=== PATIENT | female | born 1945 | race Caucasian/White ===

== ENCOUNTER 2017-08-28 18:43 | Inpatient (IN) | payer OTHER ==
[~2017-08-28] VITALS: Ht 167.6 cm; Wt 94.5 kg
[~2017-08-28 18:43] MED LIST: AMIT25TA9 PO; ASPEC81 PO; CARV12.52 PO; CRS20 PO; CYM60 PO; DIPH25CA5 PO; DULO60CA44 PO; FERR325T5 PO; FLUT0.0529 NAE; FLV1 PO; FRS/80 PO; HYDR-4715 PO; ISOS-11 PO; LEVO175T23 PO; LOPE1TAB25 PO; NRN/300 PO; NTRGSL/4 UT; OXYM0.056 NAE; RANI150T85 PO; TRAM-10 PO; TRAZ50TA35 PO; VTMD PO; b12 injection
[2017-08-28 19:35] LABS: BASO % 0.1 %; BASO ABS # 0.01 K/uL (0-0.2); EOS % 0.6 %; EOS ABS # 0.08 K/uL (0-0.5); HEMATOCRIT 31.9 % (37-47); HEMOGLOBIN 10.4 g/dL (12.0-16.0); IG# 0.04 K/uL (0.00-0.02); LYMPH % 15.4 %; MEAN CELL VOLUME 88.9 fL (80-100); MEAN CORPUSCULAR HGB CONC 32.6 g/dl (32-36); MEAN PLATELET VOLUME 10.2 fL (7.4-10.4); MONO % 11.2 %; MONO ABS # 1.53 K/uL (0.11-0.59); NEUT % 72.4 %; NEUT ABS # 9.91 K/uL (1.4-6.5); PLATELET COUNT 181 K/uL (130-400); RED CELL DISTRIBUTION WIDTH CV 12.9 % (11.5-14.5); RED CELL DISTRIBUTION WIDTH SD 41.9 fL (36.4-46.3); WHITE BLOOD COUNT 13.67 K/uL (4.8-10.8)
[2017-08-28 19:43] LABS: INR 1.1 (0.9-1.1); PTT PATIENT 30.6 SECONDS (21.0-31.0)
[2017-08-28 19:49] LABS: ALBUMIN 2.5 gm/dl (3.4-5.0); ALT/SGPT 14 U/L (12-78); AST/SGOT 26 U/L (15-37); BLOOD UREA NITROGEN 30 mg/dl (7-18); CALCIUM 9.4 mg/dl (8.5-10.1); CARBON DIOXIDE 25 mmol/L (21-32); GLUCOSE 87 mg/dl (70-99); POTASSIUM 3.5 mmol/L (3.5-5.1); SODIUM 134 mmol/L (136-145)
[2017-08-28 20:00] LABS: ALKALINE PHOSPHATASE 110 U/L (45-117)
--- NOTE | 2017-08-28 20:00 | DIAGNOSTIC IMAGING REPORT ---
CHEST ONE VIEW PORTABLE CLINICAL HISTORY: EVALUATE WEAKNESS dyspnea COMPARISON STUDY: 12/13/2014 FINDINGS: Mild stable cardiomegaly. Permanent bipolar cardiac pacemaker. Lungs are clear. Diaphragms smooth. IMPRESSION: No acute process. The above report was generated using voice recognition software. It may contain grammatical, syntax or spelling errors. Electronically signed by: Erick Orr M.D. 08/28/2017 7:59 PM Dictated Date/Time: 08/28/2017 7:58 PM
--- NOTE | 2017-08-28 20:01 | DIAGNOSTIC IMAGING REPORT ---
L KNEE 3 VIEWS CLINICAL HISTORY: l knee pain fall trauma. Pain. COMPARISON: None. DISCUSSION: The bones and joint spaces appear intact. There is no evidence of fracture, dislocation or bony disease. Mild prepatellar soft tissue edema IMPRESSION: Mild prepatellar soft tissue edema. No acute bony abnormality. The above report was generated using voice recognition software. It may contain grammatical, syntax or spelling errors. Electronically signed by: Erick Orr M.D. 08/28/2017 7:59 PM Dictated Date/Time: 08/28/2017 7:59 PM
[2017-08-28] MEDS ORDERED: VITAMIN B-12 INJ INJ (20:09)
[2017-08-28] MEDS ORDERED: ERGO500011 PO (20:09)
[2017-08-28] MEDS ORDERED: LEVO175T3 PO ×2 (20:09→21:20)
[2017-08-28] MEDS ORDERED: FLUT50SP NAE (20:09)
[2017-08-28] MEDS ORDERED: [UNRECOGNIZED DRUG - CODE] NAE (20:09)
[2017-08-28] MEDS ORDERED: CALC0.5C PO (20:09)
[2017-08-28] MEDS ORDERED: LOPE2TAB84 PO (20:09)
[2017-08-28] MEDS ORDERED: ASPI-435 PO (20:09)
--- NOTE | 2017-08-28 20:21 | DIAGNOSTIC IMAGING REPORT ---
HEAD WITHOUT CONTRAST (CT) CT DOSE: 614.27 mGy.cm HISTORY: Trauma. Mental status change. r knee pain fall TECHNIQUE: Multiaxial CT images of the head were performed without the use of intravenous contrast. A dose lowering technique was utilized adhering to the principles of ALARA. Comparison: 10/04/2013 Findings: Sclerosis of the mastoid air cells bilaterally. This is a chronic finding in this patient and is unchanged. Sinuses are otherwise grossly clear. The calvarium and skull base are intact. The ventricles and sulci are within normal limits. There is no mass, hematoma, midline shift, or acute infarct. Impression: No acute intracranial abnormality. 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 It may contain grammatical, syntax or spelling errors. Electronically signed by: Erick Orr M.D. 08/28/2017 8:20 PM Dictated Date/Time: 08/28/2017 8:18 PM
[2017-08-28] MEDS ORDERED: SODIUM CHLORIDE 0.9% 1000ML 1,000 ML IV STA (20:26)
[2017-08-28] MEDS ORDERED: TRAMADOL HCL 50 MG TAB PO PRN (21:15)
[2017-08-28] MEDS ORDERED: ALUMINUM/MAGNESIUM/SIMETH (MAALOX MAX) 30 ML UDC PO PRN (21:15)
[2017-08-28] MEDS ORDERED: FLUTICASONE PROPIONATE NA SPR 16 GM BTL NAE PRN (21:15)
[2017-08-28] MEDS ORDERED: POLYETHYLENE (MIRALAX) 17 GM PACK PO PRN (21:15)
[2017-08-28] MEDS ORDERED: ONDANSETRON INJ 2 MG/ML 2 ML VIAL IV PRN (21:15)
--- NOTE | 2017-08-28 21:18 | DIAGNOSTIC IMAGING REPORT ---
R KNEE 3 VIEWS CLINICAL HISTORY: r knee pain pain COMPARISON: None. DISCUSSION: The bones and joint spaces appear intact. There is no evidence of fracture, dislocation or bony disease. There is no evidence for soft tissue swelling. IMPRESSION: Negative study. The above report was generated using voice recognition software. It may contain grammatical, syntax or spelling errors. Electronically signed by: Erick Orr M.D. 08/28/2017 9:16 PM Dictated Date/Time: 08/28/2017 9:16 PM
[2017-08-28] MEDS ORDERED: OXYB10TA13 PO (21:20)
[2017-08-28] MEDS ORDERED: NRN/300 PO (21:20)
[2017-08-28] MEDS ORDERED: FRS/80 PO (21:20)
[2017-08-28 22:00] VITALS: O2SAT 94; Ht 167.6 cm; Wt 94.5 kg
[2017-08-28 22:02] VITALS: BP 137/79; PULSE 79; TEMP 36.4; O2SAT 90
[2017-08-28] MEDS: SODIUM CHLORIDE 0.9% 1000ML 1,000 ML IV SCH (23:01)
[2017-08-28] MEDS: HEPARIN SOD 5000 UNIT/0.5 ML CARP SQ SCH (23:07)
--- NOTE | 2017-08-29 00:03 | EMERGENCY ROOM VISIT NOTE ---
History Report prepared by [place]: Moira Mancilla Under the Supervision of: Dr. Levar Seymour D.O. First contact with patient: 18:56 Chief Complaint: FALL Stated Complaint: FALLING, UTI SYMPTOMS, TROUBLE TALKIN AT TIMES History of Present Illness The patient is a 72 year old female who presents to the Emergency Room with complaints of a fall today. The patient states she "just went down" and fell backwards. She is accompanied by her daughter and granddaughter who report she has fallen 3 times in the past 2 weeks. They also state she typically falls on her knees and normally wears 3L of oxygen for her COPD. Her daughter notes she has also been complaining about moderate knee pain and her speech has been slurred which is new. She is also supposed to be walking with a cane but she does not. Pt denies headache, change in vision, fevers, chest pain, shortness of breath, nausea, vomiting, diarrhea, pain with urination, back pain, hip pain , shoulder pain, or hitting her head or the back of her neck. Source of History: patient Onset: today Position: other (upper and lower extremities) Symptom Intensity: moderate Quality: other (fall) Note: Pt denies headache, change in vision, fevers, chest pain, shortness of breath, nausea, vomiting, diarrhea, pain with urination, back pain, hip pain, shoulder pain, or hitting her head or the back of her neck. Review of Systems See HPI for pertinent positives & negatives. A total of 10 systems reviewed and were otherwise negative. 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 (2) Neuropathy (3) Sleep apnea Family History FH: cancer FH: heart disease FH: lung disease Social History Smoking Status: Former Smoker Alcohol Use: none Drug Use: none Marital Status: Housing Status: lives alone Occupation Status: unemployed Current/Historical Medications Scheduled Amitriptyline Hcl (Elavil), 25 MG PO HS Aspirin (Aspirin 81), 81 MG PO DAILY Calcitriol (Calcitriol), 0.5 MCG PO DAILY Carvedilol (Coreg), 12.5 MG PO BID Duloxetine HCl (Duloxetine HCl), 60 MG PO DAILY Ferrous Sulfate (Ferrous Sulfate), 325 MG PO DAILY Folic Acid (Folic Acid), 1 MG PO DAILY Gabapentin (Neurontin), 300 MG PO BID Hydralazine Hcl (Apresoline), 10 MG PO BID Isosorbide Mononitrate (Isosorbide Mononitrate ER), 30 MG PO QAM Levothyroxine Sodium (Levothyroxine Sodium), 150 MCG PO DAILY Nitroglycerin (Nitrostat), 0.4 MG UT DIRECTED Oxybutynin Chloride Er (Ditropan Xl), 1 TAB PO DAILY Ranitidine (Zantac), 150 MG PO BID Rosuvastatin Calcium (Crestor), 20 MG PO DAILY [Vitamin B-12 Inj], 1 DOSE INJ MONTHLY Scheduled PRN Fluticasone Propionate (Nasal) (Eql Fluticasone Propionat), 2 SPRAYS JUAN FRANCISCO UD PRN for NEEDED Furosemide (Lasix), 40 MG PO DAILY PRN for edema Tramadol (Ultram), 50 MG PO Q6H PRN for Pain Allergies Coded Allergies: Daptomycin (Verified Allergy, Intermediate, RASH, 08/28/17) daptomycin induced rhabdomyliosis with renal failure Physical Exam Vital Signs Date Time Temp Pulse Resp B/P (MAP) Pulse Ox O2 Delivery O2 Flow Rate FiO2 08/28/17 20:40 90 22 134/66 97 Nasal Cannula 3.0 08/28/17 19:43 98 Nasal Cannula 3.0 08/28/17 19:32 91 20 129/53 95 Nasal Cannula 3.0 76 118/64 79 116/63 08/28/17 19:25 76 08/28/17 19:22 94 Nasal Cannula 3.0 08/28/17 18:51 36.7 73 18 120/80 97 Room Air Physical Exam GENERAL: alert, well appearing, well nourished, no distress, non-toxic. Disheveled and talking in full sentences. On nasal canula HEAD: normal cephalic, atraumatic EYE EXAM: normal conjunctiva, PERRL and EOM's grossly intact OROPHARYNX: no exudate, no erythema, lips, buccal mucosa, and tongue normal and mucous membranes are moist EARS: TMs clear b/l NECK: supple, no nuchal rigidity, no adenopathy, non-tender CHEST: stable to compression anteriorly and posteriorly LUNGS: clear to auscultation. Normal chest wall mechanics HEART: no murmurs, S1 normal and S2 normal ABDOMEN: abdomen soft, non-tender, normo-active bowel sounds, no masses, no rebound or guarding. PELVIS: stable to compression anteriorly and posteriorly BACK: Back is symmetrical on inspection and there is no deformity, no midline tenderness, no CVA tenderness. SKIN: abrasion over the left elbow UPPER EXTREMITIES: full active and passive range of motion of all joints without tenderness to palpation LOWER EXTREMITIES: minimal tenderness with ROM of bilateral knees NEURO EXAM: Normal sensorium, cranial nerves II-XII grossly intact, normal speech, no gross weakness of arms, no gross weakness of legs. GCS: 15. Medical Decision & Procedures ER Provider Diagnostic Interpretation: Radiology results as stated below per my review and the radiologist's interpretation: CHEST ONE VIEW PORTABLE CLINICAL HISTORY: EVALUATE WEAKNESS dyspnea COMPARISON STUDY: 12/13/2014 FINDINGS: Mild stable cardiomegaly. Permanent bipolar cardiac pacemaker. Lungs are clear. Diaphragms smooth. IMPRESSION: No acute process. The above report was generated using voice recognition software. It may contain grammatical, syntax or spelling errors. Electronically signed by: Erick Orr M.D. 08/28/2017 7:59 PM L KNEE 3 VIEWS CLINICAL HISTORY: l knee pain fall trauma. Pain. COMPARISON: None. DISCUSSION: The bones and joint spaces appear intact. There is no evidence of fracture, dislocation or bony disease. Mild prepatellar soft tissue edema IMPRESSION: Mild prepatellar soft tissue edema. No acute bony abnormality. The above report was generated using voice recognition software. It may contain grammatical, syntax or spelling errors. Electronically signed by: Erick Orr M.D. 08/28/2017 7:59 PM HEAD WITHOUT CONTRAST (CT) CT DOSE: 614.27 mGy.cm HISTORY: Trauma. Mental status change. r knee pain fall TECHNIQUE: Multiaxial CT images of the head were performed without the use of intravenous contrast. A dose lowering technique was utilized adhering to the principles of ALARA. Comparison: 10/04/2013 Findings: Sclerosis of the mastoid air cells bilaterally. This is a chronic finding in this patient and is unchanged. Sinuses are otherwise grossly clear. The calvarium and skull base are intact. The ventricles and sulci are within normal limits. There is no mass, hematoma, midline shift, or acute infarct. Impression: No acute intracranial abnormality. 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 It may contain grammatical, syntax or spelling errors. Electronically signed by: Erick Orr M.D. 08/28/2017 8:20 PM R KNEE 3 VIEWS CLINICAL HISTORY: r knee pain pain COMPARISON: None. DISCUSSION: The bones and joint spaces appear intact. There is no evidence of fracture, dislocation or bony disease. There is no evidence for soft tissue swelling. IMPRESSION: Negative study. The above report was generated using voice recognition software. It may contain grammatical, syntax or spelling errors. Electronically signed by: Erick Orr M.D. 08/28/2017 9:16 PM Laboratory Results 08/28/17 19:14 Red Blood Count 3.59, Mean Corpuscular Volume 88.9, Mean Corpuscular Hemoglobin 29.0, Mean Corpuscular Hemoglobin Concent 32.6, Mean Platelet Volume 10.2, Neutrophils (%) (Auto) 72.4, Lymphocytes (%) (Auto) 15.4, Monocytes (%) (Auto) 11.2, Eosinophils (%) (Auto) 0.6, Basophils (%) (Auto) 0.1, Neutrophils # (Auto ) 9.91, Lymphocytes # (Auto) 2.10, Monocytes # (Auto) 1.53, Eosinophils # (Auto ) 0.08, Basophils # (Auto) 0.01 08/28/17 19:14 Test 08/28/17 19:14 08/28/17 20:35 White Blood Count 13.67 K/uL (4.8-10.8) Red Blood Count 3.59 M/uL (4.2-5.4) Hemoglobin 10.4 g/dL (12.0-16.0) Hematocrit 31.9 % (37-47) Mean Corpuscular Volume 88.9 fL (80-100) Mean Corpuscular Hemoglobin 29.0 pg (25-34) Mean Corpuscular Hemoglobin Concent 32.6 g/dl (32-36) Platelet Count 181 K/uL (130-400) Mean Platelet Volume 10.2 fL (7.4-10.4) Neutrophils (%) (Auto) 72.4 % Lymphocytes (%) (Auto) 15.4 % Monocytes (%) (Auto) 11.2 % Eosinophils (%) (Auto) 0.6 % Basophils (%) (Auto) 0.1 % Neutrophils # (Auto) 9.91 K/uL (1.4-6.5) Lymphocytes # (Auto) 2.10 K/uL (1.2-3.4) Monocytes # (Auto) 1.53 K/uL (0.11-0.59) Eosinophils # (Auto) 0.08 K/uL (0-0.5) Basophils # (Auto) 0.01 K/uL (0-0.2) RDW Standard Deviation 41.9 fL (36.4-46.3) RDW Coefficient of Variation 12.9 % (11.5-14.5) Immature Granulocyte % (Auto) 0.3 % Immature Granulocyte # (Auto) 0.04 K/uL (0.00-0.02) Prothrombin Time 11.8 SECONDS (9.0-12.0) Prothromb Time International Ratio 1.1 (0.9-1.1) Activated Partial Thromboplast Time 30.6 SECONDS (21.0-31.0) Partial Thromboplastin Ratio 1.2 Venous Blood pH 7.32 (7.36-7.41) Venous Blood Partial Pressure CO2 52 mmHg (38.0-50.0) Venous Blood Partial Pressure O2 47 mmHg Venous Blood HCO3 26 mmol/L Venous Blood Oxygen Saturation 78.4 % Venous Blood Base Excess -0.5 mEq/L Anion Gap 6.0 mmol/L (3-11) Est Creatinine Clear Calc Drug Dose 23.4 ml/min Estimated GFR () 21.5 Estimated GFR (Non- 18.6 BUN/Creatinine Ratio 11.8 (10-20) Calcium Level 9.4 mg/dl (8.5-10.1) Total Bilirubin 0.6 mg/dl (0.2-1) Direct Bilirubin 0.2 mg/dl (0-0.2) Aspartate Amino Transf (AST/SGOT) 26 U/L (15-37) Alanine Aminotransferase (ALT/SGPT) 14 U/L (12-78) Alkaline Phosphatase 110 U/L (45-117) Troponin I < 0.015 ng/ml (0-0.045) Total Protein 7.0 gm/dl (6.4-8.2) Albumin 2.5 gm/dl (3.4-5.0) Thyroid Stimulating Hormone (TSH) 0.214 uIu/ml (0.300-4.500) Urine Color YELLOW Urine Appearance TURBID (CLEAR) Urine pH 7.0 (4.5-7.5) Urine Specific [place] 1.007 (1.000-1.030) Urine Protein TRACE (NEG) Urine Glucose (UA) NEG (NEG) Urine Ketones NEG (NEG) Urine Occult Blood 1+ (NEG) Urine Nitrite POS (NEG) Urine Bilirubin NEG (NEG) Urine Urobilinogen NEG (NEG) Urine Leukocyte Esterase LARGE (NEG) Urine WBC (Auto) >30 /hpf (0-5) Urine RBC (Auto) 0-4 /hpf (0-4) Urine Hyaline Casts (Auto) 5-10 /lpf (0-5) Urine Epithelial Cells (Auto) >30 /lpf (0-5) Urine Bacteria (Auto) 4+ (NEG) Urine Pathogenic Casts /lpf (0) Laboratory results per my review. Medications Administered Medications (Trade) Dose Ordered Sig/Yesenia Route Start Time Stop Time Status Last Admin Dose Admin Sodium Chloride 1,000 ml @ 999 mls/hr Q1H1M STAT IV 08/28/17 20:26 08/28/17 21:26 DC 08/28/17 20:43 999 MLS/HR ECG Per My Interpretation Indication: other (fall) Rate (beats per minute): 76 Rhythm: other (Ventricularly paced) Findings: RBBB, other (atrius sense, right axis ) ED Course ED COURSE: Vital signs were reviewed and showed normal The patients medical record was reviewed The above diagnostic studies were performed and reviewed. ED treatments and interventions as stated above. 1857: The patient was evaluated in room C2. A complete history and physical examination was performed. 2025: Sodium Chloride 1000 ml @ 999 mls/hr IV 2031: I reviewed the patient's case with Dr. Carnes, [facility] [address] Hospitalist. He will evaluate the patient for further management. 2031: Upon reevaluation, the patient is agreeable.I discussed my findings with the patient and her family and they understand and agree with the treatment plan. Based on the patients age, coexisting illnesses, exam and lab findings the decision to treat as an inpatient was made. The patient remained stable while under my care. The patient will be evaluated for further management. Medical Decision Differential diagnoses include major intracranial, cervical, spinal, thoracic, abdominal, pelvic and neurologic injury. Fracture, contusion, sprain, strain, laceration, abrasions included as well. Patient is a 72-year-old female who presents the ER for weakness and recurrent falls. Vitals are stable. Labs show a leukocytosis of 13.6. BMP along with a creatinine 2.5 off of the baseline of 1.6. BUN is elevated suggesting dehydration. Bilirubin LFTs and troponin were negative. TSH was low. UA was obtained after admission but was contaminated. Blood gas with a pH of 7.32. CO2 of 52. CT head was negative. X-rays of the knee and chest were unremarkable. Discussed with internal medicine patient was admitted for dehydration, weakness and recurrent falls. Medication Reconcilliation Current Medication List: was personally reviewed by me Blood Pressure Screening Patient's blood pressure: Normal blood pressure Blood pressure disposition: Did not require urgent referral Consults Time Called: 2025 Consulting Physician: Jenna Blancas [place] Hospitalist Returned Call: 2031 I reviewed the patient's case with [facility] He will evaluate the patient for further management. Impression Primary Impression: HERMILO (acute kidney injury) Additional Impressions: Recurrent falls Abrasion Scribe Attestation The scribe's documentation has been prepared under my direction and personally reviewed by me in its entirety. I confirm that the note above accurately reflects all work, treatment, procedures, and medical decision making performed by me. Departure Information Dispostion Being Evaluated By Hospitalist (Jenna Blancas Hospitalist) Prescriptions Oxybutynin Chloride Er (DITROPAN XL) 10 Mg Tab 1 TAB PO DAILY for 30 Days, #30 TAB 1 Refill Prov: Valeriano Carnes MD 08/28/17 Levothyroxine Sodium (LEVOTHYROXINE SODIUM) 175 Mcg Tab 150 MCG PO DAILY for 90 Days, TAB 3 Refills Prov: Valeriano Carnes MD 08/28/17 Furosemide (LASIX) 80 Mg Tab 40 MG PO DAILY Y for edema, #10 TAB Prov: Valeriano Carnes MD 08/28/17 Gabapentin (NEURONTIN) 300 Mg Cap 300 MG PO BID, #14 CAP PRESCRIPTION IS FOR 3 TIMES A DAY MED LIST STATES THAT SHE ONLY TAKES IT 2 TIMES A DAY Prov: Valeriano Carnes MD 08/28/17 Referrals Lee Desai M.D. (PCP) Patient Instructions My [facility] Problem Qualifiers
--- NOTE | 2017-08-29 00:50 | HISTORY & PHYSICAL EXAMINATION ---
DATE OF ADMISSION: 08/28/2017 CHIEF COMPLAINT: Frequent falls. HISTORY OF PRESENT ILLNESS: This is a 72-year-old female with past medical history significant for nonischemic cardiomyopathy, EF of 20%-25%, status post biventricular ICD placement, but recent echo showed normal EF and grade 1 diastolic dysfunction, history of sleep apnea, noncompliant with CPAP but uses oxygen about 2-3 L continuously, history of hyperparathyroidism, general osteoarthrosis, allergic rhinitis, chronic kidney disease stage III, GERD, hypertension, hypothyroidism, hyperlipidemia, history of pernicious anemia, peripheral neuropathy, who presents with the frequent falls and ambulatory dysfunction and family also says she is somewhat confused, she is making things up, but the patient seems to be alert and oriented, currently hemodynamically stable, resting comfortably. She denies any headaches, no blurred vision, no earaches. She has some runny nose. No sore throat, no difficulty swallowing. No chest pain, no shortness of breath, no cough, no fever, no chills. Appetite is not that great. No nausea, no abdominal pain. Normal bowel and bladder movements. No blood in the stools, no blood in the urine, no burning micturition. She has chronic lower extremity edema. The patient says she is prescribed Lasix as needed but lately not taking Lasix for some time, and she is also supposed to use CPAP, but she is not using CPAP for several months now, and as per family, patient few years back found unresponsive at home, and at that time, she was hypoxic, and since then, she is on oxygen. ALLERGIES: DAPTOMYCIN AND ENALAPRIL. PAST MEDICAL HISTORY: As mentioned above, and also, she has had already angioplasty for 90% stenosis due to fibromuscular dysplasia, peripheral neuropathy, obesity, history of gastrointestinal hemorrhage in 1992 for GI bleeding secondary to multiple gastric ulcers, lumbar disk with radiculopathy, gout. PAST SURGICAL HISTORY: Sinus surgery, cholecystectomy, removal of a brain cyst in 1962, and . SOCIAL HISTORY: Smoked one-half pack a day for 32 years. No alcohol, no drug use. Lives alone. Daughter lives close by. FAMILY HISTORY: Father of [place] in his 50s. Mother of cancer in 50s. REVIEW OF SYSTEMS: As per HPI. Rest of review of systems negative. MEDICATIONS: Patient is on albuterol nebulization every 4 hours as needed, currently not using it, aspirin 81 mg p.o. daily, calcitriol 0.5 mcg p.o. daily, ferrous sulfate 325 mg p.o. daily, Flonase 2 sprays into each nostril daily, Ditropan XL 10 mg p.o. daily, oxygen 2 L, Zantac 150 mg p.o. b.i.d., Elavil 25 mg p.o. at bedtime, Coreg 12.5 mg p.o. b.i.d., Cymbalta 60 mg p.o. daily, folic acid 1 mg p.o. daily, Lasix 40 mg daily p.r.n., gabapentin 300 mg p.o. b.i.d., hydralazine 10 mg p.o. b.i.d., Imdur 30 mg p.o. daily, levothyroxine 150 mcg p.o. daily, nitroglycerin 0.4 mg sublingual p.r.n., Crestor 20 mg p.o. daily, tramadol 50 mg p.o. at bedtime p.r.n., vitamin B12 of 1000 mcg injections. PHYSICAL EXAMINATION: GENERAL: The patient is obese, not in distress. VITAL SIGNS: Temperature 36.7, pulse is 90, respiratory rate 22, blood pressure 134/66, oxygen saturation 97% on 2 L. HEENT: No pallor, no icterus. Pupils equal, round, and reactive to light. NECK: No JVD, no neck masses, no carotid bruits. CARDIOVASCULAR SYSTEM: S1 and S2 heard, regular rate and rhythm, no murmur, no gallop. RESPIRATORY SYSTEM: Normal AP diameter. No accessory muscle use. No wheezing, no crackles. GASTROINTESTINAL: Abdomen is soft, bowel sounds present, nontender, no distention. EXTREMITIES: Bilateral lower extremity +2 edema present, no erythema seen. CENTRAL NERVOUS SYSTEM: Cranial nerves II through XII grossly intact. Nonfocal. Power 5/5 in all extremities. LABORATORY DATA: Sodium 134, potassium 3.5, chloride 103, bicarbonate 25, BUN 30, creatinine 2.5, serum glucose 87. Calcium 9.4, total bilirubin 0.6, direct bilirubin 0.2, AST 26, ALT 14, alkaline phosphatase 110. Troponin I less than 0.015. TSH 0.214. WBC 13.6, hemoglobin 10.4, hematocrit 31.9, platelets 181, PT 11.8, INR 1.1, APTT 30.6. Urinalysis pending. IMAGING: Chest x-ray: No acute findings seen. Left knee x-ray: Mild prepatellar soft tissue edema. No acute bony abnormality seen. CT of the head: No acute intracranial abnormality. Chronic occlusion of mastoid air cells. EKG shows atrial sensed ventricular paced rhythm with rate of 76. ASSESSMENT AND PLAN: This is a 70-year-old female who presents with frequent falls and ambulatory dysfunction, questionable confusion. 1. Frequent falls, ambulatory dysfunction. The patient says since last couple of years, not able to ambulate much because of the heaviness of the legs from the edema, but lately she is not even able to get up from the bed and fell 3 times in last 2 weeks. We will also check vitamin B12 level as the patient has history of pernicious anemia. Check for urinalysis. PT/OT when more stable. May need placement. 2. Acute renal failure on chronic kidney disease stage III. Baseline creatinine of 1.6-1.7, presented with creatinine of 2.5. Patient uses Lasix as needed. We will hold the Lasix and place on gentle fluids, normal saline at 50 mL/h. Follow the labs. Consult nephrology in the a.m. 3. History of chronic systolic congestive heart failure and diastolic congestive heart failure, ejection fraction was 20% to 25% in the past, but last echo in August 2017 showed normal ejection fraction and grade 1 diastolic dysfunction. The patient is on Lasix as needed which we will hold for now. On gentle fluids, monitor for volume overload. Continue Coreg with holding parameters and hydralazine and Imdur. 5. History of hypothyroidism, on Synthroid 150 mcg. TSH is low. We will repeat labs and adjust Synthroid accordingly. 6. History of hyperlipidemia. Continue statin. 7. History of pernicious anemia, on vitamin B12 injections. Will follow the vitamin B12 level. 8. Gastroesophageal reflux disease. Continue Zantac. 9. Obstructive sleep apnea, noncompliant with CPAP. We will place CPAP in the hospital. On chronic oxygen,two 2 step prior to discharge. 10. Hypertension. Continue home medications of Coreg, Imdur, and hydralazine and monitor the blood pressure. 11. Deep venous thrombosis prophylaxis. Heparin subcu. 12. Disposition: Admit to medical floor. PT/OT prior to discharge. Social service will help with discharge planning. Level 1 full code. Addendum: UA positive. started on Rocephin. f/u cultures MTDD
[2017-08-29 04:00] VITALS: BP 131/71; PULSE 74; TEMP 36.7; O2SAT 95
[2017-08-29 06:05] LABS: BASO % 0.2 %; BASO ABS # 0.02 K/uL (0-0.2); EOS % 0.9 %; EOS ABS # 0.09 K/uL (0-0.5); HEMATOCRIT 30.3 % (37-47); HEMOGLOBIN 9.9 g/dL (12.0-16.0); IG# 0.03 K/uL (0.00-0.02); LYMPH ABS # 1.18 K/uL (1.2-3.4); MEAN CELL VOLUME 89.1 fL (80-100); MEAN CORPUSCULAR HEMOGLOBIN 29.1 pg (25-34); MEAN CORPUSCULAR HGB CONC 32.7 g/dl (32-36); MONO ABS # 1.08 K/uL (0.11-0.59); NEUT % 75.6 %; NEUT ABS # 7.46 K/uL (1.4-6.5); PLATELET COUNT 157 K/uL (130-400); RED CELL DISTRIBUTION WIDTH CV 12.9 % (11.5-14.5); RED CELL DISTRIBUTION WIDTH SD 41.9 fL (36.4-46.3); WHITE BLOOD COUNT 9.86 K/uL (4.8-10.8)
[2017-08-29] MEDS: LEVOTHYROXINE 150 MCG TAB PO SCH (06:19)
[2017-08-29] MEDS: HEPARIN SOD 5000 UNIT/0.5 ML CARP SQ SCH ×3 (06:21→21:06)
[2017-08-29 06:34] LABS: CALCIUM 8.8 mg/dl (8.5-10.1); CREATININE 2.25 mg/dl (0.60-1.20); POTASSIUM 3.3 mmol/L (3.5-5.1)
[2017-08-29] MEDS ORDERED: LEVOTHYROXINE 175 MCG TAB PO SCH ×2 (07:00→09:00)
[2017-08-29] MEDS: CEFTRIAXONE SOD INJ 1 GM in DEXTROSE 5% ADD-VANTAGE 50ML 50 ML IV SCH (07:10)
[2017-08-29 07:38] VITALS: BP 145/79; PULSE 74; TEMP 36.7; O2SAT 99
[2017-08-29] MEDS ORDERED: DULOXETINE HCL 60 MG CAP PO SCH (08:00)
[2017-08-29] MEDS ORDERED: ROSUVASTATIN CALCIUM 20 MG TAB PO SCH (08:00)
[2017-08-29] MEDS: GABAPENTIN 300 MG CAP PO SCH ×2 (08:16→21:00)
[2017-08-29] MEDS: ASPIRIN 81 MG ECTAB PO SCH (08:16)
[2017-08-29] MEDS: RANITIDINE HCL 150 MG TAB PO SCH ×2 (08:17→20:56)
[2017-08-29] MEDS: CALCITRIOL 0.5 MCG CAP PO SCH (08:17)
[2017-08-29] MEDS: FERROUS SULFATE 325 MG TAB PO SCH (08:18)
[2017-08-29] MEDS: HydrALAZINE 10 MG TAB PO SCH ×2 (08:19→21:01)
[2017-08-29] MEDS: ISOSORBIDE MONONITRATE 30 MG TABCR PO SCH (08:19)
[2017-08-29] MEDS: OXYBUTYNIN CHLORIDE 5 MG TABCR PO SCH (08:20)
[2017-08-29] MEDS: CARVEDILOL 12.5 MG TAB PO SCH ×2 (08:20→20:56)
[2017-08-29] MEDS ORDERED: GABAPENTIN 300 MG CAP PO SCH (09:00)
[2017-08-29] MEDS ORDERED: OXYMETAZOLINE HCL 0.05% NA SPR 15 ML BTL NAE SCH (09:00)
[2017-08-29] MEDS ORDERED: NURSING DECISION MEDICATION ORDER SCH (10:15)
[2017-08-29] MEDS: ROSUVASTATIN CALCIUM 20 MG TAB PO SCH (11:52)
[2017-08-29] MEDS: DULOXETINE HCL 60 MG CAP PO SCH (11:52)
[2017-08-29] MEDS ORDERED: POTASSIUM CHLORIDE 10 MEQ TABCR PO STA (12:08)
--- NOTE | 2017-08-29 13:14 | Nephrology Consultation ---
Nephrology Consultation Date & Providers Date of Consultation: Aug 29, 2017. Primary Care Provider: Lee Desai M.D. Referring Provider: Reason for Consultation HERMILO / CKD History of Present Illness Ms. Iglesias is a 72 year old white female who is seen at the request of Dr. Carnes for evaluation of HERMILO / CKD. Medical records in the EMR have been reviewed today and are summarized as follows: Ms. Iglesias has stage III CKD w / baseline creatinine 2.1 dating back to at least 04/10. Her renal evaluation had revealed a benign urine sediment. Urinary protein excretion has been low grade. Renal US revealed 9.5 cm kidneys w/ cortical thinning. Patient's renal impairment has been on the basis of microvascular disease and hypertensive nephrosclerosis. In 10/09 Ms. Iglesias underwent evaluation for HTN. 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 Her medical history is also significant for HTN, anemia, hypercholesterolemia, peripheral neuropathy, MONIQUE, ASCVD, CMP s/p AICD. Ms. Iglesias reports that she has fallen three times over the last 2 weeks. She attributes this to her peripheral neuropathy. At the time of admission she was found to have a UTI and creatinine has risen to 2.5. Ms. Iglesias is now receiving IV hydration and empiric Ceftriaxone therapy. Nephrology consultation has been requested to evaluate her HERMILO / CKD Past Medical/Surgical History Medical: # Stage III CKD (moderate impairment). Baseline creatinine 2.1. Renal impairment is on the basis of HTN and microvascular disease # Cortical thinning w/ 9.5 cm kidneys on US 06/12 # FMD s/p [facility] renal arteries at [facility] 10/09 # HTN # Anemia # Hypercholesterolemia # sHPT # ASCVD, CMP s/p AICD # Peripheral neuropathy managed w/ Gabapentin therapy # MONIQUE Surgical: # AICD # [facility] renal arteries due to FMC at [facility] 10/09 Allergies Coded Allergies: Daptomycin (Verified Allergy, Intermediate, RASH, 08/28/17) daptomycin induced rhabdomyliosis with renal failure Inpatient Medications Current Inpatient Medications Medications (Trade) Dose Ordered Sig/Yesenia Route Start Time Stop Time Status Last Admin Dose Admin Heparin Sodium (Porcine) (Heparin Sq 5000 Unit/0.5ml) 5,000 unit Q8H SQ 08/28/17 22:00 09/27/17 21:59 08/29/17 06:21 5,000 UNIT Acetaminophen (Tylenol Tab) 650 mg Q4H PRN PO 08/28/17 21:15 09/27/17 21:14 Al Hydrox/Mg Hydrox/Simethicone (Maalox Max Susp) 15 ml Q4H PRN PO 08/28/17 21:15 09/27/17 21:14 Polyethylene (Miralax Powder Packet) 17 gm DAILY PRN PO 08/28/17 21:15 09/27/17 21:14 Ondansetron HCl (Zofran Inj) 4 mg Q6H PRN IV 08/28/17 21:15 09/27/17 21:14 Amitriptyline HCl (Elavil Tab) 25 mg HS PO 08/29/17 21:00 09/28/17 20:59 Aspirin (Ecotrin Tab) 81 mg DAILY PO 08/29/17 08:00 09/28/17 08:59 08/29/17 08:16 81 MG Calcitriol (Rocaltrol Cap) 0.5 mcg DAILY PO 08/29/17 08:00 09/28/17 08:59 08/29/17 08:17 0.5 MCG Carvedilol (Coreg Tab) 12.5 mg BID PO 08/29/17 08:00 09/28/17 08:59 08/29/17 08:20 12.5 MG Ferrous Sulfate (Feosol Tab) 325 mg DAILY PO 08/29/17 08:00 09/28/17 08:59 08/29/17 08:18 325 MG Fluticasone Propionate (Flonase Nasal [place]) 2 sprays UD PRN JUAN FRANCISCO 08/28/17 21:15 09/27/17 21:14 Folic Acid (Folvite Tab) 1 mg DAILY PO 08/29/17 08:00 09/28/17 08:59 08/29/17 08:19 1 MG Hydralazine HCl (Apresoline Tab) 10 mg BID PO 08/29/17 08:00 09/28/17 08:59 08/29/17 08:19 10 MG Isosorbide Mononitrate (Imdur Ext Rel Tab) 30 mg QAM PO 08/29/17 08:00 09/28/17 08:59 08/29/17 08:19 30 MG Ranitidine HCl (zANTac TAB) 150 mg BID PO 08/29/17 08:00 09/28/17 08:59 08/29/17 08:17 150 MG Tramadol HCl (Ultram Tab) 50 mg Q6H PRN PO 08/28/17 21:15 09/27/17 21:14 Sodium Chloride 1,000 ml @ 50 mls/hr Q20H IV 08/28/17 22:00 09/27/17 21:59 08/28/17 23:01 50 MLS/HR Gabapentin (Neurontin Cap) 300 mg BID PO 08/29/17 08:00 09/28/17 08:59 08/29/17 08:16 300 MG Oxybutynin Chloride (Ditropan-Xl Tab) 10 mg DAILY PO 08/29/17 08:00 09/28/17 08:59 08/29/17 08:20 10 MG Levothyroxine Sodium (Synthroid Tab) 150 mcg DAILYBB PO 08/29/17 06:30 09/28/17 06:59 08/29/17 06:19 150 MCG Ceftriaxone Sodium 1 gm/ Dextrose 50 ml @ 100 mls/hr Q24H IV 08/29/17 07:00 09/08/17 06:59 08/29/17 07:10 100 MLS/HR Duloxetine HCl (Cymbalta Cap) 60 mg DAILY@1200 PO 08/29/17 12:00 09/28/17 11:59 08/29/17 11:52 60 MG Rosuvastatin Calcium (Crestor Tab) 20 mg DAILY@1200 PO 08/29/17 12:00 09/28/17 11:59 08/29/17 11:52 20 MG Family History FH: cancer FH: heart disease FH: lung disease Negative for CKD/ESRD Social History Smoking Status: Former Smoker Drug Use: none Marital Status: Housing Status: lives with family Occupation: unemployed . Former smoker Review of Systems Constitutional: No fever Respiratory: No cough Cardiovascular: No chest pain Abdomen: No pain, No nausea, No vomiting Integumentary: No rash A complete review of systems was performed. Pertinent positives are noted above. All other systems are negative. Physical Exam Date Time Temp Pulse Resp B/P (MAP) Pulse Ox O2 Delivery O2 Flow Rate FiO2 08/29/17 08:20 Nasal Cannula 3.0 08/29/17 07:38 36.7 74 16 145/79 (101) 99 Nasal Cannula 3.0 08/29/17 04:00 36.7 74 20 131/71 (91) 95 3.0 08/29/17 00:00 Room Air 08/28/17 22:02 36.4 79 20 137/79 (98) 90 Room Air 08/28/17 22:00 94 Nasal Cannula 3.0 08/28/17 21:33 86 18 125/79 97 Nasal Cannula 3.0 08/28/17 20:40 90 22 134/66 97 Nasal Cannula 3.0 08/28/17 19:43 98 Nasal Cannula 3.0 08/28/17 19:32 91 20 129/53 95 Nasal Cannula 3.0 76 118/64 79 116/63 08/28/17 19:25 76 08/28/17 19:22 94 Nasal Cannula 3.0 08/28/17 18:51 36.7 73 18 120/80 97 Room Air General Appearance: no apparent distress Head: normocephalic, atraumatic Eyes: PERRL, EOMI Neck: no adenopathy Respiratory/Chest: lungs clear, no respiratory distress Cardiovascular: regular rate, rhythm Abdomen/GI: normal bowel sounds, non tender, soft Extremities/Musculoskelatal: no calf tenderness, no pedal edema Neurologic/Psych: alert, oriented x 3 Skin: warm/dry, + pertinent finding (no peripheal edema) Laboratory Results Last 24 Hours Test 08/28/17 19:14 08/28/17 20:35 08/29/17 05:39 08/29/17 06:26 White Blood Count 13.67 K/uL 9.86 K/uL Red Blood Count 3.59 M/uL 3.40 M/uL Hemoglobin 10.4 g/dL 9.9 g/dL Hematocrit 31.9 % 30.3 % Mean Corpuscular Volume 88.9 fL 89.1 fL Mean Corpuscular Hemoglobin 29.0 pg 29.1 pg Mean Corpuscular Hemoglobin Concent 32.6 g/dl 32.7 g/dl Platelet Count 181 K/uL 157 K/uL Mean Platelet Volume 10.2 fL 10.0 fL Neutrophils (%) (Auto) 72.4 % 75.6 % Lymphocytes (%) (Auto) 15.4 % 12.0 % Monocytes (%) (Auto) 11.2 % 11.0 % Eosinophils (%) (Auto) 0.6 % 0.9 % Basophils (%) (Auto) 0.1 % 0.2 % Neutrophils # (Auto) 9.91 K/uL 7.46 K/uL Lymphocytes # (Auto) 2.10 K/uL 1.18 K/uL Monocytes # (Auto) 1.53 K/uL 1.08 K/uL Eosinophils # (Auto) 0.08 K/uL 0.09 K/uL Basophils # (Auto) 0.01 K/uL 0.02 K/uL RDW Standard Deviation 41.9 fL 41.9 fL RDW Coefficient of Variation 12.9 % 12.9 % Immature Granulocyte % (Auto) 0.3 % 0.3 % Immature Granulocyte # (Auto) 0.04 K/uL 0.03 K/uL Prothrombin Time 11.8 SECONDS Prothromb Time International Ratio 1.1 Activated Partial Thromboplast Time 30.6 SECONDS Partial Thromboplastin Ratio 1.2 Venous Blood pH 7.32 Venous Blood Partial Pressure CO2 52 mmHg Venous Blood Partial Pressure O2 47 mmHg Venous Blood HCO3 26 mmol/L Venous Blood Oxygen Saturation 78.4 % Venous Blood Base Excess -0.5 mEq/L Sodium Level 134 mmol/L 141 mmol/L Potassium Level 3.5 mmol/L 3.3 mmol/L Chloride Level 103 mmol/L 109 mmol/L Carbon Dioxide Level 25 mmol/L 25 mmol/L Anion Gap 6.0 mmol/L 7.0 mmol/L Blood Urea Nitrogen 30 mg/dl 28 mg/dl Creatinine 2.50 mg/dl 2.25 mg/dl Est Creatinine Clear Calc Drug Dose 23.4 ml/min 26.2 ml/min Estimated GFR () 21.5 24.5 Estimated GFR (Non- 18.6 21.1 BUN/Creatinine Ratio 11.8 12.4 Random Glucose 87 mg/dl 87 mg/dl Calcium Level 9.4 mg/dl 8.8 mg/dl Total Bilirubin 0.6 mg/dl Direct Bilirubin 0.2 mg/dl Aspartate Amino Transf (AST/SGOT) 26 U/L Alanine Aminotransferase (ALT/SGPT) 14 U/L Alkaline Phosphatase 110 U/L Troponin I < 0.015 ng/ml Total Protein 7.0 gm/dl Albumin 2.5 gm/dl Thyroid Stimulating Hormone (TSH) 0.214 uIu/ml 0.168 uIu/ml Hepatitis C Antibody Screen NEG Urine Color YELLOW Urine Appearance TURBID Urine pH 7.0 Urine Specific [place] 1.007 Urine Protein TRACE Urine Glucose (UA) NEG Urine Ketones NEG Urine Occult Blood 1+ Urine Nitrite POS Urine Bilirubin NEG Urine Urobilinogen NEG Urine Leukocyte Esterase LARGE Urine WBC (Auto) >30 /hpf Urine RBC (Auto) 0-4 /hpf Urine Hyaline Casts (Auto) 5-10 /lpf Urine Epithelial Cells (Auto) >30 /lpf Urine Bacteria (Auto) 4+ Urine Pathogenic Casts /lpf Magnesium Level 1.8 mg/dl Free Thyroxine 1.40 ng/dl Free Triiodothyronine 1.78 pg/ml Vitamin B12 Level 312 pg/mL Impression (1) HERMILO (acute kidney injury) (2) Chronic kidney disease, stage 3 (moderate) (3) Cystitis (4) Dehydration (5) Cardiomyopathy (6) Falls Recommendations ACUTE KIDNEY INJURY: -- Resolved -- Patient remains clinically volume contracted. Continue to hold diuretics and provide gentle hydration -- Monitor serial PRP CHRONIC KIDNEY DISEASE: -- Baseline creatinine has been 2.1 ID: -- UA is c/w acute cystitis. Agree w/ empiric Ceftriaxone therapy. Await culture results ANEMIA: -- Low grade, stable. Continue oral iron supplementation. No acute indication for KARTHIKEYAN at this time CKD-BMD: -- Continue Calcitriol therapy
[2017-08-29 14:56] VITALS: BP 118/69; PULSE 67; TEMP 36.7; O2SAT 94
[2017-08-29] MEDS: SODIUM CHLORIDE 0.9% 1000ML 1,000 ML IV SCH (18:16)
--- NOTE | 2017-08-29 18:17 | Progress Note ---
Medicine Progress Note Date & Time of Visit: Aug 29, 2017 at 18:03. Subjective Patient seen with family at the bedside. Denies any complaints other than bilateral knee pain. She states she feels her knee pain and knees giving out on her have been a big problem recently. Her family is very concerned about all of the falls that the patient Objective Last 8 Hrs Date Time Temp Pulse Resp B/P (MAP) Pulse Ox O2 Delivery O2 Flow Rate FiO2 08/29/17 16:09 Nasal Cannula 3.0 08/29/17 14:56 36.7 67 20 118/69 (85) 94 Room Air Physical Exam: GENERAL: Patient is in no acute distress. HEENT: No acute trauma, normocephalic, mucous membranes moist, no nasal congestion, no scleral icterus. NECK: No stridor, trachea is midline. LUNGS: Clear to auscultation bilaterally, no wheeze, no rhonchi, breath sounds equal. HEART: Without murmurs gallops or rubs, regular rate and rhythm. ABDOMEN: Soft, nontender, bowel sounds positive EXTREMITIES: No cyanosis; trace LE edema, reports pain in B/L knees with movement and palpation; moving all 4 extremities, no signs for acute trauma. NEUROLOGIC: Oriented x 3, no acute motor or sensory deficits, no focal weakness. SKIN: No rash, no jaundice, no diaphoresis. Laboratory Results: Last 24 Hours Test 08/28/17 19:14 08/28/17 20:35 08/29/17 05:39 08/29/17 06:26 White Blood Count 13.67 K/uL 9.86 K/uL Red Blood Count 3.59 M/uL 3.40 M/uL Hemoglobin 10.4 g/dL 9.9 g/dL Hematocrit 31.9 % 30.3 % Mean Corpuscular Volume 88.9 fL 89.1 fL Mean Corpuscular Hemoglobin 29.0 pg 29.1 pg Mean Corpuscular Hemoglobin Concent 32.6 g/dl 32.7 g/dl Platelet Count 181 K/uL 157 K/uL Mean Platelet Volume 10.2 fL 10.0 fL Neutrophils (%) (Auto) 72.4 % 75.6 % Lymphocytes (%) (Auto) 15.4 % 12.0 % Monocytes (%) (Auto) 11.2 % 11.0 % Eosinophils (%) (Auto) 0.6 % 0.9 % Basophils (%) (Auto) 0.1 % 0.2 % Neutrophils # (Auto) 9.91 K/uL 7.46 K/uL Lymphocytes # (Auto) 2.10 K/uL 1.18 K/uL Monocytes # (Auto) 1.53 K/uL 1.08 K/uL Eosinophils # (Auto) 0.08 K/uL 0.09 K/uL Basophils # (Auto) 0.01 K/uL 0.02 K/uL RDW Standard Deviation 41.9 fL 41.9 fL RDW Coefficient of Variation 12.9 % 12.9 % Immature Granulocyte % (Auto) 0.3 % 0.3 % Immature Granulocyte # (Auto) 0.04 K/uL 0.03 K/uL Prothrombin Time 11.8 SECONDS Prothromb Time International Ratio 1.1 Activated Partial Thromboplast Time 30.6 SECONDS Partial Thromboplastin Ratio 1.2 Venous Blood pH 7.32 Venous Blood Partial Pressure CO2 52 mmHg Venous Blood Partial Pressure O2 47 mmHg Venous Blood HCO3 26 mmol/L Venous Blood Oxygen Saturation 78.4 % Venous Blood Base Excess -0.5 mEq/L Sodium Level 134 mmol/L 141 mmol/L Potassium Level 3.5 mmol/L 3.3 mmol/L Chloride Level 103 mmol/L 109 mmol/L Carbon Dioxide Level 25 mmol/L 25 mmol/L Anion Gap 6.0 mmol/L 7.0 mmol/L Blood Urea Nitrogen 30 mg/dl 28 mg/dl Creatinine 2.50 mg/dl 2.25 mg/dl Est Creatinine Clear Calc Drug Dose 23.4 ml/min 26.2 ml/min Estimated GFR () 21.5 24.5 Estimated GFR (Non- 18.6 21.1 BUN/Creatinine Ratio 11.8 12.4 Random Glucose 87 mg/dl 87 mg/dl Calcium Level 9.4 mg/dl 8.8 mg/dl Total Bilirubin 0.6 mg/dl Direct Bilirubin 0.2 mg/dl Aspartate Amino Transf (AST/SGOT) 26 U/L Alanine Aminotransferase (ALT/SGPT) 14 U/L Alkaline Phosphatase 110 U/L Troponin I < 0.015 ng/ml Total Protein 7.0 gm/dl Albumin 2.5 gm/dl Thyroid Stimulating Hormone (TSH) 0.214 uIu/ml 0.168 uIu/ml Hepatitis C Antibody Screen NEG Urine Color YELLOW Urine Appearance TURBID Urine pH 7.0 Urine Specific [place] 1.007 Urine Protein TRACE Urine Glucose (UA) NEG Urine Ketones NEG Urine Occult Blood 1+ Urine Nitrite POS Urine Bilirubin NEG Urine Urobilinogen NEG Urine Leukocyte Esterase LARGE Urine WBC (Auto) >30 /hpf Urine RBC (Auto) 0-4 /hpf Urine Hyaline Casts (Auto) 5-10 /lpf Urine Epithelial Cells (Auto) >30 /lpf Urine Bacteria (Auto) 4+ Urine Pathogenic Casts /lpf Magnesium Level 1.8 mg/dl Free Thyroxine 1.40 ng/dl Free Triiodothyronine 1.78 pg/ml Vitamin B12 Level 312 pg/mL Date/Time Source Procedure Growth Status 08/28/17 20:35 Urine,Catheterized Urine Culture - Preliminary Escherichia Coli Resulted Assessment & Plan AMBULATORY DYSFUNCTION/FREQUENT FALLS: -reports difficulty ambulating the last couple of years because of the heaviness of her legs from the edema, but lately she is not even able to get up from the bed and fell 3 times in last 2 weeks. -vitamin B12 level 312 -Urine culture growing E.coli -PT/OT consult -will likely need placement/rehab -X rays of B/L knees normal HERMILO on CKD STAGE III: -Nephrology consulted, appreciate recs, report the recent baseline creatinine has been around 2.0 -presented with creatinine of 2.5-->2.25 -uses Lasix as needed at home but has been held since admission -continue on gentle fluids, normal saline at 50 mL/h. -avoid nephrotoxins HISTORY OF CHRONIC SYSTOLIC AND DIASTOLIC CHF: -s/p AICD -ejection fraction was 20% to 25% in the past, but TTE in August 2017 showed normal ejection fraction and grade 1 diastolic dysfunction -on Lasix as needed which we held for now -on gentle fluids, monitor for volume overload; check daily weights and I's and O's -continue Coreg, hydralazine, and Imdur. HYPOTHYROIDISM: -on Synthroid 150 mcg HYPERLIPIDEMIA: -continue statin. Hx of PERNICIOUS ANEMIA: -on vitamin B12 injections GERD: -continue Zantac. MONIQUE: -noncompliant with CPAP. -ordered CPAP in the hospital. -On chronic oxygen, 2 step prior to discharge. HTN: -controlled -continue home medications of Coreg, Imdur, and hydralazine and monitor the blood pressure. Current Inpatient Medications: Current Inpatient Medications Medications (Trade) Dose Ordered Sig/Yesenia Route Start Time Stop Time Status Last Admin Dose Admin Heparin Sodium (Porcine) (Heparin Sq 5000 Unit/0.5ml) 5,000 unit Q8H SQ 08/28/17 22:00 09/27/17 21:59 08/29/17 15:59 5,000 UNIT Acetaminophen (Tylenol Tab) 650 mg Q4H PRN PO 08/28/17 21:15 09/27/17 21:14 Al Hydrox/Mg Hydrox/Simethicone (Maalox Max Susp) 15 ml Q4H PRN PO 08/28/17 21:15 09/27/17 21:14 Polyethylene (Miralax Powder Packet) 17 gm DAILY PRN PO 08/28/17 21:15 09/27/17 21:14 Ondansetron HCl (Zofran Inj) 4 mg Q6H PRN IV 08/28/17 21:15 09/27/17 21:14 Amitriptyline HCl (Elavil Tab) 25 mg HS PO 08/29/17 21:00 09/28/17 20:59 Aspirin (Ecotrin Tab) 81 mg DAILY PO 08/29/17 08:00 09/28/17 08:59 08/29/17 08:16 81 MG Calcitriol (Rocaltrol Cap) 0.5 mcg DAILY PO 08/29/17 08:00 09/28/17 08:59 08/29/17 08:17 0.5 MCG Carvedilol (Coreg Tab) 12.5 mg BID PO 08/29/17 08:00 09/28/17 08:59 08/29/17 08:20 12.5 MG Ferrous Sulfate (Feosol Tab) 325 mg DAILY PO 08/29/17 08:00 09/28/17 08:59 08/29/17 08:18 325 MG Fluticasone Propionate (Flonase Nasal [place]) 2 sprays UD PRN JUAN FRANCISCO 08/28/17 21:15 09/27/17 21:14 Folic Acid (Folvite Tab) 1 mg DAILY PO 08/29/17 08:00 09/28/17 08:59 08/29/17 08:19 1 MG Hydralazine HCl (Apresoline Tab) 10 mg BID PO 08/29/17 08:00 5/29/18 08:59 08/29/17 08:19 10 MG Isosorbide Mononitrate (Imdur Ext Rel Tab) 30 mg QAM PO 08/29/17 08:00 09/28/17 08:59 08/29/17 08:19 30 MG Ranitidine HCl (zANTac TAB) 150 mg BID PO 08/29/17 08:00 09/28/17 08:59 08/29/17 08:17 150 MG Tramadol HCl (Ultram Tab) 50 mg Q6H PRN PO 08/28/17 21:15 09/27/17 21:14 Sodium Chloride 1,000 ml @ 50 mls/hr Q20H IV 08/28/17 22:00 09/27/17 21:59 08/28/17 23:01 50 MLS/HR Gabapentin (Neurontin Cap) 300 mg BID PO 08/29/17 08:00 09/28/17 08:59 08/29/17 08:16 300 MG Oxybutynin Chloride (Ditropan-Xl Tab) 10 mg DAILY PO 08/29/17 08:00 09/28/17 08:59 08/29/17 08:20 10 MG Levothyroxine Sodium (Synthroid Tab) 150 mcg DAILYBB PO 08/29/17 06:30 09/28/17 06:59 08/29/17 06:19 150 MCG Ceftriaxone Sodium 1 gm/ Dextrose 50 ml @ 100 mls/hr Q24H IV 08/29/17 07:00 09/08/17 06:59 08/29/17 07:10 100 MLS/HR Duloxetine HCl (Cymbalta Cap) 60 mg DAILY@1200 PO 08/29/17 12:00 09/28/17 11:59 08/29/17 11:52 60 MG Rosuvastatin Calcium (Crestor Tab) 20 mg DAILY@1200 PO 08/29/17 12:00 09/28/17 11:59 08/29/17 11:52 20 MG
[2017-08-29] MEDS: AMITRIPTYLINE HCL 25 MG TAB PO SCH (21:00)
[2017-08-29 21:08] VITALS: BP 149/81; PULSE 90
[2017-08-30] VITALS: O2SAT 94
[2017-08-30 00:09] VITALS: BP 150/81; PULSE 68; TEMP 36.2; O2SAT 99
[2017-08-30 06:46] LABS: BASO % 0.1 %; BASO ABS # 0.01 K/uL (0-0.2); EOS % 1.5 %; EOS ABS # 0.14 K/uL (0-0.5); HEMATOCRIT 30.9 % (37-47); IG# 0.04 K/uL (0.00-0.02); LYMPH % 14.9 %; LYMPH ABS # 1.38 K/uL (1.2-3.4); MEAN CELL VOLUME 89.6 fL (80-100); MEAN CORPUSCULAR HGB CONC 32.4 g/dl (32-36); MEAN PLATELET VOLUME 9.7 fL (7.4-10.4); MONO % 9.3 %; MONO ABS # 0.86 K/uL (0.11-0.59); NEUT % 73.8 %; NEUT ABS # 6.83 K/uL (1.4-6.5); PLATELET COUNT 176 K/uL (130-400); RED CELL DISTRIBUTION WIDTH CV 13.1 % (11.5-14.5); WHITE BLOOD COUNT 9.26 K/uL (4.8-10.8)
[2017-08-30 07:19] LABS: CALCIUM 9.1 mg/dl (8.5-10.1); CREATININE 2.27 mg/dl (0.60-1.20); POTASSIUM 3.5 mmol/L (3.5-5.1)
[2017-08-30 07:42] VITALS: BP 151/77; PULSE 73; TEMP 36.6; O2SAT 98
[2017-08-30] MEDS: ASPIRIN 81 MG ECTAB PO SCH (07:49)
[2017-08-30] MEDS: GABAPENTIN 300 MG CAP PO SCH ×2 (07:49→20:37)
[2017-08-30] MEDS: CEFTRIAXONE SOD INJ 1 GM in DEXTROSE 5% ADD-VANTAGE 50ML 50 ML IV SCH (07:49)
[2017-08-30] MEDS: ISOSORBIDE MONONITRATE 30 MG TABCR PO SCH (07:49)
[2017-08-30] MEDS: CALCITRIOL 0.5 MCG CAP PO SCH (07:49)
[2017-08-30] MEDS: FERROUS SULFATE 325 MG TAB PO SCH (07:49)
[2017-08-30] MEDS: CARVEDILOL 12.5 MG TAB PO SCH ×2 (07:50→20:37)
[2017-08-30] MEDS: OXYBUTYNIN CHLORIDE 5 MG TABCR PO SCH (07:50)
[2017-08-30] MEDS: RANITIDINE HCL 150 MG TAB PO SCH ×2 (07:50→20:37)
[2017-08-30] MEDS: HEPARIN SOD 5000 UNIT/0.5 ML CARP SQ SCH ×3 (07:51→20:40)
[2017-08-30] MEDS: LEVOTHYROXINE 150 MCG TAB PO SCH (07:51)
[2017-08-30] MEDS: HydrALAZINE 10 MG TAB PO SCH ×2 (07:51→20:38)
[2017-08-30] MEDS ORDERED: CYANOCOBALAMIN 1000 MCG/ML VIAL IM ONE (08:30)
--- NOTE | 2017-08-30 10:06 | Nephrology Progress Note ---
Nephrology Progress Note Date of Service Aug 30, 2017. Chief Complaint HERMILO / CKD Subjective Ms. Iglesias was seen & examined in her hospital room this morning. She reports that she has tolerated IV hydration without dyspnea or progressive LE swelling. Ms. Iglesias reports that she remains weak and hopes to be discharged to a senior living w/ physical therapy. Review of Systems Constitutional: No fever Cardiovascular: No chest pain Respiratory: No dyspnea at rest Abdomen: No pain, No nausea, No vomiting Extremities: No leg edema A complete review of systems was performed. Pertinent positives are noted above. All other systems are negative. Vital Signs Last 8 Hrs Date Time Temp Pulse Resp B/P (MAP) Pulse Ox O2 Delivery O2 Flow Rate FiO2 08/30/17 07:42 36.6 73 20 151/77 (101) 98 Nasal Cannula 2.0 Last Recorded Weight Weight (Kilograms): 94.500 Physical Exam General Appearance: no apparent distress Head: normocephalic, atraumatic Eyes: PERRL, EOMI Neck: no adenopathy Respiratory/Chest: lungs clear, no respiratory distress Cardiovascular: regular rate, rhythm Abdomen/GI: normal bowel sounds, non tender, soft Extremities/Musculoskelatal: no calf tenderness, no pedal edema Neurologic/Psych: alert, oriented x 3 Family History FH: cancer FH: heart disease FH: lung disease Negative for CKD/ESRD Social History Drug Use: none Marital Status: Housing Status: lives with family Occupation: unemployed . Former smoker Laboratory Results Past 24 Hours 08/30/17 06:31 Red Blood Count 3.45, Mean Corpuscular Volume 89.6, Mean Corpuscular Hemoglobin 29.0, Mean Corpuscular Hemoglobin Concent 32.4, Mean Platelet Volume 9.7, Neutrophils (%) (Auto) 73.8, Lymphocytes (%) (Auto) 14.9, Monocytes (%) (Auto) 9.3, Eosinophils (%) (Auto) 1.5, Basophils (%) (Auto) 0.1, Neutrophils # (Auto) 6.83, Lymphocytes # (Auto) 1.38, Monocytes # (Auto) 0.86, Eosinophils # (Auto) 0.14, Basophils # (Auto) 0.01 08/30/17 06:31 Test 08/30/17 06:31 White Blood Count 9.26 K/uL (4.8-10.8) Red Blood Count 3.45 M/uL (4.2-5.4) Hemoglobin 10.0 g/dL (12.0-16.0) Hematocrit 30.9 % (37-47) Mean Corpuscular Volume 89.6 fL (80-100) Mean Corpuscular Hemoglobin 29.0 pg (25-34) Mean Corpuscular Hemoglobin Concent 32.4 g/dl (32-36) Platelet Count 176 K/uL (130-400) Mean Platelet Volume 9.7 fL (7.4-10.4) Neutrophils (%) (Auto) 73.8 % Lymphocytes (%) (Auto) 14.9 % Monocytes (%) (Auto) 9.3 % Eosinophils (%) (Auto) 1.5 % Basophils (%) (Auto) 0.1 % Neutrophils # (Auto) 6.83 K/uL (1.4-6.5) Lymphocytes # (Auto) 1.38 K/uL (1.2-3.4) Monocytes # (Auto) 0.86 K/uL (0.11-0.59) Eosinophils # (Auto) 0.14 K/uL (0-0.5) Basophils # (Auto) 0.01 K/uL (0-0.2) RDW Standard Deviation 43.0 fL (36.4-46.3) RDW Coefficient of Variation 13.1 % (11.5-14.5) Immature Granulocyte % (Auto) 0.4 % Immature Granulocyte # (Auto) 0.04 K/uL (0.00-0.02) Anion Gap 7.0 mmol/L (3-11) Est Creatinine Clear Calc Drug Dose 25.9 ml/min Estimated GFR () 24.2 Estimated GFR (Non- 20.9 BUN/Creatinine Ratio 10.0 (10-20) Calcium Level 9.1 mg/dl (8.5-10.1) Magnesium Level 1.9 mg/dl (1.8-2.4) Allergies Coded Allergies: Daptomycin (Verified Allergy, Intermediate, RASH, 08/28/17) daptomycin induced rhabdomyliosis with renal failure Medications Current Inpatient Medications Medications (Trade) Dose Ordered Sig/Yesenia Route Start Time Stop Time Status Last Admin Dose Admin Heparin Sodium (Porcine) (Heparin Sq 5000 Unit/0.5ml) 5,000 unit Q8H SQ 08/28/17 22:00 09/27/17 21:59 08/29/17 21:06 5,000 UNIT Acetaminophen (Tylenol Tab) 650 mg Q4H PRN PO 08/28/17 21:15 09/27/17 21:14 Al Hydrox/Mg Hydrox/Simethicone (Maalox Max Susp) 15 ml Q4H PRN PO 08/28/17 21:15 09/27/17 21:14 Polyethylene (Miralax Powder Packet) 17 gm DAILY PRN PO 08/28/17 21:15 09/27/17 21:14 Ondansetron HCl (Zofran Inj) 4 mg Q6H PRN IV 08/28/17 21:15 09/27/17 21:14 Amitriptyline HCl (Elavil Tab) 25 mg HS PO 08/29/17 21:00 09/28/17 20:59 08/29/17 21:00 25 MG Aspirin (Ecotrin Tab) 81 mg DAILY PO 08/29/17 08:00 09/28/17 08:59 08/30/17 07:49 81 MG Calcitriol (Rocaltrol Cap) 0.5 mcg DAILY PO 08/29/17 08:00 09/28/17 08:59 08/30/17 07:49 0.5 MCG Carvedilol (Coreg Tab) 12.5 mg BID PO 08/29/17 08:00 09/28/17 08:59 08/30/17 07:50 12.5 MG Ferrous Sulfate (Feosol Tab) 325 mg DAILY PO 08/29/17 08:00 09/28/17 08:59 08/30/17 07:49 325 MG Fluticasone Propionate (Flonase Nasal [place]) 2 sprays UD PRN JUAN FRANCISCO 08/28/17 21:15 09/27/17 21:14 Folic Acid (Folvite Tab) 1 mg DAILY PO 08/29/17 08:00 09/28/17 08:59 08/30/17 07:50 1 MG Hydralazine HCl (Apresoline Tab) 10 mg BID PO 08/29/17 08:00 09/28/17 08:59 08/30/17 07:51 10 MG Isosorbide Mononitrate (Imdur Ext Rel Tab) 30 mg QAM PO 08/29/17 08:00 09/28/17 08:59 08/30/17 07:49 30 MG Ranitidine HCl (zANTac TAB) 150 mg BID PO 08/29/17 08:00 09/28/17 08:59 08/30/17 07:50 150 MG Tramadol HCl (Ultram Tab) 50 mg Q6H PRN PO 08/28/17 21:15 09/27/17 21:14 08/30/17 00:23 50 MG Sodium Chloride 1,000 ml @ 50 mls/hr Q20H IV 08/28/17 22:00 09/27/17 21:59 08/29/17 18:16 50 MLS/HR Gabapentin (Neurontin Cap) 300 mg BID PO 08/29/17 08:00 09/28/17 08:59 08/30/17 07:49 300 MG Oxybutynin Chloride (Ditropan-Xl Tab) 10 mg DAILY PO 08/29/17 08:00 09/28/17 08:59 08/30/17 07:50 10 MG Levothyroxine Sodium (Synthroid Tab) 150 mcg DAILYBB PO 08/29/17 06:30 09/28/17 06:59 08/29/17 06:19 150 MCG Ceftriaxone Sodium 1 gm/ Dextrose 50 ml @ 100 mls/hr Q24H IV 08/29/17 07:00 09/08/17 06:59 08/30/17 07:49 100 MLS/HR Duloxetine HCl (Cymbalta Cap) 60 mg DAILY@1200 PO 08/29/17 12:00 09/28/17 11:59 08/29/17 11:52 60 MG Rosuvastatin Calcium (Crestor Tab) 20 mg DAILY@1200 PO 08/29/17 12:00 09/28/17 11:59 08/29/17 11:52 20 MG Impression (1) HERMILO (acute kidney injury) (2) Chronic kidney disease, stage 3 (moderate) (3) Cystitis (4) Dehydration (5) Cardiomyopathy (6) Falls Recommendations ACUTE KIDNEY INJURY: -- Resolved -- Hold IVF and encourage oral hydration -- Monitor serial PRP CHRONIC KIDNEY DISEASE: -- Baseline creatinine has been 2.1 ID: -- E. Coli UTI currently on Ceftriaxone therapy ANEMIA: -- Low grade, stable. Continue oral iron supplementation. No acute indication for KARTHIKEYAN at this time CKD-BMD: -- Continue Calcitriol therapy OTHER: -- No further Nephrology evaluation indicated at this time. Kidney function has returned to baseline. Recommend heplock IV, encourage oral hydration, resume Furosemide on PRN basis. Consider transition to oral antibiotic and transfer for physical therapy. I have contacted my office and asked my community health nurse staff to call patient and schedule a Nephrology follow up office visit within the next 3 weeks. She will need to have blood & urine studies completed 2 days prior to her OV. Orders have been entered into the [facility] EMR. Patient can have the labs completed at the [facility] office. She is aware. Will sign off. Please call if further Nephrology assistance is needed.
[2017-08-30] MEDS: DULOXETINE HCL 60 MG CAP PO SCH (12:02)
[2017-08-30] MEDS: ROSUVASTATIN CALCIUM 20 MG TAB PO SCH (12:02)
[2017-08-30] MEDS: SODIUM CHLORIDE 0.9% 1000ML 1,000 ML IV SCH (14:34)
[2017-08-30 15:15] VITALS: BP 135/76; PULSE 67; TEMP 36.4; O2SAT 100
--- NOTE | 2017-08-30 18:47 | Progress Note ---
Medicine Progress Note Date & Time of Visit: Aug 30, 2017 at 18:46. Subjective Patient reports feeling ok today, seems a bit more somnolent but denies any complaints other than pain in her legs. No overnight events noted. Tolerating PO. Denies any increased edema. No other complaints at the time of evaluation. Objective Last 8 Hrs Date Time Temp Pulse Resp B/P (MAP) Pulse Ox O2 Delivery O2 Flow Rate FiO2 08/30/17 15:50 Nasal Cannula 3.0 08/30/17 15:15 36.4 67 20 135/76 (95) 100 Nasal Cannula 2.0 Physical Exam: GENERAL: Patient is in no acute distress. HEENT: No acute trauma, normocephalic, mucous membranes moist, no nasal congestion, no scleral icterus. NECK: No stridor, trachea is midline. LUNGS: Clear to auscultation bilaterally, no wheeze, no rhonchi, breath sounds equal. HEART: Without murmurs gallops or rubs, regular rate and rhythm. ABDOMEN: Soft, nontender, bowel sounds positive EXTREMITIES: No cyanosis; trace LE edema, reports pain in B/L knees with movement and palpation; moving all 4 extremities, no signs for acute trauma. NEUROLOGIC: Oriented x 3, no acute motor or sensory deficits, no focal weakness. SKIN: No rash, no jaundice, no diaphoresis. Laboratory Results: Last 24 Hours Test 08/30/17 06:31 White Blood Count 9.26 K/uL Red Blood Count 3.45 M/uL Hemoglobin 10.0 g/dL Hematocrit 30.9 % Mean Corpuscular Volume 89.6 fL Mean Corpuscular Hemoglobin 29.0 pg Mean Corpuscular Hemoglobin Concent 32.4 g/dl Platelet Count 176 K/uL Mean Platelet Volume 9.7 fL Neutrophils (%) (Auto) 73.8 % Lymphocytes (%) (Auto) 14.9 % Monocytes (%) (Auto) 9.3 % Eosinophils (%) (Auto) 1.5 % Basophils (%) (Auto) 0.1 % Neutrophils # (Auto) 6.83 K/uL Lymphocytes # (Auto) 1.38 K/uL Monocytes # (Auto) 0.86 K/uL Eosinophils # (Auto) 0.14 K/uL Basophils # (Auto) 0.01 K/uL RDW Standard Deviation 43.0 fL RDW Coefficient of Variation 13.1 % Immature Granulocyte % (Auto) 0.4 % Immature Granulocyte # (Auto) 0.04 K/uL Sodium Level 141 mmol/L Potassium Level 3.5 mmol/L Chloride Level 110 mmol/L Carbon Dioxide Level 24 mmol/L Anion Gap 7.0 mmol/L Blood Urea Nitrogen 23 mg/dl Creatinine 2.27 mg/dl Est Creatinine Clear Calc Drug Dose 25.9 ml/min Estimated GFR () 24.2 Estimated GFR (Non- 20.9 BUN/Creatinine Ratio 10.0 Random Glucose 88 mg/dl Calcium Level 9.1 mg/dl Magnesium Level 1.9 mg/dl Assessment & Plan AMBULATORY DYSFUNCTION/FREQUENT FALLS: -reports difficulty ambulating the last couple of years because of the heaviness of her legs from the edema, but lately she is not even able to get up from the bed and fell 3 times in last 2 weeks. -vitamin B12 level 312 -Urine culture growing E.coli -PT/OT consulted, recommend dispo to home with PT/OT -family would like placement/rehab -X rays of B/L knees normal -patient complains of knees "giving out on her" during the falls, Orthopedics consulted and recommend outpatient follow up and continue ongoing therapy HERMILO on CKD STAGE III: -Nephrology consulted, appreciate recs, report the recent baseline creatinine has been around 2.0 -presented with creatinine of 2.5-->2.25-->2.27 -uses Lasix as needed at home but has been held since admission -continue on gentle fluids, normal saline at 50 mL/h. 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 HYPOTHYROIDISM: -on Synthroid 150 mcg HYPERLIPIDEMIA: -continue statin. Hx of PERNICIOUS ANEMIA: -on vitamin B12 injections, injection given today as patient states she missed this months dose GERD: -continue Zantac. MONIQUE: -noncompliant with CPAP. -ordered CPAP in the hospital. -On chronic oxygen, 2 step prior to discharge if no home O2 HTN: -controlled -continue home medications of Coreg, Imdur, and hydralazine and monitor the blood pressure. Current Inpatient Medications: Current Inpatient Medications Medications (Trade) Dose Ordered Sig/Yesenia Route Start Time Stop Time Status Last Admin Dose Admin Heparin Sodium (Porcine) (Heparin Sq 5000 Unit/0.5ml) 5,000 unit Q8H SQ 08/28/17 22:00 09/27/17 21:59 08/30/17 14:36 5,000 UNIT Acetaminophen (Tylenol Tab) 650 mg Q4H PRN PO 08/28/17 21:15 09/27/17 21:14 Al Hydrox/Mg Hydrox/Simethicone (Maalox Max Susp) 15 ml Q4H PRN PO 08/28/17 21:15 09/27/17 21:14 Polyethylene (Miralax Powder Packet) 17 gm DAILY PRN PO 08/28/17 21:15 09/27/17 21:14 Ondansetron HCl (Zofran Inj) 4 mg Q6H PRN IV 08/28/17 21:15 09/27/17 21:14 Amitriptyline HCl (Elavil Tab) 25 mg HS PO 08/29/17 21:00 09/28/17 20:59 08/29/17 21:00 25 MG Aspirin (Ecotrin Tab) 81 mg DAILY PO 08/29/17 08:00 09/28/17 08:59 08/30/17 07:49 81 MG Calcitriol (Rocaltrol Cap) 0.5 mcg DAILY PO 08/29/17 08:00 09/28/17 08:59 08/30/17 07:49 0.5 MCG Carvedilol (Coreg Tab) 12.5 mg BID PO 08/29/17 08:00 09/28/17 08:59 08/30/17 07:50 12.5 MG Ferrous Sulfate (Feosol Tab) 325 mg DAILY PO 08/29/17 08:00 09/28/17 08:59 08/30/17 07:49 325 MG Fluticasone Propionate (Flonase Nasal [place]) 2 sprays UD PRN JUAN FRANCISCO 08/28/17 21:15 09/27/17 21:14 Folic Acid (Folvite Tab) 1 mg DAILY PO 4/29/18 08:00 09/28/17 08:59 08/30/17 07:50 1 MG Hydralazine HCl (Apresoline Tab) 10 mg BID PO 08/29/17 08:00 09/28/17 08:59 08/30/17 07:51 10 MG Isosorbide Mononitrate (Imdur Ext Rel Tab) 30 mg QAM PO 08/29/17 08:00 09/28/17 08:59 08/30/17 07:49 30 MG Ranitidine HCl (zANTac TAB) 150 mg BID PO 08/29/17 08:00 09/28/17 08:59 08/30/17 07:50 150 MG Tramadol HCl (Ultram Tab) 50 mg Q6H PRN PO 08/28/17 21:15 09/27/17 21:14 08/30/17 00:23 50 MG Sodium Chloride 1,000 ml @ 50 mls/hr Q20H IV 08/28/17 22:00 09/27/17 21:59 08/30/17 14:34 50 MLS/HR Gabapentin (Neurontin Cap) 300 mg BID PO 08/29/17 08:00 09/28/17 08:59 08/30/17 07:49 300 MG Oxybutynin Chloride (Ditropan-Xl Tab) 10 mg DAILY PO 08/29/17 08:00 09/28/17 08:59 08/30/17 07:50 10 MG Levothyroxine Sodium (Synthroid Tab) 150 mcg DAILYBB PO 08/29/17 06:30 09/28/17 06:59 08/29/17 06:19 150 MCG Ceftriaxone Sodium 1 gm/ Dextrose 50 ml @ 100 mls/hr Q24H IV 08/29/17 07:00 09/08/17 06:59 08/30/17 07:49 100 MLS/HR Duloxetine HCl (Cymbalta Cap) 60 mg DAILY@1200 PO 08/29/17 12:00 09/28/17 11:59 08/30/17 12:02 60 MG Rosuvastatin Calcium (Crestor Tab) 20 mg DAILY@1200 PO 08/29/17 12:00 09/28/17 11:59 08/30/17 12:02 20 MG
--- NOTE | 2017-08-30 19:18 | ORTHOPEDIC CONSULTATION ---
DATE OF CONSULTATION: 08/30/2017 DATE OF CONSULTATION: 08/30/2017. HISTORY OF PRESENT ILLNESS: This is a 72-year-old female seen at the request of Dr. Sherwood, Dr. Carnes, and Dr. Desai regarding bilateral knee pain and frequent falls. This is a 72-year-old woman who has significant complicated past medical history with multiple falls recently. She had difficulty with compliance particular with use of her CPAP and some of her medications. She has had difficulty with weightbearing and feeling increasing weakness over the last several days prior to admission. Per the medical record, the patient's family also stated that she was having some bouts of confusion and making things up. PAST MEDICAL HISTORY: Nonischemic cardiomyopathy with reduced ejection fraction, sleep apnea, hyperparathyroidism, osteoarthritis, allergic rhinitis, chronic kidney disease stage III, gastroesophageal reflux disease, hypertension, hypothyroidism, hyperlipidemia, history of pernicious anemia, peripheral neuropathy, frequent falls, ambulatory dysfunction, obesity, history of GI bleed, radiculopathy, gout. PAST SURGICAL HISTORY: Sinus surgery, cholecystectomy, removal of brain tumor in 1961, . ALLERGIES: DAPTOMYCIN AND ENALAPRIL. MEDICATIONS: Albuterol nebulizer q. 4 hours., aspirin 81 mg daily, calcitriol 0.5 mcg p.o. daily, ferrous sulfate to joint 325 mg p.o. daily, Flonase two sprays each nostril daily, Ditropan XL 10 mg p.o. daily, oxygen two liters daily, Zantac 150 mg p.o. b.i.d., Elavil 25 mg p.o. q.h.s., Coreg 12.5 mg p.o. b.i.d., Cymbalta 60 mg p.o. daily, folate 1 mg p.o. daily, Lasix 40 mg daily p.r.n., gabapentin 300 mg p.o. b.i.d., hydralazine 10 mg p.o. b.i.d., Imdur 30 mg p.o. daily, levothyroxine 150 mcg p.o. daily, nitroglycerin 0.4 mg sublingual p.r.n., Crestor 20 mg p.o. daily, tramadol 50 mg p.o. q.h.s. p.r.n., vitamin B12 1000 mg injections as needed. SOCIAL HISTORY: She smoked one-half pack a day for 32 years. Denies alcohol or drug use. She lives alone. She is for five years, retired, her daughter lives nearby. PHYSICAL EXAMINATION: GENERAL: This is a 72-year-old woman lying supine in hospital room bed. She is alert and oriented x3. She is wearing glasses. Affect is appropriate. Cranial nerves II-XII are grossly intact. EXTREMITIES: Examination of bilateral lower extremities demonstrates 2/4 edema bilateral lower extremities, it is nonpitting. She has some minor venous stasis changes bilaterally. Dorsalis pedis and posterior tibial pulses are palpable bilaterally. Feet are warm. There is minor effusion of bilateral knees. She has crepitation with active and passive range of motion bilateral knees related to the patellofemoral joint. She has tenderness to palpation of the medial joint line. Negative varus and valgus stress testing. Range of motion passively is 0-125 degrees of flexion. Equivocal Devendra's testing bilaterally localized to the medial meniscus. RADIOGRAPHS: Reviewed demonstrating flattening of the medial femoral condyle with slight lateral tilt of the patella. Mild effusion. No fractures. Minor sclerosis of the medial joint with no evidence of significant osteophytes or subchondral cysts. IMPRESSION: 1. Bilateral knee mild osteoarthritis. 2. Bilateral knee chondromalacia patella. 3. Bilateral knee pain. 4. Bilateral knee mild effusion. RECOMMENDATIONS: Continue with supportive medical care. Ambulate as tolerated. Nonoperative management. At this time, recommend outpatient therapy for possible hyaluronic acid injections to relieve her minor arthritic complaints of her knees. Thank for the opportunity to consult in care of this patient.
[2017-08-30] MEDS: AMITRIPTYLINE HCL 25 MG TAB PO SCH (20:38)
[2017-08-31] VITALS: BP 142/62; PULSE 60; TEMP 36.4; O2SAT 100
[2017-08-31 05:51] LABS: BASO % 0.2 %; BASO ABS # 0.01 K/uL (0-0.2); EOS % 2.7 %; EOS ABS # 0.18 K/uL (0-0.5); HEMOGLOBIN 8.9 g/dL (12.0-16.0); IG# 0.03 K/uL (0.00-0.02); LYMPH % 18.8 %; LYMPH ABS # 1.24 K/uL (1.2-3.4); MEAN CELL VOLUME 89.7 fL (80-100); MEAN CORPUSCULAR HEMOGLOBIN 28.5 pg (25-34); MEAN CORPUSCULAR HGB CONC 31.8 g/dl (32-36); MEAN PLATELET VOLUME 9.9 fL (7.4-10.4); MONO % 11.2 %; MONO ABS # 0.74 K/uL (0.11-0.59); NEUT % 66.6 %; NEUT ABS # 4.41 K/uL (1.4-6.5); PLATELET COUNT 176 K/uL (130-400); RED CELL DISTRIBUTION WIDTH CV 13.1 % (11.5-14.5); WHITE BLOOD COUNT 6.61 K/uL (4.8-10.8)
[2017-08-31] MEDS: LEVOTHYROXINE 150 MCG TAB PO SCH (05:58)
[2017-08-31] MEDS: HEPARIN SOD 5000 UNIT/0.5 ML CARP SQ SCH ×3 (05:59→22:00)
[2017-08-31] MEDS: CEFTRIAXONE SOD INJ 1 GM in DEXTROSE 5% ADD-VANTAGE 50ML 50 ML IV SCH (05:59)
[2017-08-31 06:22] LABS: CALCIUM 9.1 mg/dl (8.5-10.1); CREATININE 2.21 mg/dl (0.60-1.20); POTASSIUM 3.6 mmol/L (3.5-5.1)
[2017-08-31 07:45] VITALS: BP 159/83; PULSE 69; TEMP 36.5; O2SAT 100
[2017-08-31] MEDS: RANITIDINE HCL 150 MG TAB PO SCH ×2 (07:56→21:17)
[2017-08-31] MEDS: FERROUS SULFATE 325 MG TAB PO SCH (07:56)
[2017-08-31] MEDS: OXYBUTYNIN CHLORIDE 5 MG TABCR PO SCH (07:56)
[2017-08-31] MEDS: ASPIRIN 81 MG ECTAB PO SCH (07:57)
[2017-08-31] MEDS: HydrALAZINE 10 MG TAB PO SCH ×2 (07:57→21:17)
[2017-08-31] MEDS: CARVEDILOL 12.5 MG TAB PO SCH ×2 (07:57→21:17)
[2017-08-31] MEDS: CALCITRIOL 0.5 MCG CAP PO SCH (07:57)
[2017-08-31] MEDS: GABAPENTIN 300 MG CAP PO SCH ×2 (07:57→21:17)
[2017-08-31] MEDS: ISOSORBIDE MONONITRATE 30 MG TABCR PO SCH (07:57)
--- NOTE | 2017-08-31 10:24 | Clinical Documentation Query ---
MARLINE Naylor : CLINICAL DOCUMENTATION QUERY Patient is a 72 year old female admitted for evaluation of frequent falls. Documentation includes "uses oxygen about 2-3L continuously". As appropriate, consider documentation as suggested below in order to capture the severity of illness and risk of mortality associated with this diagnosis. Thank you. In your clinical opinion is this patient being managed for: X ) Chronic respiratory failure with hypoxia ( ) Not Agree ( ) Other explanation of clinical findings (Please Explain. If no explanation given, this would be considered a no response.) ( ) Unable to determine ( ) Need to Discuss (Please call CDS via extension or qliq. If no interaction occurs this is considered a no response.) The medical record reflects the following clinical findings, treatment, and risk factors. Clinical Indicators: As above Treatment: Ongoing provision of supplemental oxygen, CPAP Risk Factors: Smoking history, sleep apnea Please clarify and document your clinical opinion in the progress notes and discharge summary. Terms such as "probable", "suspected", "likely", "questionable", "possible", or "still to be ruled out" are acceptable. IF IN AGREEMENT, YOU MUST DOCUMENT ABOVE DIAGNOSTIC STATEMENT IN DAILY PROGRESS NOTES AND DISCHARGE SUMMARY. This document is not part of the patient's record. Thank You, Alexi Lazar, RN [phone]
--- NOTE | 2017-08-31 10:57 | Progress Note ---
Medicine Progress Note Date & Time of Visit: August 31, 2017 at 10:57. Subjective seen resting in bed, comfortable daughter at bedside states she feels fine overall denies chest pain, dyspnea, dizziness, palpitations ambulating with walker, with no problems so far denies other symptoms daughter requesting possible transition to SNF for at least short term stay due to concerns of frequent falls at home Objective Last 8 Hrs Date Time Temp Pulse Resp B/P (MAP) Pulse Ox O2 Delivery O2 Flow Rate FiO2 08/31/17 09:00 Nasal Cannula 3.0 08/31/17 07:45 36.5 69 18 159/83 (108) 100 3.0 Physical Exam: General- oriented x 3, not in distress, speaks in sentences with no effort Head- atraumatic Eyes- PERRL, EOMI, anicteric ENT- oropharynx clear Neck- supple, no JVD, no adenopathy, no thyromegaly Lungs- clear to auscultation bilaterally Heart- regular rhythm; no murmur, normal rate Abdomen- normal bowel sounds, soft, nontender Extremities- no pretibial edema, no calf tenderness; peripheral pulses intact Neuro- alert, oriented x 3; no gross focal deficits Skin- warm & dry Laboratory Results: Last 24 Hours Test 08/31/17 05:18 White Blood Count 6.61 K/uL Red Blood Count 3.12 M/uL Hemoglobin 8.9 g/dL Hematocrit 28.0 % Mean Corpuscular Volume 89.7 fL Mean Corpuscular Hemoglobin 28.5 pg Mean Corpuscular Hemoglobin Concent 31.8 g/dl Platelet Count 176 K/uL Mean Platelet Volume 9.9 fL Neutrophils (%) (Auto) 66.6 % Lymphocytes (%) (Auto) 18.8 % Monocytes (%) (Auto) 11.2 % Eosinophils (%) (Auto) 2.7 % Basophils (%) (Auto) 0.2 % Neutrophils # (Auto) 4.41 K/uL Lymphocytes # (Auto) 1.24 K/uL Monocytes # (Auto) 0.74 K/uL Eosinophils # (Auto) 0.18 K/uL Basophils # (Auto) 0.01 K/uL RDW Standard Deviation 43.0 fL RDW Coefficient of Variation 13.1 % Immature Granulocyte % (Auto) 0.5 % Immature Granulocyte # (Auto) 0.03 K/uL Red Blood Cell Morphology Unremarkable Sodium Level 141 mmol/L Potassium Level 3.6 mmol/L Chloride Level 111 mmol/L Carbon Dioxide Level 25 mmol/L Anion Gap 5.0 mmol/L Blood Urea Nitrogen 19 mg/dl Creatinine 2.21 mg/dl Est Creatinine Clear Calc Drug Dose 26.6 ml/min Estimated GFR () 25.0 Estimated GFR (Non- 21.6 BUN/Creatinine Ratio 8.6 Random Glucose 91 mg/dl Calcium Level 9.1 mg/dl Magnesium Level 1.9 mg/dl Assessment & Plan AMBULATORY DYSFUNCTION/FREQUENT FALLS: -reports difficulty ambulating the last couple of years because of the heaviness of her legs from the edema, but lately she is not even able to get up from the bed and fell 3 times in last 2 weeks. -vitamin B12 level 312 Urine culture growing E.coli -X rays of B/L knees normal patient complains of knees "giving out on her" during the falls, Orthopedics consulted and recommend outpatient follow up and continue ongoing therapy -PT/OT consulted, recommend dispo to home with PT/OT requested case management to look into possible transitioning to SNF ACUTE RENAL FAILURE on CKD STAGE III: -Nephrology consulted, appreciate recs, report the recent baseline creatinine has been around 2.0 -presented with creatinine of 2.5-->2.25-->2.27 -- given gentle IV fluids crea now at 2.2 E COLI UTI -- on Ceftriaxone day 3 transition to PO Cefuroxime on discharge 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 HYPOTHYROIDISM: -on Synthroid 150 mcg HYPERLIPIDEMIA: -continue statin. Hx of PERNICIOUS ANEMIA: -on vitamin B12 injections, injection given today as patient states she missed this months dose GERD: -continue Zantac. MONIQUE: -noncompliant with CPAP. -ordered CPAP in the hospital. -On chronic oxygen, 2 step prior to discharge if no home O2 HTN: -controlled -continue home medications of Coreg, Imdur, and hydralazine Disposition -PT/OT consulted, recommend dispo to home with PT/OT requested case management to look into possible transitioning to SNF - otherwise, home with home health services, PT/OT Current Inpatient Medications: Current Inpatient Medications Medications (Trade) Dose Ordered Sig/Yesenia Route Start Time Stop Time Status Last Admin Dose Admin Heparin Sodium (Porcine) (Heparin Sq 5000 Unit/0.5ml) 5,000 unit Q8H SQ 08/28/17 22:00 09/27/17 21:59 08/30/17 20:40 5,000 UNIT Acetaminophen (Tylenol Tab) 650 mg Q4H PRN PO 08/28/17 21:15 09/27/17 21:14 Al Hydrox/Mg Hydrox/Simethicone (Maalox Max Susp) 15 ml Q4H PRN PO 08/28/17 21:15 09/27/17 21:14 Polyethylene (Miralax Powder Packet) 17 gm DAILY PRN PO 08/28/17 21:15 09/27/17 21:14 Ondansetron HCl (Zofran Inj) 4 mg Q6H PRN IV 08/28/17 21:15 09/27/17 21:14 Amitriptyline HCl (Elavil Tab) 25 mg HS PO 08/29/17 21:00 09/28/17 20:59 08/30/17 20:38 25 MG Aspirin (Ecotrin Tab) 81 mg DAILY PO 08/29/17 08:00 09/28/17 08:59 08/31/17 07:57 81 MG Calcitriol (Rocaltrol Cap) 0.5 mcg DAILY PO 08/29/17 08:00 09/28/17 08:59 08/31/17 07:57 0.5 MCG Carvedilol (Coreg Tab) 12.5 mg BID PO 08/29/17 08:00 09/28/17 08:59 08/31/17 07:57 12.5 MG Ferrous Sulfate (Feosol Tab) 325 mg DAILY PO 08/29/17 08:00 09/28/17 08:59 08/31/17 07:56 325 MG Fluticasone Propionate (Flonase Nasal [place]) 2 sprays UD PRN JUAN FRANCISCO 08/28/17 21:15 09/27/17 21:14 Folic Acid (Folvite Tab) 1 mg DAILY PO 08/29/17 08:00 09/28/17 08:59 08/31/17 07:57 1 MG Hydralazine HCl (Apresoline Tab) 10 mg BID PO 08/29/17 08:00 09/28/17 08:59 08/31/17 07:57 10 MG Isosorbide Mononitrate (Imdur Ext Rel Tab) 30 mg QAM PO 08/29/17 08:00 09/28/17 08:59 08/31/17 07:57 30 MG Ranitidine HCl (zANTac TAB) 150 mg BID PO 08/29/17 08:00 09/28/17 08:59 08/31/17 07:56 150 MG Tramadol HCl (Ultram Tab) 50 mg Q6H PRN PO 08/28/17 21:15 09/27/17 21:14 08/30/17 00:23 50 MG Sodium Chloride 1,000 ml @ 50 mls/hr Q20H IV 08/28/17 22:00 09/27/17 21:59 08/30/17 14:34 50 MLS/HR Gabapentin (Neurontin Cap) 300 mg BID PO 08/29/17 08:00 09/28/17 08:59 08/31/17 07:57 300 MG Oxybutynin Chloride (Ditropan-Xl Tab) 10 mg DAILY PO 08/29/17 08:00 09/28/17 08:59 08/31/17 07:56 10 MG Levothyroxine Sodium (Synthroid Tab) 150 mcg DAILYBB PO 08/29/17 06:30 09/28/17 06:59 08/31/17 05:58 150 MCG Ceftriaxone Sodium 1 gm/ Dextrose 50 ml @ 100 mls/hr Q24H IV 08/29/17 07:00 09/08/17 06:59 08/31/17 05:59 100 MLS/HR Duloxetine HCl (Cymbalta Cap) 60 mg DAILY@1200 PO 08/29/17 12:00 09/28/17 11:59 08/30/17 12:02 60 MG Rosuvastatin Calcium (Crestor Tab) 20 mg DAILY@1200 PO 08/29/17 12:00 09/28/17 11:59 08/30/17 12:02 20 MG
[2017-08-31] MEDS: DULOXETINE HCL 60 MG CAP PO SCH (12:23)
[2017-08-31] MEDS: ROSUVASTATIN CALCIUM 20 MG TAB PO SCH (12:23)
[2017-08-31 15:39] VITALS: BP 159/83; PULSE 60; TEMP 36.4
[2017-08-31 16:00] VITALS: O2SAT 100
[2017-08-31] MEDS: ACETAMINOPHEN 325 MG TAB PO PRN (20:39)
[2017-08-31] MEDS: AMITRIPTYLINE HCL 25 MG TAB PO SCH (21:18)
[2017-08-31 23:47] VITALS: BP 147/81; PULSE 63; TEMP 36.4; O2SAT 100
[2017-09-01] MEDS: HEPARIN SOD 5000 UNIT/0.5 ML CARP SQ SCH ×2 (05:41→14:19)
[2017-09-01] MEDS: LEVOTHYROXINE 150 MCG TAB PO SCH (05:42)
[2017-09-01] MEDS: CEFTRIAXONE SOD INJ 1 GM in DEXTROSE 5% ADD-VANTAGE 50ML 50 ML IV SCH (05:42)
[2017-09-01] MEDS: GABAPENTIN 300 MG CAP PO SCH (07:42)
[2017-09-01] MEDS: FERROUS SULFATE 325 MG TAB PO SCH (07:43)
[2017-09-01] MEDS: CARVEDILOL 12.5 MG TAB PO SCH (07:43)
[2017-09-01] MEDS: ASPIRIN 81 MG ECTAB PO SCH (07:43)
[2017-09-01] MEDS: RANITIDINE HCL 150 MG TAB PO SCH (07:43)
[2017-09-01] MEDS: CALCITRIOL 0.5 MCG CAP PO SCH (07:43)
[2017-09-01] MEDS: HydrALAZINE 10 MG TAB PO SCH (07:43)
[2017-09-01] MEDS: OXYBUTYNIN CHLORIDE 5 MG TABCR PO SCH (07:43)
[2017-09-01] MEDS: ISOSORBIDE MONONITRATE 30 MG TABCR PO SCH (07:43)
[2017-09-01 07:51] VITALS: BP 159/64; PULSE 68; TEMP 36.7; O2SAT 100
[2017-09-01] MEDS: ROSUVASTATIN CALCIUM 20 MG TAB PO SCH (11:52)
[2017-09-01] MEDS: DULOXETINE HCL 60 MG CAP PO SCH (11:52)
[2017-09-01] MEDS: ACETAMINOPHEN 325 MG TAB PO PRN (11:54)
--- NOTE | 2017-09-01 15:03 | Progress Note ---
Medicine Progress Note Date & Time of Visit: September 01, 2017 at 14:58. Subjective seen resting in bed, comfortable states she feels fine overall denies any symptoms ambulating fine today, no loss of balance/dizziness states she is ready and would like to be discharged today Objective Last 8 Hrs Date Time Temp Pulse Resp B/P (MAP) Pulse Ox O2 Delivery O2 Flow Rate FiO2 09/01/17 08:20 Nasal Cannula 3.0 09/01/17 07:51 36.7 68 18 159/64 (95) 100 3.0 Physical Exam: General- oriented x 3, not in distress, speaks in sentences with no effort Eyes- anicteric Neck- supple, no JVD Lungs- clear breath sounds bilaterally Heart- regular rhythm; no murmur, normal rate Abdomen- normal bowel sounds, soft, nontender Extremities- no pretibial edema, no calf tenderness Neuro- alert, oriented x 3; no gross focal deficits Skin- warm & dry Assessment & Plan AMBULATORY DYSFUNCTION/FREQUENT FALLS: -reports difficulty ambulating the last couple of y ears because of the heaviness of her legs from the edema, but lately she is not even able to get up from the bed and fell 3 times in last 2 weeks. -vitamin B12 level 312 X rays of B/L knees normal patient complains of knees "giving out on her" during the falls, Orthopedics consulted and recommend outpatient follow up and continue ongoing therapy - patient gradually improved stable when walking again PT/OT consulted, recommend dispo to home with PT/OT ACUTE RENAL FAILURE on CKD STAGE III: -Nephrology consulted, recent baseline creatinine has been around 2.0 -presented with creatinine of 2.5-->2.25-->2.27 -- given gentle IV fluids crea improved, now at 2.2 cleared for discharge as per Dr. Malik ff up with Nephro in 3 weeks (labs 2 days prior to visit) E COLI UTI -- given Ceftriaxone IV x 4 days discharge on 1 more day of Cefuroxime monitor as outpatient 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 HYPOTHYROIDISM: -on Synthroid 150 mcg HYPERLIPIDEMIA: -continue statin. Hx of PERNICIOUS ANEMIA: -on vitamin B12 injections, injection given while admitted as patient states she missed this months dose GERD: -continue Zantac. MONIQUE: -noncompliant with CPAP. -On chronic oxygen HTN: -controlled -continue home medications of Coreg, Imdur, and hydralazine Disposition -PT/OT consulted, recommend dispo to home with PT/OT d/c to to home with PT/OT ff up with PCP in 3-5 days Current Inpatient Medications: Current Inpatient Medications Medications (Trade) Dose Ordered Sig/Yesenia Route Start Time Stop Time Status Last Admin Dose Admin Heparin Sodium (Porcine) (Heparin Sq 5000 Unit/0.5ml) 5,000 unit Q8H SQ 08/28/17 22:00 09/27/17 21:59 09/01/17 14:19 5,000 UNIT Acetaminophen (Tylenol Tab) 650 mg Q4H PRN PO 08/28/17 21:15 09/27/17 21:14 09/01/17 11:54 650 MG Al Hydrox/Mg Hydrox/Simethicone (Maalox Max Susp) 15 ml Q4H PRN PO 08/28/17 21:15 09/27/17 21:14 Polyethylene (Miralax Powder Packet) 17 gm DAILY PRN PO 08/28/17 21:15 09/27/17 21:14 Ondansetron HCl (Zofran Inj) 4 mg Q6H PRN IV 08/28/17 21:15 09/27/17 21:14 Amitriptyline HCl (Elavil Tab) 25 mg HS PO 08/29/17 21:00 09/28/17 20:59 08/31/17 21:18 25 MG Aspirin (Ecotrin Tab) 81 mg DAILY PO 08/29/17 08:00 09/28/17 08:59 09/01/17 07:43 81 MG Calcitriol (Rocaltrol Cap) 0.5 mcg DAILY PO 08/29/17 08:00 09/28/17 08:59 09/01/17 07:43 0.5 MCG Carvedilol (Coreg Tab) 12.5 mg BID PO 08/29/17 08:00 09/28/17 08:59 09/01/17 07:43 12.5 MG Ferrous Sulfate (Feosol Tab) 325 mg DAILY PO 08/29/17 08:00 09/28/17 08:59 09/01/17 07:43 325 MG Fluticasone Propionate (Flonase Nasal [place]) 2 sprays UD PRN JUAN FRANCISCO 08/28/17 21:15 09/27/17 21:14 Folic Acid (Folvite Tab) 1 mg DAILY PO 08/29/17 08:00 09/28/17 08:59 09/01/17 07:43 1 MG Hydralazine HCl (Apresoline Tab) 10 mg BID PO 08/29/17 08:00 09/28/17 08:59 09/01/17 07:43 10 MG Isosorbide Mononitrate (Imdur Ext Rel Tab) 30 mg QAM PO 08/29/17 08:00 09/28/17 08:59 09/01/17 07:43 30 MG Ranitidine HCl (zANTac TAB) 150 mg BID PO 08/29/17 08:00 09/28/17 08:59 09/01/17 07:43 150 MG Tramadol HCl (Ultram Tab) 50 mg Q6H PRN PO 08/28/17 21:15 09/27/17 21:14 08/30/17 00:23 50 MG Gabapentin (Neurontin Cap) 300 mg BID PO 08/29/17 08:00 09/28/17 08:59 09/01/17 07:42 300 MG Oxybutynin Chloride (Ditropan-Xl Tab) 10 mg DAILY PO 08/29/17 08:00 09/28/17 08:59 09/01/17 07:43 10 MG Levothyroxine Sodium (Synthroid Tab) 150 mcg DAILYBB PO 08/29/17 06:30 09/28/17 06:59 09/01/17 05:42 150 MCG Ceftriaxone Sodium 1 gm/ Dextrose 50 ml @ 100 mls/hr Q24H IV 08/29/17 07:00 09/08/17 06:59 09/01/17 05:42 100 MLS/HR Duloxetine HCl (Cymbalta Cap) 60 mg DAILY@1200 PO 08/29/17 12:00 09/28/17 11:59 09/01/17 11:52 60 MG Rosuvastatin Calcium (Crestor Tab) 20 mg DAILY@1200 PO 08/29/17 12:00 09/28/17 11:59 09/01/17 11:52 20 MG
[2017-09-01] MEDS ORDERED: CEFU1TAB33 PO (15:08)
[2017-09-01 15:11] VITALS: BP 126/76; PULSE 60; TEMP 36.3; O2SAT 100
[2017-09-01 15:17] VITALS: BP 126/76; PULSE 60; TEMP 36.3; O2SAT 100
--- NOTE | 2017-09-01 15:17 | Discharge Instructions ---
Discharge Instructions Date of Service September 01, 2017. Admission Reason for Admission: Arf,Falls Discharge Discharge Diagnosis / Problem: ACUTE RENAL FAILURE, RESOLVED Discharge Goals Goal(s): Diagnostic testing, Therapeutic intervention Activity Recommendations Activity Limitations: as noted below (NO HEAVY EXERTION UNTIL RE-EVALUATED BY PRIMARY CARE PHYSICIAN) Lifting Limitations: until after follow-up appointment Exercise/Sports Limitations: until after follow-up appointment . Instructions / Follow-Up Instructions / Follow-Up PLEASE REVIEW YOUR NEW MEDICATION LIST AND FOLLOW INSTRUCTIONS CAREFULLY. CALL YOUR PRIMARY CARE PHYSICIAN OR RETURN TO ER IMMEDIATELY IF WITH RECURRENCE OF SYMPTOMS, ABDOMINAL PAIN, PROBLEMS WITH URINATION, FEVER/CHILLS, NAUSEA. ALWAYS BE CAREFUL AND USE THE WALKER WHEN AMBULATING. FOLLOW UP WITH DR. BARLOW (ASSOCIATE OF DR. WOODARD) ON WEDNESDAY SEPTEMBER 06, 2017 AT 12:25PM. FOLLOW UP WITH ORTHOPEDIC SURGEON DR. CHARLIE BELCHER IN 1-2 [address]EEKS. FOLLOW UP WITH DR. FISCHER IN 3 WEEKS. YOU WILL NEED BLOODWORK IN HIS OFFICE 2 DAYS PRIOR TO APPOINTMENT DATE. Current Hospital Diet Patient's current hospital diet: AHA Diet (Heart Healthy) Discharge Diet Recommended Diet: AHA Diet (Heart Healthy) Procedures Procedures Performed: CHEST AND KNEE XRAY, CT SCAN OF THE HEAD Pending Studies Studies pending at discharge: no Medical Emergencies . Who to Call and When: Medical Emergencies: If at any time you feel your situation is an emergency, please call 911 immediately. . Non-Emergent Contact Non-Emergency issues call your: Primary Care Provider, Individual Small Group Instructor Call Non-Emergent contact if: you have a fever, your pain is not controlled, your pain is worsening, you have any medication questions . . "Provider Documentation" section prepared by Marshall Daniel. .
--- NOTE | 2017-09-01 15:23 | Discharge Summary ---
Discharge Summary Date of Service September 01, 2017. Discharge Summary Admission Date: Aug 28, 2017 at 21:17 Discharge Date: September 01, 2017 Discharge Disposition: senior living facility Principal Diagnosis: AMBULATORY DYSFUNCTION/FREQUENT FALLS Secondary Diagnoses/Problems: Please refer to hospital course below. Procedures: CHEST ONE VIEW PORTABLE CLINICAL HISTORY: EVALUATE WEAKNESS dyspnea COMPARISON STUDY: 12/13/2014 FINDINGS: Mild stable cardiomegaly. Permanent bipolar cardiac pacemaker. Lungs are clear. Diaphragms smooth. IMPRESSION: No acute process. Electronically signed by: Erick Orr M.D. 08/28/2017 7:59 PM L KNEE 3 VIEWS CLINICAL HISTORY: l knee pain fall trauma. Pain. COMPARISON: None. DISCUSSION: The bones and joint spaces appear intact. There is no evidence of fracture, dislocation or bony disease. Mild prepatellar soft tissue edema IMPRESSION: Mild prepatellar soft tissue edema. No acute bony abnormality. Electronically signed by: Erick Orr M.D. 08/28/2017 7:59 PM HEAD WITHOUT CONTRAST (CT) CT DOSE: 614.27 mGy.cm HISTORY: Trauma. Mental status change. r knee pain fall TECHNIQUE: Multiaxial CT images of the head were performed without the use of intravenous contrast. A dose lowering technique was utilized adhering to the principles of ALARA. Comparison: 10/04/2013 Findings: Sclerosis of the mastoid air cells bilaterally. This is a chronic finding in this patient and is unchanged. Sinuses are otherwise grossly clear. The calvarium and skull base are intact. The ventricles and sulci are within normal limits. There is no mass, hematoma, midline shift, or acute infarct. Impression: No acute intracranial abnormality. 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 08/28/2017 8:20 PM R KNEE 3 VIEWS CLINICAL HISTORY: r knee pain pain COMPARISON: None. DISCUSSION: The bones and joint spaces appear intact. There is no evidence of fracture, dislocation or bony disease. There is no evidence for soft tissue swelling. IMPRESSION: Negative study. Consultations: NEPHROLOGY DR. FISCHER, ORTHOPEDIC DR. BELCHER Pending Studies/Follow-Up: Please refer to hospital course below. Medication Reconciliation New Medications: Cefuroxime Axetil (Cefuroxime Axetil) 250 Mg Tab 1 TAB PO DAILY for 1 Day, #1 TAB 0 Refills Continued Medications: Amitriptyline Hcl (Elavil) 25 Mg Tab 25 MG PO HS, TAB Aspirin (Aspirin 81) 81 Mg Tab 81 MG PO DAILY Calcitriol (Calcitriol) 0.5 Mcg Cap 0.5 MCG PO DAILY for 90 Days, #90 CAP 3 Refills Carvedilol (Coreg) 12.5 Mg Tab 12.5 MG PO BID, TAB Duloxetine HCl (Duloxetine HCl) 60 Mg Cap 60 MG PO DAILY, #90 Ferrous Sulfate (Ferrous Sulfate) 325 Mg Tab 325 MG PO DAILY Fluticasone Propionate (Nasal) (Eql Fluticasone Propionat) 50 Mcg/Act Spr 2 SPRAYS JUAN FRANCISCO UD PRN for NEEDED Folic Acid (Folic Acid) 1 Mg Tab 1 MG PO DAILY Furosemide (Lasix) 80 Mg Tab 40 MG PO DAILY PRN for edema, #10 TAB Gabapentin (Neurontin) 300 Mg Cap 300 MG PO BID, #14 CAP PRESCRIPTION IS FOR 3 TIMES A DAY MED LIST STATES THAT SHE ONLY TAKES IT 2 TIMES A DAY Hydralazine Hcl (Apresoline) 10 Mg Tab 10 MG PO BID, TAB Isosorbide Mononitrate (Isosorbide Mononitrate ER) 30 Mg Tabcr 30 MG PO QAM Levothyroxine Sodium (Levothyroxine Sodium) 175 Mcg Tab 150 MCG PO DAILY for 90 Days, TAB 3 Refills Nitroglycerin (Nitrostat) 0.4 Mg Tab 0.4 MG UT DIRECTED, 0 Refills PRN CHEST PAIN Oxybutynin Chloride Er (Ditropan Xl) 10 Mg Tab 1 TAB PO DAILY for 30 Days, #30 TAB 1 Refill Ranitidine (Zantac) 150 Mg Tab 150 MG PO BID, 0 Refills Rosuvastatin Calcium (Crestor) 20 Mg Tab 20 MG PO DAILY Tramadol (Ultram) 50 Mg Tab 50 MG PO Q6H PRN for Pain, TAB [Vitamin B-12 Inj] () 1 DOSE INJ MONTHLY Admission Information HPI (per Admitting provider): CHIEF COMPLAINT: Frequent falls. HISTORY OF PRESENT ILLNESS: This is a 72-year-old female with past medical history significant for nonischemic cardiomyopathy, EF of 20%-25%, status post biventricular ICD placement, but recent echo showed normal EF and grade 1 diastolic dysfunction, history of sleep apnea, noncompliant with CPAP but uses oxygen about 2-3 L continuously, history of hyperparathyroidism, general osteoarthrosis, allergic rhinitis, chronic kidney disease stage III, GERD, hypertension, hypothyroidism, hyperlipidemia, history of pernicious anemia, peripheral neuropathy, who presents with the frequent falls and ambulatory dysfunction and family also says she is somewhat confused, she is making things up, but the patient seems to be alert and oriented, currently hemodynamically stable, resting comfortably. She denies any headaches, no blurred vision, no earaches. She has some runny nose. No sore throat, no difficulty swallowing. No chest pain, no shortness of breath, no cough, no fever, no chills. Appetite is not that great. No nausea, no abdominal pain. Normal bowel and bladder movements. No blood in the stools, no blood in the urine, no burning micturition. She has chronic lower extremity edema. The patient says she is prescribed Lasix as needed but lately not taking Lasix for some time, and she is also supposed to use CPAP, but she is not using CPAP for several months now, and as per family, patient few years back found unresponsive at home, and at that time, she was hypoxic, and since then, she is on oxygen. Physical Exam (per Admitting): GENERAL: The patient is obese, not in distress. VITAL SIGNS: Temperature 36.7, pulse is 90, respiratory rate 22, blood pressure 134/66, oxygen saturation 97% on 2 L. HEENT: No pallor, no icterus. Pupils equal, round, and reactive to light. NECK: No JVD, no neck masses, no carotid bruits. CARDIOVASCULAR SYSTEM: S1 and S2 heard, regular rate and rhythm, no murmur, no gallop. RESPIRATORY SYSTEM: Normal AP diameter. No accessory muscle use. No wheezing, no crackles. GASTROINTESTINAL: Abdomen is soft, bowel sounds present, nontender, no distention. EXTREMITIES: Bilateral lower extremity +2 edema present, no erythema seen. CENTRAL NERVOUS SYSTEM: Cranial nerves II through XII grossly intact. Nonfocal. Power 5/5 in all extremities. Hospital Course AMBULATORY DYSFUNCTION/FREQUENT FALLS: -reports difficulty ambulating the last couple of y ears because of the heaviness of her legs from the edema, but lately she is not even able to get up from the bed and fell 3 times in last 2 weeks. -vitamin B12 level 312 X rays of B/L knees normal patient complains of knees "giving out on her" during the falls, Orthopedics consulted and recommend outpatient follow up and continue ongoing therapy - patient gradually improved stable when walking again PT/OT consulted, recommend dispo to home with PT/OT ACUTE RENAL FAILURE on CKD STAGE III: -Nephrology consulted, recent baseline creatinine has been around 2.0 -presented with creatinine of 2.5-->2.25-->2.27 -- given gentle IV fluids crea improved, now at 2.2 cleared for discharge as per Dr. Fischer ff up with Nephro in 3 weeks (labs 2 days prior to visit) E COLI UTI -- given Ceftriaxone IV x 4 days discharge on 1 more day of Cefuroxime monitor as outpatient 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 HYPOTHYROIDISM: -on Synthroid 150 mcg HYPERLIPIDEMIA: -continue statin. Hx of PERNICIOUS ANEMIA: -on vitamin B12 injections, injection given while admitted as patient states she missed this months dose GERD: -continue Zantac. MONIQUE: -noncompliant with CPAP. -On chronic oxygen HTN: -controlled -continue home medications of Coreg, Imdur, and hydralazine Disposition -PT/OT consulted, recommend dispo to home with PT/OT d/c to to home with PT/OT ff up with PCP in 3-5 days Total time spent on discharge = 35 minutes This includes examination of the patient, discharge planning, medication reconciliation, and communication with other providers. Discharge Instructions Discharge Instructions Date of Service September 01, 2017. Admission Reason for Admission: Arf,Falls Discharge Discharge Diagnosis / Problem: ACUTE RENAL FAILURE, RESOLVED Discharge Goals Goal(s): Diagnostic testing, Therapeutic intervention Activity Recommendations Activity Limitations: as noted below (NO HEAVY EXERTION UNTIL RE-EVALUATED BY PRIMARY CARE PHYSICIAN) Lifting Limitations: until after follow-up appointment Exercise/Sports Limitations: until after follow-up appointment . Instructions / Follow-Up Instructions / Follow-Up PLEASE REVIEW YOUR NEW MEDICATION LIST AND FOLLOW INSTRUCTIONS CAREFULLY. CALL YOUR PRIMARY CARE PHYSICIAN OR RETURN TO ER IMMEDIATELY IF WITH RECURRENCE OF SYMPTOMS, ABDOMINAL PAIN, PROBLEMS WITH URINATION, FEVER/CHILLS, NAUSEA. ALWAYS BE CAREFUL AND USE THE WALKER WHEN AMBULATING. FOLLOW UP WITH DR. BARLOW (ASSOCIATE OF DR. WOODARD) ON WEDNESDAY SEPTEMBER 06, 2017 AT 12:25PM. FOLLOW UP WITH ORTHOPEDIC SURGEON DR. CHARLIE BELCHER IN 1-2 WEEKS. FOLLOW UP WITH DR. FISCHER IN 3 WEEKS. YOU WILL NEED BLOODWORK IN HIS OFFICE 2 DAYS PRIOR TO APPOINTMENT DATE. Current Hospital Diet Patient's current hospital diet: AHA Diet (Heart Healthy) Discharge Diet Recommended Diet: AHA Diet (Heart Healthy) Procedures Procedures Performed: CHEST AND KNEE XRAY, CT SCAN OF THE HEAD Pending Studies Studies pending at discharge: no Medical Emergencies . Who to Call and When: Medical Emergencies: If at any time you feel your situation is an emergency, please call 911 immediately. . Non-Emergent Contact Non-Emergency issues call your: Primary Care Provider, Criminal Legal Assistant Call Non-Emergent contact if: you have a fever, your pain is not controlled, your pain is worsening, you have any medication questions . . "Provider Documentation" section prepared by Marshall Daniel. .
== END 2017-09-01 17:00 | disposition home health service (06) | DRG 92 ==
LOC: C.EDB 18:44 → C.4E 21:17 → ENRESERV 21:22
PROVIDERS: ADMIT Internal Medicine; ATTEND Internal Medicine
DX: R29.6 Repeated falls (principal); N17.9 Acute kidney failure, unspecified; N39.0 Urinary tract infection, site not specified; I13.0 Hypertensive heart and chronic kidney disease with heart failure and stage 1 through stage 4 chronic kidney disease, or unspecified chronic kidney disease; I50.42 Chronic combined systolic (congestive) and diastolic (congestive) heart failure; I42.9 Cardiomyopathy, unspecified; R26.89 Other abnormalities of gait and mobility; B96.20 Unspecified Escherichia coli [E. coli] as the cause of diseases classified elsewhere; M17.0 Bilateral primary osteoarthritis of knee; M22.41 Chondromalacia patellae, right knee; M22.42 Chondromalacia patellae, left knee; E86.0 Dehydration; S50.312A Abrasion of left elbow, initial encounter; N18.3 Chronic kidney disease, stage 3 (moderate); D75.89 Other specified diseases of blood and blood-forming organs; D51.0 Vitamin B12 deficiency anemia due to intrinsic factor deficiency; E03.9 Hypothyroidism, unspecified; E78.5 Hyperlipidemia, unspecified; K21.9 Gastro-esophageal reflux disease without esophagitis; G47.33 Obstructive sleep apnea (adult) (pediatric); G62.9 Polyneuropathy, unspecified; M19.90 Unspecified osteoarthritis, unspecified site; J30.9 Allergic rhinitis, unspecified; E66.9 Obesity, unspecified; Z51.81 Encounter for therapeutic drug level monitoring; Z79.899 Other long term (current) drug therapy; Z79.82 Long term (current) use of aspirin; Z99.81 Dependence on supplemental oxygen; Z91.19 Patient's noncompliance with other medical treatment and regimen; Z95.810 Presence of automatic (implantable) cardiac defibrillator; Z68.33 Body mass index [BMI] 33.0-33.9, adult; Z87.891 Personal history of nicotine dependence; Z88.1 Allergy status to other antibiotic agents; Z88.8 Allergy status to other drugs, medicaments and biological substances; Z82.49 Family history of ischemic heart disease and other diseases of the circulatory system; W19.XXXA Unspecified fall, initial encounter; Y99.8 Other external cause status

== ENCOUNTER → 2017-11-19 | Outpatient (CLI) | payer OTHER ==
[~2017-11-19] MED LIST changes: -ASPEC81 PO; +ASPI-435 PO; +CALC0.5C PO; +CEFU1TAB33 PO; -DIPH25CA5 PO; -DULO60CA44 PO; -FLUT0.0529 NAE; +FLUT50SP NAE; -LEVO175T23 PO; +LEVO175T3 PO; -LOPE1TAB25 PO; +OXYB10TA13 PO; -OXYM0.056 NAE; -TRAZ50TA35 PO; +VITAMIN B-12 INJ INJ; -VTMD PO; -b12 injection
[2017-11-19 17:04] LABS: ALBUMIN 2.9 gm/dl (3.4-5.0); BLOOD UREA NITROGEN 25 mg/dl (7-18); CALCIUM 9.6 mg/dl (8.5-10.1); CARBON DIOXIDE 29 mmol/L (21-32); CREATININE 1.64 mg/dl (0.60-1.20); GLUCOSE 85 mg/dl (70-99); PHOSPHORUS 4.2 mg/dl (2.5-4.9); POTASSIUM 4.5 mmol/L (3.5-5.1); SODIUM 138 mmol/L (136-145)
== END | disposition home or self-care (01) ==
LOC: C.LAB1850 15:13
PROVIDERS: ATTEND Internal Medicine Nephrology
DX: D64.9 Anemia, unspecified (principal); N25.81 Secondary hyperparathyroidism of renal origin; I10 Essential (primary) hypertension; E55.9 Vitamin D deficiency, unspecified

== ENCOUNTER → 2017-12-14 | Outpatient (CLI) | payer OTHER ==
[~2017-12-14] MED LIST changes: +AFRINWC; +AMT/25 PO; +ASPI81TA28 PO; +CARV12.5 PO; +CEPH500C PO; +CYNI1000 INJ; +DIPH1TAB87 PO; +DULO60CA44 PO; +ERGO500037 PO; +FERR1TAB13 PO; +FLUT0.15 NAE; +FOLI1TAB8 PO; +FURO80TA63 PO; +GABA-113 PO; +IMD/2 PO; +ISOS30TA3 PO; +RCL/25 PO; +ROSU20TA PO; +TRAZ50TA35 PO
--- NOTE | 2017-12-14 14:16 | DIAGNOSTIC IMAGING REPORT ---
(GAY/BLAD)RETROPERITON COMP CLINICAL HISTORY: 72 years-old Female presenting with CHRONIC KIDNEY DISEASE STATE III, HTN, ANEMIA. TECHNIQUE: Real-time grayscale and limited color Doppler ultrasound imaging of the kidneys and bladder was performed. COMPARISON: 06/11/2009. FINDINGS: Right kidney: Cortical thinning as on prior exam with expansion of renal sinus fat compatible with chronic atrophy. Right kidney measures 9.3 cm. Moderate pelvocaliectasis. No convincing evidence of calculus or mass. Left kidney: Cortical thinning as on prior exam with expansion of renal sinus fat compatible with chronic atrophy. Left kidney measures 9.6 cm. Moderate pelvocaliectasis. No convincing evidence of calculus or mass. Bladder: Under distended and incompletely evaluated. Bilateral ureteral jets not visualized. Other: None. IMPRESSION: 1. Moderate bilateral pelvocaliectasis raises concern for bilateral hydronephrosis. Consider further evaluation with CT of abdomen and pelvis as clinically appropriate. The report will be called/faxed according to standard departmental protocol. Electronically signed by: Joel Blum M.D. 12/14/2017 2:15 PM Dictated Date/Time: 12/14/2017 2:12 PM
== END | disposition home or self-care (01) ==
LOC: C.ULTR 13:35
PROVIDERS: ATTEND Internal Medicine Nephrology
DX: D64.9 Anemia, unspecified (principal); I10 Essential (primary) hypertension; N18.3 Chronic kidney disease, stage 3 (moderate); N25.81 Secondary hyperparathyroidism of renal origin

== ENCOUNTER 2017-12-16 14:14 | Emergency (ER) | payer OTHER ==
[~2017-12-16] VITALS: Ht 170.2 cm; Wt 91.2 kg
[~2017-12-16 14:14] MED LIST changes: -AFRINWC; -AMT/25 PO; -ASPI81TA28 PO; -CARV12.5 PO; -CEPH500C PO; -CYNI1000 INJ; -DIPH1TAB87 PO; -DULO60CA44 PO; -ERGO500037 PO; -FERR1TAB13 PO; -FLUT0.15 NAE; -FOLI1TAB8 PO; -FURO80TA63 PO; -GABA-113 PO; -IMD/2 PO; -ISOS30TA3 PO; -RCL/25 PO; -ROSU20TA PO; -TRAZ50TA35 PO
--- NOTE | 2017-12-16 14:56 | EMERGENCY ROOM VISIT NOTE ---
History Report prepared by Laila: Pooja Lawson Under the Supervision of: Dr. Ramesh Morales M.D. First contact with patient: 14:38 Chief Complaint: FALL Stated Complaint: LEG PAIN History of Present Illness The patient is a 72 year old female who presents to the Emergency Room after a fall that occurred around 0930 morning. The patient states that she usually uses a cane or walker, but was not using either this morning when she walked from her bedroom to her bathroom where she then fell onto her knees. She states that she was then able to pull herself back to her bedroom where she was until 1230 when she was finally able to get to her phone and call her daughter. The patient denies any pain at her ankles and pain in her right leg, but she states that she has some pain in her left hip. The patient also denies any fever or shortness of breath. She does report that she is on 3L of oxygen everyday. She states that she did not eat breakfast this morning, but has been eating and drinking normally, and denies any problems with her bowels. Per the patient's daughter, the patient has problems urinating a lot and just got an ultrasound for this. Her daughter also states that the patient has a shake at baseline. Per the daughter, the patient was unable to walk after the daughter found her. The patient also states that she takes aspirin everyday. Source of History: patient, family (daughter) Onset: 929 this morning Position: other (generalized ) Quality: other (fall) Timing: other (resolved ) Associated Symptoms: No fevers, No SOB Note: additional symptoms: pain in her left hip Review of Systems See HPI for pertinent positives and negatives. A total of ten systems were reviewed and were otherwise negative. 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 (3) Chronic kidney disease, stage 3 (moderate) (4) Cystitis (5) Neuropathy (6) Sleep apnea Family History FH: cancer FH: heart disease FH: lung disease Social History Smoking Status: Never Smoker Alcohol Use: none Drug Use: none Marital Status: Housing Status: lives alone Occupation Status: unemployed Current/Historical Medications Scheduled Amitriptyline HCl (Amitriptyline HCl), 25 MG PO HS Aspirin (Aspirin Ec), 81 MG PO DAILY Calcitriol (Calcitriol), 0.5 MCG PO DAILY Carvedilol (Coreg), 12.5 MG PO BID Cephalexin Monohydrate (Keflex), 500 MG PO QID Cyanocobalamin (Cyanocobalamin), 1 DOSE INJ MONTHLY Duloxetine Hcl (Cymbalta), 60 MG PO DAILY Ergocalciferol (Vitamin D 75081 Unit), 50,000 UNIT PO WK Ferrous Sulfate (Kp Ferrous Sulfate), 325 MG PO DAILY Folic Acid (Folvite), 1 MG PO DAILY Furosemide (Lasix), 80 MG PO BID Gabapentin (Neurontin), 300 MG PO BID Hydralazine Hcl (Apresoline), 10 MG PO BID Isosorbide Mononitrate Ext Rel (Imdur Ext Rel), 30 MG PO QAM Levothyroxine Sodium (Levothyroxine Sodium), 175 MCG PO DAILY Ranitidine (Zantac), 150 MG PO BID Rosuvastatin Calcium (Crestor), 20 MG PO DAILY Trazodone Hcl (Trazodone), 50 MG PO HS Scheduled PRN Diphenhydramine Hcl (Benadryl Allergy), 25 MG PO UD PRN for ALLERGIES Fluticasone Propionate (Nasal) (Flonase Allergy Relief), 1 [place] DAILY PRN for ALLERGIES Loperamide Hcl (Imodium), 2 MG PO UD PRN for Diarrhea Nitroglycerin (Nitrostat), 0.4 MG UT PRN PRN for Chest Pain Oxymetazoline Hcl (Afrin 0.05% Nasal [place]), 1 BTL NA UD PRN for ALLERGIES Tramadol (Ultram), 50 MG PO Q6 PRN for Pain Allergies Coded Allergies: Daptomycin (Verified Allergy, Intermediate, RASH, 12/16/17) daptomycin induced rhabdomyliosis with renal failure Physical Exam Vital Signs Date Time Temp Pulse Resp B/P (MAP) Pulse Ox O2 Delivery O2 Flow Rate FiO2 12/16/17 18:37 37.0 80 15 150/100 100 12/16/17 17:39 80 12/16/17 16:44 83 15 100 12/16/17 16:31 150/100 12/16/17 16:29 82 21 100 12/16/17 16:14 82 21 100 12/16/17 16:02 131/75 12/16/17 15:59 82 25 99 12/16/17 15:44 82 22 100 12/16/17 15:29 85 21 98 12/16/17 15:25 84 12/16/17 15:10 80 18 136/61 12/16/17 15:09 136/61 12/16/17 15:09 98 Nasal Cannula 3.0 12/16/17 14:29 98 Room Air 3.0 12/16/17 14:22 37.0 88 16 125/40 98 Room Air Physical Exam GENERAL: Awake, alert, well-appearing, in no distress. Obese abdomen. HENT: Normocephalic, atraumatic. Oropharynx unremarkable. EYES: Normal conjunctiva. Sclera non-icteric. NECK: Supple. No nuchal rigidity. RESPIRATORY: Clear to auscultation. No wheezes. Normal respiratory effort. CARDIAC: Normal rate. Normal rhythm. Extremities warm and well perfused. GI: Soft, non-distended. No tenderness to palpation. No rebound or guarding. No masses. RECTAL: Deferred. MUSCULOSKELETAL: Atraumatic. Chest examination reveals no tenderness. There is no CVA tenderness to palpation. LOWER EXTREMITIES: Calves are equal size bilaterally and non-tender. No edema. Mild tenderness and pretibial bruising on both knees. Mild left hip pain. Minimal pain with ROM of legs. NEURO: Normal sensorium. No sensory or motor deficits noted. No facial droop. SKIN: Warm and dry. No rash or jaundice noted. Medical Decision & Procedures ER Provider Diagnostic Interpretation: Radiology results as stated below per my review and radiologist interpretation: R KNEE 1 OR 2 VIEWS ROUTINE CLINICAL HISTORY: Right knee pain following fall. COMPARISON: None FINDINGS: Alignment of the right knee is anatomic. No fracture or joint effusion. There is mild to moderate medial compartment joint space narrowing of the right knee. IMPRESSION: 1. No acute fracture or joint effusion of the right knee. 2. Mild to moderate medial compartment joint space narrowing. 3. Suspected soft tissue swelling/subcutaneous edema of the right knee. Electronically signed by: Heriberto Carrizales M.D. 12/16/2017 3:37 PM Dictated Date/Time: 12/16/2017 3:36 PM L KNEE 1 OR 2 VIEWS ROUTINE CLINICAL HISTORY: Left knee pain following fall. COMPARISON: None FINDINGS: Alignment of the left knee is anatomic. No fracture or joint effusion. There is mild medial compartment joint space narrowing of the left knee. IMPRESSION: 1. No acute fracture or joint effusion of the left knee. 2. Mild medial compartment joint space narrowing. Electronically signed by: Heriberto Carrizales M.D. 12/16/2017 3:38 PM Dictated Date/Time: 12/16/2017 3:37 PM L HIP UNILATERAL 2 VIEWS CLINICAL HISTORY: Left hip pain following fall. COMPARISON: None FINDINGS: Evaluation is mildly compromised by suboptimal penetration. Alignment of the left hip is anatomic. There is no acute fracture. There is mild joint space narrowing and osteophytosis of the left hip. No fracture is identified within visualized portions of the left hemipelvis. IMPRESSION: No acute fracture or dislocation of the left hip. Electronically signed by: Heriberto Carrizales M.D. 12/16/2017 3:39 PM Dictated Date/Time: 12/16/2017 3:38 PM CHEST ONE VIEW PORTABLE CLINICAL HISTORY: Weakness. COMPARISON STUDY: Chest radiograph August 28, 2017. FINDINGS: A left subclavian biventricular pacer/AICD is in place. There are cholecystectomy clips. Moderate cardiomegaly is noted. There is no pneumothorax or definite pleural effusion. There is pulmonary vascular congestion without evidence for pulmonary edema. IMPRESSION: 1. No pneumothorax. 2. Stable cardiomegaly. 3. Pulmonary vascular congestion without evidence for pulmonary edema. Electronically signed by: Heriberto Carrizales M.D. 12/16/2017 3:42 PM Dictated Date/Time: 12/16/2017 3:40 PM Laboratory Results 12/16/17 15:30 Red Blood Count 3.51, Mean Corpuscular Volume 91.2, Mean Corpuscular Hemoglobin 29.6, Mean Corpuscular Hemoglobin Concent 32.5, Mean Platelet Volume 10.5, Neutrophils (%) (Auto) 80.0, Lymphocytes (%) (Auto) 8.4, Monocytes (%) (Auto) 11.0, Eosinophils (%) (Auto) 0.2, Basophils (%) (Auto) 0.1, Neutrophils # (Auto ) 13.76, Lymphocytes # (Auto) 1.45, Monocytes # (Auto) 1.89, Eosinophils # (Auto ) 0.03, Basophils # (Auto) 0.01 12/16/17 15:30 Test 12/16/17 15:29 12/16/17 15:30 Urine Color YELLOW Urine Appearance TURBID (CLEAR) Urine pH 7.5 (4.5-7.5) Urine Specific [place] 1.010 (1.000-1.030) Urine Protein 2+ (NEG) Urine Glucose (UA) NEG (NEG) Urine Ketones NEG (NEG) Urine Occult Blood 2+ (NEG) Urine Nitrite NEG (NEG) Urine Bilirubin NEG (NEG) Urine Urobilinogen NEG (NEG) Urine Leukocyte Esterase LARGE (NEG) Urine WBC (Auto) >30 /hpf (0-5) Urine RBC (Auto) 5-10 /hpf (0-4) Urine Hyaline Casts (Auto) /lpf (0-5) Urine Epithelial Cells (Auto) >30 /lpf (0-5) Urine Bacteria (Auto) 4+ (NEG) Urine Pathogenic Casts /lpf (0) White Blood Count 17.19 K/uL (4.8-10.8) Red Blood Count 3.51 M/uL (4.2-5.4) Hemoglobin 10.4 g/dL (12.0-16.0) Hematocrit 32.0 % (37-47) Mean Corpuscular Volume 91.2 fL (80-100) Mean Corpuscular Hemoglobin 29.6 pg (25-34) Mean Corpuscular Hemoglobin Concent 32.5 g/dl (32-36) Platelet Count 160 K/uL (130-400) Mean Platelet Volume 10.5 fL (7.4-10.4) Neutrophils (%) (Auto) 80.0 % Lymphocytes (%) (Auto) 8.4 % Monocytes (%) (Auto) 11.0 % Eosinophils (%) (Auto) 0.2 % Basophils (%) (Auto) 0.1 % Neutrophils # (Auto) 13.76 K/uL (1.4-6.5) Lymphocytes # (Auto) 1.45 K/uL (1.2-3.4) Monocytes # (Auto) 1.89 K/uL (0.11-0.59) Eosinophils # (Auto) 0.03 K/uL (0-0.5) Basophils # (Auto) 0.01 K/uL (0-0.2) RDW Standard Deviation 43.0 fL (36.4-46.3) RDW Coefficient of Variation 12.9 % (11.5-14.5) Immature Granulocyte % (Auto) 0.3 % Immature Granulocyte # (Auto) 0.05 K/uL (0.00-0.02) Anion Gap 6.0 mmol/L (3-11) Est Creatinine Clear Calc Drug Dose 28.8 ml/min Estimated GFR () 27.4 Estimated GFR (Non- 23.6 BUN/Creatinine Ratio 13.0 (10-20) Calcium Level 9.5 mg/dl (8.5-10.1) Total Bilirubin 0.6 mg/dl (0.2-1) Direct Bilirubin 0.3 mg/dl (0-0.2) Aspartate Amino Transf (AST/SGOT) 18 U/L (15-37) Alanine Aminotransferase (ALT/SGPT) 12 U/L (12-78) Alkaline Phosphatase 95 U/L (45-117) Total Protein 6.7 gm/dl (6.4-8.2) Albumin 2.8 gm/dl (3.4-5.0) Thyroid Stimulating Hormone (TSH) 0.070 uIu/ml (0.300-4.500) Laboratory results reviewed by me Medications Administered Medications (Trade) Dose Ordered Sig/Yesenia Route Start Time Stop Time Status Last Admin Dose Admin Ceftriaxone Sodium (Rocephin Inj) 1 gm NOW STAT IV 12/16/17 16:27 12/16/17 16:28 DC 12/16/17 16:44 1 GM Cephalexin Monohydrate (Keflex 500MG Home Pack) 1 homepack NOW ONCE PO 12/16/17 18:45 12/16/17 18:46 DC 12/16/17 18:47 1 HOMEPACK ECG Per My Interpretation Indication: other (fall) Rate (beats per minute): 88 Rhythm: other (atrial sensed ventricularly paced rhythm) Findings: other (no acute ST elevation, limited interpretation due to baseline artifact ) Comparison ECG Date: 08/28/2017 Change: no significant change ED Course 1447: The patient was evaluated in room C1B. A complete history and physical exam was performed. 1627: Ordered Rocephin Inj 1 gm IV. 1844: Ordered Cephalexin Monohydrate 1 homepack PO. 5: I reevaluated the patient. Discussed results and discharge instructions: She verbalized understanding and agreement. The patient is ready for discharge. Medical Decision Differential diagnosis: Etiologies such as fracture, dislocation, intra-abdominal, pneumothorax, intrathoracic , intracranial, neurologic, metabolic, infection, hypo/ hyperglycemia, electrolyte abnormalities, cardiac sources, intracerebral event, toxicologic, neurologic, as well as others were entertained. Patient presents after mechanical fall today. Made her way to the bathroom and fell to her knees. Was unable to get up. Called her bedroom and later found several hours later by family members after reaching the phone. Complaint of some knee pain left hip pain. Recurrent urinary issues and urinary frequency. History of UTI. X-rays are negative for injury to the knees or left hip. Minimal pain here some slight bruising of the knees. Leukocytosis is notable. Benign abdomen. Doubt nephrolithiasis or significant pyelonephritis. Recurrent UTI. Evidence of low TSH recently checked several months ago with a normal T4 and recommend follow-up for this. Not sure this is contributing to her symptomatologies. Does not appear hyperthyroid. Creatinine near baseline. We will give a dose of antibiotics. Able to ambulate here fairly well. Discussed with family and they feel comfortable going home with home health; referral process started. Case management assisted. Will do a course of Keflex ; first dose of ceftriaxone today. Follow-up with her primary care physician in the next 3-5 days. Discussed return criteria. Home health to be established. Medication Reconcilliation Current Medication List: was personally reviewed by me Blood Pressure Screening Patient's blood pressure: Elevated blood pressure Blood pressure disposition: Referred to PCP Impression Primary Impression: Fall Additional Impression: UTI (urinary tract infection) Scribe Attestation The scribe's documentation has been prepared under my direction and personally reviewed by me in its entirety. I confirm that the note above accurately reflects all work, treatment, procedures, and medical decision making performed by me. Departure Information Dispostion Home / Self-Care Prescriptions Cephalexin Monohydrate (Keflex) 500 Mg Cap 500 MG PO QID, #28 CAP Prov: Ramesh Moralse M.D. 12/16/17 Referrals Lee Desai M.D. (PCP) Forms HOME CARE DOCUMENTATION FORM, IMPORTANT VISIT INFORMATION Patient Instructions My [facility] Additional Instructions Please follow-up with your regular doctor within the next 3-5 days. Utilized the antibiotic to help treat urinary tract infection. Please exercise caution to avoid falls in the future. If at any time if new concerns or symptoms please return here for reevaluation. Please follow up with our doctor your thyroid function and medicine dosing. Problem Qualifiers Primary Impression: Fall Encounter type: initial encounter Qualified Codes: W19.XXXA - Unspecified fall, initial encounter Additional Impression: UTI (urinary tract infection) Urinary tract infection type: acute cystitis Hematuria presence: with hematuria Qualified Codes: N30.01 - Acute cystitis with hematuria
[2017-12-16 15:09] VITALS: O2SAT 98; Ht 170.2 cm; Wt 91.2 kg
[2017-12-16 15:33] LABS: BASO % 0.1 %; BASO ABS # 0.01 K/uL (0-0.2); EOS % 0.2 %; EOS ABS # 0.03 K/uL (0-0.5); HEMOGLOBIN 10.4 g/dL (12.0-16.0); IG# 0.05 K/uL (0.00-0.02); LYMPH % 8.4 %; LYMPH ABS # 1.45 K/uL (1.2-3.4); MEAN CELL VOLUME 91.2 fL (80-100); MEAN CORPUSCULAR HEMOGLOBIN 29.6 pg (25-34); MEAN CORPUSCULAR HGB CONC 32.5 g/dl (32-36); MEAN PLATELET VOLUME 10.5 fL (7.4-10.4); MONO ABS # 1.89 K/uL (0.11-0.59); NEUT ABS # 13.76 K/uL (1.4-6.5); PLATELET COUNT 160 K/uL (130-400); RED CELL DISTRIBUTION WIDTH CV 12.9 % (11.5-14.5); WHITE BLOOD COUNT 17.19 K/uL (4.8-10.8)
--- NOTE | 2017-12-16 15:38 | DIAGNOSTIC IMAGING REPORT ---
R KNEE 1 OR 2 VIEWS ROUTINE CLINICAL HISTORY: Right knee pain following fall. COMPARISON: None FINDINGS: Alignment of the right knee is anatomic. No fracture or joint effusion. There is mild to moderate medial compartment joint space narrowing of the right knee. IMPRESSION: 1. No acute fracture or joint effusion of the right knee. 2. Mild to moderate medial compartment joint space narrowing. 3. Suspected soft tissue swelling/subcutaneous edema of the right knee. Electronically signed by: Heriberto Carrizales M.D. 12/16/2017 3:37 PM Dictated Date/Time: 12/16/2017 3:36 PM
--- NOTE | 2017-12-16 15:39 | DIAGNOSTIC IMAGING REPORT ---
L KNEE 1 OR 2 VIEWS ROUTINE CLINICAL HISTORY: Left knee pain following fall. COMPARISON: None FINDINGS: Alignment of the left knee is anatomic. No fracture or joint effusion. There is mild medial compartment joint space narrowing of the left knee. IMPRESSION: 1. No acute fracture or joint effusion of the left knee. 2. Mild medial compartment joint space narrowing. Electronically signed by: Heriberto Carrizales M.D. 12/16/2017 3:38 PM Dictated Date/Time: 12/16/2017 3:37 PM
--- NOTE | 2017-12-16 15:40 | DIAGNOSTIC IMAGING REPORT ---
L HIP UNILATERAL 2 VIEWS CLINICAL HISTORY: Left hip pain following fall. COMPARISON: None FINDINGS: Evaluation is mildly compromised by suboptimal penetration. Alignment of the left hip is anatomic. There is no acute fracture. There is mild joint space narrowing and osteophytosis of the left hip. No fracture is identified within visualized portions of the left hemipelvis. IMPRESSION: No acute fracture or dislocation of the left hip. Electronically signed by: Heriberto Carrizales M.D. 12/16/2017 3:39 PM Dictated Date/Time: 12/16/2017 3:38 PM
--- NOTE | 2017-12-16 15:43 | DIAGNOSTIC IMAGING REPORT ---
CHEST ONE VIEW PORTABLE CLINICAL HISTORY: Weakness. COMPARISON STUDY: Chest radiograph August 28, 2017. FINDINGS: A left subclavian biventricular pacer/AICD is in place. There are cholecystectomy clips. Moderate cardiomegaly is noted. There is no pneumothorax or definite pleural effusion. There is pulmonary vascular congestion without evidence for pulmonary edema. IMPRESSION: 1. No pneumothorax. 2. Stable cardiomegaly. 3. Pulmonary vascular congestion without evidence for pulmonary edema. Electronically signed by: Heriberto Carrizales M.D. 12/16/2017 3:42 PM Dictated Date/Time: 12/16/2017 3:40 PM
[2017-12-16 16:01] LABS: ALBUMIN 2.8 gm/dl (3.4-5.0); CALCIUM 9.5 mg/dl (8.5-10.1); CREATININE 2.05 mg/dl (0.60-1.20); POTASSIUM 3.7 mmol/L (3.5-5.1); TOTAL PROTEIN 6.7 gm/dl (6.4-8.2)
[2017-12-16] MEDS ORDERED: CEFTRIAXONE SOD INJ 1 GM ADDVIAL IV STA (16:27)
[2017-12-16] MEDS ORDERED: AMT/25 PO (16:46)
[2017-12-16] MEDS ORDERED: TRAZ50TA35 PO (16:46)
[2017-12-16] MEDS ORDERED: ROSU20TA PO (16:46)
[2017-12-16] MEDS ORDERED: GABA-113 PO (16:46)
[2017-12-16] MEDS ORDERED: FLUT0.15 NAE (16:46)
[2017-12-16] MEDS ORDERED: IMD/2 PO (16:46)
[2017-12-16] MEDS ORDERED: CYNI1000 INJ (16:46)
[2017-12-16] MEDS ORDERED: ASPI81TA28 PO (16:46)
[2017-12-16] MEDS ORDERED: ERGO500037 PO (16:46)
[2017-12-16] MEDS ORDERED: FERR1TAB13 PO (16:46)
[2017-12-16] MEDS ORDERED: TRAM-10 PO (16:46)
[2017-12-16] MEDS ORDERED: AFRINWC (16:46)
[2017-12-16] MEDS ORDERED: LEVO175T3 PO (16:46)
[2017-12-16] MEDS ORDERED: RCL/25 PO (16:46)
[2017-12-16] MEDS ORDERED: RANI150T85 PO (16:46)
[2017-12-16] MEDS ORDERED: ISOS30TA3 PO (16:46)
[2017-12-16] MEDS ORDERED: DULO60CA44 PO (16:46)
[2017-12-16] MEDS ORDERED: NTRGSL/4 UT (16:46)
[2017-12-16] MEDS ORDERED: DIPH1TAB87 PO (16:46)
[2017-12-16] MEDS ORDERED: FURO80TA63 PO (16:46)
[2017-12-16] MEDS ORDERED: FOLI1TAB8 PO (16:46)
[2017-12-16] MEDS ORDERED: HYDR-4715 PO (16:46)
[2017-12-16] MEDS ORDERED: CARV12.5 PO (16:46)
[2017-12-16] MEDS ORDERED: CEPH500C PO (18:12)
[2017-12-16 18:37] VITALS: BP 150/100; PULSE 80; TEMP 37; O2SAT 100
[2017-12-16] MEDS ORDERED: CEPHALEXIN 500MG HOME PACK 1 EA BTL PO ONE (18:45)
== END 2017-12-16 18:37 | disposition home or self-care (01) ==
LOC: EDBD 14:14 → C.EDC 14:15
DX: M25.552 Pain in left hip (principal); W19.XXXA Unspecified fall, initial encounter; N30.01 Acute cystitis with hematuria; I42.9 Cardiomyopathy, unspecified; I50.9 Heart failure, unspecified; N18.3 Chronic kidney disease, stage 3 (moderate); Z79.899 Other long term (current) drug therapy; Z79.82 Long term (current) use of aspirin; Z88.8 Allergy status to other drugs, medicaments and biological substances

== ENCOUNTER 2019-06-13 21:08 | Inpatient (IN) ==
[2019-06-13] MEDS ORDERED: XYLOCAINE 1%/SOD BICARB 20 ML VIAL INFIL ONE (21:55)
[2019-06-13 22:17] LABS: Appearance Urine Turbid (Clear); Bacteria Urine Automated Negative (Negative); Bilirubin Urine Negative (Negative); Blood Urine 2+ (Negative); Color Urine Yellow; Epithelial Cell Urine Auto 0-5 /lpf (0-5); Glucose Urine UA Negative (Negative); Ketones Urine Negative (Negative); Leukocyte Esterase Urine 3+ (Negative); Nitrite Urine Negative (Negative); Protein Urine 1+ (Negative); RBC Urine Automated 0-4 /hpf (0-4); Urobilinogen Urine Negative (Negative); WBC Urine Automated >30 /hpf (0-5)
[2019-06-13 22:34] LABS: Cast Urine Automated 0 /lpf (0-5)
--- NOTE | 2019-06-13 23:01 | XRay Report ---
XR elbow LT min 3V routine CLINICAL HISTORY: 74 years-old Female presenting with fall, left elbow injury. TECHNIQUE: Frontal, oblique, and lateral views of the left elbow were obtained. COMPARISON: None. FINDINGS: Elbow joint congruent. No elbow joint effusion. Mild osteopenia may be present. No acute fracture or malalignment. No advanced degenerative change. No radiographic soft tissue abnormality. IMPRESSION: No acute osseous injury. ACT 112: Negative or not required by law. Electronically signed by: Joel Blum M.D. 06/13/2019 10:59 PM
--- NOTE | 2019-06-13 23:02 | XRay Report ---
XR knee RT 3V CLINICAL HISTORY: 74 years-old Female presenting with fall, b/l knee pain. TECHNIQUE: Frontal, sunrise, and lateral views of the right knee were obtained. COMPARISON: 12/16/2017. FINDINGS: Mild osteopenia suspected. Knee joint congruent. Mild joint space loss may be present in the medial a nd patellofemoral compartments. No acute fracture or malalignment. No gross evidence of a knee joint effusion. No radiographic soft tissue abnormality. IMPRESSION: No acute osseous injury. ACT 112: Negative or not required by law. Electronically signed by: Joel Blum M.D. 06/13/2019 11:01 PM
--- NOTE | 2019-06-13 23:04 | CT Scan Report ---
CT head/brain wo con CLINICAL HISTORY: 74 years-old Female presenting with fall, head injury. TECHNIQUE: Multidetector CT imaging of the head was performed without the use of intravenous contrast . IV contrast: None. One or more dose lowering techniques were used consistent with the principles of ALARA (as low as reasonably achievable), including automatic exposure control, mA or kV adjustment t o individual patient size, and/or use of iterative reconstruction. COMPARISON: 04/22/2018. CT DOSE (mGy.cm): The estimated cumulative dose is 614.27 mGy.cm. FINDINGS: [employer] topogram: Unremarkable. Proportional ventricular and sulcal prominence, likely age-related parenchymal volume loss. No hemorr joelle. Mild periventricular and subcortical white matter hypoattenuation, nonspecific but likely indic ative of chronic small vessel ischemic change. No acute territorial infarct. No mass effect or midlin e shift. No extra-axial fluid collection. Paranasal sinuses and mastoid air cells clear. Calvarium in tact. IMPRESSION: 1. Mild chronic small vessel ischemic change. No acute intracranial abnormality. ACT 112: Negative or not required by law. Electronically signed by: Joel Blum M.D. 06/13/2019 11:03 PM
--- NOTE | 2019-06-13 23:05 | XRay Report ---
XR knee LT 3V CLINICAL HISTORY: 74 years-old Female presenting with fall, b/l knee pain. TECHNIQUE: Frontal, lateral, and sunrise views of the left knee were obtained. COMPARISON: 12/16/2017. FINDINGS: Knee joint congruent. Mild medial compartment and patellofemoral compartment joint space loss may be present. Osteopenia suspected.. No acute fracture or malalignment. Knee joint effusion may be present . No radiographic soft tissue abnormality. IMPRESSION: 1. No acute osseous injury. 2. Possible knee joint effusion. ACT 112: Negative or not required by law. Electronically signed by: Joel Blum M.D. 06/13/2019 11:04 PM
--- NOTE | 2019-06-13 23:06 | XRay Report ---
XR foot LT min 3V routine CLINICAL HISTORY: 74 years-old Female presenting with fall, left foot pain. TECHNIQUE: Frontal, oblique, and lateral views of the left foot were obtained. COMPARISON: None. FINDINGS: Osteopenia noted. No acute fracture or malalignment. No advanced degenerative change. No radiographic soft tissue abnormality. IMPRESSION: No acute osseous injury. ACT 112: Negative or not required by law. Electronically signed by: Jeol Blum M.D. 06/13/2019 11:05 PM
--- NOTE | 2019-06-13 23:08 | XRay Report ---
XR wrist RT w scaphoid CLINICAL HISTORY: 74 years-old Female presenting with fall, right wrist pain. TECHNIQUE: Frontal, bilateral oblique, lateral, and scaphoid views of the right wrist were obtained. COMPARISON: None. FINDINGS: The scaphoid is radiographically normal. Osteopenia suspected. No acute fracture or malalignment. No advanced degenerative change. No radiographic soft tissue abnormality. IMPRESSION: No acute osseous injury. ACT 112: Negative or not required by law. Electronically signed by: Joel Blum M.D. 06/13/2019 11:06 PM
--- NOTE | 2019-06-13 23:16 | Emergency Department Note ---
History of Present Illness General Chief complaint: Fall Stated complaint: FALL, L ELBOW, R WRIST & KNEES PAIN Time Seen by Provider: 06/13/19 21:32 Source: patient Mode of arrival: ambulatory Limitations: no limitations History of Present Illness Maximum Pain Intensity: 7 This patient is a 74-year-old female who presents to the emergency department for evaluation of a fall. Patient states that she was using her walker to walk from her living room into her bedroom when she tripped and fell. She injured her left upper arm, her right wrist and both of her knees. The injury occurred 6 hours prior to arrival. Patient was able to crawl into her living room to call her daughter. She states that while she was crawling, she did bump her head off of her bed. Patient is having increasing pain tonight, prompting her to come here. Patient's daughter states that she believes she may have a urinary tract infection, because she has a history of these and she noticed an odor to her urine. The patient denies any urinary symptoms. Patient's daughter was also concerned because she states that she felt a lump on the patient's rectum when she was wiping her. Patient denies any headache. She denies any lightheadedness or dizziness associated with the falls. Home Medications Home Medications Medication Instructions Recorded Confirmed Type amitriptyline 25 mg PO HS 03/03/18 06/13/19 History aspirin 81 mg PO QAM 03/03/18 06/13/19 History calcitriol 0.5 mcg PO QAM 03/03/18 06/13/19 History carvedilol 12.5 mg PO BID 03/03/18 06/13/19 History fluticasone propionate 2 spray INTRANASAL DAILY PRN 03/03/18 06/13/19 History folic acid 1 mg PO QAM 03/03/18 06/13/19 History gabapentin 300 mg PO TID 03/03/18 06/13/19 History isosorbide mononitrate 30 mg PO QAM 03/03/18 06/13/19 History nitroglycerin [Nitrostat] 0.4 mg SUBLINGUAL DIRECTED PRN 03/03/18 06/13/19 History rosuvastatin [Crestor] 20 mg PO HS 03/03/18 06/13/19 History duloxetine 60 mg capsule,delayed 60 mg PO DAILY cap 01/31/19 06/13/19 History release solifenacin 10 mg tablet 10 mg PO DAILY #30 tab 03/08/19 06/13/19 Rx ferrous sulfate 325 mg (65 mg 325 mg PO TID tab 06/02/19 06/13/19 History iron) tablet hydrocodone-acetaminophen 1 tab PO Q6H PRN 06/13/19 06/13/19 History levothyroxine 125 mcg PO QAM 06/13/19 06/13/19 History prochlorperazine maleate 5 mg PO BID PRN 06/13/19 06/13/19 History [Compazine] cephalexin [Keflex] 250 mg PO BID 7 Days #14 cap 06/14/19 Rx Allergies Allergy/AdvReac Type Severity Reaction Status Date / Time daptomycin Allergy Intermediate RASH Verified 06/13/19 22:27 mold Allergy Mild NASAL Verified 06/13/19 22:27 CONGESTION Past Med/Surg History Medical History Biventricular ICD (implantable cardioverter-defibrillator) in place (Chronic) CKD (chronic kidney disease), stage IV (Chronic) Cystitis (Chronic) CHRONIC AND TAKES OXYBUTININ Depression (Resolved) Dyslipidemia (Chronic) GERD (gastroesophageal reflux disease) (Inactive) GERD (gastroesophageal reflux disease) (Chronic) Gout (Chronic) Hyperlipidemia (Inactive) Hypertension (Inactive) Hypertension (Chronic) Hypothyroidism (Inactive) Hypothyroidism (Chronic) Left bundle branch block (Chronic) Migraine (Inactive) Neuropathy (Chronic) Bilat Feet NICM (nonischemic cardiomyopathy) (Chronic) 2004 Osteoarthritis (Chronic) 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 Peptic ulcer disease (Inactive) HX OF BLEEDING ABOUT 2002 Respiratory failure with hypoxia (Chronic 10/05/13) Sleep apnea (Chronic) CPAP AND USES OXYGEN 3L ALL THE TIME Squamous cell carcinoma of vulva (Chronic) Vitamin D deficiency Surgical History H/O cardiac catheterization (Inactive) No stents placed (~10 years ago) H/O sinus surgery (Chronic) History of bilateral tubal ligation (Inactive) 1975 History of brain tumor (Inactive) 1961 - TEENAGER AND WAS REMOVED History of section (Inactive) X 2, 1970 & 1975 History of cholecystectomy (Inactive) 1996 - LAP History of cholecystectomy (Chronic) Hx of endoscopic sinus surgery (Inactive) 2007 ICD (implantable cardioverter-defibrillator) in place (Inactive) ICD/PACER [employer] 08/[address] RUIZ ([facility]) Social History Preferred Language: Macedonian Communication Ability: Effective Visual Impairment: Limited Hearing Ability: Normal 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 5pack/day ; Second Hand Exposure: No ; Hx Alcohol Use: No Hx Substance Use: No caffeine: Yes (2 cups of tea/day, 3 sodas per day ) during the past year weight has: decreased > 10 lbs Review of Systems A total of 10 systems reviewed and were otherwise negative Physical Exam Vital Signs Vital Signs - 24 hr 06/13/19 21:18 06/13/19 23:06 06/14/19 00:36 Temperature 37.1 C Temperature Source Oral Pulse Rate 88 Pulse Rate [Left Finger] 84 90 Pulse Rhythm [Left Finger] Regular Pulse Strength [Left Finger] Normal Respiratory Rate 20 18 16 Respiratory Effort / Characteristics Non-Labored Spontaneous Respiratory Depth Normal Normal Blood Pressure 125/65 Blood Pressure [Right Arm] 132/68 111/60 Blood Pressure Mean 85 Blood Pressure Mean [Right Arm] 89 77 Blood Pressure Position Lying Blood Pressure Position [Right Arm] Sitting Lying Pulse Oximetry 99 100 100 Oxygen Delivery Method Nasal Cannula Nasal Cannula Nasal Cannula Oxygen Flow Rate 3 3 4 Sepsis Recent Fever Within 48 Hours No Sepsis Action Taken by Nursing No Action Required 06/14/19 02:00 Temperature Temperature Source Pulse Rate Pulse Rate [Left Finger] 72 Pulse Rhythm [Left Finger] Pulse Strength [Left Finger] Respiratory Rate 16 Respiratory Effort / Characteristics Respiratory Depth Normal Blood Pressure Blood Pressure [Right Arm] 122/69 Blood Pressure Mean Blood Pressure Mean [Right Arm] 86 Blood Pressure Position Blood Pressure Position [Right Arm] Lying Pulse Oximetry 100 Oxygen Delivery Method Nasal Cannula Oxygen Flow Rate 3 Sepsis Recent Fever Within 48 Hours Sepsis Action Taken by Nursing VITALS: Vitals are noted on the nurse's note and reviewed by myself. Vital signs stable. GENERAL: This is a 74-year-old female, in no acute distress, nondiaphoretic, well-developed well-nourished. SKIN: There is a superficial abrasion to the left elbow. Small area of ecchymosis and swelling to the right volar wrist. There is a 1 cm laceration to the plantar aspect of the left fifth toe with no active bleeding. HEAD: Normocephalic atraumatic. EARS: External auditory canals clear, tympanic membranes pearly marte without erythema or effusion bilaterally. No hemotympanum. EYES: Pupils equal round and reactive to light and accommodation. Extraocular movements intact. MOUTH: Mucous membranes slightly dry. NECK: Supple without nuchal rigidity. Cervical spine is nontender. No JVD. HEART: Regular rate and rhythm without murmurs gallops or rubs. LUNGS: Clear to auscultation bilaterally without wheezes, rales or rhonchi. ABDOMEN: Positive bowel sounds x 4. Soft, nontender to palpation. RECTAL: Multiple nonthrombosed external hemorrhoids noted. MUSCULOSKELETAL: There are no obvious deformities. Patient has tenderness to pa lpation of the left elbow and distal humerus. Full range of motion of the elbow. There is no tenderness to the right wrist, although there is an area of edema and ecchymosis. Patient has tenderness to bilateral anterior knees, left greater than right. NEURO: Patient was alert and oriented to person place and time. Procedures Laceration Left fifth toe: Site: lower extremity Side (If applicable): left Size (cm): 1 Description: linear Depth: simple, single layer Local Anesthetic: lidocaine 1% and with bicarb Amount of anesthesia used (mL): 2 Pre-repair: wound explored Skin layer closed with: nylon Size (cm): 4-0 Number of sutures: 3 Technique: simple, interrupted Course Consultations Consultation #1: Dr. Carnes [facility] Administered Medications Heparin Sodium (Porcine) (Heparin Sodium (Porcine)) 5,000 units SQ Q8 ADINA Stop: 07/14/19 05:59 Last Admin: 06/14/19 05:51 Dose: 5,000 units Documented by: [id number] Cosigned by: [id number] Sodium Chloride (Nss 1000ml) 1,000 mls @ 50 mls/hr IV .Q20H ADINA Stop: 07/14/19 16:00 Last Infusion: 06/14/19 05:50 Dose: 50 mls/hr Documented by: [id number] Infusion: 06/14/19 04:33 Dose: 0 mls/hr Documented by: [id number] Admin: 06/14/19 04:32 Dose: 50 mls/hr Documented by: [id number] Levothyroxine Sodium (Synthroid) 125 mcg PO DAILYBB ADINA Stop: 07/14/19 06:29 Last Admin: 06/14/19 05:51 Dose: 125 mcg Documented by: [id number] Discontinued Medications Hydrocodone Bitart/Acetaminophen ([place] 5/325) 1 tab PO NOW STA Stop: 06/13/19 23:18 Last Admin: 06/13/19 23:27 Dose: 1 tab Documented by: [id number] Cephalexin HCl (Keflex) 500 mg PO NOW ONE Stop: 06/14/19 00:39 Last Admin: 06/14/19 01:56 Dose: 250 mg Documented by: [id number] Lidocaine HCl (Buffered Lidocaine 1%) 20 ml INFIL NOW ONE Stop: 06/13/19 21:56 Last Admin: 06/13/19 23:29 Dose: 20 ml Documented by: [id number] Medical Decision Making Differential Diagnosis Differential diagnosis includes fracture, contusion, sprain, UTI, dehydration, among others. Home Medications Current Medication List: was personally reviewed by me Laboratory Data Attestation: I reviewed the patient's lab results. Result diagrams: 06/14/19 05:51 06/14/19 05:51 Lab Results 06/13/19 06/14/19 06/14/19 Range/Units 21:19 02:24 02:24 WBC 9.02 (4.8-10.8) K/uL RBC 2.57 L (4.2-5.4) M/uL Hgb 7.9 L (12.0-16.0) g/dL Hct 23.4 L (37-47) % MCV 91.1 (80-100) fL MCH 30.7 (25-34) pg MCHC 33.8 (32-36) g/dL RDW Std Deviation 42.7 (36.4-46.3) fL RDW Coeff of Isael 12.8 (11.5-14.5) % Plt Count 137 (130-400) K/uL MPV 9.1 (7.4-10.4) fL Immature Gran % (Auto) 0.4 % Neut % (Auto) 80.6 % Lymph % (Auto) 8.3 % Coal % (Auto) 9.2 % Eos % (Auto) 1.4 % Baso % (Auto) 0.1 % Immature Gran # (Auto) 0.04 H (0.00-0.02) K/uL Neut # (Auto) 7.26 H (1.4-6.5) K/uL Lymph # (Auto) 0.75 L (1.2-3.4) K/uL Coal # (Auto) 0.83 H (0.11-0.59) K/uL Eos # (Auto) 0.13 (0-0.5) K/uL Baso # (Auto) 0.01 (0-0.2) K/uL RBC Morphology Unremarkable Sodium 136 (136-145) mmol/L Potassium 4.0 (3.5-5.1) mmol/L Chloride 103 (98-107) mmol/L Carbon Dioxide 30 (21-32) mmol/L Anion Gap 3.0 (3-11) BUN 32 H (7-18) mg/dl Creatinine 2.65 H (0.6-1.2) mg/dl Est Cr Clr Drug Dosing Not Reportable Est GFR ( Amer) 19.8 Est GFR (Non-Af Amer) 17.1 BUN/Creatinine Ratio 12.1 (10-20) Glucose 110 H (70-99) mg/dl Calcium 9.6 (8.5-10.1) mg/dl Total Bilirubin 0.4 (0.2-1) mg/dl AST 15 (15-37) U/L ALT 13 (12-78) U/L Alkaline Phosphatase 110 (45-117) U/L Total Protein 6.3 L (6.4-8.2) gm/dl Albumin 2.5 L (3.4-5.0) gm/dl Globulin 3.8 (2.5-4.0) gm/dl Albumin/Globulin Ratio 0.7 L (0.9-2) Urine Color Yellow Urine Appearance Turbid A (Clear) Urine pH 7.0 (4.5-7.5) Ur Specific [place] 1.010 (1.000-1.030) Urine Protein 1+ H (Negative) Urine Glucose (UA) Negative (Negative) Urine Ketones Negative (Negative) Urine Blood 2+ H (Negative) Urine Nitrite Negative (Negative) Urine Bilirubin Negative (Negative) Urine Urobilinogen Negative (Negative) Ur Leukocyte Esterase 3+ H (Negative) Urine WBC (Auto) >30 H (0-5) /hpf Urine RBC (Auto) 0-4 (0-4) /hpf U Hyaline Cast (Auto) 0 (0-5) /lpf U Epithel Cells (Auto) 0-5 (0-5) /lpf Urine Bacteria (Auto) Negative (Negative) Urine Yeast Not Reportable Imaging Data Attestation: I personally reviewed and interpreted this imaging study as follows: Radiologist's Impression: XR wrist RT w scaphoid IMPRESSION: No acute osseous injury. XR knee RT 3V IMPRESSION: No acute osseous injury. XR knee LT 3V 1. No acute osseous injury. 2. Possible knee joint effusion. XR foot LT min 3V routine IMPRESSION: No acute osseous injury. XR elbow LT min 3V routine IMPRESSION: No acute osseous injury. CT head/brain wo con FINDINGS: Orthopedics Pediatric Physician topogram: Unremarkable. Proportional ventricular and sulcal prominence, likely age-related parenchymal volume loss. No hemorrhage. Mild periventricular and subcortical white matter hypoattenuation, nonspecific but likely indicative of chronic small vessel ischemic change. No acute territorial infarct. No mass effect or midline shift. No extra-axial fluid collection. Paranasal sinuses and mastoid air cells clear. Calvarium intact. IMPRESSION: 1. Mild chronic small vessel ischemic change. No acute intracranial abnormality. Blood Pressure Blood Pressure Findings: Normal blood pressure MDM Narrative The patient is a 74-year-old female who presents today complaining of a fall. Multiple x-rays obtained and reviewed by radiology with no acute findings. CT of the head performed and shows no acute findings. Patient sustained a laceration to the toe which was repaired by myself. Patient sustained a me chanical fall and denies any dizziness or lightheadedness. Her daughter did want her checked for a urinary tract infection while she was here, as she noticed a foul odor to the patient's urine. Urinalysis was suggestive of UTI and patient was given initial dose of Keflex. Unfortunately, patient was unable to ambulate on her own and I do not feel that she can safely be discharged home. She may be a good candidate for an acute rehab facility, however given the time this will not likely happen tonight. Basic labs were drawn at this time. The case was discussed with the [facility] hospitalist, who will evaluate the patient for further care. Impression & Plan Urinary tract infection, Fall, Laceration of toe Discharge Plan Visit Data *Final* Discharge Date/Time: 06/14/19 03:18 Chief Complaint: Fall Stated Complaint: FALL, L ELBOW, R WRIST & KNEES PAIN ED Provider: Calderon Marquez ED Midlevel Provider: Chelsy Mayen Discharge Problem: Urinary tract infection, Fall, Laceration of toe Patient Disposition: Home - Self-Care Condition: Good Discharge Instructions Interventions: ED Discharge Assessment Last Done: 06/14/19 03:18
[2019-06-13] MEDS ORDERED: HYDROCODONE/ACETAMOPHEN 5/325MG TAB PO STA (23:17)
--- NOTE | 2019-06-14 00:12 | Emergency Department Note ---
ED Visit Note I have seen and examined this patient with Chelsy Mayen and generally agree with the treatment plan as discussed. .
[2019-06-14] MEDS ORDERED: cephALEXin 250 MG CAP PO ONE (00:38)
[2019-06-14 02:38] LABS: Basophils # (auto) 0.01 K/uL (0-0.2); Basophils % (auto) 0.1 %; Eosinophils # (auto) 0.13 K/uL (0-0.5); Eosinophils % (auto) 1.4 %; Hematocrit (blood only) 23.4 % (37-47); Hemoglobin 7.9 g/dL (12.0-16.0); Immature Granulocytes # (auto) 0.04 K/uL (0.00-0.02); Immature Granulocytes % (auto) 0.4 %; Lymphocytes # (auto) 0.75 K/uL (1.2-3.4); Lymphocytes % (auto) 8.3 %; Mean Corpuscular Hemoglobin 30.7 pg (25-34); Mean Corpuscular Hgb Conc 33.8 g/dL (32-36); Mean Corpuscular Volume 91.1 fL (80-100); Mean Platelet Volume 9.1 fL (7.4-10.4); Monocytes # (auto) 0.83 K/uL (0.11-0.59); Monocytes % (auto) 9.2 %; Neutrophils # (auto) 7.26 K/uL (1.4-6.5); Neutrophils % (auto) 80.6 %; Platelet Count 137 K/uL (130-400); RDW Coefficient of Variation 12.8 % (11.5-14.5); RDW Standard Deviation 42.7 fL (36.4-46.3); Red Blood Count 2.57 M/uL (4.2-5.4); White Blood Count 9.02 K/uL (4.8-10.8)
[2019-06-14 02:53] LABS: Alanine Aminotransferase 13 U/L (12-78); Albumin Level 2.5 gm/dl (3.4-5.0); Aspartate Aminotransferase 15 U/L (15-37); BUN Creatinine Ratio 12.1 (10-20); Blood Urea Nitrogen 32 mg/dl (7-18); Calcium 9.6 mg/dl (8.5-10.1); Carbon Dioxide 30 mmol/L (21-32); Chloride 103 mmol/L (98-107); Est GFR (African American) 19.8; Est GFR (Non-African American) 17.1; Glucose 110 mg/dl (70-99); Sodium 136 mmol/L (136-145)
[2019-06-14 02:56] LABS: Albumin Globulin Ratio 0.7 (0.9-2); Alkaline Phosphatase 110 U/L (45-117); Bilirubin,Total 0.4 mg/dl (0.2-1); Globulin 3.8 gm/dl (2.5-4.0); Total Protein 6.3 gm/dl (6.4-8.2)
[2019-06-14 02:59] LABS: RBC Morphology Unremarkable
[2019-06-14] MEDS ORDERED: SODIUM CHLORIDE 0.9% 1000ML 1,000 ML IV SCH (03:40)
[2019-06-14] MEDS ORDERED: POLYETHYLENE (MIRALAX) 17 GM PACK PO PRN (03:40)
[2019-06-14] MEDS ORDERED: FLUTICASONE PROPIONATE NA SPR 16 GM BTL PRN (03:40)
[2019-06-14] MEDS ORDERED: MoRPHine SULFATE 2 MG/ML CARP IV PRN (03:40)
[2019-06-14] MEDS ORDERED: ONDANSETRON INJ 2 MG/ML 2 ML VIAL IV PRN (03:40)
[2019-06-14] MEDS ORDERED: NITROGLYCERIN SL 0.4 MG/TAB TAB SL PRN (03:40)
[2019-06-14] MEDS ORDERED: PROCHLORPERAZINE MALEATE 5 MG TAB PO PRN (03:40)
--- NOTE | 2019-06-14 05:49 | History and Physical Report ---
DATE OF ADMISSION: 06/14/2019 CHIEF COMPLAINT: Fall, ambulatory dysfunction. HISTORY OF PRESENT ILLNESS: A 74-year-old female with past medical history significant for hyperlipidemia, hypothyroidism, chronic kidney disease stage IV secondary hyperparathyroidism, allergies, sleep apnea, nonischemic cardiomyopathy, diastolic CHF, hypertension, history of left bundle branch block, GERD, history of rectocele, history of squamous cell carcinoma of vulva, stress incontinence, urge incontinence, degenerative disk disease, hereditary and idiopathic peripheral neuropathy, history of pernicious anemia, history of herpes simplex type 1 infection, history of ICD, who lives alone, walks with a walker, was brought in because of fall. The patient has history of falls in the past. The patient was in the living room when she got up and turned around when she fell down and she could not get up. She crawled slowly to her bedroom. On the way she hit her desk on the head 3 times, but no loss of consciousness. She was able to call her girlfriend and she called her daughter. She fell at 3:00pm and daughter came at 5:00 with her , able to pick her up and brought in here. She is having lot of pain in her knees. She says she fell on the knees. She has bruises on her elbows and erythematic changes in the knees and the [id number] toe. She uses CPAP and use oxygen 3 liters all the time. In the ER, she got pain medications and imaging studies which were unremarkable, but the patient had lot of pain in the knees and she is not able to ambulate, so we were called for admission for possible Rehab placement. The patient currently denies any headache. No blurred vision, no earache, no runny nose, no sore throat, no difficulty swallowing. Has some dry cough. No fever, no chills. No chest pain, no shortness of breath. Appetite is okay. No nausea, no vomiting, no abdominal pain. No diarrhea or constipation. No blood in stools or black stools. No hematuria or burning micturition. Has some painful movements of the lower extremities with some mild bruises in the ankle and the knees and in the feet. PAST MEDICAL HISTORY: As mentioned. PAST SURGICAL HISTORY: Bilateral renal angiogram, , EGDs, biventricular pacemaker and ICD, laparoscopic cholecystectomy, right renal artery angioplasty with 90% stenosis due to fibromuscular dysplasia, sinus surgery. MEDICATIONS: The patient is on amitriptyline 25 mg at bedtime, aspirin 81 mg p.o. daily, calcitriol 0.5 mcg p.o. a.m., Coreg 12.5 mg p.o. b.i.d., duloxetine 60 mg p.o. daily, ferrous sulfate 325 mg p.o. t.i.d., Flonase 2 sprays intranasal daily p.r.n., folic acid 1 mg p.o. a.m., gabapentin 300 mg p.o. t.i.d., hydrocodone/acetaminophen 1 tablet q6h p.r.n., isosorbide mononitrate 30 mg p.o. a.m., levothyroxine 125 mcg p.o. daily, nitroglycerin 0.4 mg sublingual p.r.n., Compazine 5 mg p.o. b.i.d. p.r.n., Crestor 20 mg p.o. at bedtime, solifenacin 10 mg p.o. daily. FAMILY HISTORY: Significant for mother had from gallbladder. Father of heart disorder. SOCIAL HISTORY: , lives alone. Former smoker, quit in 1983, smoked average half a pack a day for 32 years. No alcohol, no drug use. REVIEW OF SYMPTOMS: As per HPI. Rest of review of symptoms negative. PHYSICAL EXAMINATION: GENERAL: The patient is of moderate build, not in acute distress. VITAL SIGNS: Temperature 37.1, pulse 72, respiratory rate 16, blood pressure 122/69, oxygen 100% on 3 liters. HEENT: No pallor, no icterus. Pupils equal, round, and reactive to light. NECK: No JVD, no neck masses, no carotid bruit. CARDIOVASCULAR: S1, S2 heard. Regular rate and rhythm. No murmur, no gallop. RESPIRATORY SYSTEM: Normal AP diameter. No accessory muscle use. No wheezing, no crackles. ABDOMEN: Soft, bowel sounds present, nontender. No distention. CENTRAL NERVOUS SYSTEM: Cranial nerves II-XII grossly intact. Alert and oriented. Obeys commands. Speech clear. Moves extremities. EXTREMITIES: Bilateral lower extremities trace edema present. Ecchymosis in the knees and elbows. LABORATORY DATA: WBC 9, hemoglobin 7.9, hematocrit 23.4, platelets 137. Sodium 136, potassium 4, chloride 103, bicarb 30, BUN 32, creatinine 2.65, serum glucose 110, calcium 9.6. Total bilirubin 0.4, AST 15, ALT 13, alkaline phosphatase 110. Urinalysis positive for leukocyte esterase. Elbow x-ray, no acute osseous injury seen. X-ray of left foot, no acute osseous injury seen. CT of the head; no acute findings, mild chronic small vessel ischemic changes. Left knee x-ray; no acute osseous injury, possible knee joint effusion. Right knee x-ray, no acute osseous injury. Right wrist, no acute osseous injury. ASSESSMENT AND PLAN: This is a 74-year-old female who lives alone, walks with a walker, history of frequent falls in the past, comes with a fall at home, mechanical fall, no loss of consciousness, stayed in floor couple of hours, crawled on the floor. Currently imaging studies are unremarkable. She has some ecchymosis and bruises on the knees and elbows and significant knee pain and not able to ambulate in the ER. Also has UTI. Hx of peripheral neuropathy. Plan to observe in medical floor, PT and OT and Social Service to help with discharge planning. 2. UTI, on Rocephin. Follow the cultures. 3. Anemia of chronic kidney disease. Iron deficiency anemia, on iron supplements 3 times a day, which we will continue for now.Follows with Nephrology. Hemoglobin 7.9, baseline is around 9. Got Blood consent. No obvious signs of bleeding.Will get stool Hemoccult. If further drops will transfuse prbc. 3. Acute renal failure and chronic kidney disease stage IV. Baseline creatinine around 2.2, current creatinine 2.6. Placed on gentle fluids. Follow the labs in a.m. 4. History of HTN isosorbide dinitrate, Coreg. We will monitor her blood pressure. 5. History of depression. Continue duloxetine. 6. Hypothyroidism. Continue Synthroid. 7. Hyperlipidemia. Continue statin. 8. Urinary incontinence. Continue VESIcare. 9. Obstructive sleep apnea and chronic respiratory failure On oxygen and CPAP at bedtime. 10. History of pernicious anemia, on vitamin B12 shots q. 4 weeks. 11. Nonischemic cardiomyopathy, on biventricular ICD. Echo in 06/2014 shows EF< 20% , Recent echo on 12/2018 EF 55%, no longer on Lasix, currently on Coreg. 12. Hx of vulvar carcinoma . S/p radiation tx and cisplatin therapy with good response. . Follows with Aviation Support Equipment Repairer/oncology 13. DVT prophylaxis, heparin subQ. DISPOSITION: Admit and observe in medical floor, PT and OT and Social Service to help with discharge planning. MTDD
[2019-06-14] MEDS: HEPARIN SOD 5,000 UNIT/0.5 ML VIAL SQ SCH ×3 (05:51→21:25)
[2019-06-14] MEDS: LEVOTHYROXINE SODIUM 125 MCG TABLET PO SCH (05:51)
[2019-06-14 05:59] LABS: Basophils # (auto) 0.01 K/uL (0-0.2); Basophils % (auto) 0.1 %; Eosinophils # (auto) 0.16 K/uL (0-0.5); Eosinophils % (auto) 1.9 %; Hematocrit (blood only) 24.6 % (37-47); Hemoglobin 8.4 g/dL (12.0-16.0); Immature Granulocytes # (auto) 0.02 K/uL (0.00-0.02); Immature Granulocytes % (auto) 0.2 %; Lymphocytes # (auto) 0.42 K/uL (1.2-3.4); Lymphocytes % (auto) 4.9 %; Mean Corpuscular Hemoglobin 31.3 pg (25-34); Mean Corpuscular Hgb Conc 34.1 g/dL (32-36); Mean Corpuscular Volume 91.8 fL (80-100); Mean Platelet Volume 8.9 fL (7.4-10.4); Monocytes # (auto) 0.73 K/uL (0.11-0.59); Monocytes % (auto) 8.5 %; Neutrophils # (auto) 7.28 K/uL (1.4-6.5); Neutrophils % (auto) 84.4 %; Platelet Count 137 K/uL (130-400); RDW Coefficient of Variation 12.9 % (11.5-14.5); RDW Standard Deviation 43.6 fL (36.4-46.3); Red Blood Count 2.68 M/uL (4.2-5.4); White Blood Count 8.62 K/uL (4.8-10.8)
[2019-06-14 06:31] LABS: BUN Creatinine Ratio 11.6 (10-20); Calcium 9.8 mg/dl (8.5-10.1); Est GFR (African American) 20.2; Est GFR (Non-African American) 17.4; Potassium 3.8 mmol/L (3.5-5.1)
[2019-06-14] MEDS ORDERED: MICONAZOLE NITRATE POWDER 43 GM EXT PRN (06:42)
--- NOTE | 2019-06-14 06:42 | CT Scan Report ---
CT SCAN OF THE ABDOMEN AND PELVIS WITHOUT CONTRAST CLINICAL HISTORY: Abdominal pain status post trauma. Anemia. COMPARISON STUDY: PET/CT scan dated 04/18/2018 TECHNIQUE: CT scan of the abdomen and pelvis was performed from the lung bases to the proximal femurs . Images are reviewed in the axial, sagittal, and coronal planes. IV contrast was not administered fo r this examination. A dose lowering technique was utilized adhering to the principles of ALARA. CT DOSE: 744.46 mGy.cm FINDINGS: Lower chest: There are basilar atelectatic changes. Liver: There is intra and extrahepatic biliary ductal dilatation. The common bile duct measures 12 mm . Gallbladder: Surgically absent Spleen: Normal in size and attenuation. Pancreas: Unremarkable. Adrenal glands: Unremarkable. Kidneys: There is bilateral hydronephrosis and bilateral hydroureter. No urinary tract calculi are vi sualized. Bowel: There are no transition zones to indicate bowel obstruction. There is no evidence of acute div erticulitis. There are no findings to indicate acute appendicitis. There is borderline rectal wall th ickening. Peritoneum: There is no intraperitoneal free air or abdominal ascites. Vasculature: The abdominal aorta is normal in course and caliber. Adenopathy: None. Pelvic viscera: There is bladder wall thickening and infiltration of the perivesical fat. Correlation with urinalysis is recommended to assess for urinary tract infection. In addition as was previously stated, cystoscopy should be considered if not previously performed due to the eccentric bladder wall thickening. Skeletal structures: No acute fractures are visualized. There are multilevel degenerative changes pre sent within the spine. There is multilevel spinal stenosis. There is a prominent T12-L1 disc osteophy te complex. IMPRESSION: 1. No evidence of acute intra-abdominal injury given the limitations of a noncontrast study 2. Persistent intra and extrahepatic biliary ductal dilatation in this patient status post cholecyste ctomy 3. Increasing bilateral hydronephrosis and hydroureter. Thick-walled bladder with perivesical strandi ng. 4. Borderline rectal wall thickening ACT 112: Negative or not required by law. Electronically signed by: Christofer Fry M.D. 06/14/2019 6:40 AM
[2019-06-14] MEDS: HYDROCODONE/ACETAMOPHEN 5/325MG TAB PO PRN ×2 (08:17→16:51)
[2019-06-14] MEDS: GABAPENTIN 300 MG CAP PO SCH ×2 (08:18→14:02)
[2019-06-14] MEDS: ISOSORBIDE MONO EXTENDED REL 30 MG TABCR PO SCH (08:18)
[2019-06-14] MEDS: ASPIRIN 81 MG ECTAB PO SCH (08:18)
[2019-06-14] MEDS: carvediloL 12.5 MG TAB PO SCH ×2 (08:18→21:23)
[2019-06-14] MEDS: FOLIC ACID 1 MG TAB PO SCH (08:18)
[2019-06-14] MEDS: DULOXETINE HCL 60 MG CAP PO SCH (08:18)
[2019-06-14] MEDS: FERROUS SULFATE 325 MG TAB PO SCH ×3 (08:18→16:53)
[2019-06-14] MEDS: CALCITRIOL 0.25 MCG CAPSULE PO SCH (08:18)
[2019-06-14] MEDS: VESICARE~ORDER AWAITING ACTION SCH ×3 (08:19→23:35)
[2019-06-14] MEDS: cefTRIAXone SODIUM 2,000 MG in DEXTROSE 5% 50 ML IV SCH (08:22)
--- NOTE | 2019-06-14 12:06 | Electrocardiogram Report ---
Test Reason : Blood Pressure : / mmHG Vent. Rate : 089 BPM Atrial Rate : 089 BPM P-R Int : 200 ms QRS Dur : 162 ms QT Int : 444 ms P-R-T Axes : 051 149 027 degrees QTc Int : 540 ms Atrial-sensed ventricular-paced rhythm with occasional Premature ventricular complexes Abnormal ECG When compared with ECG of 25-APR-2018 06:45, Vent. rate has increased BY 11 BPM Confirmed by Marco Webster ([id number]) on 06/14/2019 12:05:30 PM Referred By: REFERRED SELF Confirmed By:Marco Webster
--- NOTE | 2019-06-14 17:57 | Nephrology Consultation ---
Date of Consultation June 14, 2019 Assessment & Plan (1) HERMILO (acute kidney injury): UA +WBC's, no RBC's. CT demonstrated increasing BL hydronephrosis and hydroureter. Non-oliguric by report buy I/O's inaccurate due to incontinence. Barbosa catheter placement has been requested. Urology consultation pending. Volume status also slightly depleted. Will continue IVF with Normosol overnight at 125 ml/hr. CK to be checked with next blood work. Repeat metabolic profile ordered in the AM. I/O's will be documented. Gabapentin dose reduced to 300 mg daily. Rosuvastatin reduced to 10 mg daily. (2) CKD (chronic kidney disease), stage IV: Baseline creatinine 2.2 mg/dL. Follows with Dr. Malik. Notable FMD as well as microvascular disease. (3) Urinary tract infection: Culture pending. Remains on empiric Rocephin. (4) Hypertension: BP low. IVF being provided. Remains on carvedilol and Imdur. (5) Cystitis: (6) Anemia: -- No signs of acute blood loss -- Acute on chronic -- Iron profile with AM labs -- EPO held pending review of iron studies History of Present Illness Reason for Consultation: Acute kidney injury Requesting Physician: James Acuña MD Attending Physician: James Acuña MD History of Present Illness Karon Iglesias is a 74-year-old female with CKD IV attributed to microvascular disease. She follows in the outpatient nephrology clinic with Dr. Malik. Baseline creatinine has been approximately 2.2 mg/dL. Karon was recently seen in the clinic in May with stable kidney function at that time. Complications of CKD include secondary hyperparathyroidism and anemia. Karon has a history of pernicious anemia and iron deficiency. She has not required KARTHIKEYAN therapy for management of her anemia. 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 Karon presented to the ER at [facility] yesterday after sustaining a fall at home. She describes a mechanical fall from standing without syncope or LOC. She suffered injury to her arms and legs. While she was crawling to the phone, she also injured her head. Laceration to the toe was repaired in the ED. Upon evaluation, the patient was found too weak and deconditioned to return home. Serum creatinine was elevated at 2.6 mg/dL. She was admitted for IVF and additional m onitoring. NS provided. Additional evaluation notable for pyuria. UA +LE, - nitrite, -bacteria. Dipstick + blood but no RBC's on microscopy. Culture pending. Empiric Rocephin has been provided. CT scan of the abdomen and pelvis demonstrated worsening BL hydronephrosis and hydroureter. Karon reports generalized pain in her arms and legs. She denies back, abdominal, or flank pain. She denies fevers or chills. Appetite has been reduced. She is somnolent after taking a pain pill. The patient was seen and evaluated with her daughter at the bedside. Allergies Allergy/AdvReac Type Severity Reaction Status Date / Time daptomycin Allergy Intermediate RASH Verified 06/13/19 22:27 mold Allergy Mild NASAL Verified 06/13/19 22:27 CONGESTION Home Medications Home Medications Medication Instructions Recorded Confirmed Type amitriptyline 25 mg PO HS 03/03/18 06/13/19 History aspirin 81 mg PO QAM 03/03/18 06/13/19 History calcitriol 0.5 mcg PO QAM 03/03/18 06/13/19 History carvedilol 12.5 mg PO BID 03/03/18 06/13/19 History fluticasone propionate 2 spray INTRANASAL DAILY PRN 03/03/18 06/13/19 History folic acid 1 mg PO QAM 03/03/18 06/13/19 History gabapentin 300 mg PO TID 03/03/18 06/13/19 History isosorbide mononitrate 30 mg PO QAM 03/03/18 06/13/19 History nitroglycerin [Nitrostat] 0.4 mg SUBLINGUAL DIRECTED PRN 03/03/18 06/13/19 History rosuvastatin [Crestor] 20 mg PO HS 03/03/18 06/13/19 History duloxetine 60 mg capsule,delayed 60 mg PO DAILY cap 01/31/19 06/13/19 History release solifenacin 10 mg tablet 10 mg PO DAILY #30 tab 03/08/19 06/13/19 Rx ferrous sulfate 325 mg (65 mg 325 mg PO TID tab 06/02/19 06/13/19 History iron) tablet hydrocodone-acetaminophen 1 tab PO Q6H PRN 06/13/19 06/13/19 History levothyroxine 125 mcg PO QAM 06/13/19 06/13/19 History prochlorperazine maleate 5 mg PO BID PRN 06/13/19 06/13/19 History [Compazine] cephalexin [Keflex] 250 mg PO BID 7 Days #14 cap 06/14/19 Rx Patient History Medical History Biventricular ICD (implantable cardioverter-defibrillator) in place (Chronic) CKD (chronic kidney disease), stage IV (Chronic) Cystitis (Chronic) CHRONIC AND TAKES OXYBUTININ Depression (Resolved) Dyslipidemia (Chronic) GERD (gastroesophageal reflux disease) (Inactive) GERD (gastroesophageal reflux disease) (Chronic) Gout (Chronic) Hyperlipidemia (Inactive) Hypertension (Inactive) Hypertension (Chronic) Hypothyroidism (Inactive) Hypothyroidism (Chronic) Left bundle branch block (Chronic) Migraine (Inactive) Neuropathy (Chronic) Bilat Feet NICM (nonischemic cardiomyopathy) (Chronic) 2004 Osteoarthritis (Chronic) 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 Peptic ulcer disease (Inactive) HX OF BLEEDING ABOUT 2002 Respiratory failure with hypoxia (Chronic 10/05/13) Sleep apnea (Chronic) CPAP AND USES OXYGEN 3L ALL THE TIME Squamous cell carcinoma of vulva (Chronic) Vitamin D deficiency Surgical History H/O cardiac catheterization (Inactive) No stents placed (~10 years ago) H/O sinus surgery (Chronic) History of bilateral tubal ligation (Inactive) 1975 History of brain tumor (Inactive) 1961 - TEENAGER AND WAS REMOVED History of section (Inactive) X 2, 1971 & 1976 History of cholecystectomy (Inactive) 1995 - LAP History of cholecystectomy (Chronic) Hx of endoscopic sinus surgery (Inactive) 2007 ICD (implantable cardioverter-defibrillator) in place (Inactive) ICD/PACER [employer] 08/[address] RUIZ ([facility]) Family History Mother , Passed in 40-50's of metastatic gallbladder CA No problems noted. Father , Passed in 60's of "hardening of arteries" No problems noted. Sister Bladder cancer Brother Bladder cancer Sister Colon cancer Daughter No problems noted. Daughter No problems noted. Son No problems noted. 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5pack/day ; Second Hand Exposure: No ; Hx Alcohol Use: No Hx Substance Use: No caffeine: Yes (2 cups of tea/day, 3 sodas per day ) during the past year weight has: decreased > 10 lbs Review of Systems Constitutional: + body aches, + fatigue, + weakness and + daytime sleepiness; no fever and no chills Eyes: no problem reported Ear, Nose, Mouth, Throat: no problem reported Respiratory: no problem reported Cardiovascular: no problem reported Gastrointestinal: no problem reported Genitourinary: + urinary incontinence and + decreased urination Musculoskeletal: no problem reported Integumentary: no problem reported Neurologic: + falls, + generalized weakness and + lack of coordination Psychiatric: no problem reported Physical Exam Constitutional: well developed and + frail appearing; no acute distress Eyes: + anicteric sclerae; no conjunctival abnormality ENMT: Mouth: + dry oral mucous membranes; no oral mucosal abnormality Neck: normal visual inspection and trachea midline Respiratory: normal respiratory effort Auscultation: lungs clear to auscultation bilaterally Cardiovascular: Rate/Rhythm: regular rate Heart Sounds: normal S1 and normal S2 Extremities: no edema Gastrointestinal (Abdomen): Percussion/Palpation: abdomen soft; abdomen nontender Musculoskeletal: Extremities: no cyanosis and no clubbing Skin: normal turgor; no lesions Neurologic: Motor/Sensory: + asterixis; no tremor Psychiatric: Orientation: alert and oriented x 3 tired and slow to respond Results & Data Vital Signs (Past 12 Hours) Vital Signs Temp Pulse Resp BP BP Pulse Ox 02/12/20 14:26 36.7 C 73 18 93/58 L 98 06/14/19 12:11 37.4 C 66 20 132/65 98 06/14/19 07:00 36.7 C 88 18 111/67 96 Laboratory Results Laboratory Results - last 24 hr 06/13/19 06/14/19 06/14/19 21:19 02:24 02:24 WBC 9.02 RBC 2.57 L Hgb 7.9 L Hct 23.4 L MCV 91.1 MCH 30.7 MCHC 33.8 RDW Std Deviation 42.7 RDW Coeff of Isael 12.8 Plt Count 137 MPV 9.1 Immature Gran % (Auto) 0.4 Neut % (Auto) 80.6 Lymph % (Auto) 8.3 Mitchell % (Auto) 9.2 Eos % (Auto) 1.4 Baso % (Auto) 0.1 Immature Gran # (Auto) 0.04 H Neut # (Auto) 7.26 H Lymph # (Auto) 0.75 L Mitchell # (Auto) 0.83 H Eos # (Auto) 0.13 Baso # (Auto) 0.01 RBC Morphology Unremarkable Sodium 136 Potassium 4.0 Chloride 103 Carbon Dioxide 30 Anion Gap 3.0 BUN 32 H Creatinine 2.65 H Est Cr Clr Drug Dosing Not Reportable Est GFR ( Amer) 19.8 Est GFR (Non-Af Amer) 17.1 BUN/Creatinine Ratio 12.1 Glucose 110 H Calcium 9.6 Total Bilirubin 0.4 AST 15 ALT 13 Alkaline Phosphatase 110 Total Protein 6.3 L Albumin 2.5 L Globulin 3.8 Albumin/Globulin Ratio 0.7 L Urine Color Yellow Urine Appearance Turbid A Urine pH 7.0 Ur Specific Walsh 1.010 Urine Protein 1+ H Urine Glucose (UA) Negative Urine Ketones Negative Urine Blood 2+ H Urine Nitrite Negative Urine Bilirubin Negative Urine Urobilinogen Negative Ur Leukocyte Esterase 3+ H Urine WBC (Auto) >30 H Urine RBC (Auto) 0-4 U Hyaline Cast (Auto) 0 U Epithel Cells (Auto) 0-5 Urine Bacteria (Auto) Negative Urine Yeast Not Reportable 06/14/19 06/14/19 05:51 05:51 WBC 8.62 RBC 2.68 L Hgb 8.4 L Hct 24.6 L MCV 91.8 MCH 31.3 MCHC 34.1 RDW Std Deviation 43.6 RDW Coeff of Isael 12.9 Plt Count 137 MPV 8.9 Immature Gran % (Auto) 0.2 Neut % (Auto) 84.4 Lymph % (Auto) 4.9 Mitchell % (Auto) 8.5 Eos % (Auto) 1.9 Baso % (Auto) 0.1 Immature Gran # (Auto) 0.02 Neut # (Auto) 7.28 H Lymph # (Auto) 0.42 L Mitchell # (Auto) 0.73 H Eos # (Auto) 0.16 Baso # (Auto) 0.01 RBC Morphology Sodium 137 Potassium 3.8 Chloride 102 Carbon Dioxide 28 Anion Gap 7.0 BUN 30 H Creatinine 2.61 H Est Cr Clr Drug Dosing 21.0 Est GFR ( Amer) 20.2 Est GFR (Non-Af Amer) 17.4 BUN/Creatinine Ratio 11.6 Glucose 88 Calcium 9.8 Total Bilirubin AST ALT Alkaline Phosphatase Total Protein Albumin Globulin Albumin/Globulin Ratio Urine Color Urine Appearance Urine pH Ur Specific Walsh Urine Protein Urine Glucose (UA) Urine Ketones Urine Blood Urine Nitrite Urine Bilirubin Urine Urobilinogen Ur Leukocyte Esterase Urine WBC (Auto) Urine RBC (Auto) U Hyaline Cast (Auto) U Epithel Cells (Auto) Urine Bacteria (Auto) Urine Yeast PG Care Time/CCT Total # of Minutes Spent Total Time Spent with Patient: Total time spent is greater than 50% in coordination of care (as documented) at patient's floor/unit and/or counseling patient: Coding Level of Care Code 52375 Inpt Consult Level 4 Diagnoses HERMILO (acute kidney injury) N17.9 CKD (chronic kidney disease), stage IV N18.4 Urinary tract infection N39.0 Hypertension I10 Cystitis N30.90 Anemia D64.9
[2019-06-14] MEDS: NORMOSOL-R 1,000 ML IV SCH (18:44)
--- NOTE | 2019-06-14 20:03 | Hospitalist Progress Note ---
Date of Service June 14, 2019 Assessment & Plan (1) Urinary tract infection: UA shows + leukocyte esterase, many WBC's. Probable UTI (present on admission). Urine culture pending. Receiving IV ceftriaxone. (2) HERMILO (acute kidney injury): CKD IV followed by Dr. Malik. Baseline creatinine ~ 2. Creatinine at time of admission 2.65. Creatinine today = 2.61. CT abdomen shows bilateral hydronephrosis. Consult Nephrology and Urology. (3) Metabolic encephalopathy: CT head showed small vessel ischemic disease, no acute findings. Probable delirium / encephalopathy secondary to UTI. (4) Fall: Probably multifactorial- generalized weakness, neuropathy, orthopedic issues, possible orthostatic hypotension. PT / OT evals. Fall precautions. (5) Laceration of toe: Repaired in ED with 3 sutures. Remove sutures in ~ 7 days. (6) CHF (congestive heart failure): History of left ventricular systolic heart failure with LVEF as low as 20-25%. Echo 2018 showed LVEF 55%, grade I diastolic dysfunction. 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 Continue carvedilol. (7) Prolonged QT interval: Avoid QT-prolonging meds when able. (8) Hypertension: Continue carvedilol. (9) Chronic respiratory failure with hypoxia, on home O2 therapy: Continue supplemental O2. (10) Sleep apnea: Continue CPAP. (11) CKD (chronic kidney disease), stage IV: As discussed above. (12) Hypothyroidism: Check TSH. Continue levothyroxine. (13) Anemia: Baseline Hgb ~ 9. Probable anemia of chronic kidney disease. Also has history of pernicious anemia, receives monthly B12 injections. Hgb 7.9 at time of admission. No overt GI bleeding. Hgb today = 8.4. Check Fe studies, fecal occult blood. Follow H/H. (14) Depression: Continue duloxetine for depression and chronic pain. (15) Chronic pain: Analgesics may be contributing to confusion. Titrate meds. (16) Hydronephrosis: Noted on CT. Consult Urology. (17) Abnormal CT scan, bladder: Noted on CT. Consult Urology. (18) DVT prophylaxis: SQ heparin. Ambulate as able. (19) Discharge planning issues: Anticipated need for skilled care or inpt rehab. PT / OT evals. Consult Case Management. Admission and Anticipated Discharge Date Admission Date: June 14, 2019 Subjective Recheck for multiple problems. Patient seen in their room around 1230. Daughter visiting. Admitted yesterday after fall. Generalized weakness. Review of Systems: Constitutional- no fever. Cardiac- no chest pain. Pulmonary- no cough or SOB. GI- no nausea, vomiting, diarrhea, melena, hematochezia. - no urinary symptoms. Otherwise, as noted above. Physical Exam Constitutional: no acute distress Respiratory: no respiratory distress Auscultation: lungs clear to auscultation bilaterally Cardiovascular: Rate/Rhythm: regular rate and regular rhythm Vessels: no JVD Extremities: no calf tenderness and no edema Gastrointestinal (Abdomen): normal bowel sounds, soft, nontender, no hepatosplenomegaly Musculoskeletal: left 5th toe bandaged Skin: no rashes, warm and dry Neurologic: slow mentation essentially oriented x 3- oriented to person, hospital, day of week, year, president mild dysarthria motor strength upper and lower extremities 4.5/5 plantar reflexes downgoing no cogwheel rigidity upper extremities ? asterixis Results & Data ([facility]) Vital Signs (Past 12 Hours) Vital Signs Temp Pulse Resp BP BP Pulse Ox 06/14/19 19:15 37.0 C 74 20 81/46 L 99 06/14/19 14:26 36.7 C 73 18 93/58 L 98 06/14/19 12:11 37.4 C 66 20 132/65 98 Laboratory Results 06/14/19 05:51 06/14/19 05:51
[2019-06-14] MEDS ORDERED: NORMOSOL-R 500 ML IV ONE (20:05)
[2019-06-14] MEDS ORDERED: AMITRIPTYLINE HCL 25 MG TAB PO SCH (21:00)
[2019-06-14] MEDS ORDERED: ROSUVASTATIN CALCIUM 20 MG TAB PO SCH (21:00)
[2019-06-14] MEDS: ROSUVASTATIN CALCIUM 10 MG TAB PO SCH (21:25)
[2019-06-15] MEDS: NORMOSOL-R 1,000 ML IV SCH ×3 (01:51→23:36)
[2019-06-15] MEDS: ACETAMINOPHEN 325 MG TAB PO PRN (04:47)
[2019-06-15] MEDS: LEVOTHYROXINE SODIUM 125 MCG TABLET PO SCH (05:52)
[2019-06-15 05:55] LABS: Hematocrit (blood only) 21.5 % (37-47); Mean Corpuscular Hemoglobin 30.3 pg (25-34); Mean Corpuscular Hgb Conc 32.6 g/dL (32-36); Mean Corpuscular Volume 93.1 fL (80-100); Mean Platelet Volume 9.4 fL (7.4-10.4); Platelet Count 109 K/uL (130-400); RDW Coefficient of Variation 13.1 % (11.5-14.5); RDW Standard Deviation 44.2 fL (36.4-46.3); Red Blood Count 2.31 M/uL (4.2-5.4); White Blood Count 6.85 K/uL (4.8-10.8)
--- NOTE | 2019-06-15 06:13 | Communication Note ---
Date of Service: June 15, 2019 Made aware by RN of abnormal a.m. blood work. Hemoglobin 7 from 8.4 (2/) Platelets 109 No overt bleeding as per RN AP Acute on chronic anemia, hemoglobin drop from baseline Thrombocytopenia Hold aspirin, heparin subcu for now. Will relay to AM provider.
[2019-06-15 06:24] LABS: BUN Creatinine Ratio 12.2 (10-20); Calcium 9.3 mg/dl (8.5-10.1); Est GFR (African American) 21.3; Est GFR (Non-African American) 18.4; Potassium 3.8 mmol/L (3.5-5.1)
[2019-06-15 06:35] LABS: Ferritin 457.7 ng/ml (8-388); Thyroid Stimulating Hormone 0.009 uIu/ml (0.300-4.500)
--- NOTE | 2019-06-15 07:41 | XRay Report ---
XR chest 1V portable CLINICAL HISTORY: 74 years-old Female presenting with CHF. TECHNIQUE: Portable upright AP view of the chest was obtained. COMPARISON: 04/22/2018. FINDINGS: Left subclavian implanted cardiac defibrillator with leads to the right atrium, right ventricular ape x, and coronary sinus. Cardiac silhouette moderately enlarged. Mild pulmonary vascular prominence sim ilar to prior. Elevation of the right hemidiaphragm as on prior. No focal opacity. No large effusion or pneumothorax. Limited evaluation of the left lung base due to the overlapping implanted defibrilla tor. Degenerative changes of the thoracic spine. Cholecystectomy clips noted. IMPRESSION: 1. Cardiomegaly with volume overload. No advanced congestive change or pulmonary edema. ACT 112: Negative or not required by law. Electronically signed by: Joel Blum M.D. 06/15/2019 7:40 AM
[2019-06-15] MEDS: HYDROCODONE/ACETAMOPHEN 5/325MG TAB PO PRN ×2 (08:14→21:59)
[2019-06-15] MEDS: FOLIC ACID 1 MG TAB PO SCH (08:15)
[2019-06-15] MEDS: FERROUS SULFATE 325 MG TAB PO SCH ×3 (08:15→16:16)
[2019-06-15] MEDS: DULOXETINE HCL 60 MG CAP PO SCH (08:15)
[2019-06-15] MEDS: CALCITRIOL 0.25 MCG CAPSULE PO SCH (08:16)
[2019-06-15] MEDS: GABAPENTIN 300 MG CAP PO SCH (08:16)
[2019-06-15] MEDS: cefTRIAXone SODIUM 2,000 MG in DEXTROSE 5% 50 ML IV SCH (08:53)
[2019-06-15] MEDS: VESICARE~ORDER AWAITING ACTION SCH ×2 (09:09→16:14)
[2019-06-15] MEDS: carvediloL 6.25 MG TAB PO SCH ×2 (09:11→20:44)
--- NOTE | 2019-06-15 09:31 | Urology Consultation ---
Date of Consultation June 15, 2019 Assessment & Plan (1) Urinary tract infection: (2) Hydronephrosis: 74 yo F with multiple comorbidities admitted after mechanical fall at home, generalized weakness, and suspected UTI. Reviewed case with Dr. 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 Cr improving, non-oliguric, jolley in place. Changes in CT from baseline in 2018 noted - c/w history and irritative voiding symptoms. Jolley until renal function returns to baseline, will arrange for TOV as needed. Thank you for allowing us to participate in this patient's acute care. Please contact our service with any questions or concerns. History of Present Illness Reason for Consultation: Bilateral hydronephrosis Attending Physician: James Acuña MD History of Present Illness 74 yo F with multiple comorbidities including CKD, CHF, chronic respiratory failure, hypertension, dyslipidemia, and vulvar carcinoma s/p radiation and cisplatin admitted after mechanical fall at home, generalized weakness, and suspected UTI. New consult for bilateral hydronephrosis and bladder wall thickening. Patient is known to our service, follows with Dr. Anand for incontinence. Admitted through [facility] ED on 06/13/19 after mechanical fall at home and suspected UTI. Lab work on admission showed Cr 2.65, Hgb 7.9. UA with > 30 WBCs, 3+ Leuks, and 2+ blood, was treated with Keflex in ED for suspected UTI. Pt was unable to ambulate in ED, so was admitted for further observation. Chart review: Afebrile Cr - 2.49 WBC - 6.85 UC&S - prelim gram negative bacilli On IV ceftriaxone CT abd/pelvis completed during workup after fall demonstrated increasing bilateral hydronephrosis and hydroureter, no urinary tract calculi visualized. Thick-walled bladder with perivesical stranding. Low BPs yesterday afternoon, improved after IV fluid bolus Follows with nephrology, baseline creatinine ~2.2. Nephrology consult reviewed. Nonoliguric per note. Pt incontinent at baseline. Jolley catheter placed yesterday for accurate I/O's. Patient awake and sitting up in bed. Appears comfortable. Pt states she is feeling better today. No complaints at this time. Jolley catheter intact draining clear yellow urine. Tolerating catheter without bother. Reports incontinence at baseline. Denies abdominal, suprapubic, or flank pain. No f/c/n/v. Allergies Allergy/AdvReac Type Severity Reaction Status Date / Time daptomycin Allergy Intermediate RASH Verified 06/13/19 22:27 mold Allergy Mild NASAL Verified 06/13/19 22:27 CONGESTION Home Medications Home Medications Medication Instructions Recorded Confirmed Type amitriptyline 25 mg PO HS 03/03/18 06/13/19 History aspirin 81 mg PO QAM 03/03/18 06/13/19 History calcitriol 0.5 mcg PO QAM 03/03/18 06/13/19 History carvedilol 12.5 mg PO BID 03/03/18 06/13/19 History fluticasone propionate 2 spray INTRANASAL DAILY PRN 03/03/18 06/13/19 History folic acid 1 mg PO QAM 03/03/18 06/13/19 History gabapentin 300 mg PO TID 03/03/18 06/13/19 History isosorbide mononitrate 30 mg PO QAM 03/03/18 06/13/19 History nitroglycerin [Nitrostat] 0.4 mg SUBLINGUAL DIRECTED PRN 03/03/18 06/13/19 History rosuvastatin [Crestor] 20 mg PO HS 03/03/18 06/13/19 History duloxetine 60 mg capsule,delayed 60 mg PO DAILY cap 01/31/19 06/13/19 History release solifenacin 10 mg tablet 10 mg PO DAILY #30 tab 03/08/19 06/13/19 Rx ferrous sulfate 325 mg (65 mg 325 mg PO TID tab 06/02/19 06/13/19 History iron) tablet hydrocodone-acetaminophen 1 tab PO Q6H PRN 06/13/19 06/13/19 History levothyroxine 125 mcg PO QAM 06/13/19 06/13/19 History prochlorperazine maleate 5 mg PO BID PRN 06/13/19 06/13/19 History [Compazine] cephalexin [Keflex] 250 mg PO BID 7 Days #14 cap 06/14/19 Rx Patient History Medical History Biventricular ICD (implantable cardioverter-defibrillator) in place (Chronic) CHF (congestive heart failure) Echo in past with LVEF as low as 20-25% Echo 12/27/18 LVEF 55-59%, grade I diastolic dysfunction Chronic pain Chronic respiratory failure with hypoxia, on home O2 therapy CKD (chronic kidney disease), stage IV (Chronic) Cystitis (Chronic) CHRONIC AND TAKES OXYBUTININ Depression (Resolved) Dyslipidemia (Chronic) GERD (gastroesophageal reflux disease) (Inactive) GERD (gastroesophageal reflux disease) (Chronic) Gout (Chronic) Hyperlipidemia (Inactive) Hypertension (Inactive) Hypertension (Chronic) Hypothyroidism (Inactive) Hypothyroidism (Chronic) Left bundle branch block (Chronic) Migraine (Inactive) Neuropathy (Chronic) Bilat Feet NICM (nonischemic cardiomyopathy) (Chronic) 2004 Osteoarthritis (Chronic) 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 Peptic ulcer disease (Inactive) HX OF BLEEDING ABOUT 2002 Respiratory failure with hypoxia (Chronic 10/05/13) Sleep apnea (Chronic) CPAP AND USES OXYGEN 3L ALL THE TIME Squamous cell carcinoma of vulva (Chronic) Vitamin D deficiency Surgical History H/O cardiac catheterization (Inactive) No stents placed (~10 years ago) H/O sinus surgery (Chronic) History of bilateral tubal ligation (Inactive) 1975 History of brain tumor (Inactive) 1961 - TEENAGER AND WAS REMOVED History of section (Inactive) X 2, 1970 & 1975 History of cholecystectomy (Inactive) 1995 - LAP History of cholecystectomy (Chronic) Hx of endoscopic sinus surgery (Inactive) 2007 ICD (implantable cardioverter-defibrillator) in place (Inactive) ICD/PACER [employer] 08/[address] RUIZ ([facility]) Family History Mother , Passed in 40-50's of metastatic gallbladder CA No problems noted. Father , Passed in 60's of "hardening of arteries" No problems noted. Sister Bladder cancer Brother Bladder cancer Sister Colon cancer Daughter No problems noted. Daughter No problems noted. Son No problems noted. 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5pack/day ; Second Hand Exposure: No ; Hx Alcohol Use: No Hx Substance Use: No caffeine: Yes (2 cups of tea/day, 3 sodas per day ) during the past year weight has: decreased > 10 lbs Review of Systems Constitutional: as per Subjective / HPI Gastrointestinal: as per Subjective / HPI Genitourinary: as per Subjective / HPI Physical Exam Constitutional: well developed, well nourished and + obese; no acute distress and not ill appearing Respiratory: able to speak in complete sentences; no respiratory distress and no labored breathing on 3L O2 via nasal cannula Cardiovascular: Extremities: no pedal edema Gastrointestinal (Abdomen): Inspection/Auscultation: abdomen normal to inspection; abdomen not distended Percussion/Palpation: abdomen soft; abdomen nontender and no guarding Neurologic: moves all extremities and awake Psychiatric: Orientation: alert, oriented x 3 and cooperative Genitourinary: no CVA tenderness Jolley catheter intact draining clear yellow urine, some sediment noted Results & Data Vital Signs (Past 12 Hours) Vital Signs Temp Pulse Pulse Resp BP BP Pulse Ox 06/15/19 07:25 37.2 C 78 20 97/58 L 97 06/15/19 03:00 37.2 C 86 20 115/69 94 06/15/19 02:25 81 18 91 06/14/19 23:02 36.8 C 84 18 104/65 90 06/14/19 21:32 36.4 C L 83 20 141/72 H 96 PG Care Time/CCT Total # of Minutes Spent Total Time Spent with Patient: Total time spent is greater than 50% in coordination of care (as documented) at patient's floor/unit and/or counseling patient: Coding Level of Care Code 50585 Initial Inpt Care Lvl 2 Diagnoses Urinary tract infection N39.0 Hydronephrosis N13.30
--- NOTE | 2019-06-15 15:16 | Nephrology Progress Note ---
Date of Service June 15, 2019 Assessment & Plan (1) HERMILO (acute kidney injury): -- BL hydronephrosis on CT -- Remains hypovolemic and hypotensive -- Non-oliguric -- Barbosa to gravity -- Creatinine stable to slightly improved -- Dose reduced gabapentin and statin -- Medications are otherwise appropriate for kidney function -- Continue to document strict I/O -- Repeat metabolic profile tomorrow AM -- Continue IV Normosol to encourage a positive fluid balance (2) CKD (chronic kidney disease), stage IV: -- Baseline creatinine ~2.2 mg/dL -- Follows with Dr. 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 IVF provided. Karon was seen and evaluated this morning. She remained notably fatigued. Appetite fair. Barbosa draining clear yellow urine. No fevers or chills. Denied pain. Review of Systems Review of Systems: All systems reviewed & are unremarkable except as noted in HPI & below Physical Exam Constitutional: well developed and + frail appearing; no acute distress Eyes: no scleral abnormality and no corneal abnormality ENMT: Mouth: no oral mucosal abnormality and oral mucous membranes not dry Neck: normal visual inspection and trachea midline Respiratory: normal respiratory effort Auscultation: lungs clear to auscultation bilaterally Cardiovascular: Rate/Rhythm: regular rate Heart Sounds: normal S1 and normal S2 Extremities: no edema Musculoskeletal: Extremities: no cyanosis and no clubbing Skin: normal turgor; no lesions Neurologic: Motor/Sensory: no tremor and no asterixis Psychiatric: Orientation: alert and oriented x 3 Genitourinary: Barbosa draining clear yellow urine Results & Data Vital Signs (Past 12 Hours) Vital Signs Temp Pulse Resp BP BP Pulse Ox 06/15/19 11:07 37.0 C 74 20 103/55 L 97 06/15/19 08:15 108/62 06/15/19 07:25 37.2 C 78 20 97/58 L 97 Laboratory Results Laboratory Results - last 24 hr 06/15/19 06/15/19 06/15/19 05:36 05:36 05:42 WBC 6.85 RBC 2.31 L Hgb 7.0 L Hct 21.5 L MCV 93.1 MCH 30.3 MCHC 32.6 RDW Std Deviation 44.2 RDW Coeff of Isael 13.1 Plt Count 109 L MPV 9.4 Sodium 137 Potassium 3.8 Chloride 103 Carbon Dioxide 27 Anion Gap 7.0 BUN 30 H Creatinine 2.49 H Est Cr Clr Drug Dosing 22.0 Est GFR ( Amer) 21.3 Est GFR (Non-Af Amer) 18.4 BUN/Creatinine Ratio 12.2 Glucose 110 H Calcium 9.3 Iron 23 L Transferrin 112 L Transferrin % Sat 15 Ferritin 457.7 H Ammonia 38.0 H Total Creatine Kinase 128 TSH 0.009 L PG Care Time/CCT Total # of Minutes Spent Total Time Spent with Patient: Total time spent is greater than 50% in coordination of care (as documented) at patient's floor/unit and/or counseling patient: Coding Level of Care Code 38626 Subseq Hosp Care Lvl 3 Diagnoses HERMILO (acute kidney injury) N17.9 CKD (chronic kidney disease), stage IV N18.4 Hydronephrosis N13.30 Anemia D64.9
[2019-06-15] MEDS ORDERED: EPOETIN ALFA 10,000 UNITS/ML VIAL SQ ONE (15:19)
[2019-06-15] MEDS: IRON SUCROSE 200 MG in 0.9 % SODIUM CHLORIDE 100 ML IV SCH (16:15)
[2019-06-15] MEDS: ROSUVASTATIN CALCIUM 10 MG TAB PO SCH (20:44)
--- NOTE | 2019-06-15 22:03 | Hospitalist Progress Note ---
Date of Service June 15, 2019 Assessment & Plan (1) Urinary tract infection: UA shows + leukocyte esterase, many WBC's. Probable UTI (present on admission). Urine culture pending. Receiving IV ceftriaxone. (2) HERMILO (acute kidney injury): CKD IV followed by Dr. Malik. Baseline creatinine ~ 2. Creatinine at time of admission 2.65. CT abdomen shows bilateral hydronephrosis. Consulted Nephrology and Urology. Received IV fluids. Creatinine today = 2.49. (3) Metabolic encephalopathy: CT head showed small vessel ischemic disease, no acute findings. Probable delirium / encephalopathy secondary to UTI. Medications possible contributing factor. Improved. (4) Fall: Probably multifactorial- generalized weakness, neuropathy, orthopedic issues, possible orthostatic hypotension. PT / OT evals. Fall precautions. (5) Laceration of toe: Repaired in ED with 3 sutures. Remove sutures in ~ 7 days. (6) CHF (congestive heart failure): History of left ventricular systolic heart failure with LVEF as low as 20-25%. Echo 2018 showed LVEF 55%, grade I diastolic dysfunction. 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 Continue carvedilol. (7) Prolonged QT interval: Avoid QT-prolonging meds when able. (8) Hypertension: Continue carvedilol. (9) Chronic respiratory failure with hypoxia, on home O2 therapy: Continue supplemental O2. (10) Sleep apnea: Continue CPAP. (11) CKD (chronic kidney disease), stage IV: As discussed above. (12) Hypothyroidism: TSH 0.009. Titrate levothyroxine. (13) Anemia: Baseline Hgb ~ 9. Probable anemia of chronic kidney disease. Also has history of pernicious anemia, receives monthly B12 injections. Hgb 7.9 at time of admission. No overt GI bleeding. Hgb today = 7.0. Check Fe studies, fecal occult blood. Follow H/H. (14) Depression: Continue duloxetine for depression and chronic pain. (15) Chronic pain: Analgesics may be contributing to confusion. Titrate meds. (16) Hydronephrosis: Noted on CT. Consult Urology. (17) Abnormal CT scan, bladder: Noted on CT. Consult Urology. (18) DVT prophylaxis: SQ heparin. Ambulate as able. (19) Discharge planning issues: Anticipated need for skilled care or inpt rehab. PT / OT evals. Consult Case Management. Admission and Anticipated Discharge Date Admission Date: June 14, 2019 Subjective Recheck for multiple problems. Patient seen in their room around 1920. BP's low last night, improved with IV fluids. Feels better. Review of Systems: Constitutional- no fever. Cardiac- no chest pain. Pulmonary- occasional mild cough, no SOB. GI- no nausea, vomiting, diarrhea, melena, hematochezia. - Barbosa cath Otherwise, as noted above. Physical Exam Constitutional: no acute distress Respiratory: no respiratory distress Auscultation: lungs clear to auscultation bilaterally Cardiovascular: Rate/Rhythm: regular rate and regular rhythm Vessels: no JVD Extremities: no calf tenderness and no edema Gastrointestinal (Abdomen): normal bowel sounds, soft, nontender, no hepatosplenomegaly Musculoskeletal: Extremities: no cyanosis left 5th toe bandaged Skin: no rashes, warm and dry Neurologic: mentation improved essentially oriented x 3 dysarthria improved Genitourinary: Barbosa cath Results & Data ([facility]) Vital Signs (Past 12 Hours) Vital Signs Temp Pulse Resp BP Pulse Ox 06/15/19 19:18 36.6 C 75 16 102/58 L 99 06/15/19 15:15 36.6 C 78 20 101/64 93 06/15/19 11:07 37.0 C 74 20 103/55 L 97 Laboratory Results 06/15/19 05:36 06/15/19 05:36
[2019-06-16 05:38] LABS: Hematocrit (blood only) 21.3 % (37-47); Hemoglobin 7.1 g/dL (12.0-16.0); Mean Corpuscular Hemoglobin 30.7 pg (25-34); Mean Corpuscular Hgb Conc 33.3 g/dL (32-36); Mean Corpuscular Volume 92.2 fL (80-100); Mean Platelet Volume 9.2 fL (7.4-10.4); Platelet Count 126 K/uL (130-400); RDW Coefficient of Variation 13.1 % (11.5-14.5); RDW Standard Deviation 44.1 fL (36.4-46.3); Red Blood Count 2.31 M/uL (4.2-5.4); White Blood Count 6.16 K/uL (4.8-10.8)
[2019-06-16 06:03] LABS: BUN Creatinine Ratio 10.8 (10-20); Calcium 9.2 mg/dl (8.5-10.1); Creatinine Clr Calc Pharmacy 23.3 ml/min; Est GFR (African American) 22.9; Est GFR (Non-African American) 19.7; Phosphorus 3.4 mg/dl (2.5-4.9); Potassium 3.7 mmol/L (3.5-5.1)
[2019-06-16] MEDS: LEVOTHYROXINE SODIUM 125 MCG TABLET PO SCH (06:17)
[2019-06-16] MEDS: VESICARE~ORDER AWAITING ACTION SCH ×3 (06:54→16:22)
[2019-06-16] MEDS: ACETAMINOPHEN 325 MG TAB PO PRN (08:16)
[2019-06-16] MEDS: ASPIRIN 81 MG ECTAB PO SCH (08:16)
[2019-06-16] MEDS: GABAPENTIN 300 MG CAP PO SCH ×2 (08:16→21:14)
[2019-06-16] MEDS: ISOSORBIDE MONO EXTENDED REL 30 MG TABCR PO SCH (08:17)
[2019-06-16] MEDS: CALCITRIOL 0.25 MCG CAPSULE PO SCH (08:18)
[2019-06-16] MEDS: FERROUS SULFATE 325 MG TAB PO SCH ×3 (08:18→17:55)
[2019-06-16] MEDS: FOLIC ACID 1 MG TAB PO SCH (08:19)
[2019-06-16] MEDS: DULOXETINE HCL 60 MG CAP PO SCH (08:19)
[2019-06-16] MEDS: carvediloL 6.25 MG TAB PO SCH ×2 (08:19→21:12)
[2019-06-16] MEDS: cefTRIAXone SODIUM 2,000 MG in DEXTROSE 5% 50 ML IV SCH (08:20)
[2019-06-16] MEDS: HEPARIN SOD 5,000 UNIT/0.5 ML VIAL SQ SCH ×2 (08:20→21:14)
[2019-06-16] MEDS: NORMOSOL-R 1,000 ML IV SCH (09:36)
--- NOTE | 2019-06-16 10:18 | Nephrology Progress Note ---
Date of Service June 16, 2019 Assessment & Plan (1) HERMILO (acute kidney injury): -- BL hydronephrosis on CT -- Barbosa to gravity per urology recs (7-10 days with outpatient follow up for voiding trial) -- BP and volume status improved -- Non-oliguric -- Creatinine trending toward baseline -- Gabapentin and statin dose adjusted for kidney dysfunction -- Medications are otherwise appropriate -- Will hold IVF today -- Continue to document strict I/O -- Repeat metabolic profile tomorrow AM (2) CKD (chronic kidney disease), stage IV: -- Baseline creatinine ~2.2 mg/dL -- Maintained on calcitriol for secondary hyperparathyroidism, calcium level a ppropriate -- Follows with Dr. Malik (3) Hydronephrosis: -- Barbosa to gravity -- Urology consult appreciated -- Remains on treatment for UTI, Cx +E coli (4) Anemia: -- Tsat 15 -- Stool occult pending -- Oral iron held -- Venofer 200 mg daily x 5 days, day 2/5 -- Epogen 17736 units provided yesterday -- Hgb stable since admission Subjective No acute events overnight. Mental status continues to wax and wane. Overall improvement noted. BP improved. Oral intake appropriate. No fevers or chills. Review of Systems Review of Systems: All systems reviewed & are unremarkable except as noted in HPI & below Physical Exam Constitutional: well developed and + frail appearing; no acute distress Eyes: + anicteric sclerae; no conjunctival abnormality ENMT: Mouth: no oral mucosal abnormality and oral mucous membranes not dry Neck: normal visual inspection and trachea midline Respiratory: normal respiratory effort Auscultation: lungs clear to auscultation bilaterally Cardiovascular: Rate/Rhythm: regular rate Heart Sounds: normal S1 and normal S2 Extremities: no edema Gastrointestinal (Abdomen): Percussion/Palpation: abdomen soft; abdomen nontender Musculoskeletal: Extremities: no cyanosis and no clubbing Skin: normal turgor; no lesions Neurologic: Motor/Sensory: no tremor and no asterixis Psychiatric: Orientation: alert and oriented x 3 Genitourinary: Barbosa draining clear yellow urine Results & Data Vital Signs (Past 12 Hours) Vital Signs Temp Pulse Resp BP BP Pulse Ox 06/16/19 07:31 36.5 C 73 18 103/46 L 98 06/16/19 03:49 36.8 C 83 18 120/70 97 06/15/19 23:00 36.8 C 71 18 111/74 98 Laboratory Results Laboratory Results - last 24 hr 06/16/19 06/16/19 05:21 05:21 WBC 6.16 RBC 2.31 L Hgb 7.1 L Hct 21.3 L MCV 92.2 MCH 30.7 MCHC 33.3 RDW Std Deviation 44.1 RDW Coeff of Isael 13.1 Plt Count 126 L MPV 9.2 Sodium 139 Potassium 3.7 Chloride 105 Carbon Dioxide 29 Anion Gap 5.0 BUN 25 H Creatinine 2.35 H Est Cr Clr Drug Dosing 23.3 Est GFR ( Amer) 22.9 Est GFR (Non-Af Amer) 19.7 BUN/Creatinine Ratio 10.8 Glucose 88 Calcium 9.2 Phosphorus 3.4 Albumin 2.0 L PG Care Time/CCT Total # of Minutes Spent Total Time Spent with Patient: Total time spent is greater than 50% in coordination of care (as documented) at patient's floor/unit and/or counseling patient: Coding Level of Care Code 10172 Subseq Hosp Care Lvl 3 Diagnoses HERMILO (acute kidney injury) N17.9 CKD (chronic kidney disease), stage IV N18.4 Hydronephrosis N13.30 Anemia D64.9
[2019-06-16] MEDS: IRON SUCROSE 200 MG in 0.9 % SODIUM CHLORIDE 100 ML IV SCH (16:20)
[2019-06-16] MEDS: HYDROCODONE/ACETAMOPHEN 5/325MG TAB PO PRN (19:27)
--- NOTE | 2019-06-16 20:05 | Hospitalist Progress Note ---
Date of Service June 16, 2019 Assessment & Plan (1) Urinary tract infection: UA shows + leukocyte esterase, many WBC's. Probable UTI (present on admission). Urine culture growing E coli. Continue IV ceftriaxone. (2) HERMILO (acute kidney injury): CKD IV followed by Dr. Malik. Baseline creatinine ~ 2. Creatinine at time of admission 2.65. CT abdomen shows bilateral hydronephrosis. Consulted Nephrology and Urology. Received IV fluids. Creatinine today = 2.35. (3) Metabolic encephalopathy: CT head showed small vessel ischemic disease, no acute findings. Probable delirium / encephalopathy secondary to UTI. Medications possible contributing factor. Improved. (4) Fall: Probably multifactorial- generalized weakness, neuropathy, orthopedic issues, p ossible orthostatic hypotension. PT / OT evals. Fall precautions. (5) Laceration of toe: Repaired in ED with 3 sutures. Remove sutures in ~ 7 days. (6) CHF (congestive heart failure): History of left ventricular systolic heart failure with LVEF as low as 20-25%. Echo 2018 showed LVEF 55%, grade I diastolic dysfunction. 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 Continue carvedilol. (7) Prolonged QT interval: Avoid QT-prolonging meds when able. (8) Hypertension: Continue carvedilol. (9) Chronic respiratory failure with hypoxia, on home O2 therapy: Continue supplemental O2. (10) Sleep apnea: Continue CPAP. (11) CKD (chronic kidney disease), stage IV: As discussed above. (12) Hypothyroidism: TSH 0.009. Titrate levothyroxine- decrease dose from 125 mcg to 100 mcg daily. Follow. (13) Anemia: Baseline Hgb ~ 9. Probable anemia of chronic kidney disease. Also has history of pernicious anemia, receives monthly B12 injections. Hgb 7.9 at time of admission. No overt GI bleeding. Hgb today = 7.1. IV iron sucrose ordered. Follow H/H. (14) Depression: Continue duloxetine for depression and chronic pain. (15) Chronic pain: Analgesics may be contributing to confusion. Titrate meds. (16) Hydronephrosis: Noted on CT. Urology. Barbosa catheter recommended. (17) Abnormal CT scan, bladder: Noted on CT. Urology. May need eventual cysto. (18) Neuropathy: Worsening neuropathic pain since gabapentin dose decreased. Change gabapentin to 300 mg BID. (19) DVT prophylaxis: SQ heparin. Ambulate as able. (20) Discharge planning issues: Anticipated need for skilled care or inpt rehab. PT / OT lewis. Consult Case Management. Admission and Anticipated Discharge Date Admission Date: June 14, 2019 Subjective Recheck for multiple problems. Patient seen in their room around 1650. Daughter visiting. Overall, feels better. No fever. Complains of worsening neuropathic pain in feet. Review of Systems: Constitutional- no fever. Cardiac- no chest pain. Pulmonary- no cough, no SOB. GI- no nausea, vomiting, diarrhea, melena, hematochezia. - Barbosa cath Otherwise, as noted above. Physical Exam Constitutional: no acute distress Respiratory: no respiratory distress Auscultation: lungs clear to auscultation bilaterally Cardiovascular: Rate/Rhythm: regular rate and regular rhythm Vessels: no JVD Extremities: no calf tenderness and no edema Gastrointestinal (Abdomen): normal bowel sounds, soft, nontender, no hepatosplenomegaly Musculoskeletal: Extremities: no cyanosis ecchymoses and swelling left ankle Skin: no rashes, warm and dry Psychiatric: Orientation: alert Results & Data ([facility]) Vital Signs (Past 12 Hours) Vital Signs Temp Pulse Resp BP BP Pulse Ox 06/16/19 19:30 36.6 C 68 20 118/70 100 06/16/19 14:44 36.6 C 57 L 18 104/65 98 Laboratory Results 06/16/19 05:21 06/16/19 05:21 Microbiology 06/13/19 21:19 Urine,Clean Catch Urine Culture - Final Escherichia coli#2 Escherichia coli
[2019-06-16] MEDS: ROSUVASTATIN CALCIUM 10 MG TAB PO SCH (21:13)
[2019-06-17] MEDS: HYDROCODONE/ACETAMOPHEN 5/325MG TAB PO PRN (01:51)
[2019-06-17] MEDS: LEVOTHYROXINE SODIUM 100 MCG TABLET PO SCH (06:03)
[2019-06-17 06:08] LABS: Hematocrit (blood only) 22.3 % (37-47); Hemoglobin 7.3 g/dL (12.0-16.0); Mean Corpuscular Hemoglobin 30.4 pg (25-34); Mean Corpuscular Hgb Conc 32.7 g/dL (32-36); Mean Corpuscular Volume 92.9 fL (80-100); Mean Platelet Volume 9.4 fL (7.4-10.4); Platelet Count 145 K/uL (130-400); RDW Coefficient of Variation 13.2 % (11.5-14.5); RDW Standard Deviation 45.2 fL (36.4-46.3); White Blood Count 8.73 K/uL (4.8-10.8)
[2019-06-17 06:38] LABS: BUN Creatinine Ratio 10.7 (10-20); Calcium 9.7 mg/dl (8.5-10.1); Creatinine Clr Calc Pharmacy 27.4 ml/min; Est GFR (Non-African American) 23.3; Potassium 3.8 mmol/L (3.5-5.1)
[2019-06-17] MEDS: FERROUS SULFATE 325 MG TAB PO SCH ×3 (07:42→16:18)
[2019-06-17] MEDS: carvediloL 6.25 MG TAB PO SCH ×2 (07:43→21:02)
[2019-06-17] MEDS: ASPIRIN 81 MG ECTAB PO SCH (07:43)
[2019-06-17] MEDS: DULOXETINE HCL 60 MG CAP PO SCH (07:43)
[2019-06-17] MEDS: ISOSORBIDE MONO EXTENDED REL 30 MG TABCR PO SCH (07:44)
[2019-06-17] MEDS: HEPARIN SOD 5,000 UNIT/0.5 ML VIAL SQ SCH ×2 (07:44→21:00)
[2019-06-17] MEDS: FOLIC ACID 1 MG TAB PO SCH (07:44)
[2019-06-17] MEDS: GABAPENTIN 300 MG CAP PO SCH ×2 (07:45→21:02)
[2019-06-17] MEDS: CALCITRIOL 0.25 MCG CAPSULE PO SCH (07:45)
[2019-06-17] MEDS: cefTRIAXone SODIUM 2,000 MG in DEXTROSE 5% 50 ML IV SCH (08:43)
[2019-06-17] MEDS: ACETAMINOPHEN 325 MG TAB PO PRN (10:21)
--- NOTE | 2019-06-17 12:27 | Nephrology Progress Note ---
Date of Service June 17, 2019 Assessment & Plan (1) HERMILO (acute kidney injury): 74 -year-old female with stage IV CKD baseline creatinine around 2.2-2.3, admitted to the change in mental status UTI anemia and bilateral hydronephrosis. Evaluated by Urology, has Barbosa catheter in place and plan to continue for at least a week and then outpatient voiding trial. HERMILO resolved and creatinine now at baseline, electrolyte acceptable. Blood pressure well controlled. --continue to monitor renal function while inpatient --complete Venofer as ordered, received 1 dose of Epogen, hemoglobin low but relatively stable, no indication for transfusion at this time. --Patient has outpatient follow-up with her primary ems educator Dr. Malik on 08/02/2019 at 1445, she should have labs done prior to the visit. will sign off, please contact if any further questions. (2) CKD (chronic kidney disease), stage IV: -- Baseline creatinine ~2.2 mg/dL -- Maintained on calcitriol for secondary hyperparathyroidism, calcium level appropriate -- Follows with Dr. Malik (3) Hydronephrosis: -- Barbosa to gravity -- Urology consult appreciated -- Remains on treatment for UTI, Cx +E coli (4) Anemia: -- Tsat 15 -- Stool occult pending -- Oral iron held -- Venofer 200 mg daily x 5 days, day 2/5 -- Epogen 89098 units provided yesterday -- Hgb stable since admission Subjective Karon was seen and examined in her room this morning. Denies any specific symptom but feels tired. Blood pressure has been stable. Voiding normally. Renal function improved further and staying at baseline, electrolyte acceptable. Review of Systems Review of Systems: All systems reviewed & are unremarkable except as noted in HPI & below Physical Exam Constitutional: well developed and well nourished; no acute distress Respiratory: normal respiratory effort, lungs clear to auscultation Cardiovascular: RRR, no murmur, no edema Neurologic: moves all extremities and awake; not confused Psychiatric: A+Ox3, euthymic affect Results & Data Vital Signs (Past 12 Hours) Vital Signs Temp Pulse Resp BP BP Pulse Ox 06/17/19 07:39 36.6 C 66 18 120/73 100 06/17/19 06:11 36.6 C 78 22 139/77 98 06/17/19 04:00 36.6 C 71 20 115/65 95 PG Care Time/CCT Total # of Minutes Spent Total Time Spent with Patient: Total time spent is greater than 50% in coordination of care (as documented) at patient's floor/unit and/or counseling patient: Coding Level of Care Code 52403 Subseq Hosp Care Lvl 3 Diagnoses HERMILO (acute kidney injury) N17.9 CKD (chronic kidney disease), stage IV N18.4 Hydronephrosis N13.30 Anemia D64.9
[2019-06-17] MEDS: IRON SUCROSE 200 MG in 0.9 % SODIUM CHLORIDE 100 ML IV SCH (15:33)
--- NOTE | 2019-06-17 20:16 | Hospitalist Progress Note ---
Date of Service June 17, 2019 Assessment & Plan (1) Urinary tract infection: UA shows + leukocyte esterase, many WBC's. Probable UTI (present on admission). Urine culture growing E coli. Continue IV ceftriaxone. (2) HERMILO (acute kidney injury): CKD IV followed by Dr. Malik. Baseline creatinine ~ 2. Creatinine at time of admission 2.65. CT abdomen shows bilateral hydronephrosis. Consulted Nephrology and Urology. Received IV fluids. Creatinine today = 2.05. (3) Metabolic encephalopathy: CT head showed small vessel ischemic disease, no acute findings. Probable delirium / encephalopathy secondary to UTI. Medications possible contributing factor. Improved. (4) Fall: Probably multifactorial- generalized weakness, neuropathy, orthopedic issues, p ossible orthostatic hypotension. PT / OT evals. Fall precautions. (5) Laceration of toe: Repaired in ED with 3 sutures. Remove sutures in ~ 7 days. (6) CHF (congestive heart failure): History of left ventricular systolic heart failure with LVEF as low as 20-25%. Echo 2018 showed LVEF 55%, grade I diastolic dysfunction. 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 Continue carvedilol. (7) Prolonged QT interval: Avoid QT-prolonging meds when able. (8) Hypertension: Continue carvedilol. (9) Chronic respiratory failure with hypoxia, on home O2 therapy: Continue supplemental O2. (10) Sleep apnea: Continue CPAP. (11) CKD (chronic kidney disease), stage IV: As discussed above. (12) Hypothyroidism: TSH 0.009. Titrate levothyroxine- decrease dose from 125 mcg to 100 mcg daily. Follow. (13) Anemia: Baseline Hgb ~ 9. Probable anemia of chronic kidney disease. Also has history of pernicious anemia, receives monthly B12 injections. Hgb 7.9 at time of admission. No overt GI bleeding. Hgb today = 7.3. IV iron sucrose ordered. Follow H/H. (14) Depression: Continue duloxetine for depression and chronic pain. (15) Chronic pain: Analgesics may be contributing to confusion. Titrate meds. (16) Hydronephrosis: Noted on CT. Urology. Barbosa catheter recommended. (17) Abnormal CT scan, bladder: Noted on CT. Urology. May need eventual cysto. (18) Neuropathy: Worsening neuropathic pain since gabapentin dose decreased. Change gabapentin to 300 mg BID. (19) Heme positive stool: Intermittent small amount of blood outside of formed brown stool. Patient states that she has hemorrhoids and is not interested in pursuing a colonoscopy. (20) DVT prophylaxis: SQ heparin. Ambulate as able. (21) Discharge planning issues: Anticipated need for skilled care or inpt rehab. PT / OT evals. Consult Case Management. Admission and Anticipated Discharge Date Admission Date: June 14, 2019 Subjective Recheck for multiple problems. Patient seen in their room around 193. Overall, feels better. No fever. Ongoing neuropathic pain in feet. Intermittent small amount of blood outside of formed brown stool. Patient states that she has hemorrhoids and is not interested in pursuing a colonoscopy. Review of Systems: Constitutional- no fever. Cardiac- no chest pain. Pulmonary- no cough, no SOB. GI- no nausea, vomiting, diarrhea. - Barbosa cath Otherwise, as noted above. Physical Exam Constitutional: no acute distress Respiratory: no respiratory distress Auscultation: lungs clear to auscultation bilaterally Cardiovascular: Rate/Rhythm: regular rate and regular rhythm Vessels: no JVD Extremities: no calf tenderness and no edema Gastrointestinal (Abdomen): normal bowel sounds, soft, nontender, no hepatosplenomegaly Musculoskeletal: Extremities: no cyanosis Skin: no rashes, warm and dry Psychiatric: Orientation: alert Genitourinary: Barbosa cath Results & Data ([facility]) Vital Signs (Past 12 Hours) Vital Signs Temp Pulse Resp BP Pulse Ox 06/17/19 19:00 36.5 C 64 19 136/74 98 06/17/19 14:54 36.4 C L 67 18 112/68 100 Laboratory Results 06/17/19 05:18 06/17/19 05:18
[2019-06-17] MEDS: ROSUVASTATIN CALCIUM 10 MG TAB PO SCH (21:02)
[2019-06-18] MEDS: ACETAMINOPHEN 325 MG TAB PO PRN (04:19)
[2019-06-18] MEDS: LEVOTHYROXINE SODIUM 100 MCG TABLET PO SCH (06:12)
[2019-06-18 06:24] LABS: Hematocrit (blood only) 23.3 % (37-47); Hemoglobin 7.6 g/dL (12.0-16.0); Mean Corpuscular Hemoglobin 30.8 pg (25-34); Mean Corpuscular Hgb Conc 32.6 g/dL (32-36); Mean Corpuscular Volume 94.3 fL (80-100); Mean Platelet Volume 9.4 fL (7.4-10.4); Platelet Count 145 K/uL (130-400); RDW Coefficient of Variation 13.2 % (11.5-14.5); RDW Standard Deviation 45.1 fL (36.4-46.3); Red Blood Count 2.47 M/uL (4.2-5.4); White Blood Count 8.01 K/uL (4.8-10.8)
[2019-06-18 06:50] LABS: BUN Creatinine Ratio 9.6 (10-20); Calcium 9.7 mg/dl (8.5-10.1); Creatinine Clr Calc Pharmacy 30.6 ml/min; Est GFR (Non-African American) 26.7; Potassium 3.6 mmol/L (3.5-5.1)
[2019-06-18] MEDS: HEPARIN SOD 5,000 UNIT/0.5 ML VIAL SQ SCH ×2 (08:27→21:13)
[2019-06-18] MEDS: FERROUS SULFATE 325 MG TAB PO SCH ×3 (08:30→17:53)
[2019-06-18] MEDS: carvediloL 6.25 MG TAB PO SCH ×2 (08:31→21:16)
[2019-06-18] MEDS: GABAPENTIN 300 MG CAP PO SCH ×2 (08:31→21:16)
[2019-06-18] MEDS: FOLIC ACID 1 MG TAB PO SCH (08:31)
[2019-06-18] MEDS: DULOXETINE HCL 60 MG CAP PO SCH (08:32)
[2019-06-18] MEDS: CALCITRIOL 0.25 MCG CAPSULE PO SCH (08:32)
[2019-06-18] MEDS: ASPIRIN 81 MG ECTAB PO SCH (08:33)
[2019-06-18] MEDS: cefTRIAXone SODIUM 2,000 MG in DEXTROSE 5% 50 ML IV SCH (09:00)
[2019-06-18] MEDS: ISOSORBIDE MONO EXTENDED REL 30 MG TABCR PO SCH (09:00)
[2019-06-18] MEDS: IRON SUCROSE 200 MG in 0.9 % SODIUM CHLORIDE 100 ML IV SCH (15:55)
--- NOTE | 2019-06-18 17:59 | XRay Report ---
SINGLE VIEW CHEST CLINICAL HISTORY: Cough. FINDINGS: An AP, portable, upright chest radiograph is compared to study dated 06/15/2019. The examina tion is degraded by portable technique and patient rotation. A 3-lead cardiac AICD is unchanged in po sition. The heart is enlarged. The pulmonary vasculature is noncongested. There are low lung volumes with bibasilar scarring/atelectasis. No airspace consolidation or large pleural effusion is identifie d. No pneumothorax is seen. The skeletal structures are osteopenic. The bony thorax is grossly intact . IMPRESSION: 1. Cardiomegaly and AICD. There is no radiographic evidence of congestive failure. 2. Low lung volumes. 3. No airspace consolidation or large pleural effusion is identified. ACT 112: Negative or not required by law. Electronically signed by: Riccardo Randle M.D. 06/18/2019 5:57 PM
[2019-06-18] MEDS: ROSUVASTATIN CALCIUM 10 MG TAB PO SCH (21:16)
[2019-06-18] MEDS: SODIUM CHLORIDE 0.65% NA SOLN 45 ML (OCEAN) SCH (21:46)
--- NOTE | 2019-06-18 21:49 | Hospitalist Progress Note ---
Date of Service June 18, 2019 Assessment & Plan (1) Urinary tract infection: UA shows + leukocyte esterase, many WBC's. Probable UTI (present on admission). Urine culture growing E coli. Continue IV ceftriaxone. (2) HERMILO (acute kidney injury): CKD IV followed by Dr. Malik. Baseline creatinine ~ 2. Creatinine at time of admission 2.65. CT abdomen shows bilateral hydronephrosis. Consulted Nephrology and Urology. Received IV fluids. Creatinine today = 1.83. (3) Metabolic encephalopathy: CT head showed small vessel ischemic disease, no acute findings. Probable delirium / encephalopathy secondary to UTI. Medications possible contributing factor. Improved. (4) Fall: Probably multifactorial- generalized weakness, neuropathy, orthopedic issues, p ossible orthostatic hypotension. PT / OT evals. Fall precautions. (5) Laceration of toe: Repaired in ED with 3 sutures. Remove sutures in ~ 7 days. (6) CHF (congestive heart failure): History of left ventricular systolic heart failure with LVEF as low as 20-25%. Echo 2018 showed LVEF 55%, grade I diastolic dysfunction. 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 Seems to be compensated. Check follow-up chest x-ray. Continue carvedilol. (7) Prolonged QT interval: Avoid QT-prolonging meds when able. (8) Hypertension: Continue carvedilol. (9) Chronic respiratory failure with hypoxia, on home O2 therapy: Continue supplemental O2. (10) Sleep apnea: Continue CPAP. (11) CKD (chronic kidney disease), stage IV: As discussed above. (12) Hypothyroidism: TSH 0.009. Titrated levothyroxine- decreased dose from 125 mcg to 100 mcg daily. Follow. (13) Anemia: Baseline Hgb ~ 9. Probable anemia of chronic kidney disease. Also has history of pernicious anemia, receives monthly B12 injections. Hgb 7.9 at time of admission. Heme positive stools as discussed below. IV iron sucrose ordered. Hgb today = 7.6. Follow H/H. (14) Depression: Continue duloxetine for depression and chronic pain. (15) Chronic pain: Analgesics may be contributing to confusion. Titrate meds. (16) Hydronephrosis: Noted on CT. Urology. Barbosa catheter recommended. (17) Abnormal CT scan, bladder: Noted on CT. Urology. May need eventual cysto. (18) Neuropathy: Worsening neuropathic pain since gabapentin dose decreased. Changed gabapentin to 300 mg BID. Improved. (19) Heme positive stool: Intermittent small amount of blood outside of formed brown stool. Patient states that she has hemorrhoids and is not interested in pursuing a colonoscopy. (20) Cough: Occasional cough, sometimes blood-tinged. Patient attributes cough to postnasal drainage. My have dry nasal mucosa from O2. Humidify O2 and start saline nasal spray. Check f/u chest x-ray. (21) DVT prophylaxis: SQ heparin. Ambulate as able. (22) Discharge planning issues: Anticipated need for skilled care or inpt rehab. PT / OT evals. Consult Case Management. Admission and Anticipated Discharge Date Admission Date: June 14, 2019 Anticipated date of discharge: 06/19/19 Subjective Recheck for multiple problems. Patient seen in their room around 1620. Cough productive of blood-tinged sputum. Patient feels that she may have some postnasal drainage. Receiving O2 without humidification. No fever. No unusual SOB. Otherwise, doing fairly well. Review of Systems: Constitutional- no fever. Cardiac- no chest pain. Pulmonary- as noted above. GI- no nausea, vomiting, diarrhea. - Barbosa cath Otherwise, as noted above. Physical Exam Constitutional: no acute distress Respiratory: no respiratory distress Auscultation: lungs clear to auscultation bilaterally Cardiovascular: Rate/Rhythm: regular rate and regular rhythm Vessels: no JVD Extremities: + edema (trace pretibial); no calf tenderness Gastrointestinal (Abdomen): normal bowel sounds, soft, nontender, no hepatosplenomegaly Musculoskeletal: Extremities: no cyanosis Skin: no rashes, warm and dry Psychiatric: Orientation: alert Results & Data ([facility]) Vital Signs (Past 12 Hours) Vital Signs Temp Pulse Pulse Resp BP BP Pulse Ox 06/18/19 19:00 36.8 C 67 19 128/72 98 06/18/19 14:54 36.8 C 64 18 115/67 100 Laboratory Results 06/18/19 06:13 06/18/19 06:13
[2019-06-18] MEDS: HYDROCODONE/ACETAMOPHEN 5/325MG TAB PO PRN (23:32)
[2019-06-19 05:45] LABS: Hematocrit (blood only) 23.1 % (37-47); Hemoglobin 7.7 g/dL (12.0-16.0); Mean Corpuscular Hemoglobin 31.2 pg (25-34); Mean Corpuscular Hgb Conc 33.3 g/dL (32-36); Mean Corpuscular Volume 93.5 fL (80-100); Mean Platelet Volume 9.3 fL (7.4-10.4); Nucleated RBC # (auto) 0.02 K/uL (0-0); Nucleated RBC % (auto) 0.3 %; Platelet Count 151 K/uL (130-400); RDW Coefficient of Variation 13.4 % (11.5-14.5); RDW Standard Deviation 45.3 fL (36.4-46.3); Red Blood Count 2.47 M/uL (4.2-5.4); White Blood Count 7.16 K/uL (4.8-10.8)
[2019-06-19 06:09] LABS: BUN Creatinine Ratio 8.8 (10-20); Calcium 9.7 mg/dl (8.5-10.1); Creatinine Clr Calc Pharmacy 32.7 ml/min; Est GFR (African American) 33.6; Potassium 3.3 mmol/L (3.5-5.1)
[2019-06-19] MEDS: LEVOTHYROXINE SODIUM 100 MCG TABLET PO SCH (06:11)
[2019-06-19] MEDS ORDERED: POTASSIUM CHLORIDE 20 MEQ TABCR PO ONE (07:08)
[2019-06-19] MEDS: carvediloL 6.25 MG TAB PO SCH ×2 (08:09→21:07)
[2019-06-19] MEDS: FOLIC ACID 1 MG TAB PO SCH (08:09)
[2019-06-19] MEDS: ISOSORBIDE MONO EXTENDED REL 30 MG TABCR PO SCH (08:10)
[2019-06-19] MEDS: CALCITRIOL 0.25 MCG CAPSULE PO SCH (08:10)
[2019-06-19] MEDS: DULOXETINE HCL 60 MG CAP PO SCH (08:10)
[2019-06-19] MEDS: GABAPENTIN 300 MG CAP PO SCH ×2 (08:10→21:06)
[2019-06-19] MEDS: ASPIRIN 81 MG ECTAB PO SCH (08:11)
[2019-06-19] MEDS: FERROUS SULFATE 325 MG TAB PO SCH ×3 (08:11→16:20)
[2019-06-19] MEDS: HEPARIN SOD 5,000 UNIT/0.5 ML VIAL SQ SCH ×2 (08:12→21:08)
[2019-06-19] MEDS: SODIUM CHLORIDE 0.65% NA SOLN 45 ML (OCEAN) SCH ×3 (08:14→21:07)
[2019-06-19] MEDS: cefTRIAXone SODIUM 2,000 MG in DEXTROSE 5% 50 ML IV SCH (08:16)
[2019-06-19] MEDS: IRON SUCROSE 200 MG in 0.9 % SODIUM CHLORIDE 100 ML IV SCH (16:15)
[2019-06-19] MEDS: ACETAMINOPHEN 325 MG TAB PO PRN (16:47)
[2019-06-19] MEDS: ROSUVASTATIN CALCIUM 10 MG TAB PO SCH (21:08)
--- NOTE | 2019-06-19 21:59 | Hospitalist Progress Note ---
Date of Service June 19, 2019 Assessment & Plan (1) Urinary tract infection: UA shows + leukocyte esterase, many WBC's. Probable UTI (present on admission). Urine culture growing E coli. Continue IV ceftriaxone. (2) HERMILO (acute kidney injury): CKD IV followed by Dr. Malik. Baseline creatinine ~ 2. Creatinine at time of admission 2.65. CT abdomen shows bilateral hydronephrosis. Consulted Nephrology and Urology. Received IV fluids. Creatinine today = 1.71. (3) Metabolic encephalopathy: CT head showed small vessel ischemic disease, no acute findings. Probable delirium / encephalopathy secondary to UTI. Medications possible contributing factor. Improved. (4) Fall: Probably multifactorial- generalized weakness, neuropathy, orthopedic issues, p ossible orthostatic hypotension. PT / OT evals. Fall precautions. (5) Laceration of toe: Repaired in ED with 3 sutures. Remove sutures in ~ 7 days. (6) CHF (congestive heart failure): History of left ventricular systolic heart failure with LVEF as low as 20-25%. Echo 2018 showed LVEF 55%, grade I diastolic dysfunction. 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 Seems to be compensated. Follow-up chest x-ray - cardiomegaly, no CHF. Continue carvedilol. (7) Prolonged QT interval: Avoid QT-prolonging meds when able. (8) Hypertension: Continue carvedilol. (9) Chronic respiratory failure with hypoxia, on home O2 therapy: Continue supplemental O2. (10) Sleep apnea: Continue CPAP. (11) CKD (chronic kidney disease), stage IV: As discussed above. (12) Hypothyroidism: TSH 0.009. Titrated levothyroxine- decreased dose from 125 mcg to 100 mcg daily. Follow. (13) Anemia: Baseline Hgb ~ 9. Probable anemia of chronic kidney disease. Also has history of pernicious anemia, receives monthly B12 injections. Hgb 7.9 at time of admission. Heme positive stools as discussed below. IV iron sucrose ordered. Hgb today = 7.7. Follow H/H. (14) Depression: Continue duloxetine for depression and chronic pain. (15) Chronic pain: Analgesics may be contributing to confusion. Titrate meds. (16) Hydronephrosis: Noted on CT. Urology. Barbosa catheter recommended. (17) Abnormal CT scan, bladder: Noted on CT. Urology. May need eventual cysto. (18) Neuropathy: Worsening neuropathic pain since gabapentin dose decreased. Changed gabapentin to 300 mg BID. Improved. (19) Heme positive stool: Intermittent small amount of blood outside of formed brown stool. Patient states that she has hemorrhoids and is not interested in pursuing a colonoscopy. (20) Cough: Occasional cough, sometimes blood-tinged. Patient attributes cough to postnasal drainage. My have dry nasal mucosa from O2. Humidify O2 and started saline nasal spray. No infiltrates on chest x-ray. (21) DVT prophylaxis: SQ heparin. Ambulate as able. (22) Discharge planning issues: Unable to return home where she lives independently due to impaired ADL's. Motivated and participating in PT and OT; making progress. PT / OT evals repeated today. PT: 6 clicks mobility score 17, mobility function loss 44%; skilled care recommended. OT: 6 clicks ADL score 20, ADL functional loss 38%; skilled care recommended. Peer-peer review obtained with [employer]. Anticipated transfer [facility] for skilled care, with eventual return to home if her functional status allows. Admission and Anticipated Discharge Date Admission Date: June 14, 2019 Anticipated date of discharge: 06/19/19 Subjective Recheck for multiple problems. Patient seen in their room around 1710. No significant coughing. No fever or SOB. No further hematochezia. Neuropathic pain improved. Making progress with therapies, but still unable to transfer or do other ADL's without assistance. Review of Systems: Constitutional- no fever. Cardiac- no chest pain. Pulmonary- as noted above. GI- no nausea, vomiting, diarrhea. - Barbosa cath Otherwise, as noted above. Physical Exam Constitutional: no acute distress Respiratory: no respiratory distress Auscultation: lungs clear to auscultation bilaterally Cardiovascular: Rate/Rhythm: regular rate and regular rhythm Vessels: no JVD Extremities: + edema (trace pretibial); no calf tenderness Gastrointestinal (Abdomen): normal bowel sounds, soft, nontender, no h epatosplenomegaly Musculoskeletal: Extremities: no cyanosis Skin: no rashes, warm and dry Psychiatric: Orientation: alert Genitourinary: Barbosa cath Results & Data ([facility]) Vital Signs (Past 12 Hours) Vital Signs Temp Pulse Resp BP BP Pulse Ox 06/19/19 19:31 36.8 C 72 20 153/63 H 98 06/19/19 15:05 36.7 C 63 20 127/64 99 06/19/19 11:21 36.8 C 64 16 131/72 97 Laboratory Results 06/19/19 05:21 06/19/19 05:21
[2019-06-19 23:38] VITALS: TEMP 98.1
[2019-06-20 05:45] LABS: Hematocrit (blood only) 26.2 % (37-47); Hemoglobin 8.3 g/dL (12.0-16.0); Mean Corpuscular Hemoglobin 30.1 pg (25-34); Mean Corpuscular Hgb Conc 31.7 g/dL (32-36); Mean Corpuscular Volume 94.9 fL (80-100); Mean Platelet Volume 9.1 fL (7.4-10.4); Platelet Count 158 K/uL (130-400); RDW Coefficient of Variation 13.4 % (11.5-14.5); RDW Standard Deviation 45.4 fL (36.4-46.3); Red Blood Count 2.76 M/uL (4.2-5.4); White Blood Count 8.31 K/uL (4.8-10.8)
[2019-06-20 06:13] LABS: BUN Creatinine Ratio 8.1 (10-20); Calcium 9.8 mg/dl (8.5-10.1); Creatinine Clr Calc Pharmacy 32.4 ml/min; Est GFR (African American) 33.6; Potassium 3.7 mmol/L (3.5-5.1)
[2019-06-20] MEDS: LEVOTHYROXINE SODIUM 100 MCG TABLET PO SCH (06:22)
[2019-06-20 07:25] VITALS: O2SAT 100
[2019-06-20] MEDS: FERROUS SULFATE 325 MG TAB PO SCH ×2 (07:55→13:05)
[2019-06-20] MEDS: GABAPENTIN 300 MG CAP PO SCH (07:55)
[2019-06-20] MEDS: ASPIRIN 81 MG ECTAB PO SCH (07:55)
[2019-06-20] MEDS: CALCITRIOL 0.25 MCG CAPSULE PO SCH (07:55)
[2019-06-20] MEDS: DULOXETINE HCL 60 MG CAP PO SCH (07:55)
[2019-06-20] MEDS: ISOSORBIDE MONO EXTENDED REL 30 MG TABCR PO SCH (07:55)
[2019-06-20] MEDS: FOLIC ACID 1 MG TAB PO SCH (07:55)
[2019-06-20] MEDS: HEPARIN SOD 5,000 UNIT/0.5 ML VIAL SQ SCH (07:55)
[2019-06-20] MEDS: SODIUM CHLORIDE 0.65% NA SOLN 45 ML (OCEAN) SCH ×2 (07:55→13:05)
[2019-06-20] MEDS: carvediloL 6.25 MG TAB PO SCH (07:55)
[2019-06-20] MEDS ORDERED: POTASSIUM CHLORIDE 20 MEQ TABCR PO ONE (08:30)
[2019-06-20] MEDS: cefTRIAXone SODIUM 2,000 MG in DEXTROSE 5% 50 ML IV SCH (08:41)
[2019-06-20] MEDS: ACETAMINOPHEN 325 MG TAB PO PRN (08:49)
--- NOTE | 2019-06-20 09:23 | Hospitalist Progress Note ---
Date of Service June 20, 2019 Assessment & Plan (1) Urinary tract infection: UA showed + leukocyte esterase, many WBC's. Urine culture growing E coli. UTI, complicated (present on admission). Underlying urinary retention with hydroureteronephrosis as discussed below. Treated with course of IV ceftriaxone. (2) HERMILO (acute kidney injury): CKD IV followed by Dr. Malik. Baseline creatinine ~ 2. Creatinine at time of admission 2.65. CT abdomen shows bilateral hydronephrosis. Consulted Nephrology and Urology. Received IV fluids with improvement. HERMILO probably mutifactorial- infection, volume status, urinary tract obstruction contributing factors. Creatinine day of discharge 1.71. (3) CKD (chronic kidney disease), stage IV: As discussed above. (4) Hypokalemia: Serum K as low as 3.3. Discharge on KCl 10 mEq BID. Follow. (5) Metabolic encephalopathy: CT head showed small vessel ischemic disease, no acute findings. Probable delirium / encephalopathy secondary to UTI. Medications possible contributing factor. Gabapentin dose decreased. Amitriptyline discontinued. Solifenacin discontinued. Improved, back to baseline. (6) Fall: Probably multifactorial- generalized weakness, neuropathy, orthopedic issues, possible orthostatic hypotension (unable to tolerate standing at time of admission). Receiving PT / OT with improvement. Fall precautions. (7) Laceration of toe: Repaired in ED with 3 sutures. Sutures removed day of discharge (7 days after placement). Had some bleeding from laceration after sutures removed. Assessed by General Surgery. No need for additional wound repair. They recommended wet to dry gauze dressings daily until healed. (8) CHF (congestive heart failure): History of left ventricular systolic heart failure with LVEF as low as 20-25%. Echo 2019 showed LVEF 55%, grade I diastolic dysfunction. 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 Seems to be compensated. Follow-up chest x-ray - cardiomegaly, no CHF. Continue carvedilol. No need for diuretics at this tme. No YEYO or ARB due to CKD. (9) Prolonged QT interval: Avoid QT-prolonging meds when able. (10) Hypertension: Continue carvedilol. (11) Chronic respiratory failure with hypoxia, on home O2 therapy: Continue supplemental O2 3 LPM. (12) Sleep apnea: Continue CPAP. (13) Hypothyroidism: TSH 0.009. Titrated levothyroxine- decreased dose from 125 mcg to 100 mcg daily. Recheck TSH in 6 - 12 weeks. (14) Anemia: Baseline Hgb ~ 9. Probable anemia of chronic kidney disease. Also has history of pernicious anemia, receives monthly B12 injections. Hgb 7.9 at time of admission. Heme positive stools as discussed below. IV iron sucrose ordered. Hgb day of discharge = 8.3.. Follow H/H. (15) Depression: Continue duloxetine for depression and chronic pain. (16) Chronic pain: Analgesics may be contributing to confusion. Titrated meds. Only use narcotics for severe pain. (17) Hydronephrosis: Noted on CT. Urology consulted. Barbosa catheter inserted for urinary retention. Voiding trial recommended in 7-10 days (around 06/22). Straight caths PRN if unable to void or if postvoid residual > 200. Re-insert Barbosa if voiding trial does not go well. (18) Abnormal CT scan, bladder: Thickening of uninary bladder noted on CT. Urology consulted. May need eventual cysto. (19) Neuropathy: Changed gabapentin to 300 mg BID because of confusion. Amitriptyline discontinued because of confusion, urinary retention, orthostatic lightheadedness. Improved. (20) Heme positive stool: Intermittent small amount of blood outside of formed brown stool. Patient states that she has hemorrhoids and is not interested in pursuing a colonoscopy. (21) Cough: Occasional cough, sometimes blood-tinged. Patient attributes cough to postnasal drainage. No infiltrates on chest x-ray. Might have dry nasal mucosa from O2. Humidify O2. (22) DVT prophylaxis: SQ heparin until ambulatory. (23) Discharge planning issues: Unable to return home where she lives independently due to impaired ADL's. Motivated and participating in PT and OT; making progress. PT / OT evals repeated 06/19. PT: 6 clicks mobility score 17, mobility function loss 44%; skilled care recommended. Transfer to [facility] today for skilled care, with eventual return to home if her functional status allows. Family Medicine follow-up with Dr. Desai. Nephrology follow-up with Dr. Malik. Urology follow-up with Dr. Anand. Admission and Anticipated Discharge Date Admission Date: June 14, 2019 Anticipated date of discharge: 06/19/19 Subjective Recheck for multiple problems. Patient seen in their room around 0750. Minimal nonproductive cough. No fever or SOB. No further hematochezia. Neuropathic pain improved. Review of Systems: Constitutional- no fever. Cardiac- no chest pain. Pulmonary- as noted above. GI- no nausea, vomiting, diarrhea. - Barbosa cath Otherwise, as noted above. Physical Exam Constitutional: no acute distress Respiratory: no respiratory distress Auscultation: lungs clear to auscultation bilaterally Cardiovascular: Rate/Rhythm: regular rate and regular rhythm Vessels: no JVD Extremities: + edema (trace - 1+ pretibial); no calf tenderness Gastrointestinal (Abdomen): normal bowel sounds, soft, nontender, no hepatosplenomegaly Musculoskeletal: Extremities: no cyanosis Skin: no rashes, warm and dry sutured laceration left 5th toe without erythema or drainage Psychiatric: Orientation: alert Genitourinary: Barbosa cath Results & Data ([facility]) Vital Signs (Past 12 Hours) Vital Signs Temp Pulse Pulse Resp BP BP Pulse Ox 06/20/19 07:25 36.7 C 72 16 165/72 H 100 06/20/19 05:13 78 14 93 06/20/19 01:28 74 16 95 06/19/19 23:14 78 18 94 06/19/19 23:00 36.7 C 65 20 157/78 H 99 Laboratory Results 06/20/19 05:20 06/20/19 05:20
--- NOTE | 2019-06-20 11:12 | Discharge Summary ---
Date of Service Date of Admission: 06/14/19 Date of Discharge: 06/20/19 Admission HPI Per Admitting Provider A 74-year-old female with past medical history significant for hyperlipidemia, hypothyroidism, chronic kidney disease stage IV secondary hyperparathyroidism, allergies, sleep apnea, nonischemic cardiomyopathy, diastolic CHF, hypertension, history of left bundle branch block, GERD, history of rectocele, history of squamous cell carcinoma of vulva, stress incontinence, urge incontinence, degenerative disk disease, hereditary and idiopathic peripheral neuropathy, history of pernicious anemia, history of herpes simplex type 1 infection, history of ICD, who lives alone, walks with a walker, was brought in because of fall. The patient has history of falls in the past. The patient was in the living room when she got up and turned around when she fell down and she could not get up. She crawled slowly to her bedroom. On the way she hit her desk on the head 3 times, but no loss of consciousness. She was able to call her girlfriend and she called her daughter. She fell at 3:00pm and daughter came at 5:00 with her , able to pick her up and brought in here. She is having lot of pain in her knees. She says she fell on the knees. She has bruises on her elbows and erythematic changes in the knees and the [id number] toe. She uses CPAP and use oxygen 3 liters all the time. In the ER, she got pain medications and imaging studies which were unremarkable, but the patient had lot of pain in the knees and she is not able to ambulate, so we were called for admission for possible Rehab placement. The patient currently denies any headache. No blurred vision, no earache, no runny nose, no sore throat, no difficulty swallowing. Has some dry cough. No fever, no chills. No chest pain, no shortness of breath. Appetite is okay. No nausea, no vomiting, no abdominal pain. No diarrhea or constipation. No blood in stools or black stools. No hematuria or burning micturition. Has some painful movements of the lower extremities with some mild bruises in the ankle and the knees and in the feet. Principal Diagnosis urinary tract infection E coli (present on admission) acute kidney injury superimposed on CKD IV metabolic encephalopathy Discharge Data Allergies Allergy/AdvReac Type Severity Reaction Status Date / Time daptomycin Allergy Intermediate RASH Verified 06/13/19 22:27 mold Allergy Mild NASAL Verified 06/13/19 22:27 CONGESTION Consultations 06/14/19 01:34 ED Decision to Admit Stat 06/14/19 03:40 Consult Case Management - Discharge Planning Routine 06/14/19 14:11 Consult Nephrology Routine Consult Urology Routine 06/20/19 09:10 Consult General Surgery Routine Ordered Studies 06/13/19 21:52 CT head/brain wo con Stat 06/14/19 03:02 CT abd pelvis wo con Urgent Hospital Course (1) Urinary tract infection: UA showed + leukocyte esterase, many WBC's. Urine culture growing E coli. UTI, complicated (present on admission). Underlying urinary retention with hydroureteronephrosis as discussed below. Treated with course of IV ceftriaxone. (2) HERMILO (acute kidney injury): CKD IV followed by Dr. Malik. Baseline creatinine ~ 2. Creatinine at time of admission 2.65. CT abdomen shows bilateral hydronephrosis. Consulted Nephrology and Urology. Received IV fluids with improvement. HERMILO probably mutifactorial- infection, volume status, urinary tract obstruction contributing factors. Creatinine day of discharge 1.71. (3) CKD (chronic kidney disease), stage IV: As discussed above. (4) Hypokalemia: Serum K as low as 3.3. Discharge on KCl 10 mEq BID. Follow. (5) Metabolic encephalopathy: CT head showed small vessel ischemic disease, no acute findings. Probable delirium / encephalopathy secondary to UTI. Medications possible contributing factor. Gabapentin dose decreased. Amitriptyline discontinued. Solifenacin discontinued. Improved, back to baseline. (6) Fall: Probably multifactorial- generalized weakness, neuropathy, orthopedic issues, possible orthostatic hypotension (unable to tolerate standing at time of admission). Receiving PT / OT with improvement. Fall precautions. (7) Laceration of toe: Repaired in ED with 3 sutures. Sutures removed day of discharge (7 days after placement). Had some bleeding from laceration after sutures removed. Assessed by General Surgery. No need for additional wound repair. They recommended wet to dry gauze dressings daily until healed. (8) CHF (congestive heart failure): History of left ventricular systolic heart failure with LVEF as low as 20-25%. Echo 2019 showed LVEF 55%, grade I diastolic dysfunction. 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 Seems to be compensated. Follow-up chest x-ray - cardiomegaly, no CHF. Continue carvedilol. No need for diuretics at this tme. No YEYO or ARB due to CKD. (9) Prolonged QT interval: Avoid QT-prolonging meds when able. (10) Hypertension: Continue carvedilol. (11) Chronic respiratory failure with hypoxia, on home O2 therapy: Continue supplemental O2 3 LPM. (12) Sleep apnea: Continue CPAP. (13) Hypothyroidism: TSH 0.009. Titrated levothyroxine- decreased dose from 125 mcg to 100 mcg daily. Recheck TSH in 6 - 12 weeks. (14) Anemia: Baseline Hgb ~ 9. Probable anemia of chronic kidney disease. Also has history of pernicious anemia, receives monthly B12 injections. Hgb 7.9 at time of admission. Heme positive stools as discussed below. IV iron sucrose ordered. Hgb day of discharge = 8.3.. Follow H/H. (15) Depression: Continue duloxetine for depression and chronic pain. (16) Chronic pain: Analgesics may be contributing to confusion. Titrated meds. Only use narcotics for severe pain. (17) Hydronephrosis: Noted on CT. Urology consulted. Barbosa catheter inserted for urinary retention. Voiding trial recommended in 7-10 days (around 06/22). Straight caths PRN if unable to void or if postvoid residual > 200. Re-insert Barbosa if voiding trial does not go well. (18) Abnormal CT scan, bladder: Thickening of uninary bladder noted on CT. Urology consulted. May need eventual cysto. (19) Neuropathy: Changed gabapentin to 300 mg BID because of confusion. Amitriptyline discontinued because of confusion, urinary retention, orthostatic lightheadedness. Improved. (20) Heme positive stool: Intermittent small amount of blood outside of formed brown stool. Patient states that she has hemorrhoids and is not interested in pursuing a colonoscopy. (21) Cough: Occasional cough, sometimes blood-tinged. Patient attributes cough to postnasal drainage. No infiltrates on chest x-ray. Might have dry nasal mucosa from O2. Humidify O2. (22) DVT prophylaxis: SQ heparin until ambulatory. (23) Discharge planning issues: Unable to return home where she lives independently due to impaired ADL's. Motivated and participating in PT and OT; making progress. PT / OT evals repeated 06/19. PT: 6 clicks mobility score 17, mobility function loss 44%; skilled care recommended. Transfer to [facility] today for skilled care, with eventual return to home if her functional status allows. Family Medicine follow-up with Dr. Desai. Nephrology follow-up with Dr. Malik. Urology follow-up with Dr. Anand. Total Time Total Time Spent Total Time Spent (In Minutes): 60 Discharge Plan Discharge Items Patient Disposition: Transfer Longterm Fac Reason For Visit: fall, acute kidney injury, urinary tract infection Discharge Diagnosis: fall, acute kidney injury, urinary tract infection Condition on Discharge: Good Activity: As commented below Activity Comment: As tolerated with walker and assistance. Non-emergency contact: Primary Care Provider, Hospitalist and Director Of Clinical Education Call non-emergency contact if: you have any medication questions, your symptoms worsen and your temperature is above 101 Follow-up/Referrals: Joel Malik MD [Physician] - (08/02/19 14:45) Rigo Anand MD [Physician] - (09/14/19 13:40) Lee Desai MD [Primary Care Provider] - 06/23/19 9:45 am (Please arrange for follow-up with Dr. Desai at time of discharge from [facility].) Diet: Heart Healthy Addtl Attending Provider Instructions: Fall precautions. Skin precautions. Delirium precautions. O2 3 LPM via nasal cannula / humidified (on home O2, do not wean or discontinue). Wound care left 5th toe: 2 x 2 gauze wet to dry, wrap toe with sterile gauze, change daily until healed. Barbosa catheter: routine care voiding trial around 06/22/19 straight cath PRN thereafter if unable to void for postvoid residual greater than 200 reinsert Barbosa in voiding trial not successful. BMP and H/H weekly until stable, then as clinically indicated. Please sent copies of reports to Dr. Malik. Thank you for receiving this patient in transfer. Please call if you have any questions. James Acuña Pending Studies at Discharge: No Stand-Alone Forms: My [facility] Skilled Items Patient informed of condition?: Yes DNR: No Discharge Level of Care: Skilled Communicable Disease: No Discharge Prognosis: Improving Lines: None Urinary Catheter: Yes Medications and DC Order Prescriptions: New heparin, porcine (PF) 5,000 unit/0.5 mL Syringe 5,000 unit subcut BID 30 Days Qty: 30 RF: 0 gabapentin 300 mg Capsule 300 mg PO BID 30 Days Qty: 60 RF: 0 levothyroxine [Synthroid] 100 mcg Tablet 100 mcg PO DAILYBB 30 Days Qty: 30 RF: 0 acetaminophen [Mapap (acetaminophen)] 325 mg Tablet 650 mg PO Q4H PRN (Reason: pain (scale score 4-6)) Qty: 60 RF: 0 hydrocodone-acetaminophen [[place]] 5-325 mg tablet 1 tab PO Q6H PRN (Reason: pain (scale score 7-10)) Qty: 12 RF: 0 potassium chloride 10 mEq capsule, extended release 10 meq PO BID 30 Days Qty: 60 RF: 0 Continued ferrous sulfate 325 mg (65 mg iron) tablet 325 mg PO TID RF: 0 carvedilol 12.5 mg Tablet 12.5 mg PO BID RF: 0 isosorbide mononitrate 30 mg Tablet Extended Release 24 Hr 30 mg PO QAM RF: 0 aspirin 81 mg Tablet,Delayed Release (Dr/Ec) 81 mg PO QAM RF: 0 calcitriol 0.5 mcg Capsule 0.5 mcg PO QAM RF: 0 nitroglycerin [Nitrostat] 0.4 mg Tablet, Sublingual 0.4 mg Sublingual DIRECTED PRN (Reason: Chest Pain) RF: 0 folic acid 1 mg Tablet 1 mg PO QAM RF: 0 fluticasone propionate 50 mcg/actuation [place],Suspension 2 spray INTRANASAL DAILY PRN (Reason: Allergy Symptoms) RF: 0 rosuvastatin [Crestor] 20 mg Tablet 20 mg PO HS RF: 0 duloxetine 60 mg capsule,delayed release(DR/EC) 60 mg PO DAILY RF: 0 hydrocodone-acetaminophen 5-325 mg tablet 1 tab PO Q6H PRN (Reason: Pain, Severe) Qty: 12 RF: 0 Discontinued solifenacin [Vesicare] 10 mg tablet 10 mg PO DAILY Qty: 30 RF: 11 levothyroxine 125 mcg tablet 125 mcg PO QAM RF: 0 prochlorperazine maleate [Compazine] 5 mg tablet 5 mg PO BID PRN (Reason: Nausea And Vomiting) RF: 0 gabapentin 300 mg Capsule 300 mg PO TID RF: 0 amitriptyline 25 mg Tablet 25 mg PO HS RF: 0 Discharge Orders: Discharge Order (Routine); Ordered 06/20/19 Ordered By: James Acuña Admission Data Admit Date/Time: 06/14/19 14:11 Attending Provider: James Acuña Admit Provider: Valeriano Carnes Primary Care Provider: Lee Desai Other Providers: Valeriano Carnes ; Joel Malik ; Rigo Anand ; Dayne Samson ; Gwen Godfrey
[2019-06-20 11:21] VITALS: BP 133/86
[2019-06-20 11:32] VITALS: PULSE 72
--- NOTE | 2019-06-20 13:45 | Surgery Consultation ---
Date of Consultation June 20, 2019 Assessment & Plan (1) Laceration of toe: s/p suture placement 7 days ago and removal today slight wound dehiscence Plan: Given the wound was already approximated with sutures would not recommend reclosure with sutures as there is risk of infection the wound is not deep and believe it will heal by secondary intention Recommend wet to dry dressing. wet 2x2 gauze at wound site with dry gauze wrapped around toe and change daily. Discussed with Dr. Arianne Godfrey has seen patient separately and agrees with above assessment and plan. History of Present Illness Reason for Consultation: Toe laceration, wound dehisence after suture removal Requesting Physician: James Acuña MD Attending Physician: James Acuña MD History of Present Illness Karon is a 74 year-old female with multiple medical comorbidities who presented to emergency department on 06/13/2019 s/p a fall. She lives independently and uses walker. She was trying to get to her bedroom and fell and drug herself to another room to call her daughter. States she had a cut on the back of her left pinky toe which was sutures in the emergency department. The sutures were removed today by nursing staff and the wound slightly dehisced open. Our services consulted for recommendation for wound reclosure vs wound care. She is to leave today to go to [facility] for rehabilitation. Allergies Allergy/AdvReac Type Severity Reaction Status Date / Time daptomycin Allergy Intermediate RASH Verified 06/13/19 22:27 mold Allergy Mild NASAL Verified 06/13/19 22:27 CONGESTION Home Medications Home Medications Medication Instructions Recorded Confirmed Type aspirin 81 mg PO QAM 03/03/18 06/13/19 History calcitriol 0.5 mcg PO QAM 03/03/18 06/13/19 History carvedilol 12.5 mg PO BID 03/03/18 06/13/19 History fluticasone propionate 2 spray INTRANASAL DAILY PRN 03/03/18 06/13/19 History folic acid 1 mg PO QAM 03/03/18 06/13/19 History isosorbide mononitrate 30 mg PO QAM 03/03/18 06/13/19 History nitroglycerin [Nitrostat] 0.4 mg SUBLINGUAL DIRECTED PRN 03/03/18 06/13/19 History rosuvastatin [Crestor] 20 mg PO HS 03/03/18 06/13/19 History duloxetine 60 mg capsule,delayed 60 mg PO DAILY cap 01/31/19 06/13/19 History release ferrous sulfate 325 mg (65 mg 325 mg PO TID tab 06/02/19 06/13/19 History iron) tablet acetaminophen [Mapap 650 mg PO Q4H PRN #60 tab 06/20/19 Rx (acetaminophen)] gabapentin 300 mg PO BID 30 Days #60 cap 06/20/19 Rx heparin, porcine (PF) 5,000 unit SUBCUT BID 30 Days #30 06/20/19 Rx ml hydrocodone-acetaminophen 1 tab PO Q6H PRN #12 tab 06/20/19 06/13/19 Rx hydrocodone-acetaminophen [[place]] 1 tab PO Q6H PRN #12 tab 06/20/19 Rx levothyroxine [Synthroid] 100 mcg PO DAILYBB 30 Days #30 tab 06/20/19 Rx potassium chloride 10 meq PO BID 30 Days #60 cap 06/20/19 Rx Patient History Medical History Biventricular ICD (implantable cardioverter-defibrillator) in place (Chronic) CHF (congestive heart failure) Echo in past with LVEF as low as 20-25% Echo 12/27/18 LVEF 55-59%, grade I diastolic dysfunction Chronic pain Chronic respiratory failure with hypoxia, on home O2 therapy CKD (chronic kidney disease), stage IV (Chronic) Cystitis (Chronic) CHRONIC AND TAKES OXYBUTININ Depression (Resolved) Dyslipidemia (Chronic) GERD (gastroesophageal reflux disease) (Inactive) GERD (gastroesophageal reflux disease) (Chronic) Gout (Chronic) Hyperlipidemia (Inactive) Hypertension (Inactive) Hypertension (Chronic) Hypothyroidism (Inactive) Hypothyroidism (Chronic) Left bundle branch block (Chronic) Migraine (Inactive) Neuropathy (Chronic) Bilat Feet NICM (nonischemic cardiomyopathy) (Chronic) 2004 Osteoarthritis (Chronic) 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 Peptic ulcer disease (Inactive) HX OF BLEEDING ABOUT 2002 Respiratory failure with hypoxia (Chronic 10/05/13) Sleep apnea (Chronic) CPAP AND USES OXYGEN 3L ALL THE TIME Squamous cell carcinoma of vulva (Chronic) Vitamin D deficiency Surgical History H/O cardiac catheterization (Inactive) No stents placed (~10 years ago) H/O sinus surgery (Chronic) History of bilateral tubal ligation (Inactive) 1975 History of brain tumor (Inactive) 1961 - TEENAGER AND WAS REMOVED History of section (Inactive) X 2, 1971 & 1975 History of cholecystectomy (Inactive) 1995 - LAP History of cholecystectomy (Chronic) Hx of endoscopic sinus surgery (Inactive) 2007 ICD (implantable cardioverter-defibrillator) in place (Inactive) ICD/PACER [employer] 08/[address] RUIZ ([facility]) Family History Mother , Passed in 40-50's of metastatic gallbladder CA No problems noted. Father , Passed in 60's of "hardening of arteries" No problems noted. Sister Bladder cancer Brother Bladder cancer Sister Colon cancer Daughter No problems noted. Daughter No problems noted. Son No problems noted. 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 Depth about 0.3 cm. No active bleeding. No surrounding induration. Skin: no rashes, warm and dry Psychiatric: A+Ox3, euthymic affect Results & Data Vital Signs (Past 12 Hours) Vital Signs Temp Pulse Pulse Pulse Resp BP BP 06/20/19 11:31 36.7 C 72 62 16 157/78 H 133/86 06/20/19 11:19 36.7 C 62 16 133/86 06/20/19 07:25 36.7 C 72 16 165/72 H 06/20/19 05:13 78 14 Pulse Ox 06/20/19 11:31 100 06/20/19 11:19 100 06/20/19 07:25 100 06/20/19 05:13 93
== END 2019-06-20 15:24 | DRG 682 ==
LOC: 4W 21:08 → ED 21:08 → 4W 06-14 03:18

== ENCOUNTER 2020-03-05 20:01 | Inpatient (IN) ==
[2020-03-05] MEDS ORDERED: SODIUM CHLORIDE 0.9% 500 ML IV SCH (21:15)
[2020-03-05 22:06] LABS: Basophils # (auto) 0.02 K/uL (0-0.2); Basophils % (auto) 0.2 %; Eosinophils # (auto) 0.23 K/uL (0-0.5); Eosinophils % (auto) 2.2 %; Hemoglobin 8.5 g/dL (12.0-16.0); Immature Granulocytes # (auto) 0.01 K/uL (0.00-0.02); Immature Granulocytes % (auto) 0.1 %; Lymphocytes # (auto) 0.73 K/uL (1.2-3.4); Lymphocytes % (auto) 7.1 %; Mean Corpuscular Hemoglobin 30.1 pg (25-34); Mean Corpuscular Hgb Conc 31.5 g/dL (32-36); Mean Corpuscular Volume 95.7 fL (80-100); Mean Platelet Volume 9.8 fL (7.4-10.4); Monocytes # (auto) 0.82 K/uL (0.11-0.59); Neutrophils # (auto) 8.42 K/uL (1.4-6.5); Neutrophils % (auto) 82.4 %; Platelet Count 149 K/uL (130-400); RDW Coefficient of Variation 13.4 % (11.5-14.5); RDW Standard Deviation 46.4 fL (36.4-46.3); Red Blood Count 2.82 M/uL (4.2-5.4); White Blood Count 10.23 K/uL (4.8-10.8)
--- NOTE | 2020-03-05 22:13 | Emergency Department Note ---
History of Present Illness General Chief complaint: Fall Time Seen by Provider: 03/05/20 20:52 Source: patient Mode of arrival: ambulatory Limitations: no limitations History of Present Illness Provider complaint: Weakness, fall Maximum Pain Intensity: 4 This is a 74-year-old female who presents to the ED with a chief complaint of generalized weakness and a fall. The patient's daughter reports that she was seen by her PCP earlier today and told that she had a urinary tract infection. She was to be started on an antibiotic but she had not gotten the prescription as of yet. The patient fell this evening. She normally uses a walker. The daughter reports that the patient lives alone. She does not feel comfortable with the patient going home with her weakness and falls. The patient also states that she fell a week or 2 ago and suffered some bruises to her face. The patient denies any headaches at this time. She did not strike her head tonight. Denies loss of consciousness. She states that her legs just give out on her. Home Medications Home Medications Medication Instructions Recorded Confirmed Type aspirin 81 mg PO QAM 03/03/18 02/28/20 History calcitriol 0.5 mcg PO QAM 03/03/18 02/28/20 History carvedilol 12.5 mg PO BID 03/03/18 02/28/20 History fluticasone propionate 2 spray INTRANASAL DAILY PRN 03/03/18 02/28/20 History folic acid 1 mg PO QAM 03/03/18 02/28/20 History isosorbide mononitrate 30 mg PO QAM 03/03/18 02/28/20 History nitroglycerin [Nitrostat] 0.4 mg SUBLINGUAL DIRECTED PRN 03/03/18 02/28/20 History rosuvastatin [Crestor] 20 mg PO HS 03/03/18 02/28/20 History duloxetine 60 mg capsule,delayed 60 mg PO DAILY cap 01/31/19 02/28/20 History release ferrous sulfate 325 mg (65 mg 325 mg PO TID tab 06/02/19 02/28/20 History iron) tablet acetaminophen [Mapap 650 mg PO Q4H PRN #60 tab 06/20/19 02/28/20 Rx (acetaminophen)] hydrocodone-acetaminophen [Clare] 1 tab PO Q6H PRN #12 tab 06/20/19 02/28/20 Rx nystatin-triamcinolone 100,000 1 appln TOP BID #60 gm 11/30/19 02/28/20 Rx unit/gram-0.1 % topical ointment trimethoprim 100 mg PO DAILY 02/28/20 02/28/20 History Allergies Allergy/AdvReac Type Severity Reaction Status Date / Time daptomycin Allergy Intermediate RASH Verified 02/28/20 22:16 mold Allergy Mild NASAL Verified 02/28/20 22:16 CONGESTION Past Med/Surg History Medical History (Updated 03/05/20 @ 22:34 by Calderon Armendariz DO) Biventricular ICD (implantable cardioverter-defibrillator) in place CHF (congestive heart failure) Echo in past with LVEF as low as 20-25% Echo 12/27/18 LVEF 55-59%, grade I diastolic dysfunction Chronic pain Chronic respiratory failure with hypoxia, on home O2 therapy CKD (chronic kidney disease), stage IV Cystitis CHRONIC AND TAKES OXYBUTININ Depression Dyslipidemia GERD (gastroesophageal reflux disease) GERD (gastroesophageal reflux disease) Gout Hyperlipidemia Hypertension Hypertension Hypothyroidism Hypothyroidism Left bundle branch block Migraine Neuropathy Bilat Feet NICM (nonischemic cardiomyopathy) 2004 Osteoarthritis Peptic ulcer disease HX OF BLEEDING ABOUT 2002 Respiratory failure with hypoxia (10/05/13) Sleep apnea CPAP AND USES OXYGEN 3L ALL THE TIME Squamous cell carcinoma of vulva Vitamin D deficiency Surgical History H/O cardiac catheterization No stents placed (~10 years ago) H/O sinus surgery History of bilateral tubal ligation 1975 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 Father , Passed in 60's of "hardening of arteries" No problems noted. Sister Bladder cancer Brother Bladder cancer Sister Colon cancer Daughter No problems noted. Daughter No problems noted. Son No problems noted. 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 Feels Safe at Home: Yes caffeine: Yes (2 cups of tea/day, 3 sodas per day ) during the past year weight has: decreased > 10 lbs Assistive Devices: Walker Review of Systems A total of 10 systems reviewed and were otherwise negative Physical Exam Vital Signs Vital Signs - 24 hr 03/05/20 20:00 03/05/20 21:09 03/05/20 22:00 Temperature 36.8 C Temperature Source Oral Pulse Rate 88 85 Pulse Rate [Finger] 85 Pulse Rhythm Regular Regular Pulse Strength Normal Respiratory Rate 18 20 16 Respiratory Effort / Characteristics Non-Labored Spontaneous Non-Labored Spontaneous Respiratory Depth Normal Normal Respiratory Pattern Regular Regular Blood Pressure 128/63 Blood Pressure [Right Arm] 130/63 Blood Pressure Mean 84 Blood Pressure Mean [Right Arm] 85 Blood Pressure Position Lying Blood Pressure Position [Right Arm] Lying Pulse Oximetry 98 100 100 Oxygen Delivery Method Room Air Room Air Room Air Sepsis Recent Fever Within 48 Hours No Sepsis New/Unexplained Change in Mental Status No Sepsis Action Taken by Nursing No Action Required CONSTITUTIONAL/VITAL SIGNS: Reviewed / noted above. GENERAL: Non-toxic in appearance. INTEGUMENTARY: Warm, dry, and [place]. HEAD: Normocephalic. Some old bruising to the face. EYES: without scleral icterus or trauma. ENT/OROPHARYNX: clear and moist. LYMPHADENOPATHY/NECK: Is supple without lymphadenopathy or meningismus. RESPIRATORY: Lungs clear and equal. CARDIOVASCULAR: Regular rate and rhythm. GI/ABDOMEN: Soft and nontender. No organomegaly or pulsatile mass. No rebound or guarding. Normal bowel sounds. EXTREMITIES: Warm and well perfused. BACK: No CVA tenderness. NEUROLOGICAL: Intact without focal deficits. PSYCHIATRIC: normal affect. MUSCULOSKELETAL: Normally developed with good muscle tone. TRIAGE NURSING DOCUMENTATION REVIEWED. Medical Decision Making Differential Diagnosis Differential includes acute coronary syndrome, myocardial infarction, CVA, TIA, anemia, infection, pneumonia, UTI, pyelonephritis, poor nutrition, dehydration, electrolyte disturbance,hypoglycemia. Differential includes close head injury, intracranial bleed, facial trauma, cervical spine trauma, chest and thoracic trauma, abdominal and intra-abdominal trauma, spine neurologic trauma, extremity trauma. Medical Records Attestation: I reviewed the patient's medical records. Home Medications Current Medication List: was personally reviewed by me Laboratory Data Attestation: I reviewed the patient's lab results. Result diagrams: 03/05/20 21:08 03/05/20 21:08 Lab Results 03/05/20 03/05/20 03/05/20 Range/Units 21:08 21:08 21:51 WBC 10.23 (4.8-10.8) K/uL RBC 2.82 L (4.2-5.4) M/uL Hgb 8.5 L (12.0-16.0) g/dL Hct 27.0 L (37-47) % MCV 95.7 (80-100) fL MCH 30.1 (25-34) pg MCHC 31.5 L (32-36) g/dL RDW Std Deviation 46.4 H (36.4-46.3) fL RDW Coeff of Isael 13.4 (11.5-14.5) % Plt Count 149 (130-400) K/uL MPV 9.8 (7.4-10.4) fL Immature Gran % (Auto) 0.1 % Neut % (Auto) 82.4 % Lymph % (Auto) 7.1 % [place] % (Auto) 8.0 % Eos % (Auto) 2.2 % Baso % (Auto) 0.2 % Neut # (Auto) 8.42 H (1.4-6.5) K/uL Lymph # (Auto) 0.73 L (1.2-3.4) K/uL [place] # (Auto) 0.82 H (0.11-0.59) K/uL Eos # (Auto) 0.23 (0-0.5) K/uL Baso # (Auto) 0.02 (0-0.2) K/uL Immature Gran # (Auto) 0.01 (0.00-0.02) K/uL Sodium 137 (136-145) mmol/L Potassium 4.3 (3.5-5.1) mmol/L Chloride 103 (98-107) mmol/L Carbon Dioxide 31 (21-32) mmol/L Anion Gap 3.0 (3-11) BUN 29 H (7-18) mg/dl Creatinine 2.50 H (0.6-1.2) mg/dl Est Cr Clr Drug Dosing 21.7 ml/min Est GFR ( Amer) 21.2 Est GFR (Non-Af Amer) 18.3 BUN/Creatinine Ratio 11.5 (10-20) Glucose 84 (70-99) mg/dl Calcium 10.0 (8.5-10.1) mg/dl AST 76 H (15-37) U/L ALT 41 (12-78) U/L Albumin 3.1 L (3.4-5.0) gm/dl Urine Color Yellow Urine Appearance Cloudy A (Clear) Urine pH 6.0 (4.5-7.5) Ur Specific [place] 1.010 (1.000-1.030) Urine Protein Trace H (Negative) Urine Glucose (UA) Negative (Negative) Urine Ketones Negative (Negative) Urine Blood Trace H (Negative) Urine Nitrite Negative (Negative) Urine Bilirubin Negative (Negative) Urine Urobilinogen Negative (Negative) Ur Leukocyte Esterase 2+ H (Negative) Urine WBC (Auto) >30 H (0-5) /hpf Urine RBC (Auto) 0-4 (0-4) /hpf U Hyaline Cast (Auto) 5-10 H (0-5) /lpf U Epithel Cells (Auto) 0-5 (0-5) /lpf Urine Bacteria (Auto) 3+ H (Negative) Imaging Data Attestation: I personally reviewed and interpreted this imaging study as follows: My Impression: Chest x-ray: Per my interpretation is negative for acute disease. No pneumonia or pneumothorax. ECG Data Attestation: I personally reviewed and interpreted this ECG as follows: Indication: + weakness Rate (beats per minute): 94 Rhythm: + other (Paced ventricular rhythm) ECG ST segments: no ST elevation ECG Findings: no PVCs MDM Narrative Patient presents with generalized weakness and recent falls. Daughter is with the patient and feels the patient is unable to go home because of her weakness and inability to ambulate. She normally uses a walker. Her CBC reveals some chronic anemia. The urinalysis suggest a urinary tract infection. Patient also has findings suggesting some acute on chronic renal injury. The patient was given IV Rocephin as well as some IV fluids. She will be seen by the spitalist for further evaluation and care. Impression & Plan Acute UTI, Fall, Weakness Discharge Plan Visit Data Chief Complaint: Fall ED Provider: Calderon Armendariz Discharge Problem: Acute UTI, Fall, Weakness Patient Disposition: Being Evaluated by Hospitalist Forms Stand Alone Forms: [facility] [place] [email or web address] Prescriptions Prescriptions: No Action nystatin-triamcinolone 100,000-0.1 unit/gram-% ointment 1 appln TOP BID Qty: 60 RF: 5 ferrous sulfate 325 mg (65 mg iron) tablet 325 mg PO TID RF: 0 acetaminophen [Mapap (acetaminophen)] 325 mg Tablet 650 mg PO Q4H PRN (Reason: pain (scale score 4-6)) Qty: 60 RF: 0 hydrocodone-acetaminophen [Clare] 5-325 mg tablet 1 tab PO Q6H PRN (Reason: pain (scale score 7-10)) Qty: 12 RF: 0 carvedilol 12.5 mg Tablet 12.5 mg PO BID RF: 0 isosorbide mononitrate 30 mg Tablet Extended Release 24 Hr 30 mg PO QAM RF: 0 aspirin 81 mg Tablet,Delayed Release (Dr/Ec) 81 mg PO QAM RF: 0 calcitriol 0.5 mcg Capsule 0.5 mcg PO QAM RF: 0 nitroglycerin [Nitrostat] 0.4 mg Tablet, Sublingual 0.4 mg Sublingual DIRECTED PRN (Reason: Chest Pain) RF: 0 folic acid 1 mg Tablet 1 mg PO QAM RF: 0 fluticasone propionate 50 mcg/actuation [place],Suspension 2 spray INTRANASAL DAILY PRN (Reason: Allergy Symptoms) RF: 0 rosuvastatin [Crestor] 20 mg Tablet 20 mg PO HS RF: 0 duloxetine 60 mg capsule,delayed release(DR/EC) 60 mg PO DAILY RF: 0 trimethoprim 100 mg tablet 100 mg PO DAILY RF: 0 Referrals Referrals: Rashid Wiggins [Primary Care Provider] -
[2020-03-05 22:24] LABS: Appearance Urine Cloudy (Clear); Bacteria Urine Automated 3+ (Negative); Bilirubin Urine Negative (Negative); Blood Urine Trace (Negative); Color Urine Yellow; Epithelial Cell Urine Auto 0-5 /lpf (0-5); Glucose Urine UA Negative (Negative); Ketones Urine Negative (Negative); Leukocyte Esterase Urine 2+ (Negative); Nitrite Urine Negative (Negative); Protein Urine Trace (Negative); RBC Urine Automated 0-4 /hpf (0-4); Urobilinogen Urine Negative (Negative); WBC Urine Automated >30 /hpf (0-5)
[2020-03-05] MEDS ORDERED: cefTRIAXone SODIUM 1,000 MG/50 ML BAG IV STA (22:28)
[2020-03-05 22:29] LABS: Alanine Aminotransferase 41 U/L (12-78); Albumin Level 3.1 gm/dl (3.4-5.0); Aspartate Aminotransferase 76 U/L (15-37); BUN Creatinine Ratio 11.5 (10-20); Blood Urea Nitrogen 29 mg/dl (7-18); Carbon Dioxide 31 mmol/L (21-32); Chloride 103 mmol/L (98-107); Creatinine Clr Calc Pharmacy 21.7 ml/min; Est GFR (African American) 21.2; Est GFR (Non-African American) 18.3; Glucose 84 mg/dl (70-99); Potassium 4.3 mmol/L (3.5-5.1); Sodium 137 mmol/L (136-145)
[2020-03-05 22:34] LABS: Albumin Globulin Ratio 0.8 (0.9-2); Alkaline Phosphatase 142 U/L (45-117); Bilirubin,Total 0.3 mg/dl (0.2-1); Creatine Kinase 49 U/L (26-192); Globulin 4.1 gm/dl (2.5-4.0); Total Protein 7.2 gm/dl (6.4-8.2); Troponin I < 0.015 ng/ml (0-0.045)
[2020-03-06] MEDS ORDERED: FLUTICASONE PROPIONATE NA SPR 16 GM BTL PRN (01:17)
[2020-03-06] MEDS ORDERED: ACETAMINOPHEN 325 MG TAB PO PRN (01:17)
[2020-03-06] MEDS ORDERED: ONDANSETRON INJ 2 MG/ML 2 ML VIAL IV PRN (01:17)
[2020-03-06] MEDS ORDERED: SODIUM CHLORIDE 0.9% 1000ML 1,000 ML IV SCH (01:17)
[2020-03-06] MEDS ORDERED: NITROGLYCERIN SL 0.4 MG/TAB TAB SL PRN (01:17)
[2020-03-06] MEDS ORDERED: POLYETHYLENE (MIRALAX) 17 GM PACK PO PRN (01:17)
--- NOTE | 2020-03-06 01:23 | History and Physical Report ---
DATE OF ADMISSION: 03/05/2020 CHIEF COMPLAINT: Fall and UTI. HISTORY OF PRESENT ILLNESS: This is a 74-year-old female with past medical history significant for hyperlipidemia, hypothyroidism, chronic kidney disease stage IV, secondary hyperparathyroidism, allergies, sleep apnea, nonischemic cardiomyopathy s/p ICD, diastolic CHF, hypertension, history of left bundle branch block, GERD, history of rectocele, history of squamous cell carcinoma of vulva, stress incontinence, urge incontinence, degenerative disc disease, hereditary and idiopathic peripheral neuropathy, history of pernicious anemia, history of herpes simplex type 1 infection, , prediabetes, gout. The patient lives alone, but currently one of her sister is living with her and she will be living for few more days. The patient comes because of frequent falls at home. She fell other day on the hard floor and she has bruises on the orbits and also she was shaky today and fell on knees. She has UTIs in the past, thought it could be UTI and was brought to the hospital and UA was positive. Hemodynamically stable, no leukocytosis. Hemoglobin is 8.5, which seems to be chronic. Creatinine is 2.5, baseline around 2,. Currently resting comfortably and hemodynamically stable. Has some headache, no blurred vision, no earache, no runny nose, no sore throat, no cough, no loss of sense of smell or taste. No exposure to COVID . No fever, no chills, no chest pain, no shortness of breath, no nausea, no vomiting, no abdominal pain. Appetite is okay. No diarrhea or constipation, no blood in the stools, her stools are always black because of iron pills and she has incontinence of urine and she is supposed to see Urology this coming week . ALLERGIES: DAPTOMYCIN, MOLD. PAST MEDICAL HISTORY: As mentioned above. PAST SURGICAL HISTORY: , EGDs, biventricular pacemaker, laparoscopic cholecystectomy, removal of the brain cyst, renal angioplasty, sinus surgery. MEDICATIONS: Currently the patient is on Tylenol 650 mg p.o. q. 4 hours p.r.n., amitriptyline 25 mg at bedtime, aspirin 81 mg p.o. a.m., calcitriol 0.5 mcg p.o. a.m., Coreg 12.5 mg p.o. b.i.d., Cymbalta 60 mg p.o. daily, ferrous sulfate 325 mg p.o. t.i.d., Flonase 2 sprays intranasal daily p.r.n., folic acid 1 mg q.a.m., [place] 1 tablet p.o. q. 4-6 hours p.r.n., isosorbide mononitrate 30 mg p.o. a.m., Nitrostat 0.4 mg sublingual p.r.n., Crestor 20 mg at bedtime, solifenacin 10 mg p.o. daily, trimethoprim 100 mg p.o. daily. FAMILY HISTORY: Significant for mother from cancer of gallbladder. Father had heart disorder. SOCIAL HISTORY: , currently lives alone. Former smoker, quit in 1993. Smoked 1/2 pack a day for 32 years. No alcohol use, no drug use. REVIEW OF SYMPTOMS: As per HPI. Rest of review of symptoms negative. PHYSICAL EXAMINATION: GENERAL: The patient is of moderate build, not in acute distress. VITAL SIGNS: Temperature 36.8, pulse 87, respiratory rate 18, blood pressure 106/68, oxygen 100% on room air. HEENT Bruises seen around the orbits and a nasal lesion. Pupils equal, round, reactive to light. Oral mucosa moist. NECK: Not supple. No neck masses seen. CARDIOVASCULAR: S1, S2 heard, regular rate and rhythm, no murmur, no gallop. RESPIRATORY SYSTEM: Normal AP diameter. No accessory muscle use. No wheezing, no crackles. ABDOMEN: Soft, bowel sounds present, nontender. No distention. CENTRAL NERVOUS SYSTEM: Cranial nerves II-XII grossly intact, nonfocal. EXTREMITIES: Lower extremity edema present, no erythema seen. LABORATORY DATA: WBC 10.2, hemoglobin 8.5, hematocrit 27, platelets 149. Sodium 137, potassium 4.3, chloride 103, bicarbonate 31, BUN 29, creatinine 2.5, serum glucose 84, calcium 10, total bilirubin 0.3, AST 76, ALT 441, alkaline phosphatase 142. Troponin I less than 0.015. Urinalysis positive for leukocyte esterase and +3 bacteria. IMAGING: Chest x-ray, no acute findings seen. EKG: Poor quality, atrial paced rhythm with occasional PVCs at a rate of 94. ASSESSMENT AND PLAN: This 74-year-old female who presents with frequent falls at home and UTI. 1. The patient presents frequent falls, could be urinary tract infection contributing. She had similar history in the past. PT and OT. The patient refused to go to rehabilitation. Social service to help with discharge planning. 3. Urinary tract infection. We will continue with Rocephin. Follow the cultures. 4. Acute kidney injury on chronic kidney disease stage IV. Baseline creatinine around 2, currently with creatinine of 2.5. Getting gentle fluids. We will stop out the fluids in the a.m. We will follow repeat labs in a.m. 5. History of hypertension: On isosorbide mononitrate and Coreg. We will monitor blood pressure. 6. History of depression, on Cymbalta. 7. History of hypothyroidism. Continue Synthroid. 8. History of hyperlipidemia. Continue statin. 9. History of urinary incontinence. On solifenacin and trimethoprim, has followup appointment with Urology. 10. History of obstructive sleep apnea on oxygen and CPAP at bedtime. 11. History of anemia of chronic kidney disease and pernicious anemia, gets vitamin B12 shots. On iron supplements. Hemoglobin is stable. We will follow the labs. 12. History of nonischemic cardiomyopathy, s/p biventricular ICD. Echo in June 2014 shows EF of less than 20%, recent echo 12/2018 EF is 55%. No longer on Lasix, currently on Coreg. 13. History of vulvar carcinoma, status post radiation treatment, cisplatin therapy with good response. Follow with [facility]. 14. Deep venous thrombosis prophylaxis. We will place on sequential compression devices for now. 15. Disposition: Admit to medical floor. PT and OT prior to discharge. Social service to help with discharge planning. [facility]
[2020-03-06] MEDS: HYDROCODONE/ACETAMOPHEN 5/325MG TAB PO PRN (03:15)
[2020-03-06 06:09] LABS: Basophils # (auto) 0.02 K/uL (0-0.2); Basophils % (auto) 0.2 %; Eosinophils # (auto) 0.18 K/uL (0-0.5); Eosinophils % (auto) 2.2 %; Hematocrit (blood only) 24.1 % (37-47); Hemoglobin 7.2 g/dL (12.0-16.0); Immature Granulocytes # (auto) 0.03 K/uL (0.00-0.02); Immature Granulocytes % (auto) 0.4 %; Lymphocytes # (auto) 0.75 K/uL (1.2-3.4); Lymphocytes % (auto) 9.2 %; Mean Corpuscular Hemoglobin 29.1 pg (25-34); Mean Corpuscular Hgb Conc 29.9 g/dL (32-36); Mean Corpuscular Volume 97.6 fL (80-100); Mean Platelet Volume 10.1 fL (7.4-10.4); Monocytes # (auto) 0.82 K/uL (0.11-0.59); Neutrophils # (auto) 6.37 K/uL (1.4-6.5); Platelet Count 138 K/uL (130-400); RDW Coefficient of Variation 13.4 % (11.5-14.5); RDW Standard Deviation 47.5 fL (36.4-46.3); Red Blood Count 2.47 M/uL (4.2-5.4); White Blood Count 8.17 K/uL (4.8-10.8)
[2020-03-06 06:38] LABS: BUN Creatinine Ratio 11.4 (10-20); Calcium 9.2 mg/dl (8.5-10.1); Est GFR (African American) 21.9; Est GFR (Non-African American) 18.9; Magnesium 1.9 mg/dl (1.8-2.4)
--- NOTE | 2020-03-06 06:38 | XRay Report ---
XR chest 1V portable HISTORY: 74 years-old Female weakness acute weakness COMPARISON: Chest radiograph 06/18/2019 TECHNIQUE: Portable AP view of the chest FINDINGS: Left subclavian pacer/AICD. Mild cardiomegaly. Mild right hemidiaphragmatic elevation. No pneumothora x, pleural effusion or overt pulmonary edema. Subsegmental left lung base opacities suggest atelectas is/scarring. Cholecystectomy. Degenerative changes of the shoulders and spine. IMPRESSION: No acute process. ACT 112: Negative or not required by law. The above report was generated using voice recognition software. It may contain grammatical, syntax o r spelling errors. Electronically signed by: Herson Quigley M.D. 03/06/2020 6:37 AM
[2020-03-06 08:23] LABS: RBC Morphology Unremarkable
[2020-03-06 08:25] LABS: Hematocrit (blood only) 24.1 % (37-47); Hemoglobin 7.4 g/dL (12.0-16.0)
[2020-03-06 08:26] LABS: Base Excess ABG 1.5 mEq/L (-9-1.8); HCO3 ABG 29 mmol/L (19-24); Oxygen Saturation ABG 96.9 % (90-95); PCO2 ABG 66 mmHg (35-46); PO2 ABG 117 mmHg (80-95); pH ABG 7.26 (7.35-7.45)
[2020-03-06 08:33] LABS: Allen Test Pos (Pos)
--- NOTE | 2020-03-06 08:49 | Hospitalist Progress Note ---
Date of Service March 06, 2020 Assessment & Plan (1) Metabolic encephalopathy: Pt is currently somnolent with evidence of acute CO2 retention in the setting of [place] at 0300 and in the setting of a UTI. Starting non-invasive ventilation with BIPAP and will transfer to PCU and monitor for clinical response. Hold any further narcotics at this time. Cont Rocephin for UTI. (2) Sleep apnea: Uses 3L continuous oxygen and CPAP nightly. Did not receive CPAP overnight and did receive [place] which is ? contributing to her current mental state. BIPAP ordered and will reassess in a couple of hours. Cont oxygen per home regimen. (3) Acute UTI: Has been on trimethoprim for the last few weeks after being placed on this by Urology. Had an abnormal bladder CT and was going for a cystoscopy which was delayed 1 month. Hold this and cont with Rocephin pending urine culture results. (4) Weakness: Likely 2/2 above. PT/OT assessments when she awakens more. (5) Depression: Hold PO meds including anytriptyline and Cymbalta per home regimen. (6) Hypothyroidism: Hold Synthroid while somnolent. (7) Hypertension: at goal. (8) CKD (chronic kidney disease), stage IV: hold calcitriol. Slightly elevated creatinine likely the result of recent trimethoprim use. (9) Chronic anemia: Around baseline which is secondary to chronic kidney disease. Will review records for transfusion history and if she is receiving any epo. For now, no active bleeding is evident and repeat H/H is pending. (10) DVT prophylaxis: SCDs-hold any chemoprophylaxis while she is anemic Full Code Dispo-transfer to PCU on BIPAP DO Jenna Garcia Hospitalist Admission and Anticipated Discharge Date Admission Date: March 05, 2020 Subjective 74 yo F presented to the hospital for weakness and recurrent falls. She has a h/o UTI found at a Urology visit in early January and the planned cystoscopy could not be performed. She was placed on Bactrim and planned for a rescope in 3-4 weeks. Today she is lethargic, and she was noted to have a [place] around 0300. She is able to wake up and tell me where she is but is somnolent and is falling back asleep. H/H is low but no active bleeding is evident. On review of her records she has been anemic with a baseline Hb 8. She is able to wake up and follow instruction. Review of Systems Review of Systems: Unobtainable due to cognitive status Physical Exam Physical Exam: CONSTITUTIONAL: WNWD, vitals as above, generally somnolent EYES: cannot check EOM, pupils are round and equal bilaterally, normal conjunctivae, no scleral icterus, remnants of periorbital ecchymosis present-in later stages of healing. ENT: external ear and nose normal, oropharynx clear,MMM RESPIRATORY: clear to auscultation bilaterally with slight coarse crackles at bases bilaterally. The patient is somnolent and needs alot of help sitting up with alot of prompting to take a deep breath-not the best exam. No increased work of breathing, normal respiratory rate. CARDIOVASCULAR: regular rate and rhythm, S1 and 2 heard without murmurs, gallops or rubs, no JVD, no peripheral edema GASTROINTESTINAL: soft, nontender, nondistended. 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 SKIN: warm and dry, ecchymosis as above. NEUROLOGIC: pupils are round and equal bilaterally, no facial palsy, no dysarthria. Somnolent but can awaken and orient temporarily, normal speech. Results & Data Results & Data ([facility]) Vital Signs (Past 12 Hours) Vital Signs Temp Pulse Pulse Resp BP BP Pulse Ox 03/06/20 07:00 36.6 C 89 18 113/66 98 03/06/20 01:27 36.7 C 86 20 112/64 100 03/06/20 00:30 16 100/62 100 03/05/20 23:30 87 18 100 03/05/20 23:00 16 106/68 100 03/05/20 22:30 16 95/69 L 100 03/05/20 22:20 84 14 130/63 100 03/05/20 22:00 85 16 130/63 100 03/05/20 21:09 85 20 100 Laboratory Results Short CBC 03/05/20 03/06/20 03/06/20 Range/Units 21:08 05:39 08:08 WBC 10.23 8.17 (4.8-10.8) K/uL Hgb 8.5 L 7.2 L 7.4 L (12.0-16.0) g/dL Hct 27.0 L 24.1 L 24.1 L (37-47) % Plt Count 149 138 (130-400) K/uL BMP 03/05/20 03/06/20 21:08 05:39 Sodium 137 138 Potassium 4.3 4.0 Chloride 103 105 Carbon Dioxide 31 31 BUN 29 H 28 H Creatinine 2.50 H 2.44 H Glucose 84 99 Calcium 10.0 9.2 Cardiac Enzymes 03/05/20 Range/Units 21:08 Total Creatine Kinase 49 (26-192) U/L Troponin I < 0.015 (0-0.045) ng/ml Liver Function 03/05/20 Range/Units 21:08 Total Bilirubin 0.3 (0.2-1) mg/dl AST 76 H (15-37) U/L ALT 41 (12-78) U/L Alkaline Phosphatase 142 H (45-117) U/L Albumin 3.1 L (3.4-5.0) gm/dl Urine 03/05/20 Range/Units 21:51 Urine Color Yellow Urine Appearance Cloudy A (Clear) Urine pH 6.0 (4.5-7.5) Ur Specific [place] 1.010 (1.000-1.030) Urine Protein Trace H (Negative) Urine Glucose (UA) Negative (Negative) Medications Administered Current Inpatient Medications Acetaminophen (Acetaminophen 325 Mg Tab) 650 mg PO Q4H PRN PRN Reason: pain/fever Stop: 04/05/20 01:16 Hydrocodone Bitart/Acetaminophen (Hydrocodone/Acetamophen 5/325mg Tab) 1 tab PO Q6H PRN PRN Reason: pain (scale score 7-10) Stop: 03/20/20 01:16 Last Admin: 03/06/20 03:15 Dose: 1 tab Documented by: Amitriptyline HCl (Amitriptyline Hcl 25 Mg Tab) 25 mg PO [facility] Stop: 04/05/20 20:59 Aspirin (Aspirin 81 Mg Ectab) [facility] Stop: 04/05/20 08:59 Calcitriol (Calcitriol 0.25 Mcg Capsule) 0.5 mcg PO QA [facility] Stop: 04/05/20 08:59 Carvedilol (Carvedilol 12.5 Mg Tab) 12.5 mg PO BID [facility] Stop: 04/05/20 08:59 Duloxetine HCl (Duloxetine Hcl 60 Mg Cap) 60 mg PO DAILY [facility] Stop: 04/05/20 08:59 Ferrous Sulfate (Ferrous Sulfate 325 Mg Tab) 325 mg PO TID [facility] Stop: 04/05/20 08:59 Fluticasone Propionate (Fluticasone Propionate Na Spr 16 Gm Btl) 2 sprays NA DAILY PRN PRN Reason: Allergy Symptoms Stop: 04/05/20 01:16 Folic Acid (Folic Acid 1 Mg Tab) 1 mg PO QAM [facility] Stop: 04/05/20 08:59 Ceftriaxone Sodium 2,000 mg/ (Dextrose) 70 mls @ 100 mls/hr IV Q24H [facility]; Protocol Stop: 03/15/20 19:59 Isosorbide Mononitrate (Isosorbide [place] Extended Rel 30 Mg Tabcr) 30 mg PO QAM [facility] Stop: 04/05/20 08:59 Miscellaneous (Solifenacin: Order Awaiting Action) 1 ea N/A QS [facility] Stop: 04/05/20 07:59 Miscellaneous (Trimethoprim: Order Awaiting Action) 1 ea N/A QS [facility] Stop: 04/05/20 07:59 Nitroglycerin (Nitroglycerin Sl 0.4 Mg/Tab Tab) 0.4 mg SL PRN PRN PRN Reason: Chest Pain Stop: 04/05/20 01:16 Nystatin/Triamcinolone Acetonide (Nystatin/Triamcin Oint 15 Gm Tube) 1 appln EXT BID [facility] Stop: 04/05/20 08:59 Ondansetron HCl (Ondansetron Inj 2 Mg/Ml 2 Ml Vial) 4 mg IV Q6H PRN PRN Reason: Nausea Stop: 04/05/20 01:16 Polyethylene Glycol (Polyethylene (Miralax) 17 Gm Pack) 17 gm PO DAILY PRN PRN Reason: Constipation Stop: 04/05/20 01:16 Rosuvastatin Calcium (Rosuvastatin Calcium 20 Mg Tab) 20 mg PO HS [facility] Stop: 04/05/20 20:59
[2020-03-06] MEDS ORDERED: ASPIRIN 81 MG ECTAB PO SCH (09:00)
[2020-03-06] MEDS: NYSTATIN/TRIAMCIN OINT 15 GM TUBE EXT SCH ×2 (09:04→20:26)
[2020-03-06] MEDS ORDERED: ACETAMINOPHEN 1,000 MG/100 ML VIAL IV PRN (11:17)
--- NOTE | 2020-03-06 11:37 | XRay Report ---
XR chest 1V portable HISTORY: 74 years-old Female altered, elevated CO2 acute hypoxia. Acutely altered mental status COMPARISON: Chest radiograph 03/05/2020 TECHNIQUE: Portable AP view of the chest FINDINGS: Cardiac silhouette is enlarged, unchanged. Left subclavian pacer/AICD. Medial lung apices are obscure d by the patient's chin. No pneumothorax, pleural effusion, airspace consolidation or overt pulmonary edema. Cholecystectomy. Bones appear grossly intact. IMPRESSION: Cardiomegaly without acute process. ACT 112: Negative or not required by law. The above report was generated using voice recognition software. It may contain grammatical, syntax o r spelling errors. Electronically signed by: Herson Quigley M.D. 03/06/2020 11:36 AM
--- NOTE | 2020-03-06 11:56 | Gastrointestinal Consultation ---
Date of Consultation March 06, 2020 Assessment & Plan (1) Rectal bleeding: Rectal bleeding, thus does not seem hemodynamically significant. Her anemia is likely multifactorial with CKD 4 contributing. Her Hb prior to this one bloody BM is at her baseline. She is high risk for procedures due to multiple chronic diseases, current UTI and worsening of her mental and respiratory status. Would avoid colonoscopy though would reconsider if she experiences a large amt of rectal bleeding and significant drop in her Hb/Hct. Will follow peripherally. Please call us if new, worsening rectal bleeding and significant drop in Hb/Hct. Present on Admission?: Yes Supervising Physician Co-Signing Physician Notes I have personally seen and examined the patient with BRIANA Vo. Her note reflects my exam and findings. I agree with her impression and plan. Most c/w outlet bleeding. Conservative management. Deejay Gonzalez M.D. History of Present Illness Reason for Consultation: acute GI bleeding with anemia Requesting Physician: Dr. Whiting Attending Physician: Jacque Whiting, DO History of Present Illness Ms. Iglesias is a 74-year-old female patient of Rashid Wiggins PA-C, with a hx of CAD/CHF with ICD, hypothyroidism, CKD4, prediabetes, GERD and other as listed below in past medical history. She was brought to the ED yesterday for a fall. She was also diagnosed with a UTI few days ago but had not had time to start antibiotics prior to arrival, currently on Rocephin here. GI is consulted for GI bleeding and anemia. On arrival, Hb 8.5, which is her approximate baseline and this morning it is 7.4. BUN is 28, creatinine 2.4 (up from her baseline of approximately 2.0). This morning at 10 AM, nursing documented 1 loose brown bowel movement with some bright red blood and a clot. Her daughter is here at the bedside. The daughter tells us that she does carry a hx of hemorrhoids. She doesn't believe that the pt has had any abd pain, nausea/vomiting or blood in her BMs at home, but is not sure because her sister who lives next to the pt and provides day to care. On exam, pt is on 100% O2 via bipap, is awake but is not answering questions and is minimally interactive which her daughter says is much worse than her baseline alertness. On exam her abd is soft, non distended. Allergies Allergy/AdvReac Type Severity Reaction Status Date / Time daptomycin Allergy Intermediate RASH Verified 02/28/20 22:16 mold Allergy Mild NASAL Verified 02/28/20 22:16 CONGESTION Home Medications Home Medications Medication Instructions Recorded Confirmed Type aspirin 81 mg PO QAM 03/03/18 03/05/20 History calcitriol 0.5 mcg PO QAM 03/03/18 03/05/20 History carvedilol 12.5 mg PO BID 03/03/18 03/05/20 History fluticasone propionate 2 spray INTRANASAL DAILY PRN 03/03/18 03/05/20 History folic acid 1 mg PO QAM 03/03/18 03/05/20 History isosorbide mononitrate 30 mg PO QAM 03/03/18 03/05/20 History nitroglycerin [Nitrostat] 0.4 mg SUBLINGUAL DIRECTED PRN 03/03/18 03/05/20 History rosuvastatin [Crestor] 20 mg PO HS 03/03/18 03/05/20 History duloxetine 60 mg capsule,delayed 60 mg PO DAILY cap 01/31/19 03/05/20 History release ferrous sulfate 325 mg (65 mg 325 mg PO TID tab 06/02/19 03/05/20 History iron) tablet acetaminophen [Mapap 650 mg PO Q4H PRN #60 tab 06/20/19 03/05/20 Rx (acetaminophen)] hydrocodone-acetaminophen [Caspian] 1 tab PO Q6H PRN #12 tab 06/20/19 03/05/20 Rx nystatin-triamcinolone 100,000 1 appln TOP BID #60 gm 11/30/19 03/05/20 Rx unit/gram-0.1 % topical ointment trimethoprim 100 mg PO DAILY 02/28/20 03/05/20 History amitriptyline 25 mg PO HS 03/05/20 03/05/20 History solifenacin 10 mg PO DAILY 03/05/20 03/05/20 History Patient History Medical History (Updated 03/06/20 @ 12:50 by BRIANA Caldwell) Biventricular ICD (implantable cardioverter-defibrillator) in place CHF (congestive heart failure) Echo in past with LVEF as low as 20-25% Echo 12/27/18 LVEF 55-59%, grade I diastolic dysfunction Chronic pain Chronic respiratory failure with hypoxia, on home O2 therapy CKD (chronic kidney disease), stage IV Cystitis CHRONIC AND TAKES OXYBUTININ Depression Dyslipidemia GERD (gastroesophageal reflux disease) GERD (gastroesophageal reflux disease) Gout Hyperlipidemia Hypertension Hypertension Hypothyroidism Hypothyroidism Left bundle branch block Migraine Neuropathy Bilat Feet NICM (nonischemic cardiomyopathy) 2004 Osteoarthritis Peptic ulcer disease HX OF BLEEDING ABOUT 2002 Respiratory failure with hypoxia (10/05/13) Sleep apnea CPAP AND USES OXYGEN 3L ALL THE TIME Squamous cell carcinoma of vulva Vitamin D deficiency Surgical History H/O cardiac catheterization No stents placed (~10 years ago) H/O sinus surgery History of bilateral tubal ligation 1975 History 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 Father , Passed in 60's of "hardening of arteries" No problems noted. Sister Bladder cancer Brother Bladder cancer Sister Colon cancer Daughter No problems noted. Daughter No problems noted. Son No problems noted. 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 See HPI for daughter's report of symptoms Physical Exam Constitutional: + overweight Appears comfortable but somewhat sedate/minimally interactive, on BIPAP Eyes: PERRL, conjunctivae normal, anicteric sclerae ENMT: external ear and nose normal, oropharynx normal Neck: trachea midline, no thyromegaly Respiratory: no labored breathing and no stridor Auscultation: no crackles and no wheezes lungs clear but diminished at the bases. Cardiovascular: RRR, no murmur, no edema Gastrointestinal (Abdomen): Inspection/Auscultation: abdomen normal to inspection and + hypoactive bowel sounds; abdomen not distended Percussion/Palpation: abdomen soft; abdomen nontender Skin: no rashes, warm and dry Neurologic: PERRL, EOMI, accommodation nl, no face palsy, no dysarthria + confused (possibly) Speech / Cognition: + abnormal speech (pt's efforts to speak are quiet, garbled, not responding to questions) Psychiatric: Orientation: alert Eye Contact: + poor eye contact Motor Behavior: n tremor Lymphatic: no cervical or axillary lymphadenopathy Results & Data ([facility]) Vital Signs (Past 12 Hours) Vital Signs Temp Pulse Pulse Resp BP BP Pulse Ox 03/06/20 11:20 36.5 C 81 18 106/52 L 100 03/06/20 10:52 79 16 98 03/06/20 09:11 82 15 95 03/06/20 07:00 36.6 C 89 18 113/66 98 03/06/20 01:27 36.7 C 86 20 112/64 100 03/06/20 00:30 16 100/62 100 Laboratory Results WBC 8.7, Hb 7.2, Hct 24, plts 138, Na 138, K 4.0, BUN 28, Cr 2.4, glucose 108 Diagnostic Findings CXR normal, post cholecystectomy
[2020-03-06 12:39] LABS: Base Excess ABG 1.8 mEq/L (-9-1.8); HCO3 ABG 29 mmol/L (19-24); Oxygen Saturation ABG 89.6 % (90-95); PCO2 ABG 61 mmHg (35-46); PO2 ABG 64 mmHg (80-95); pH ABG 7.29 (7.35-7.45)
[2020-03-06 12:43] LABS: Allen Test Pos (Pos)
--- NOTE | 2020-03-06 13:21 | XRay Report ---
KUB HISTORY: rectal bleeding COMPARISON: None. FINDINGS: The bowel gas pattern is unremarkable. There are no dilated loops of small bowel to suggest an obstruction. No renal calculi. No ureteral calculi. No pneumoperitoneum or pneumatosis. Large am ount well-formed stool seen throughout the colon and rectum. Prior cholecystectomy. IMPRESSION: Large amount of well-formed stool seen throughout the colon and rectum consistent with constipation. ACT 112: Negative or not required by law. Electronically signed by: Oliver Zambrano M.D. 03/06/2020 1:20 PM
--- NOTE | 2020-03-06 13:40 | CT Scan Report ---
HEAD CT NONCONTRAST CT DOSE: 788.63 mGycm HISTORY: altered mental status TECHNIQUE: Multiaxial CT images of the head were performed without the use of intravenous contrast. A utomated exposure control was utilized for this study. A dose lowering technique was utilized adheri ng to the principles of ALARA. Comparison: Head CT 02/20/2020. Findings: The paranasal sinuses and mastoid air cells are clear. The calvarium and skull base are int act. There is no mass, hematoma, midline shift, acute infarct. White matter hypodensity is nonspecifi c but suggestive of microvascular ischemic change. The ventricles and sulci demonstrate mild age-rela yahir involutional changes. Left frontal scalp swelling. Old small defect within the right occipital alejandro ne. This remains unchanged. Impression: No acute intracranial abnormality. Left frontal scalp swelling. ACT 112: Negative or not required by law. Electronically signed by: Oliver Zambrano M.D. 03/06/2020 1:39 PM
--- NOTE | 2020-03-06 14:10 | Pulmonary Consultation ---
Date of Consultation March 06, 2020 Assessment & Plan (1) Respiratory failure with hypoxia: This is a 74-year-old female that was admitted for shortness of breath and metabolic encephalopathy. CT scan of the head was negative. Patient does have chronic oxygen use at home with 3 L/min via nasal cannula for unknown etiology. She was unresponsive this morning. CT scan of the head is negative. Arterial blood gas was collected and has a mixed acidosis picture. She is tolerating BiPAP well at 10/5 FiO2 25%. Recommendations: 1. Respiratory failure: COVID-19 test 03/06/2020 is negative. Patient appears to have an acute respiratory failure requiring BiPAP overnight. Most likely etiology at this point is opiate induced. We will continue the patient on BiPAP overnight. We will repeat an ABG in the morning. At this time chest x-ray shows no evidence of infiltrate or consolidation. No indication for steroids or antibiotics. Patient does have acute on chronic hypoxia with home O2 therapy. Would recommend follow-up with pulmonary clinic as an outpatient either with the [facility] physician group or with the [facility] group. She will need outpatient PFTs and should probably have polysomnography. 2. Sleep apnea: Patient is reported to have sleep apnea. Would follow-up outpatient with the sleep clinic. For now, continue BiPAP therapy. Will check repeat ABG in the morning 3. Chronic respiratory failure: Patient is on 3 L/min via nasal cannula. She a pparently was sent home from a hospital admission one time and was continued on this. Continue for now and follow-up with outpatient clinic 4. Congestive heart failure: Patient does have a history of nonischemic cardiomyopathy. proBNP is not elevated. Patient does not appear clinically to be in CHF exacerbation. We will continue to follow empirically. 5. Anemia: At this time gastroenterology is following. Invasive diagnostics are being held at this time secondary to encephalopathy and hypoxia. We will follow serial H&H's. Currently hemoglobin is 7.6. Patient is hemodynamically stable. 6. Transaminitis: GGT is ordered but is a reference lab. There was consideration for right upper quadrant ultrasound. However patient had cholecystectomy in the past and has no current abdominal pain in the right upper quadrant. We will continue to follow expectantly. Thank you for including us in the care of this patient. We will continue to follow along with you for now. Please refer to Dr. Chris's addendum for further recommendations. (2) Sleep apnea: (3) Metabolic encephalopathy: (4) Chronic respiratory failure with hypoxia, on home O2 therapy: (5) CHF (congestive heart failure): (6) Anemia: Supervising Physician Co-Signing Physician Notes I saw and evaluated the patient with Riccardo Molina, and agree with findings and plan as documented in the note. Patient seen and examined at bedside. Chest x-ray 03/05/2020 personally reviewed: Portable film, poor inspiratory effort, elevated right hemidiaphragm, cardiomegaly, no clear infiltrate appreciated AB.26/66/117 on 3 L nasal cannula Patient's hypercapnia is likely from MONIQUE along with morbid obesity and her systolic CHF might be playing a role in central sleep apneas as well. Recommend 2D echo. She also has elevated right hemidiaphragm. Altered mental status could have been a component of opioid use which might have resulted in hypercapnia as well. Patient needs to be compliant with CPAP. In the hospital continue with BiPAP. BNP was 907 which is mildly elevated. Underlying hypoxia is also most likely from her cardiac issue. I wonder to the PET/CT done 04/18/2018 when I did not see any parenchymal abnormalities. Patient used to be a social smoker. Quit 40 years ago. History of Present Illness Attending Physician: aJcque Whiting DO History of Present Illness Attending: Dr. Chris This is a 74-year-old female that was admitted for shortness of breath and altered mental status. She had a fall approximately 1 week ago and still has some ecchymosis under bilateral eyes. She had a CT scan at the time which was negative. She had repeat CT scan of the head today which was also negative for acute findings. She is on 3 L of home O2 for unknown etiology. Family reports that she was discharged from the hospital 1 time and sent home on oxygen and this was never stopped. She has never seen a associate director financial aid or had pulmonary function testing. She apparently has been on supplemental oxygen for last 2 to 3 years. We are consulted to see the patient for altered mental status presumed to be secondary to hypoxia. The patient has been placed on BiPAP therapy with setting s at 10/5 and an FiO2 of 25%. She is tolerating the BiPAP mask well. She is seen at bedside with her daughter present. At the time of my examination she is completely lucid and alert and oriented x3. She is able to give me full history. She can give me symptoms. She has no recollection of last night but thinks that she slept well. She apparently had some pain last night and was given some [place] which most likely contributed to her metabolic acidosis. The patient currently has no shortness of breath. She has no chest pain or tightness. She denies any cough, chills, fever, sweats. She has no chest pain or tightness. She has no known exposure to Covid. She has good taste and smell. She has no other acute complaints. Allergies Allergy/AdvReac Type Severity Reaction Status Date / Time daptomycin Allergy Intermediate RASH Verified 02/28/20 22:16 mold Allergy Mild NASAL Verified 02/28/20 22:16 CONGESTION Home Medications Home Medications Medication Instructions Recorded Confirmed Type aspirin 81 mg PO QAM 03/03/18 03/05/20 History calcitriol 0.5 mcg PO QAM 03/03/18 03/05/20 History carvedilol 12.5 mg PO BID 03/03/18 03/05/20 History fluticasone propionate 2 spray INTRANASAL DAILY PRN 03/03/18 03/05/20 History folic acid 1 mg PO QAM 03/03/18 03/05/20 History isosorbide mononitrate 30 mg PO QAM 03/03/18 03/05/20 History nitroglycerin [Nitrostat] 0.4 mg SUBLINGUAL DIRECTED PRN 03/03/18 03/05/20 History rosuvastatin [Crestor] 20 mg PO HS 03/03/18 03/05/20 History duloxetine 60 mg capsule,delayed 60 mg PO DAILY cap 01/31/19 03/05/20 History release ferrous sulfate 325 mg (65 mg 325 mg PO TID tab 06/02/19 03/05/20 History iron) tablet acetaminophen [Mapap 650 mg PO Q4H PRN #60 tab 06/20/19 03/05/20 Rx (acetaminophen)] hydrocodone-acetaminophen [[place]] 1 tab PO Q6H PRN #12 tab 06/20/19 03/05/20 Rx nystatin-triamcinolone 100,000 1 appln TOP BID #60 gm 11/30/19 03/05/20 Rx unit/gram-0.1 % topical ointment trimethoprim 100 mg PO DAILY 02/28/20 03/05/20 History amitriptyline 25 mg PO HS 03/05/20 03/05/20 History solifenacin 10 mg PO DAILY 03/05/20 03/05/20 History Patient History Medical History (Updated 03/07/20 @ 11:47 by Jacque Whiting, DO) Biventricular ICD (implantable cardioverter-defibrillator) in place CHF (congestive heart failure) Echo in past with LVEF as low as 20-25% Echo 12/27/18 LVEF 55-59%, grade I diastolic dysfunction Chronic pain Chronic respiratory failure with hypoxia, on home O2 therapy CKD (chronic kidney disease), stage IV Cystitis CHRONIC AND TAKES OXYBUTININ Depression Dyslipidemia GERD (gastroesophageal reflux disease) GERD (gastroesophageal reflux disease) Gout Hyperlipidemia Hypertension Hypertension Hypothyroidism Hypothyroidism Left bundle branch block Migraine Neuropathy Bilat Feet NICM (nonischemic cardiomyopathy) 2004 Osteoarthritis Peptic ulcer disease HX OF BLEEDING ABOUT 2002 Respiratory failure with hypoxia (10/05/13) Sleep apnea CPAP AND USES OXYGEN 3L ALL THE TIME Squamous cell carcinoma of vulva Vitamin D deficiency Surgical History H/O cardiac catheterization No stents placed (~10 years ago) H/O sinus surgery History of bilateral tubal ligation 1975 History of brain tumor 1961 - TEENAGER AND WAS REMOVED History of section X 2, 1970 & 1975 History of cholecystectomy 1995 - LAP History of cholecystectomy Hx of endoscopic sinus surgery 2007 ICD (implantable cardioverter-defibrillator) in place ICD/PACER [employer] 08/[address] RUIZ ([facility]) Family History Mother , Passed in 40-50's of metastatic gallbladder CA No problems noted. Father , Passed in 60's of "hardening of arteries" No problems noted. Sister Bladder cancer Brother Bladder cancer Sister Colon cancer Daughter No problems noted. Daughter No problems noted. Son No problems noted. 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 Pleasant. EYES: No icterus, gaze conjugate NOSE: No evidence of epistaxis MOUTH: No lesions or candidiasis. BiPAP mask in place. NECK: Supple LUNGS: CTA B/L, no wheezes, rales or rhonchi HEART: Regular, rate controlled ABDOMEN: Soft, NT, ND, BS Present EXTREMITIES: No LE edema, pedal pulses intact NEURO: A&OX3 Results & Data Results & Data ([facility]) Vital Signs (Past 12 Hours) Vital Signs Temp Pulse Pulse Resp BP Pulse Ox 03/06/20 11: 36.5 C 81 18 106/52 L 100 03/06/20 10:52 79 16 98 03/06/20 09:11 82 15 95 03/06/20 07:00 36.6 C 89 18 113/66 98 Laboratory Results 03/06/20 14:08 03/06/20 05:39 03/06/20 03/06/20 03/06/20 08:08 11:30 12:26 ABG pH 7.26 L Cancelled 7.29 L ABG pCO2 66 H Cancelled 61 H ABG pO2 117 H Cancelled 64 L ABG HCO3 29 H Cancelled 29 H ABG O2 Saturation 96.9 H Cancelled 89.6 L ABG Base Excess 1.5 Cancelled 1.8 Diagnostic Findings XR chest 1V portable HISTORY: 74 years-old Female altered, elevated CO2 acute hypoxia. Acutely altered mental status COMPARISON: Chest radiograph 03/05/2020 TECHNIQUE: Portable AP view of the chest FINDINGS: Cardiac silhouette is enlarged, unchanged. Left subclavian pacer/AICD. Medial lung apices are obscured by the patient's chin. No pneumothorax, pleural effusion, airspace consolidation or overt pulmonary edema. Cholecystectomy. Bones appear grossly intact. IMPRESSION: Cardiomegaly without acute process. Electronically signed by: Herson Quigley M.D. 03/06/2020 11:36 AM PG Care Time/CCT Total # of Minutes Spent Total Time Spent with Patient: Total time spent is greater than 50% in coordi nation of care (as documented) at patient's floor/unit and/or counseling patient: 60 minutes including discussion with patient, patient's daughter, primary team, attending. Coding Level of Care Code 61004 Inpt Consult Level 5 Diagnoses Respiratory failure with hypoxia J96.91 Sleep apnea G47.30 Metabolic encephalopathy G93.41 Chronic respiratory failure with hypoxia, on home O2 therapy J96.11; Z99.81 CHF (congestive heart failure) I50.9 Anemia D64.9 Time Spent (min) 60
--- NOTE | 2020-03-06 14:15 | Electrocardiogram Report ---
Test Reason : Blood Pressure : / mmHG Vent. Rate : 088 BPM Atrial Rate : 088 BPM P-R Int : 138 ms QRS Dur : 146 ms QT Int : 412 ms P-R-T Axes : 014 226 013 degrees QTc Int : 498 ms Atrial-sensed ventricular-paced rhythm Abnormal ECG When compared with ECG of 14-JUN-2019 07:23, Premature ventricular complexes are no longer Present Confirmed by Oziel Sanchez ([id number]) on 03/06/2020 2:15:39 PM Referred By: REFERRED SELF Confirmed By:Dedrick Sanchez
[2020-03-06 14:36] LABS: Hematocrit (blood only) 25.2 % (37-47); Hemoglobin 7.5 g/dL (12.0-16.0)
[2020-03-06] MEDS: ACETAMINOPHEN 500 MG TAB PO SCH ×2 (16:43→20:15)
--- NOTE | 2020-03-06 17:19 | XRay Report ---
LEFT ANKLE 3 VIEWS HISTORY: Left ankle pain. fall with acute pain, decreased ROM COMPARISON: None. FINDINGS: Diffuse soft tissue swelling within the left ankle. Tiny ossific densities adjacent to the lateral malleolus and at the dorsum of the anterior talus. These are consistent with age indeterminat e avulsion injuries. No acute fracture or dislocation within the left ankle. Tiny plantar heel spur. Tiny linear calcification at the plantar soft tissues of the heel. IMPRESSION: 1. Tiny ossific densities adjacent to the lateral malleolus and at the dorsum of the anterior talus c onsistent with age indeterminate avulsion injuries. 2. Otherwise, no acute fracture or dislocation within the left ankle. ACT 112: Negative or not required by law. Electronically signed by: Oliver Zambrano M.D. 03/06/2020 5:18 PM
--- NOTE | 2020-03-06 17:21 | XRay Report ---
LEFT KNEE 3 VIEWS HISTORY: Left knee pain. fall with new pain COMPARISON: Left knee 06/13/2019. FINDINGS: There is no fracture or dislocation. Mild to moderate cartilage space narrowing within the medial compartment of the knee consistent with degenerative change. No significant knee effusion. Sof t tissues are unremarkable. The bones are osteopenic. No radiopaque foreign bodies. IMPRESSION: No acute fracture or dislocation within the left knee. ACT 112: Negative or not required by law. Electronically signed by: Oliver Zambrano M.D. 03/06/2020 5:19 PM
[2020-03-06] MEDS: carvediloL 12.5 MG TAB PO SCH (20:16)
[2020-03-06] MEDS: ROSUVASTATIN CALCIUM 20 MG TAB PO SCH (20:16)
[2020-03-06] MEDS: FERROUS SULFATE 325 MG TAB PO SCH (20:17)
[2020-03-06] MEDS: AMITRIPTYLINE HCL 25 MG TAB PO SCH (20:17)
[2020-03-06] MEDS: cefTRIAXone SODIUM 2,000 MG in DEXTROSE 5% 50 ML IV SCH (20:31)
[2020-03-07] MEDS: ACETAMINOPHEN 500 MG TAB PO SCH (04:35)
[2020-03-07 06:00] LABS: Base Excess ABG -2.7 mEq/L (-9-1.8); HCO3 ABG 25 mmol/L (19-24); PCO2 ABG 59 mmHg (35-46); PO2 ABG 99 mmHg (80-95); pH ABG 7.24 (7.35-7.45)
[2020-03-07 06:12] LABS: Estimated Average Glucose 103 mg/dl; Hemoglobin A1C 5.2 % (4.5-5.6)
[2020-03-07 07:43] LABS: Hematocrit (blood only) 25.1 % (37-47); Hemoglobin 7.3 g/dL (12.0-16.0); Mean Corpuscular Hemoglobin 28.3 pg (25-34); Mean Corpuscular Hgb Conc 29.1 g/dL (32-36); Mean Corpuscular Volume 97.3 fL (80-100); Mean Platelet Volume 10.3 fL (7.4-10.4); Platelet Count 130 K/uL (130-400); RDW Coefficient of Variation 13.2 % (11.5-14.5); RDW Standard Deviation 46.9 fL (36.4-46.3); Red Blood Count 2.58 M/uL (4.2-5.4); White Blood Count 6.62 K/uL (4.8-10.8)
[2020-03-07 08:11] LABS: Creatinine Clr Calc Pharmacy 21.8 ml/min; Est GFR (African American) 21.4; Est GFR (Non-African American) 18.5; Potassium 4.2 mmol/L (3.5-5.1)
[2020-03-07] MEDS: DULoxetine HCL 60 MG CAP PO SCH (08:16)
[2020-03-07] MEDS: FOLIC ACID 1 MG TAB PO SCH (08:17)
[2020-03-07] MEDS: FERROUS SULFATE 325 MG TAB PO SCH (08:17)
[2020-03-07] MEDS: CALCITRIOL 0.25 MCG CAPSULE PO SCH (08:17)
[2020-03-07] MEDS: NYSTATIN/TRIAMCIN OINT 15 GM TUBE EXT SCH ×2 (08:18→21:12)
[2020-03-07 08:39] LABS: Allen Test Pos (Pos)
[2020-03-07] MEDS ORDERED: SODIUM CHLORIDE 0.9% 1000ML 500 ML IV ONE (11:19)
[2020-03-07] MEDS ORDERED: SODIUM CHLORIDE 0.9% 250 ML IV PRN (11:22)
--- NOTE | 2020-03-07 11:27 | Hospitalist Progress Note ---
Date of Service March 07, 2020 Assessment & Plan (1) Metabolic encephalopathy: Acute metabolic encephalopathy has resolved although she is still somewhat somnolent. Still showing some acidosis on blood gas this morning despite BIPAP overnight. Also has a UTI with enterococcus and improved somewhat on the rocephin. Cont Hold any further narcotics at this time. Decreased scheduled Tylenol. Give blood for anemia ?symptomatic. (2) Respiratory acidosis: Despite BIPAP intermittently. Pulm following. Has a h/o chronic hypoxia with unclear etiology. (3) Sleep apnea: BIPAP overnight with oxygen per home regimen. (4) Acute UTI: Has been on trimethoprim for the last few weeks after being placed on this by Urology. Had an abnormal bladder CT and was going for a cystoscopy which was delayed 1 month. Alpha-strep not speciated further growing in urine culture. With planned upcoming cystoscopy will cont Rocephin for now. (5) Weakness: Likely 2/2 above. Also has L knee and ankle pain 2/2/ fall at home. PT/OT assessment and Ortho assessment ordered for today after review of xrays yesterday. Ice as tolerated. (6) Depression: Cont amytriptyline and Cymbalta per home regimen. (7) Hypothyroidism: Synthroid per home regimen. (8) Hypertension: at goal. (9) CKD (chronic kidney disease), stage IV: Around goal GFR. She was recently on trimethoprim which was discontinued. Cont calcitriol per home regimen. (10) Chronic anemia: Around baseline which is secondary to chronic kidney disease possible in combination with chronic "hemorrhoidal" bleeding. There are clots present and some blood mixed into the stool per nursing staff. Will cont to monitor her clinical progress after blood transfusion above. (11) Left ankle injury: XR (12) Strain of left knee: (13) DVT prophylaxis: SCDs-hold any chemoprophylaxis while she is anemic, aspirin also held with persistent bleeding. Full Code Dispo-cont to monitor on PCU. DO Meng [facility] Hospitalist Admission and Anticipated Discharge Date Admission Date: March 05, 2020 Subjective Pt somnolent and falls asleep after answering one question. Nurse reports she was awake, alert and oriented and was eating her breakfast today Pt is on scheduled Tylenol as of yesterday for pain in L knee and ankle which she reports is better but still present. ABG reveals persistent acidosis despite patient on BIPAP overnight for roughly 5-6 hours. Pulm following. Coreg/Imdur/ASA not given this am, BP 83 systolic. Bolus ordered for 500cc now and ordered 2 units pRBCs. H/H stable but low this am. Some reported blood that was mixed into the stool overnight and clots were present. Review of Systems Review of Systems: All systems reviewed & are unremarkable except as noted in Subjective Physical Exam Physical Exam: CONSTITUTIONAL: obese, vitals as above, generally somnolent EYES: pupils are round and equal bilaterally, normal conjunctivae, no scleral icterus, remnants of periorbital ecchymosis present-in later stages of healing. ENT: external ear and nose normal, oropharynx clear,MMM, supplemental oxygen in place. RESPIRATORY: clear to auscultation throughout. No increased work of breathing, normal respiratory rate. CARDIOVASCULAR: regular rate and rhythm, S1 and 2 heard without murmurs, gallops or rubs, no JVD, no peripheral edema GASTROINTESTINAL: soft, nontender, nondistended. MUSCULOSKELETAL: she was able to wake up with verbal stimulus, and sit up independently in bed. Appears to have general weakness, however. SKIN: warm and dry, ecchymosis as above. NEUROLOGIC: pupils are round and equal bilaterally, no facial palsy, no dysarthria. Somnolent but can awaken and can orient to person, place and understands why she is here and what events took place this morning. Results & Data Results & Data ([facility]) Vital Signs (Past 12 Hours) Vital Signs Temp Pulse Pulse Resp BP Pulse Ox 03/07/20 10:54 36.5 C 65 18 83/44 L 98 03/07/20 07:29 97/60 L 03/07/20 07:28 36.4 C L 77 16 86/46 L 97 03/07/20 03:44 77 16 97 03/07/20 03:38 36.3 C L 97 H 22 110/50 L 97 03/07/20 00:21 71 03/06/20 23:28 36.3 C L 73 20 128/72 97 Laboratory Results Short CBC 03/06/20 03/07/20 Range/Units 14:08 07:05 WBC 6.62 (4.8-10.8) K/uL Hgb 7.5 L 7.3 L (12.0-16.0) g/dL Hct 25.2 L 25.1 L (37-47) % Plt Count 130 (130-400) K/uL BMP 03/07/20 07:05 Sodium 138 Potassium 4.2 Chloride 103 Carbon Dioxide 25 BUN 35 H Creatinine 2.48 H Glucose 60 L Calcium 10.0 Medications Administered Current Inpatient Medications Acetaminophen (Acetaminophen 325 Mg Tab) 650 mg PO Q8 ADINA Stop: 04/06/20 13:59 Hydrocodone Bitart/Acetaminophen (Hydrocodone/Acetamophen 5/325mg Tab) 1 tab PO Q6H PRN PRN Reason: pain (scale score 7-10) Stop: 03/20/20 01:16 Last Admin: 03/06/20 03:15 Dose: 1 tab Documented by: Amitriptyline HCl (Amitriptyline Hcl 25 Mg Tab) 25 mg PO HS ADINA Stop: 04/05/20 20:59 Last Admin: 03/06/20 20:17 Dose: 25 mg Documented by: Aspirin (Aspirin 81 Mg Ectab) 81 mg PO QAM ADINA Stop: 04/05/20 08:59 Calcitriol (Calcitriol 0.25 Mcg Capsule) 0.5 mcg PO QAM ADINA Stop: 04/05/20 08:59 Last Admin: 03/07/20 08:17 Dose: 0.5 mcg Documented by: Carvedilol (Carvedilol 12.5 Mg Tab) 12.5 mg PO BID ADINA Stop: 04/05/20 08:59 Last Admin: 03/06/20 20:16 Dose: 12.5 mg Documented by: Duloxetine HCl (Duloxetine Hcl 60 Mg Cap) 60 mg PO DAILY ADINA Stop: 04/05/20 08:59 Last Admin: 03/07/20 08:16 Dose: 60 mg Documented by: Ferrous Sulfate (Ferrous Sulfate 325 Mg Tab) 325 mg PO TID ADINA Stop: 04/05/20 08:59 Last Admin: 03/07/20 08:17 Dose: 325 mg Documented by: Fluticasone Propionate (Fluticasone Propionate Na Spr 16 Gm Btl) 2 sprays NA DAILY PRN PRN Reason: Allergy Symptoms Stop: 04/05/20 01:16 Folic Acid (Folic Acid 1 Mg Tab) 1 mg PO QAM ADINA Stop: 04/05/20 08:59 Last Admin: 03/07/20 08:17 Dose: 1 mg Documented by: Ceftriaxone Sodium 2,000 mg/ (Dextrose) 70 mls @ 100 mls/hr IV Q24H [facility]; Protocol Stop: 03/15/20 19:59 Last Infusion: 03/06/20 21:13 Dose: Infused Documented by: Sodium Chloride (Nss 1000ml) 500 mls @ 999 mls/hr IV .Q31M ONE Stop: 03/07/20 11:49 Sodium Chloride (Nss) 250 mls @ 15 mls/hr IV .[id number] PRN PRN Reason: For Transfusion Stop: 03/07/20 21:22 Isosorbide Mononitrate (Isosorbide [place] Extended Rel 30 Mg Tabcr) 30 mg PO QAM [facility] Stop: 04/05/20 08:59 Miscellaneous (Solifenacin: Order Awaiting Action) 1 ea N/A QS [facility] Stop: 04/05/20 07:59 Last Admin: 03/06/20 16:16 Dose: Not Given Documented by: Nitroglycerin (Nitroglycerin Sl 0.4 Mg/Tab Tab) 0.4 mg SL PRN PRN PRN Reason: Chest Pain Stop: 04/05/20 01:16 Nystatin/Triamcinolone Acetonide (Nystatin/Triamcin Oint 15 Gm Tube) 1 appln EXT BID [facility] Stop: 04/05/20 08:59 Last Admin: 03/07/20 08:18 Dose: 1 appln Documented by: Ondansetron HCl (Ondansetron Inj 2 Mg/Ml 2 Ml Vial) 4 mg IV Q6H PRN PRN Reason: Nausea Stop: 04/05/20 01:16 Polyethylene Glycol (Polyethylene (Miralax) 17 Gm Pack) 17 gm PO DAILY PRN PRN Reason: Constipation Stop: 04/05/20 01:16 Rosuvastatin Calcium (Rosuvastatin Calcium 20 Mg Tab) 20 mg PO HS [facility] Stop: 04/05/20 20:59 Last Admin: 03/06/20 20:16 Dose: 20 mg Documented by:
[2020-03-07] MEDS: carvediloL 12.5 MG TAB PO SCH ×2 (11:53→21:11)
[2020-03-07] MEDS: ISOSORBIDE MONO EXTENDED REL 30 MG TABCR PO SCH (11:54)
--- NOTE | 2020-03-07 13:30 | Pulmonology Progress Note ---
Date of Service March 07, 2020 Assessment & Plan (1) Respiratory failure with hypoxia: This is a 74-year-old female that was admitted for shortness of breath and metabolic encephalopathy. CT scan of the head was negative. Patient does have chronic oxygen use at home with 3 L/min via nasal cannula for unknown etiology. She was unresponsive this morning. CT scan of the head is negative. Arterial blood gas was collected and has a mixed acidosis picture. She is tolerating BiPAP well at 10/5 FiO2 25%. -- Acute on chronic hypoxic hypercapnic respiratory failure Likely secondary to noncompliance with CPAP on top of opioid use Continue with BiPAP while in the hospital. Patient's BNP was 907 at the time of presentation which is mildly elevated but it can be falsely low in a patient who is obese. Continue with O2 supplementation to keep O2 saturation between 88-92% BiPAP nightly and as needed shortness of breath Continue with home dose diuretics The reason of her being on oxygen is quite unclear. Patient does not have underlying COPD She does have CHF status post AICD placement along with right elevated hemidiaphragm this all could be playing a role in her being on oxygen. --Elevated right hemidiaphragm Etiology unclear Chronic Plan: ABG 03/07/2020: 7.24/ on 2 L Patient is still mildly hypercapnic. Increase BiPAP setting to 12/6 nightly and as needed shortness of breath with 40% FiO2 Incentive spirometry Please note the above document was generated using voice recognition software. It may contain grammatical, syntax or spelling errors.Any formal questions or concerns about the content, text or information contained within the body of this dictation should be directly addressed to the provider for clarification. (2) Sleep apnea: (3) Metabolic encephalopathy: (4) Chronic respiratory failure with hypoxia, on home O2 therapy: (5) CHF (congestive heart failure): (6) Anemia: Admission and Anticipated Discharge Date Admission Date: March 05, 2020 Subjective Patient seen and examined at bedside. No acute distress, no adverse events overnight. Patient's daughter was at bedside at the time of examination. Patient says she is feeling much better. She was just finished with her lunch. Denies any chest pain, no dizziness, no headache, no nausea, no vomiting. Answering all questions appropriately. She was saturating 97% on 3 L nasal cannula at rest. Went down to 2 L. Review of Systems Review of Systems: All systems reviewed & are unremarkable except as noted in Subjective Physical Exam Physical Exam: Constitutional: No acute distress HEENT: EOMI, PERRLA Respiratory system: Decreased air entry bilaterally, no wheeze, no rhonchi, mild crackles bilateral lower lobes CVS: S1-S2 positive, no murmurs or gallops, positive left-sided AICD Abdomen: Soft, nontender, nondistended, positive bowel sounds x4 Extremities: +2 pulses bilaterally radialis/ dorsalis pedis, no cyanosis, no edema Neuro: Awake alert oriented x3 Psych: Normal mood and affect G/U: No [place] Skin: no rashes, warm and dry Lymphatic: no cervical or axillary lymphadenopathy Results & Data Results & Data ([facility]) Vital Signs (Past 12 Hours) Vital Signs Temp Pulse Pulse Resp BP Pulse Ox 03/07/20 11:45 97 03/07/20 10:54 36.5 C 65 18 83/44 L 98 03/07/20 07:29 97/60 L 03/07/20 07:28 36.4 C L 77 16 86/46 L 97 03/07/20 03:44 77 16 97 03/07/20 03:38 36.3 C L 97 H 22 110/50 L 97 03/07/20 07:05 03/07/20 07:05 PG Care Time/CCT Total # of Minutes Spent Total Time Spent with Patient: Total time spent is greater than 50% in coordination of care (as documented) at patient's floor/unit and/or counseling patient: Coding Level of Care Code 76346 Subseq Hosp Care Lvl 3 Diagnoses Respiratory failure with hypoxia J96.91 Sleep apnea G47.30 Metabolic encephalopathy G93.41 Chronic respiratory failure with hypoxia, on home O2 therapy J96.11; Z99.81 CHF (congestive heart failure) I50.9 Anemia D64.9
[2020-03-07] MEDS: ACETAMINOPHEN 325 MG TAB PO SCH ×2 (17:16→21:17)
--- NOTE | 2020-03-07 18:06 | Communication Note ---
Date of Service: March 07, 2020 1800 Contacted by nurse that patient started having shaking after transfusion of the first unit of blood. Nurse reported that she did a clerical verification that the patient received the correct bag and verified the labels per procedure prior to transfusion. Vitals were within normal limits and unchanged throughout the transfusion. She was otherwise asymptomatic, and doesn't describe her symptom as chills. She specifically denies any fevers, itching, chest pain, or shortness of breath. She was asleep after eating her dinner and reports waking up with some shaking. She then said her shakiness started when she started to eat. Again she is somnolent and an unreliable historian. Lungs are clear to auscultation on exam and her skin is warm and dry. She appears comfortable and unchanged from prior exam earlier today. Her blood was run in over 1.5 hours and she didn't receive pretreatment with Tylenol because she was on scheduled Tylenol for ankle pain. This was held at 2pm by nurse because she was sleeping, however. No Benadryl pretreatment was offered because of the patient's somnolence. Blood back was notified and we decided to treat this as a mild transfusion reaction. The differential diagnosis includes but is not limited to known h/o tremors per daughter. Will hold on giving the second unit of blood and monitor closely for any new developments. The patient did receive Tylenol. Labwork and urine studies are pending. DO Henok
[2020-03-07 18:42] LABS: Hematocrit (blood only) 26.6 % (37-47); Hemoglobin 8.2 g/dL (12.0-16.0); Platelet Count 117 K/uL (130-400); RDW Coefficient of Variation 13.9 % (11.5-14.5); RDW Standard Deviation 48.4 fL (36.4-46.3); Red Blood Count 2.83 M/uL (4.2-5.4); White Blood Count 3.25 K/uL (4.8-10.8)
[2020-03-07 18:49] LABS: Allen Test Pos (Pos); Base Excess ABG -0.6 mEq/L (-9-1.8); HCO3 ABG 26 mmol/L (19-24); Oxygen Saturation ABG 96.5 % (90-95); PCO2 ABG 50 mmHg (35-46); PO2 ABG 92 mmHg (80-95); pH ABG 7.33 (7.35-7.45)
[2020-03-07 18:49] LABS: Blood Urine Trace (Negative); RBC Urine Automated 0-4 /hpf (0-4)
[2020-03-07 18:58] LABS: BUN Creatinine Ratio 14.6 (10-20); Creatinine Clr Calc Pharmacy 22.3 ml/min; Potassium 3.7 mmol/L (3.5-5.1)
--- NOTE | 2020-03-07 19:32 | Orthopedic Consultation ---
Date of Consultation March 07, 2020 Assessment & Plan (1) Left ankle sprain: She has a tiny avulsion fractures along the course of her lateral ankle ligaments. She also has some tenderness along the medial deltoid ligament. We can basically treat this as an ankle sprain. She does not require any acute surgical intervention. She seems fairly painful, and will therefore get her fitted with a walking boot. This was ordered today. I think it is safe for her to weight-bear as tolerated with the boot in place, but warned her that she may have discomfort with weightbearing for several months. She can follow-up with Dr. Kim for this injury at [facility] [place] in 2 to 3 weeks after discharge. Call [phone] to make an appointment. (2) Strain of left knee: She has left anterior knee pain after many frequent falls directly onto the anterior aspect of her knee. No significant swelling in the area. Extensor mechanism is intact. No fractures on x-ray. No knee effusion. I think she likely has a bone bruise directly to the patella. This does not require any specific intervention. History of Present Illness Reason for Consultation: Left ankle and knee pain Attending Physician: Jacque Whiting DO History of Present Illness Ms. Iglesias is a 74-year old female with a history of frequent falls who had another fall a few days ago and had left ankle and knee pain afterwards. She has difficulty recalling the exact events and mechanism of her fall, but says that she was not using her walker at the time. She normally uses a walker for ambulation. She frequently falls directly onto the anterior aspect of both knees. It sounds like she had a similar fall with this episode. She says that she did not attempt to bear weight on the left leg since the fall. She has pain mostly along the lateral aspect of the left ankle, and anterior aspect of the left knee. Allergies Allergy/AdvReac Type Severity Reaction Status Date / Time daptomycin Allergy Intermediate RASH Verified 02/28/20 22:16 mold Allergy Mild NASAL Verified 02/28/20 22:16 CONGESTION Home Medications Home Medications Medication Instructions Recorded Confirmed Type aspirin 81 mg PO QAM 03/03/18 03/05/20 History calcitriol 0.5 mcg PO QAM 03/03/18 03/05/20 History carvedilol 12.5 mg PO BID 03/03/18 03/05/20 History fluticasone propionate 2 spray INTRANASAL DAILY PRN 03/03/18 03/05/20 History folic acid 1 mg PO QAM 03/03/18 03/05/20 History isosorbide mononitrate 30 mg PO QAM 03/03/18 03/05/20 History nitroglycerin [Nitrostat] 0.4 mg SUBLINGUAL DIRECTED PRN 03/03/18 03/05/20 History rosuvastatin [Crestor] 20 mg PO HS 03/03/18 03/05/20 History duloxetine 60 mg capsule,delayed 60 mg PO DAILY cap 01/31/19 03/05/20 History release ferrous sulfate 325 mg (65 mg 325 mg PO TID tab 06/02/19 03/05/20 History iron) tablet acetaminophen [Mapap 650 mg PO Q4H PRN #60 tab 06/20/19 03/05/20 Rx (acetaminophen)] hydrocodone-acetaminophen [[place]] 1 tab PO Q6H PRN #12 tab 06/20/19 03/05/20 Rx nystatin-triamcinolone 100,000 1 appln TOP BID #60 gm 11/30/19 03/05/20 Rx unit/gram-0.1 % topical ointment trimethoprim 100 mg PO DAILY 02/28/20 03/05/20 History amitriptyline 25 mg PO HS 03/05/20 03/05/20 History solifenacin 10 mg PO DAILY 03/05/20 03/05/20 History Patient History Medical History (Updated 03/07/20 @ 19:39 by Grabiel Matamoros M.D.) Biventricular ICD (implantable cardioverter-defibrillator) in place CHF (congestive heart failure) Echo in past with LVEF as low as 20-25% Echo 12/27/18 LVEF 55-59%, grade I diastolic dysfunction Chronic pain Chronic respiratory failure with hypoxia, on home O2 therapy CKD (chronic kidney disease), stage IV Cystitis CHRONIC AND TAKES OXYBUTININ Depression Dyslipidemia GERD (gastroesophageal reflux disease) GERD (gastroesophageal reflux disease) Gout Hyperlipidemia Hypertension Hypertension Hypothyroidism Hypothyroidism Left bundle branch block Migraine Neuropathy Bilat Feet NICM (nonischemic cardiomyopathy) 2004 Osteoarthritis Peptic ulcer disease HX OF BLEEDING ABOUT 2002 Respiratory failure with hypoxia (10/05/13) Sleep apnea CPAP AND USES OXYGEN 3L ALL THE TIME Squamous cell carcinoma of vulva Vitamin D deficiency Surgical History H/O cardiac catheterization No stents placed (~10 years ago) H/O sinus surgery History of bilateral tubal ligation 1975 History of brain tumor 1961 - TEENAGER AND WAS REMOVED History of section X 2, 1971 & 1976 History of cholecystectomy 1995 - LAP History of cholecystectomy Hx of endoscopic sinus surgery 2007 ICD (implantable cardioverter-defibrillator) in place ICD/PACER [employer] 08/[address] RUIZ ([facility]) Family History Mother , Passed in 40-50's of metastatic gallbladder CA No problems noted. Father , Passed in 60's of "hardening of arteries" No problems noted. Sister Bladder cancer Brother Bladder cancer Sister Colon cancer Daughter No problems noted. Daughter No problems noted. Son No problems noted. 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 Awake, alert, and oriented x 3. Appropriate mood and affect. Normal station. Gait was not assessed. Normal coordination and balance. Skin: The skin over the left ankle and left knee shows no lesion or erythema. Inspection/Palpation: Visual inspection reveals no gross deformity of the left ankle and left knee. There is mild swelling over the lateral aspect of the left ankle greater than the medial aspect. Slight ecchymosis on both sides of the ankle. She does have tenderness to palpation, greater over the lateral ankle ligaments then the medial. On the left knee, no gross deformity or palpable swelling. She has tenderness to palpation directly anteriorly over the patella. No palpable knee joint effusion. Range of Motion: There is limited range of motion of the knee and ankle due to pain. Stability: There is no gross ligamentous laxity, although inversion stressing of the ankle reproduces pain along the lateral aspect of the ankle. No instability to varus and valgus stressing at the knee. Strength: Intact dorsiflexion and plantarflexion of the ankle with minimal pain. Extensor mechanism at her knee is intact, with an intact straight leg raise. Sensation: The patient reports no numbness in the foot. Vascular: Hand is warm and well perfused. No diffuse edema. Results & Data ([facility]) Vital Signs (Past 12 Hours) Vital Signs Temp Pulse Pulse Resp BP BP BP 03/07/20 18:32 37.0 C 81 20 104/64 03/07/20 17:50 88 105/60 03/07/20 17:09 36.6 C 88 18 123/70 03/07/20 16:28 37.0 C 61 16 137/75 03/07/20 15:58 36.4 C L 16 90/43 L 03/07/20 15:43 36.6 C 60 16 94/44 L 03/07/20 15:27 36.5 C 68 16 94/55 L 03/07/20 11:45 03/07/20 10:54 36.5 C 65 18 83/44 L Pulse Ox 03/07/20 18:32 97 03/07/20 17:50 03/07/20 17:09 03/07/20 16:28 03/07/20 15:58 03/07/20 15:43 03/07/20 15:27 98 03/07/20 11:45 97 03/07/20 10:54 98 Diagnostic Findings X-rays of the left ankle and left knee were reviewed. The knee x-rays are unremarkable. No significant arthritic degeneration. No acute fractures are visualized, including along the patella. Extensor mechanism appears intact. At the left knee, there are what appear to be tiny avulsion fractures at the distal fibula and lateral aspect of the talus. No fractures visualized at the medial aspect of the ankle. No syndesmosis widening. No increase in the medial joint space. (1) Left ankle sprain Encounter type: initial encounter Involved ligament of ankle: anterior talofibular ligament Qualified Code(s): S93.492A - Sprain of other ligament of left ankle, initial encounter (2) Strain of left knee Encounter type: initial encounter Qualified Code(s): S86.912A - Strain of unspecified muscle(s) and tendon(s) at lower leg level, left leg, initial encounter
[2020-03-07 19:57] LABS: Mean Corpuscular Hgb Conc 30.8 g/dL (32-36)
[2020-03-07] MEDS: cefTRIAXone SODIUM 2,000 MG in DEXTROSE 5% 50 ML IV SCH (21:11)
[2020-03-07] MEDS: ROSUVASTATIN CALCIUM 20 MG TAB PO SCH (21:12)
[2020-03-07] MEDS: AMITRIPTYLINE HCL 25 MG TAB PO SCH (21:12)
[2020-03-08] MEDS: ACETAMINOPHEN 325 MG TAB PO SCH ×3 (05:57→22:44)
[2020-03-08] MEDS: ISOSORBIDE MONO EXTENDED REL 30 MG TABCR PO SCH (09:09)
[2020-03-08] MEDS: FOLIC ACID 1 MG TAB PO SCH (09:10)
[2020-03-08] MEDS: DULoxetine HCL 60 MG CAP PO SCH (09:10)
[2020-03-08] MEDS: carvediloL 12.5 MG TAB PO SCH ×2 (09:10→19:54)
[2020-03-08] MEDS: CALCITRIOL 0.25 MCG CAPSULE PO SCH (09:11)
[2020-03-08] MEDS: NYSTATIN/TRIAMCIN OINT 15 GM TUBE EXT SCH ×2 (09:11→20:56)
--- NOTE | 2020-03-08 09:54 | XRay Report ---
XR chest 1V portable CLINICAL HISTORY: Follow-up chest x-ray. COMPARISON STUDY: 03/06/2020 FINDINGS: The heart remains enlarged. There is a left subclavian pacer/defibrillator. There is no foc al pulmonary consolidation. There is borderline elevation right hemidiaphragm. Increased basilar johnathan ings, are likely atelectatic.[ IMPRESSION: 1. Cardiomegaly and basilar atelectasis 2. No evidence of lobar consolidation ACT 112: Negative or not required by law. Electronically signed by: Christofer Fry M.D. 03/08/2020 9:53 AM
--- NOTE | 2020-03-08 10:38 | Pulmonology Progress Note ---
Date of Service March 08, 2020 Assessment & Plan (1) Respiratory failure with hypoxia: This is a 74-year-old female that was admitted for shortness of breath and metabolic encephalopathy. CT scan of the head was negative. Patient does have chronic oxygen use at home with 3 L/min via nasal cannula for unknown etiology. She was unresponsive this morning. CT scan of the head is negative. Arterial blood gas was collected and has a mixed acidosis picture. She is tolerating BiPAP well at 10/5 FiO2 25%. -- Acute on chronic hypoxic hypercapnic respiratory failure Likely secondary to noncompliance with CPAP on top of opioid use Continue with BiPAP while in the hospital. Patient's BNP was 907 at the time of presentation which is mildly elevated but it can be falsely low in a patient who is obese. Continue with O2 supplementation to keep O2 saturation between 88-92% BiPAP nightly and as needed shortness of breath Continue with home dose diuretics The reason of her being on oxygen is quite unclear. Patient does not have underlying COPD She does have CHF status post AICD placement along with right elevated hemidiaphragm this all could be playing a role in her being on oxygen. --Elevated right hemidiaphragm Etiology unclear Chronic --MONIQUE Not compliant with CPAP at home Importance of compliance explained to the patient in depth today. Plan: Patient clinically doing much better. Importance of compliance with CPAP explained to the patient. Patient is back to her baseline when it comes to her respiratory status. No further recommendations from pulmonary perspective. We will sign off, please recall if needed. Please note the above document was generated using voice recognition software. It may contain grammatical, syntax or spelling errors.Any formal questions or concerns about the content, text or information contained within the body of this dictation should be directly addressed to the provider for clarification. (2) Sleep apnea: (3) Metabolic encephalopathy: (4) Chronic respiratory failure with hypoxia, on home O2 therapy: (5) CHF (congestive heart failure): (6) Anemia: Admission and Anticipated Discharge Date Admission Date: March 05, 2020 Subjective Patient seen and examined at bedside. No acute distress, no adverse events overnight. Denies any headache, no nausea or vomiting. Shortness of breath is significantly improved. No dizziness, no palpitation. Good appetite. Review of Systems Review of Systems: All systems reviewed & are unremarkable except as noted in Subjective Physical Exam Physical Exam: Constitutional: No acute distress HEENT: EOMI, PERRLA Respiratory system: Decreased air entry bilaterally, no wheeze, no rhonchi, mild crackles bilateral lower lobes CVS: S1-S2 positive, no murmurs or gallops, positive left-sided AICD Abdomen: Soft, nontender, nondistended, positive bowel sounds x4 Extremities: +2 pulses bilaterally radialis/ dorsalis pedis, no cyanosis, no edema Neuro: Awake alert oriented x3 Psych: Normal mood and affect G/U: No [place] Skin: no rashes, warm and dry Lymphatic: no cervical or axillary lymphadenopathy Results & Data Results & Data ([facility]) Vital Signs (Past 12 Hours) Vital Signs Temp Pulse Pulse Resp BP Pulse Ox 03/08/20 09:04 68 140/71 100 03/08/20 08:00 68 03/08/20 07:10 36.5 C 61 18 109/69 99 03/08/20 03:34 36.4 C L 63 16 94/54 L 98 03/08/20 02:59 70 15 92 03/07/20 23:49 70 03/07/20 23:30 70 18 91 03/07/20 23:22 36.6 C 76 18 94/50 L 94 03/07/20 18:33 03/07/20 18:33 PG Care Time/CCT Total # of Minutes Spent Total Time Spent with Patient: Total time spent is greater than 50% in coordination of care (as documented) at patient's floor/unit and/or counseling patient: Coding Level of Care Code 63704 Subseq Hosp Care Lvl 3 Diagnoses Respiratory failure with hypoxia J96.91 Sleep apnea G47.30 Metabolic encephalopathy G93.41 Chronic respiratory failure with hypoxia, on home O2 therapy J96.11; Z99.81 CHF (congestive heart failure) I50.9 Anemia D64.9
--- NOTE | 2020-03-08 12:30 | Hospitalist Progress Note ---
Date of Service March 08, 2020 Assessment & Plan (1) Chronic respiratory failure with hypoxia, on home O2 therapy: no h/o COPD. She does have MONIQUE and is on CPAP. Per pulm, her chronic right hemidiaphragm may be contributing to her oxygen needs. The patient also has morbid obesity. (2) CHF (congestive heart failure): chronic, euvolemic and compensated. (3) Respiratory acidosis: cont BIPAP qHS (4) Metabolic encephalopathy: resolved (5) Sleep apnea: BIPAP overnight with oxygen per home regimen. (6) Acute UTI: Has been on trimethoprim for the last few weeks after being placed on this by Urology. Had an abnormal bladder CT and was going for a cystoscopy which was delayed 1 month. Alpha-strep not speciated further growing in urine culture. With planned upcoming cystoscopy cont Rocephin to complete the course. (7) Depression: Cont amytriptyline and Cymbalta per home regimen. (8) Hypothyroidism: Synthroid per home regimen. (9) Hypertension: at goal. (10) CKD (chronic kidney disease), stage IV: Around goal GFR. She was recently on trimethoprim which was discontinued. Cont calcitriol per home regimen. (11) Chronic anemia: Around baseline which is secondary to chronic kidney disease possible in combination with chronic "hemorrhoidal" bleeding. No further bleeding today. The patient declines any colonoscopy. Outpatient workup/followup as needed. 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 (12) Left ankle injury: sprain, aircast boot offered per Ortho with PT/OT and conservative management recommended. (13) Strain of left knee: PT/OT, Tylenol for pain. (14) DVT prophylaxis: SCDs-hold any chemoprophylaxis while she is anemic, aspirin also held with persistent bleeding. Full Code Dispo-cont to monitor on PCU. Jacque [facility]iting [facility] and [facility]tic[facility]ated Discharge Date Admission Date: March 05, 2020 Subjective patient appears brighter today and reports feeling less somnolent her shakiness from last night has resolved she cannot tell me accurately when that truly began, when it stopped, nor qualify what this was like for her For example, when I asked if she felt chills "like the flu" she reported to me that she had already received her flu shot. Per her daughter, who is at bedside, the patient does have tremors at home. OVerall, I don't think she had a transfusion reaction, but she appears clinically improved after just one pint of blood so we are leaving it there for now. She denies having any furter bleeding per rectum today She refuses to put any weight on her left leg until she receives her aircast from orthopedics, therefore, she hasn't been out of bed in the last 3 days. She is tolerating PO Review of Systems Review of Systems: All systems reviewed & are unremarkable except as noted in Subjective Physical Exam Physical Exam: CONSTITUTIONAL: obese, vitals as above, generally well- appearing EYES: pupils are round and equal bilaterally, normal conjunctivae, no scleral icterus, remnants of periorbital ecchymosis present-in later stages of healing, continues to improve. ENT: external ear and nose normal, oropharynx clear,MMM, supplemental oxygen in place. RESPIRATORY: clear to auscultation throughout. No increased work of breathing, normal respiratory rate. CARDIOVASCULAR: regular rate and rhythm, S1 and 2 heard without murmurs, gallops or rubs, no JVD, no peripheral edema GASTROINTESTINAL: soft, nontender, nondistended. MUSCULOSKELETAL: generalized weakness. SKIN: warm and dry, ecchymosis as above. NEUROLOGIC: pupils are round and equal bilaterally, no facial palsy, no dysarthria. No gross focal deficits. Results & Data Results & Data ([facility]) Vital Signs (Past 12 Hours) Vital Signs Temp Pulse Pulse Resp BP Pulse Ox 03/08/20 11:01 36.7 C 64 19 123/73 100 03/08/20 09:04 68 140/71 100 03/08/20 08:00 68 03/08/20 07:10 36.5 C 61 18 109/69 99 03/08/20 03:34 36.4 C L 63 16 94/54 L 98 03/08/20 02:59 70 15 92 Laboratory Results Short CBC 03/07/20 Range/Units 18:33 WBC 3.25 L (4.8-10.8) K/uL Hgb 8.2 L (12.0-16.0) g/dL Hct 26.6 L (37-47) % Plt Count 117 L (130-400) K/uL BMP 03/07/20 18:33 Sodium 137 Potassium 3.7 Chloride 106 Carbon Dioxide 26 BUN 35 H Creatinine 2.43 H Glucose 132 H Calcium 9.0 Liver Function 03/06/20 Range/Units 14:14 GGT 30 (3-65) U/L Diagnostic Findings XR chest 1V portable CLINICAL HISTORY: Follow-up chest x-ray. COMPARISON STUDY: 03/06/2020 FINDINGS: The heart remains enlarged. There is a left subclavian pacer/defibrillator. There is no focal pulmonary consolidation. There is borderline elevation right hemidiaphragm. Increased basilar markings, are likely atelectatic.[ IMPRESSION: 1. Cardiomegaly and basilar atelectasis 2. No evidence of lobar consolidation Medications Administered Current Inpatient Medications Acetaminophen (Acetaminophen 325 Mg Tab) 650 mg PO Q8 [facility] Stop: 04/06/20 13:59 Last Admin: 03/08/20 05:57 Dose: 650 mg Documented by: Hydrocodone Bitart/Acetaminophen (Hydrocodone/Acetamophen 5/325mg Tab) 1 tab PO Q6H PRN PRN Reason: pain (scale score 7-10) Stop: 03/20/20 01:16 Last Admin: 03/06/20 03:15 Dose: 1 tab Documented by: Amitriptyline HCl (Amitriptyline Hcl 25 Mg Tab) 25 mg PO HS [facility] Stop: 04/05/20 20:59 Last Admin: 03/07/20 21:12 Dose: 25 mg Documented by: Aspirin (Aspirin 81 Mg Ectab) 81 mg PO QAM [facility] Stop: 04/05/20 08:59 Last Admin: 03/07/20 11:54 Dose: Not Given Documented by: Calcitriol (Calcitriol 0.25 Mcg Capsule) 0.5 mcg PO QAM [facility] Stop: 04/05/20 08:59 Last Admin: 03/08/20 09:11 Dose: 0.5 mcg Documented by: Carvedilol (Carvedilol 12.5 Mg Tab) 12.5 mg PO BID [facility] Stop: 04/05/20 08:59 Last Admin: 03/08/20 09:10 Dose: 12.5 mg Documented by: Duloxetine HCl (Duloxetine Hcl 60 Mg Cap) 60 mg PO DAILY [facility] Stop: 04/05/20 08:59 Last Admin: 03/08/20 09:10 Dose: 60 mg Documented by: Ferrous Sulfate (Ferrous Sulfate 325 Mg Tab) 325 mg PO TID [facility] Stop: 04/05/20 08:59 Last Admin: 03/07/20 08:17 Dose: 325 mg Documented by: Fluticasone Propionate (Fluticasone Propionate Na Spr 16 Gm Btl) 2 sprays NA DAILY PRN PRN Reason: Allergy Symptoms Stop: 04/05/20 01:16 Folic Acid (Folic Acid 1 Mg Tab) 1 mg PO QAM [facility] Stop: 04/05/20 08:59 Last Admin: 03/08/20 09:10 Dose: 1 mg Documented by: Ceftriaxone Sodium 2,000 mg/ (Dextrose) 70 mls @ 100 mls/hr IV Q24H [facility]; Protocol Stop: 03/15/20 19:59 Last Infusion: 03/07/20 21:53 Dose: Infused Documented by: Isosorbide Mononitrate (Isosorbide [place] Extended Rel 30 Mg Tabcr) 30 mg PO QAM [facility] Stop: 04/05/20 08:59 Last Admin: 03/08/20 09:09 Dose: 30 mg Documented by: Miscellaneous (Solifenacin: Order Awaiting Action) 1 ea N/A QS [facility] Stop: 04/05/20 07:59 Last Admin: 03/06/20 16:16 Dose: Not Given Documented by: Nitroglycerin (Nitroglycerin Sl 0.4 Mg/Tab Tab) 0.4 mg SL PRN PRN PRN Reason: Chest Pain Stop: 04/05/20 01:16 Nystatin/Triamcinolone Acetonide (Nystatin/Triamcin Oint 15 Gm Tube) 1 appln EXT BID [facility] Stop: 04/05/20 08:59 Last Admin: 03/08/20 09:11 Dose: 1 appln Documented by: Ondansetron HCl (Ondansetron Inj 2 Mg/Ml 2 Ml Vial) 4 mg IV Q6H PRN PRN Reason: Nausea Stop: 04/05/20 01:16 Polyethylene Glycol (Polyethylene (Miralax) 17 Gm Pack) 17 gm PO DAILY PRN PRN Reason: Constipation Stop: 04/05/20 01:16 Rosuvastatin Calcium (Rosuvastatin Calcium 20 Mg Tab) 20 mg PO HS [facility] Stop: 04/05/20 20:59 Last Admin: 03/07/20 21:12 Dose: 20 mg Documented by: (1) Strain of left knee Encounter type: initial encounter Qualified Code(s): S86.912A - Strain of unspecified muscle(s) and tendon(s) at lower leg level, left leg, initial encounter
[2020-03-08] MEDS: AMITRIPTYLINE HCL 25 MG TAB PO SCH (19:54)
[2020-03-08] MEDS: ROSUVASTATIN CALCIUM 20 MG TAB PO SCH (19:54)
[2020-03-08] MEDS: cefTRIAXone SODIUM 2,000 MG in DEXTROSE 5% 50 ML IV SCH (20:52)
[2020-03-09] MEDS: ACETAMINOPHEN 325 MG TAB PO SCH ×3 (01:42→22:57)
[2020-03-09 07:19] LABS: Hematocrit (blood only) 26.6 % (37-47); Hemoglobin 8.4 g/dL (12.0-16.0); Mean Corpuscular Hemoglobin 29.4 pg (25-34); Mean Corpuscular Hgb Conc 31.6 g/dL (32-36); Platelet Count 130 K/uL (130-400); RDW Coefficient of Variation 14.2 % (11.5-14.5); RDW Standard Deviation 47.6 fL (36.4-46.3); Red Blood Count 2.86 M/uL (4.2-5.4); White Blood Count 5.76 K/uL (4.8-10.8)
[2020-03-09 07:46] LABS: BUN Creatinine Ratio 11.1 (10-20); Calcium 10.1 mg/dl (8.5-10.1); Creatinine Clr Calc Pharmacy 24.3 ml/min; Est GFR (African American) 24.2; Est GFR (Non-African American) 20.9; Potassium 3.5 mmol/L (3.5-5.1)
[2020-03-09] MEDS: DULoxetine HCL 60 MG CAP PO SCH (07:47)
[2020-03-09] MEDS: CALCITRIOL 0.25 MCG CAPSULE PO SCH (07:48)
[2020-03-09] MEDS: carvediloL 12.5 MG TAB PO SCH ×2 (07:48→19:46)
[2020-03-09] MEDS: FOLIC ACID 1 MG TAB PO SCH (07:48)
[2020-03-09] MEDS: ISOSORBIDE MONO EXTENDED REL 30 MG TABCR PO SCH (07:48)
[2020-03-09] MEDS: NYSTATIN/TRIAMCIN OINT 15 GM TUBE EXT SCH ×2 (08:04→20:46)
--- NOTE | 2020-03-09 18:04 | Hospitalist Progress Note ---
Date of Service March 09, 2020 Assessment & Plan (1) Chronic respiratory failure with hypoxia, on home O2 therapy: no h/o COPD. She does have MONIQUE and is on nasal CPAP. Per pulm, her chronic right hemidiaphragm may be contributing to her oxygen needs. The patient also has morbid obesity. Would continue with outpatient pulm and work to wean off oxygen if not needed. (2) CHF (congestive heart failure): chronic, euvolemic and compensated. (3) Respiratory acidosis: cont BIPAP qHS as tolerated. She is clinically improved. No repeat ABG is warranted. She cannot tolerate the hospital mask here, so have encouraged her to use the home nasal CPAP. (4) Metabolic encephalopathy: resolved (5) Sleep apnea: CPAP encouraged as above. (6) Acute UTI: Has been on trimethoprim for the last few weeks after being placed on this by Urology. Had an abnormal bladder CT and was going for a cystoscopy which was delayed 1 month. Alpha-strep not speciated further growing in urine culture. With planned upcoming cystoscopy cont Rocephin with today being Day 5. (7) Depression: Cont amytriptyline and Cymbalta per home regimen. She was on gabapentin earlier this year and is now on amitryptiline. With somnolence will decrease this to 10mg qHS to see if this helps. Will discuss this transition with her further in am. (8) Hypothyroidism: Synthroid per home regimen. (9) Hypertension: at goal. (10) CKD (chronic kidney disease), stage IV: Around goal GFR. She was recently on trimethoprim which was discontinued. Cont calcitriol per home regimen. (11) Chronic anemia: Around baseline which is secondary to chronic kidney disease possible in combination with chronic "hemorrhoidal" bleeding. No further bleeding today. The patient declines any colonoscopy. Outpatient workup/followup as needed. 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 (12) Left ankle injury: sprain, aircast boot offered per Ortho with PT/OT and conservative management recommended. (13) Strain of left knee: PT/OT, Tylenol for pain. (14) Chronic pain: reports chronic pain, specifically neuropathy. States that she takes gabapentin twice daily but this makes her sleepy. This is not actually on her list and she actually takes Elavil 25 QHS. Will need to discuss this with her further but OK with restarting narcotics PRN. Will also decrease Elavil to 10 qHS to see if this helps with her daytime fatigue. (15) DVT prophylaxis: SCDs-hold any chemoprophylaxis while she is anemic, aspirin also held with persistent bleeding. Full Code Dispo-cont to monitor on PCU. Jacque Whiting DO [facility] Hospitalist Admission and Anticipated Discharge Date Admission Date: March 05, 2020 Subjective Pt reports feeling well today except for her neuropathy which was severe overnight The patient initially thought she was on gabapentin and our conversation centered on that She is actually on Elavil 25mg qHS. She is requesting to have her narcotic reordered She is otherwise doing well--states that she was able to bear weight in the boot today but didn't walk far. No formal PT notes available yet for her, but she is requesting to go home soon We discussed that she will need to demonstrate that she can move around from a safety standpoint Pt sister is in town until the middle of the month. Review of Systems Review of Systems: All systems reviewed & are unremarkable except as noted in Subjective Physical Exam Physical Exam: CONSTITUTIONAL: obese, vitals as above, generally well- appearing EYES: pupils are round and equal bilaterally, normal conjunctivae, no scleral icterus, very scant well-healed ecchymosis around the eyes. ENT: external ear and nose normal, oropharynx clear, MMM, supplemental oxygen in place. RESPIRATORY: clear to auscultation throughout. No increased work of breathing, normal respiratory rate. CARDIOVASCULAR: regular rate and rhythm, S1 and 2 heard without murmurs, gallops or rubs, no JVD, no peripheral edema GASTROINTESTINAL: soft, nontender, nondistended. MUSCULOSKELETAL: generalized weakness. SKIN: warm and dry, ecchymosis as above. NEUROLOGIC: pupils are round and equal bilaterally, no facial palsy, no dysarthria. No gross focal deficits. Results & Data Results & Data ([facility]) Vital Signs (Past 12 Hours) Vital Signs Temp Pulse Pulse Resp BP Pulse Ox 03/09/20 16:13 36.7 C 68 15 159/70 H 98 03/09/20 12:00 36.6 C 70 18 146/69 H 93 03/09/20 08:00 70 03/09/20 07:45 36.8 C 74 17 154/64 H 99 Laboratory Results Short CBC 03/09/20 Range/Units 06:54 WBC 5.76 (4.8-10.8) K/uL Hgb 8.4 L (12.0-16.0) g/dL Hct 26.6 L (37-47) % Plt Count 130 (130-400) K/uL BMP 03/09/20 06:54 Sodium 141 Potassium 3.5 Chloride 108 H Carbon Dioxide 28 BUN 25 H Creatinine 2.24 H Glucose 93 Calcium 10.1 Medications Administered Current Inpatient Medications Acetaminophen (Acetaminophen 325 Mg Tab) 650 mg PO Q8 [facility] Stop: 04/06/20 13:59 Last Admin: 03/09/20 14:33 Dose: Not Given Documented by: Hydrocodone Bitart/Acetaminophen (Hydrocodone/Acetamophen 5/325mg Tab) 1 tab PO Q6H PRN PRN Reason: pain (scale score 7-10) Stop: 03/20/20 01:16 Last Admin: 03/06/20 03:15 Dose: 1 tab Documented by: Amitriptyline HCl (Amitriptyline Hcl 25 Mg Tab) 25 mg PO HS [facility] Stop: 04/05/20 20:59 Last Admin: 03/08/20 19:54 Dose: 25 mg Documented by: Aspirin (Aspirin 81 Mg Ectab) 81 mg PO QAM [facility] Stop: 04/05/20 08:59 Last Admin: 03/07/20 11:54 Dose: Not Given Documented by: Calcitriol (Calcitriol 0.25 Mcg Capsule) 0.5 mcg PO QAM [facility] Stop: 04/05/20 08:59 Last Admin: 03/09/20 07:48 Dose: 0.5 mcg Documented by: Carvedilol (Carvedilol 12.5 Mg Tab) 12.5 mg PO BID [facility] Stop: 04/05/20 08:59 Last Admin: 03/09/20 07:48 Dose: 12.5 mg Documented by: Duloxetine HCl (Duloxetine Hcl 60 Mg Cap) 60 mg PO DAILY [facility] Stop: 04/05/20 08:59 Last Admin: 03/09/20 07:47 Dose: 60 mg Documented by: Ferrous Sulfate (Ferrous Sulfate 325 Mg Tab) 325 mg PO TID [facility] Stop: 04/05/20 08:59 Last Admin: 03/07/20 08:17 Dose: 325 mg Documented by: Fluticasone Propionate (Fluticasone Propionate Na Spr 16 Gm Btl) 2 sprays NA DAILY PRN PRN Reason: Allergy Symptoms Stop: 04/05/20 01:16 Folic Acid (Folic Acid 1 Mg Tab) 1 mg PO QAM [facility] Stop: 04/05/20 08:59 Last Admin: 03/09/20 07:48 Dose: 1 mg Documented by: Ceftriaxone Sodium 2,000 mg/ (Dextrose) 70 mls @ 100 mls/hr IV Q24H [facility]; Protocol Stop: 03/15/20 19:59 Last Infusion: 03/08/20 21:35 Dose: Infused Documented by: Isosorbide Mononitrate (Isosorbide [place] Extended Rel 30 Mg Tabcr) [facility] [place] Stop: 04/05/20 08:59 Last Admin: 03/09/20 07:48 Dose: 30 mg Documented by: Miscellaneous (Solifenacin: Order Awaiting Action) 1 ea N/A QS [facility] Stop: 04/05/20 07:59 Last Admin: 03/06/20 16:16 Dose: Not Given Documented by: Nitroglycerin (Nitroglycerin Sl 0.4 Mg/Tab Tab) 0.4 mg SL PRN PRN PRN Reason: Chest Pain Stop: 04/05/20 01:16 Nystatin/Triamcinolone Acetonide (Nystatin/Triamcin Oint 15 Gm Tube) 1 appln EXT BID [facility] Stop: 04/05/20 08:59 Last Admin: 03/09/20 08:04 Dose: 1 appln Documented by: Ondansetron HCl (Ondansetron Inj 2 Mg/Ml 2 Ml Vial) 4 mg IV Q6H PRN PRN Reason: Nausea Stop: 04/05/20 01:16 Polyethylene Glycol (Polyethylene (Miralax) 17 Gm Pack) 17 gm PO DAILY PRN PRN Reason: Constipation Stop: 04/05/20 01:16 Rosuvastatin Calcium (Rosuvastatin Calcium 20 Mg Tab) 20 mg PO [facility] Stop: 04/05/20 20:59 Last Admin: 03/08/20 19:54 Dose: 20 mg Documented by: (1) Strain of left knee Encounter type: initial encounter Qualified Code(s): S86.912A - Strain of unspecified muscle(s) and tendon(s) at lower leg level, left leg, initial encounter
[2020-03-09] MEDS: ROSUVASTATIN CALCIUM 20 MG TAB PO SCH (19:46)
[2020-03-09] MEDS: cefTRIAXone SODIUM 2,000 MG in DEXTROSE 5% 50 ML IV SCH (19:46)
[2020-03-09] MEDS: AMITRIPTYLINE HCL 25 MG TAB PO SCH (19:46)
[2020-03-09] MEDS: HYDROCODONE/ACETAMOPHEN 5/325MG TAB PO PRN (19:52)
[2020-03-09] MEDS: FERROUS SULFATE 325 MG TAB PO SCH (22:56)
[2020-03-10] MEDS: ACETAMINOPHEN 325 MG TAB PO SCH ×2 (05:24→12:58)
[2020-03-10 07:53] VITALS: BP 167/89; PULSE 73; TEMP 98.1; O2SAT 99
[2020-03-10] MEDS: NYSTATIN/TRIAMCIN OINT 15 GM TUBE EXT SCH (08:03)
[2020-03-10] MEDS: DULoxetine HCL 60 MG CAP PO SCH (08:04)
[2020-03-10] MEDS: FOLIC ACID 1 MG TAB PO SCH (08:04)
[2020-03-10] MEDS: carvediloL 12.5 MG TAB PO SCH (08:04)
[2020-03-10] MEDS: FERROUS SULFATE 325 MG TAB PO SCH ×2 (08:04→16:04)
[2020-03-10] MEDS: ISOSORBIDE MONO EXTENDED REL 30 MG TABCR PO SCH (08:04)
[2020-03-10] MEDS: CALCITRIOL 0.25 MCG CAPSULE PO SCH (08:04)
[2020-03-10] MEDS: HYDROCODONE/ACETAMOPHEN 5/325MG TAB PO PRN (12:58)
--- NOTE | 2020-03-10 16:12 | Discharge Summary ---
Date of Service March 10, 2020 Admission HPI Per Admitting Provider HISTORY OF PRESENT ILLNESS: This is a 74-year-old female with past medical history significant for hyperlipidemia, hypothyroidism, chronic kidney disease stage IV, secondary hyperparathyroidism, allergies, sleep apnea, nonischemic cardiomyopathy s/p ICD, diastolic CHF, hypertension, history of left bundle branch block, GERD, history of rectocele, history of squamous cell carcinoma of vulva, stress incontinence, urge incontinence, degenerative disc disease, hereditary and idiopathic peripheral neuropathy, history of pernicious anemia, history of herpes simplex type 1 infection, , prediabetes, gout. The patient lives alone, but currently one of her sister is living with her and she will be living for few more days. The patient comes because of frequent falls at home. She fell other day on the hard floor and she has bruises on the orbits and also she was shaky today and fell on knees. She has UTIs in the past, thought it could be UTI and was brought to the hospital and UA was positive. Hemodynamically stable, no leukocytosis. Hemoglobin is 8.5, which seems to be chronic. Creatinine is 2.5, baseline around 2,. Currently resting comfortably and hemodynamically stable. Has some headache, no blurred vision, no earache, no runny nose, no sore throat, no cough, no loss of sense of smell or taste. No exposure to COVID . No fever, no chills, no chest pain, no shortness of breath, no nausea, no vomiting, no abdominal pain. Appetite is okay. No diarrhea or constipation, no blood in the stools, her stools are always black because of iron pills and she has incontinence of urine and she is supposed to see Urology this coming week . Admission Exam Per Admitting Provider PHYSICAL EXAMINATION: GENERAL: The patient is of moderate build, not in acute distress. VITAL SIGNS: Temperature 36.8, pulse 87, respiratory rate 18, blood pressure 106/68, oxygen 100% on room air. HEENT Bruises seen around the orbits and a nasal lesion. Pupils equal, round, reactive to light. Oral mucosa moist. NECK: Not supple. No neck masses seen. CARDIOVASCULAR: S1, S2 heard, regular rate and rhythm, no murmur, no gallop. RESPIRATORY SYSTEM: Normal AP diameter. No accessory muscle use. No wheezing, no crackles. ABDOMEN: Soft, bowel sounds present, nontender. No distention. CENTRAL NERVOUS SYSTEM: Cranial nerves II-XII grossly intact, nonfocal. EXTREMITIES: Lower extremity edema present, no erythema seen. Principal Diagnosis Metabolic encephalopathy with somnolence, multifactorial, improved Respiratory acidosis L knee sprain s/p fall L ankle sprain s/p fall Chronic anemia, multifactorial etiology, s/p transfusion 1 unit pRBC this admission Hematochezia-resolved off aspirin Obstructive sleep apnea Acute UTI 2/2 alpha strep Chronic neuropathic pain recurrent falls CKD Stage IV Chronic respiratory failure with hypoxia Chronic heart failure Depression Discharge Exam CONSTITUTIONAL: obese, vitals as above, generally well-appearing EYES: pupils are round and equal bilaterally, normal conjunctivae, no scleral icterus, very scant well-healed ecchymosis around the eyes. ENT: external ear and nose normal, oropharynx clear, MMM, supplemental oxygen in place. RESPIRATORY: clear to auscultation throughout. No increased work of breathing, normal respiratory rate. CARDIOVASCULAR: regular rate and rhythm, S1 and 2 heard without murmurs, gallops or rubs, no JVD, no peripheral edema GASTROINTESTINAL: soft, nontender, nondistended. MUSCULOSKELETAL: generalized weakness. SKIN: warm and dry, ecchymosis as above. NEUROLOGIC: pupils are round and equal bilaterally, no facial palsy, no dysarthria. No gross focal deficits. Discharge Data Allergies Allergy/AdvReac Type Severity Reaction Status Date / Time daptomycin Allergy Intermediate RASH Verified 02/28/20 22:16 mold Allergy Mild NASAL Verified 02/28/20 22:16 CONGESTION Consultations 03/05/20 22:34 ED Decision to Admit Stat 03/06/20 01:17 Consult Case Management - Discharge Planning Routine 03/06/20 11:15 Consult Gastroenterology Routine 03/06/20 14:11 Consult Pulmonology Routine 03/07/20 08:02 Consult Orthopedic Surgery Routine Ordered Studies [facility], [id number] XRay Report Patient: DAVID AVALOS Date: 03/05/20MR#: [id number]: [address] ID:[id number]: Date: 1945[facility] Zip: [place] [address]Bbg: 74Location: 2SSex: FRoom/Bed: [id number] Phy: Jacque Whiting, DODiagnosis: FALLSPri Phy: Rashid Wiggins-CService Date: 03/08/20Fam Phy:Interpreting Phy: Christofer Fry [facility] Phy: Valeriano Carnes MD Ordering Phy: Landry Chris MD XR chest 1V portable CLINICAL HISTORY: Follow-up chest x-ray. COMPARISON STUDY: 03/06/2020 FINDINGS: The heart remains enlarged. There is a left subclavian pacer/defibrillator. There is no focal pulmonary consolidation. There is borderline elevation right hemidiaphragm. Increased basilar markings, are likely atelectatic.[ IMPRESSION: 1. Cardiomegaly and basilar atelectasis 2. No evidence of lobar consolidation Electronically signed by: Christofer Fry M.D. 03/08/2020 9:53 AM Dictated: 03/08/20 0952Transcribed: 03/08/20 0952 [facility], [id number] XRay Report Patient: DAVID AVALOS Date: 03/05/20#: [id number]: [address] [facility][id number]: Date: 1945[facility] Zip: [place] [address]Cwc: 74Location: 2SSex: FRoom/Bed: [id number] Phy: Jacque Whiting, DODiagnosis: FALLSPri Phy: Rashid Wiggins PA-CService Date: 03/06/20Fam Phy:Interpreting Phy: Oliver Zambrano [facility] Phy: Valeriano Carnes MD Ordering Phy: Jacque Whiting, DO LEFT KNEE 3 VIEWS HISTORY: Left knee pain. fall with new pain COMPARISON: Left knee 06/13/2019. FINDINGS: There is no fracture or dislocation. Mild to moderate cartilage space narrowing within the medial compartment of the knee consistent with degenerative change. No significant knee effusion. Soft tissues are unremarkable. The bones are osteopenic. No radiopaque foreign bodies. IMPRESSION: No acute fracture or dislocation within the left knee. Electronically signed by: Oliver Zambrano M.D. 03/06/2020 5:19 PM Dictated: 03/06/201717Transcribed: 03/06/201717 [facility], [id number] XRay Report Patient: DAVID AVALOS Date: 03/05/20#: [id number]: [address] ID:[id number]: [facility] Zip: [place] [address]Qsm: 74Location: 2SSex: FRoom/Bed: S611-8Vgb Phy: Jacque Whiting, DODiagnosis: FALLSPri Phy: Rashid Wiggins-CService Date: 03/06/20Fa Phy:Interpreting Phy: Oliver Zambrano MDAdmit Phy: Valeriano Carnes MD Ordering Phy: Jacque Whiting, DO LEFT ANKLE 3 VIEWS HISTORY: Left ankle pain. fall with acute pain, decreased ROM COMPARISON: None. FINDINGS: Diffuse soft tissue swelling within the left ankle. Tiny ossific densities adjacent to the lateral malleolus and at the dorsum of the anterior talus. These are consistent with age indeterminate avulsion injuries. No acute fracture or dislocation within the left ankle. Tiny plantar heel spur. Tiny linear calcification at the plantar soft tissues of the heel. IMPRESSION: 1. Tiny ossific densities adjacent to the lateral malleolus and at the dorsum of the anterior talus consistent with age indeterminate avulsion injuries. 2. Otherwise, no acute fracture or dislocation within the left ankle. ACT 112: Negative or not required by law. Electronically signed by: Oliver Zambrano M.D. 03/06/2020 5:18 PM Dictated: 03/06/201714Transcribed: 03/06/201714 [facility], [id number] CT Scan Report Patient: DAVID AVALOS Date: 03/05/20#: [id number]: [address] ID:[id number]: Date: 1945[facility] Zip: [place] [address]Jqt: 74Location: 2SSex: FRoom/Bed: [id number] Phy: Jacque Whiting, DODiagnosis: FALLSPri Phy: Rashid Wiggins-CService Date: 03/06/20Fa Phy:Interpreting Phy: Oliver Zambrano MDAdmit Phy: Valeriano Carnes MD Ordering Phy: Jacque Whiting DO HEAD CT NONCONTRAST CT DOSE: 788.63 mGycm HISTORY: altered mental status TECHNIQUE: Multiaxial CT images of the head were performed without the use of intravenous contrast. Automated exposure control was utilized for this study. A dose lowering technique was utilized adhering to the principles of ALARA. Comparison: Head CT 02/20/2020. Findings: The paranasal sinuses and mastoid air cells are clear. The calvarium and skull base are intact. There is no mass, hematoma, midline shift, acute infarct. White matter hypodensity is nonspecific but suggestive of microvascular ischemic change. The ventricles and sulci demonstrate mild age-related involutional changes. Left frontal scalp swelling. Old small defect within the right occipital bone. This remains unchanged. Impression: No acute intracranial abnormality. Left frontal scalp swelling. Electronically signed by: Oliver Zambrano M.D. 03/06/2020 1:39 PM Dictated: 11/08/20 1334Transcribed: 03/06/20 1335 [facility], [id number] XRay Report Patient: DAVID AVALOS Date: 03/05/20#: [id number]: [address] ID:[id number]: Date: 1945[facility] Zip: [place] [address]Tyu: 74Location: 2SSex: FRoom/Bed: T572-1Cbz Phy: Jacque Whiting, DODiagnosis: FALLSPri Phy: Rashid Wiggins PA-CService Date: 03/06/20Fam Phy:Interpreting Phy: Olivre Zambrano MDAdmit Phy: Valeriano Carnes MD Ordering Phy: Lola Bowden HISTORY: rectal bleeding COMPARISON: None. FINDINGS: The bowel gas pattern is unremarkable. There are no dilated loops of small bowel to suggest an obstruction. No renal calculi. No ureteral calculi. No pneumoperitoneum or pneumatosis. Large amount well-formed stool seen throughout the colon and rectum. Prior cholecystectomy. IMPRESSION: Large amount of well-formed stool seen throughout the colon and rectum consistent with constipation. Electronically signed by: Oliver Zambrano M.D. 03/06/2020 1:20 PM Dictated: 03/06/201317Transcribed: 03/06/201317 Hospital Course (1) Metabolic encephalopathy: resolved (2) Chronic respiratory failure with hypoxia, on home O2 therapy: (3) Respiratory acidosis: (4) Acute UTI: (5) CHF (congestive heart failure): (6) Sleep apnea: (7) Depression: (8) Hypertension: at goal. (9) CKD (chronic kidney disease), stage IV: (10) Chronic anemia: (11) Left ankle injury: (12) Strain of left knee: (13) Chronic pain: The patient is a 74-year-old female on chronic home oxygen who presented with weakness after a fall at home. Recurrent falls have been an issue for her at home and she had been evaluated in the emergency room on 02/27, approximately 1 week prior to admission. Extensive trauma imaging had been performed at this time and was deferred this admission as the patient did not strike her head or lose consciousness. She has been seen by urology recently for work-up of an abnormal CT scan to include a cystoscopy. At the previous visit 1 month ago she was found to have a urinary tract infection and was given Bactrim to take. Repeat urinalysis and culture revealed the presence of alpha Streptococcus this admission. With upcoming urologic instrumentation planned, she was treated with an additional 5 days of Rocephin. After being admitted to the hospitalist service physical and Occupational Therapy was consulted. Initially her weakness was thought secondary to urinary tract infection, however the patient became somnolent overnight and was unable to be awoken the following morning. An arterial blood gas revealed acute respiratory acidosis, and she was placed on BiPAP treatment. She did not improve clinically however, and pulmonary was consulted. She notably had been given narcotic medication prior to the onset of her somnolence at approximately 0300 on 03/06. She also had many sedating medications on her profile, and her medications were not correctly reconciled. Throughout the hospitalization this was corrected and discharge medication list reflects the changes that were made to decrease the risk of somnolence moving forward. On hospital day 3 she started to improve and throughout the hospitalization bright red blood that was scant was noted in her stool. She was known to have external hemorrhoids and told staff that she bleeds every other day. She notably is on aspirin 81 mg daily. GI was consulted and after monitoring her clinically did not feel the bleeding was hemodynamically significant. Additionally her anemia was likely multifactorial with CKD 4 and multiple chronic comorbidities contributing and was close to her baseline hemoglobin and hematocrit. Therefore inpatient endoscopy was not recommended, however, when I discussed a screening colonoscopy with the patient as outpatient she declined this. She verbalized understanding that blood per rectum could indicate malignancy and still declined colonoscopy. As she appeared stable from a hemodynamic standpoint but was still severely anemic and fatigued, but this appeared to indicate the presence of symptomatic anemia and a blood transfusion was recommended. On 03/07 she was to be transfused 2 units of packed red blood cells for a hemoglobin 7.3. She did not receive pretreatment; no Benadryl secondary to somnolence, no Tylenol as she was already taking scheduled Tylenol and would exceed the max potentially. She subsequently had shaking tremors following the first unit of blood, after the transfusion was complete. Concerned this was a transfusion reaction I questioned her at the bedside if this were more like chills, and she was unable to give an accurate picture to me regarding if this were as her baseline tremors that she has been known to deal with at home versus a new transfusion reaction such as chills. She did not have any itching, fevers, rashes, fluid overload or other indication of transfusion reaction and lab work was negative. Therefore, I do not believe she had a transfusion reaction, and would likely be safe to have blood products transfused in the future. However, at this time to be safe, she did not receive the second unit. Her posttransfusion hemoglobin was 8.2 which trended up to 8.4 by time of discharge and she was clinically feeling better after 1 unit of blood. Upon being more mentally alert and awake she noted pain in her left ankle and left knee from her fall prior to arrival. These areas were x-rayed and her left ankle x-ray revealed tiny ossific densities adjacent to the lateral malleolus and at the dorsum of the anterior talus consistent with age-indeterminate avulsion injuries. There was no other acute fracture or dislocation within the left ankle. Therefore orthopedics was consulted and recommended a cam boot which was provided to her prior to discharge. She worked with physical therapy and Occupational Therapy with this boot, and they did recommend 24-hour supervision at home, which was to be provided by her sister who was in town for the next couple of weeks. The patient notably declined rehabilitation formally. She is known to have a history of chronic pain and has taken amitriptyline 25 mg nightly long-term for this. She has also been on gabapentin 300 mg 3 times daily, which she reports caused her extreme fatigue and she had backed it down to twice daily. She had not received this during the hospitalization as the medicine reconciliation did not reflect she was taking this on admission. This was added to her discharge med reconciliation list. Other medications contributing to somnolence include her narcotic, hydrocodone. She and her daughters were counseled on the interactions of these medications and how they may contribute to falls at home. They verbalized understanding. Her amitriptyline was decreased to 10 mg at night for the next week and will be discontinued after that, and she will continue on duloxetine for depression associated with chronic pain. Pain management efforts will continue with gabapentin twice a day and narcotics as needed. Close primary care follow-up is recommended for titration of these medications as needed. Overall at time of discharge she was mentating at baseline and ambulating well with the cam boot. She was tolerating p.o. She was hemodynamically stable and oxygenating on her baseline supplemental oxygen. She was discharged in stable condition with close primary care follow-up recommended. Her daughter was present at bedside during discharge and all discharge instructions were reviewed with her. Total Time Total Time Spent Total Time Spent (In Minutes): 60 Total Time Includes: Examination of the Patient, Discharge Planning, Medication Reconciliation and Communication With Other Providers Discharge Plan Discharge Items Patient Disposition: Home - Self-Care Reason For Visit: FALLS Discharge Diagnosis: Metabolic encephalopathy with somnolence, multifactorial, improved Respiratory acidosis L knee sprain s/p fall L ankle sprain s/p fall Chronic anemia, multifactorial etiology, s/p transfusion 1 unit pRBC this admission Hematochezia-resolved off aspirin Obstructive sleep apnea Acute UTI 2/2 alpha strep Chronic neuropathic pain recurrent falls CKD Stage IV Chronic respiratory failure with hypoxia Chronic heart failure Depression Condition on Discharge: Good Activity: Resume your previous activity Non-emergency contact: Primary Care Provider Call non-emergency contact if: you have any medication questions and your symptoms worsen Follow-up/Referrals: Rashid Wiggins [Primary Care Provider] - Diet: Regular Addtl Attending Provider Instructions: Please take all medications as instructed on discharge list below. As discussed please stop taking baby aspirin for now to reduce your hemorrhoidal bleeding. To help with daytime sleepiness, we will be reducing your amitriptyline to 10mg every night from 25mg. Please continue to take this for one week and then discontinue amitriptyline altogether. Please consider taking gabapentin only at night to reduce daytime fatigue, and avoid narcotics as much as you can. Please continue to wear the Cam Boot given to you in the hospital. Per orthopedics, you are able to walk on your left leg with the boot on; elevate and ice it when sitting as tolerated. You can follow-up with Dr. Kim for this injury at [facility] in 2 to 3 weeks after discharge. Call [phone] to make an appointment. It is recommended that you follow-up with your primary care provider (PCP) within one week of discharge to ensure you are doing well with your medication changes, help you try to titrate off the oxygen, and reassess your blood count after transfusion. It was a pleasure taking care of you! Please call if you have any questions or problems. You can reach a [facility] hospitalist on duty at [facility] 24 hours a day by calling [phone]. Take care of yourself. Jacque Whiting, DO [facility] Pending Studies at Discharge: No Stand-Alone Forms: My [facility] Medications and DC Order Prescriptions: New amitriptyline 10 mg tablet 10 mg PO HS Qty: 20 RF: 0 Continued nystatin-triamcinolone 100,000-0.1 unit/gram-% ointment 1 appln TOP BID Qty: 60 RF: 5 ferrous sulfate 325 mg (65 mg iron) tablet 325 mg PO TID RF: 0 acetaminophen [Mapap (acetaminophen)] 325 mg Tablet 650 mg PO Q4H PRN (Reason: pain (scale score 4-6)) Qty: 60 RF: 0 hydrocodone-acetaminophen [[place]] 5-325 mg tablet 1 tab PO Q6H PRN (Reason: pain (scale score 7-10)) Qty: 12 RF: 0 carvedilol 12.5 mg Tablet 12.5 mg PO BID RF: 0 isosorbide mononitrate 30 mg Tablet Extended Release 24 Hr 30 mg PO QAM RF: 0 calcitriol 0.5 mcg Capsule 0.5 mcg PO QAM RF: 0 nitroglycerin [Nitrostat] 0.4 mg Tablet, Sublingual 0.4 mg Sublingual DIRECTED PRN (Reason: Chest Pain) RF: 0 folic acid 1 mg Tablet 1 mg PO QAM RF: 0 fluticasone propionate 50 mcg/actuation [place],Suspension 2 spray INTRANASAL DAILY PRN (Reason: Allergy Symptoms) RF: 0 rosuvastatin [Crestor] 20 mg Tablet 20 mg PO HS RF: 0 duloxetine 60 mg capsule,delayed release(DR/EC) 60 mg PO DAILY RF: 0 solifenacin 10 mg tablet 10 mg PO DAILY RF: 0 gabapentin 300 mg capsule 300 mg PO BID RF: 0 Discontinued aspirin 81 mg Tablet,Delayed Release (Dr/Ec) 81 mg PO QAM RF: 0 trimethoprim 100 mg tablet 100 mg PO DAILY RF: 0 amitriptyline 25 mg tablet 25 mg PO HS RF: 0 Discharge Orders: Discharge Order (Routine); Ordered 03/10/20 Ordered By: Jacque Whiting Admission Data Admit Date/Time: 03/05/20 23:30 Attending Provider: Jacque Whiting Admit Provider: Valeriano Carnes Primary Care Provider: Rashid Wiggins Other Providers: [facility] ; [facility] ; Valeriano Carnes ; Deejay Gonzalez ; Riccardo Molina ; Joel Rae Other Interventions: Discharge Summary Assessment (RN) Last Done: 03/10/20 16:27
[2020-03-10] MEDS ORDERED: AMITRIPTYLINE HCL 10 MG TAB PO SCH (21:00)
== END 2020-03-10 17:11 | disposition home or self-care (01) | DRG 689 ==
LOC: ED 20:01 → 3W 23:30 → 2S 03-06 08:49 → 2E 03-08 19:09 → 3N 03-09 18:05

== ENCOUNTER 2022-07-01 01:01 | Inpatient (IN) ==
[2022-07-01] MEDS ORDERED: SODIUM CHLORIDE 0.9% 1000ML 500 ML IV ONE ×2 (01:09→11:43)
[2022-07-01 01:32] LABS: Basophils # (auto) 0.04 K/uL (0-0.2); Basophils % (auto) 0.2 %; Eosinophils # (auto) 0.12 K/uL (0-0.50); Eosinophils % (auto) 0.7 %; Immature Granulocytes # (auto) 0.11 K/uL (0.01-0.20); Immature Granulocytes % (auto) 0.6 %; Lymphocytes # (auto) 1.46 K/uL (1.2-3.4); Lymphocytes % (auto) 8.3 %; Mean Corpuscular Hemoglobin 31.7 pg (25.0-34.0); Mean Corpuscular Hgb Conc 31.3 g/dL (32.0-36.0); Mean Corpuscular Volume 101.6 fL (80.0-100.0); Mean Platelet Volume 10.2 fL (9.4-12.4); Monocytes # (auto) 1.63 K/uL (0.11-0.59); Monocytes % (auto) 9.2 %; Platelet Count 148 K/uL (130-400); RDW Coefficient of Variation 13.1 % (11.5-14.5); RDW Standard Deviation 49.3 fL (36.4-46.3); Red Blood Count 3.15 M/uL (4.20-5.40); White Blood Count 17.66 K/ul (4.8-10.8)
[2022-07-01] MEDS ORDERED: CEFEPIME 2,000 MG/20 ML VIAL IV STA (01:43)
[2022-07-01 01:44] LABS: INR 1.1 (0.9-1.1); Prothrombin Time 11.3 Seconds (9.0-12.0)
[2022-07-01 01:52] LABS: Albumin Level 3.4 gm/dl (3.4-5.0); BUN Creatinine Ratio 10.2 (10-20); Bilirubin,Total 0.4 mg/dl (0.2-1.0); Calcium 10.1 mg/dl (8.5-10.1); Creatinine Clr Calc Pharmacy 29.4 ml/min; Est GFR (African American) 27.9 ml/min; Est GFR (Non-African American) 24.1 ml/min; Magnesium 1.8 mg/dl (1.7-2.4); Potassium 4.3 mmol/L (3.5-5.1); Total Protein 6.7 gm/dl (6.0-8.3)
[2022-07-01 01:55] LABS: iSTAT Arterial Blood Gas HCO3 42 meg/L (19-24); iSTAT Arterial Blood Gas pCO2 81 mmHg (35-46); iSTAT Arterial Blood Gas pH 7.32 (7.35-7.45); iSTAT Arterial Blood Gas pO2 93 mmHg (80-95); iSTAT Carbon Dioxide > 40 mmol/L (24-31)
[2022-07-01 01:59] LABS: Troponin I High Sensitivity 8.3 pg/ml (0-14)
[2022-07-01] MEDS ORDERED: OPTIRAY 320 500ml IV ONE (03:31)
--- NOTE | 2022-07-01 04:13 | Emergency Department Note ---
Impression & Plan Hypoxia, Hypotension, Weakness, Confusion, Hypercapnia ED Provider Note ED Provider Note NAME: DAVID AVALOS AGE:77 SEX: Female : 1945 ARRIVES VIA: ems INFORMANT: Patient ED PROVIDER(s): Frances Castle DO CHIEF COMPLAINT: Weakness, low blood pressure, low oxygen HPI: This is a 77-year-old female presents emerged department via EMS with hypoxia and hypotension. Family initially contacted due to concern for weakness and intermittent confusion. Patient recovering from recent surgery for a broken bone in her right lower extremity. She has an indwelling Barbosa catheter. Upon EMS arrival room air oxygen was 86%. Patient does typically wear 2 L/min. Patient is a former smoker and also admits to prior history of CHF. EMS noted blood pressures of 80s over 50s in route on multiple occasions, and after transitioning her to a nonrebreather and turning up her oxygen she was only at 88-89%. Patient was a poor historian initially but denied any pain, cough, or trouble breathing. PAST MEDICAL HISTORY:See Below PAST SURGICAL HISTORY:See Below FAMILY HISTORY:See Below SOCIAL HISTORY:See Below HOME MEDICATIONS:See Below ALLERGIES:See Below VITALS:See Below PHYSICAL EXAMINATION: GENERAL: alert, unwell appearing, well nourished, no distress, non-toxic EYE EXAM: normal conjunctiva, PERRL and EOM's grossly intact OROPHARYNX: no exudate, no erythema, lips, buccal mucosa, and tongue normal and mucous membranes are moist NECK: supple, no nuchal rigidity, no adenopathy, non-tender LUNGS: Clear to auscultation. Normal chest wall mechanics, no w/r/r HEART: no murmurs, S1 normal and S2 normal ABDOMEN: abdomen soft, non-tender, normo-active bowel sounds, no masses, no rebound or guarding. BACK: Back is symmetrical on inspection and there is no deformity, no midline tenderness, no CVA tenderness. SKIN: no rashes, petechiae, orbruising, pallor UPPER EXTREMITIES: upper extremities are grossly normal. FROM, nml pulses b/l. LOWER EXTREMITIES: No pitting edema. nml pulses b/l. Several healing incisions noted along the leg with Steri-Strips starting to peel off. Decreased range of motion secondary to pain and current limitations given she is status post surgery. Sensation intact bilaterally. Compartments soft. NEURO EXAM: Normal sensorium, cranial nerves II-XII grossly intact, normal speech, no facial droop,nogross weakness of arms, no gross weakness of legs. Gross sensation intact. No ataxia. Vital Signs: reviewed and remarkable Differential Diagnosis: Pneumonia, aspiration, PE, CHF, wound infection, hypoxia, sepsis, anemia, occult trauma, as well as others were considered MEDICAL DECISION MAKING: This is a 77-year-old female brought in by EMS due to concern for weakness, confusion, hypoxia and hypotension. Patient was hypoxic upon initial contact with EMS although does wear 2 L/min via nasal cannula chronically. She was transition to a nonrebreather and oxygen titrated up in order to try and achieve improved saturations. IV was unable to be established prehospital. On arrival here, patient was hypoxic and hypotensive although awake and able to answer a few questions but otherwise was a poor historian and seemed slightly confused to recent events. Patient denied any pain, cough, or difficulty breathing. IV established, labs drawn and sent, EKG performed and interpreted by me at bedside. Chest x-ray obtained and interpreted by me at bedside. I had called RT prior to arrival after taking med command call from EMS due to concern for need for additional airway intervention. RT was able to obtain an ABG at bedside additionally while we awaited other labs. Patient's oxygen here was unable to be obtained when measured at the finger so it was changed to the forehead with good pleth and did show 100% so her oxygen was titrated down. Patient did not appear to have any respiratory distress or significant work of breathing. Chest x-ray with no significant changes compared to prior. Patient given small amount of IV fluids which did begin to help hypotension. Large fluid boluses were not given due to patient's prior history of congestive heart failure and unknown overall ejection fraction initially. Patient's blood pressure also improved. Patient was noted to have a leukocytosis and empiric cefepime was also given. ABG showed hypercapnia, and patient was then started on BiPAP. Patient did seem to tolerate this well. She was ultimately sent for CT head and CT angiography of the chest to rule out additional pathology. Patient's family did present to bedside. CTs reassuring, without any acutely concerning pathology including no PE given recent surgery and relative immobility. Patient had stated she was not anticoagulated but was only taking a low-dose aspirin daily. Family was updated at bedside on all results and plan for additional inpatient monitoring and evaluation. Case then discussed with hospitalist additionally. Repeat ABG following an hour half of BiPAP therapy was markedly improved and hypercapnia had resolved. With RT's assistance she was able to be weaned off BiPAP and transition back to her nasal cannula. Patient's pacer/AICD was interrogated, I did speak with the [employer] rep about this. No concerning findings although patient is at the end of her battery life. Upon discussion with family at bedside they were aware of this and they have already previously scheduled replacement of her battery. Additional maintenance IV fluids were added, although patient did not receive large boluses given history of CHF. Patient's mentation was improved following correction of hypercapnia. I feel given hypercapnia and possible infection, this likely explains her encephalopathy. Consultation(s): 0315: Discussed with [employer] rep. 0430: Discussed with Dr. Ya for admission. ER Treatment Provided: See below Diagnostics Interpreted By Me: -ECG: Paced at 106, prolonged QRS and QTc, rightward axis -Cardiac Monitoring: An order was placed for continuous cardiac monitoring. The monitor shows a rate of 90 with pain rhythm. -Laboratory studies: As stated above and show below. -Imaging studies: X-ray:Chest: A single view study of the chest was reviewed and was negative for cardiomegaly, focal infiltrate, effusion, pulmonary edema, or wide mediastinum. Device noted left superior chest. Triage Nursing Note Reviewed Prior/Outside Records Reviewed -prior hospital discharge reviewed Procedures: [] Critical Care: Critical care of 46 min performed to assess and manage high likelihood of life- threatening acute on chronic respiratory failure and hypotension, involving labs and imaging performed with assessment to evaluate acute on chronic respiratory failure and hypotension diagnosis with frequent reassessment. This time inclu pelon bedside time, treatment discussions with patient/family/consultants, documentation time and excludes procedure time. Past Med/Surg History Medical History Biventricular ICD (implantable cardioverter-defibrillator) in place CHF (congestive heart failure) Echo in past with LVEF as low as 20-25% Echo 12/27/18 LVEF 55-59%, grade I diastolic dysfunction Chronic pain Chronic respiratory failure with hypoxia, on home O2 therapy CKD (chronic kidney disease), stage IV Cystitis CHRONIC AND TAKES OXYBUTININ Depression Dyslipidemia Frequent UTI GERD (gastroesophageal reflux disease) GERD (gastroesophageal reflux disease) Gout Hyperlipidemia Hypertension Hypertension Hypothyroidism Hypothyroidism Left bundle branch block Migraine Neuropathy Bilat Feet NICM (nonischemic cardiomyopathy) 2004 Osteoarthritis Peptic ulcer disease HX OF BLEEDING ABOUT 2002 Respiratory acidosis Respiratory failure with hypoxia (10/05/13) Sleep apnea CPAP AND USES OXYGEN 3L ALL THE TIME Squamous cell carcinoma of vulva Vitamin D deficiency Surgical History H/O cardiac catheterization No stents placed (~10 years ago) H/O sinus surgery History of bilateral tubal ligation 1975 History of brain tumor 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 Father , Passed in 60's of "hardening of arteries" No problems noted. Sister Bladder cancer Brother Bladder cancer Sister Colon cancer Daughter No problems noted. Daughter No problems noted. Son No problems noted. 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 Feels Safe at Home: Yes caffeine: Yes (2 cups of tea/day, 3 sodas per day ) during the past year weight has: decreased > 10 lbs Assistive Devices: Walker Allergies Allergies Allergy/AdvReac Type Severity Reaction Status Date / Time daptomycin Allergy Intermediate RASH Verified 07/01/22 01:53 house dust Allergy Mild NASAL Verified 07/01/22 01:53 CONGESTION mold Allergy Mild NASAL Verified 07/01/22 01:53 CONGESTION lisinopril AdvReac Unknown Uncoded 07/01/22 13:54 Home Meds Home Medications Medication Instructions Recorded Confirmed calcitriol 0.5 mcg capsule 0.5 mcg PO QAM 03/03/18 07/01/22 carvedilol 12.5 mg tablet 12.5 mg PO BID 03/03/18 07/01/22 folic acid 1 mg tablet 1 mg PO QAM 03/03/18 07/01/22 isosorbide mononitrate 30 mg 30 mg PO QAM 03/03/18 07/01/22 tablet,extended release 24 hr nitroglycerin 0.4 mg sublingual 0.4 mg sublingual DIRECTED PRN 03/03/18 07/01/22 tablet (Nitrostat) Chest Pain rosuvastatin 20 mg tablet (Crestor) 20 mg PO QAM 03/03/18 07/01/22 duloxetine 60 mg capsule,delayed 60 mg PO DAILY 01/31/19 07/01/22 release ferrous sulfate 325 mg (65 mg 325 mg PO TID 08/08/20 07/01/22 iron) tablet gabapentin 300 mg capsule 300 mg PO HS 10/15/20 07/01/22 hydrocodone 5 mg-acetaminophen 325 1 tab PO Q4H PRN Pain 11/19/20 07/01/22 mg tablet levothyroxine 125 mcg tablet 125 mcg PO DAILYBB 11/19/20 07/01/22 aspirin 81 mg tablet,delayed 81 mg PO DAILY 07/01/22 07/01/22 release furosemide 20 mg tablet 20 mg PO QAM 07/01/22 07/01/22 pantoprazole 40 mg tablet,delayed 40 mg PO QAM 07/01/22 07/01/22 release Previous Rx's Medication Instructions Recorded acetaminophen 325 mg tablet (Mapap 650 mg PO Q4H PRN pain (scale 06/20/19 (acetaminophen)) score 4-6) #60 tabs Results & Data (ED) Vital Signs Vital Signs - 24 hr 07/01/22 01:07 07/01/22 01:30 07/01/22 01:31 Temperature 36.6 C 36.6 C Temperature Source Oral Oral Pulse Rate 80 81 Pulse Rate [Finger] Pulse Rate from SpO2 Sensor Pulse Rhythm Regular Pulse Rhythm [Finger] Pulse Strength Normal Pulse Strength [Finger] Respiratory Rate 18 20 20 Respiratory Effort / Characteristics Non-Labored Non-Labored Respiratory Depth Normal Normal Respiratory Pattern Regular Regular Blood Pressure 94/56 L Blood Pressure [Left Arm] Blood Pressure Mean 68 Blood Pressure Mean [Left Arm] Blood Pressure Position Lying Pulse Oximetry 100 98 98 Oxygen Delivery Method Non-rebreather Nasal Cannula Nasal Cannula Oxygen Flow Rate 12 4 4 Fraction of Inspired Oxygen Sepsis Recent Fever Within 48 Hours No Sepsis New/Unexplained Change in Mental Status No Sepsis Action Taken by Nursing No Action Required Oxygen Flow Rate - Titration Pulse Oximetry Post Tiitration 07/01/22 01:31 07/01/22 01:34 07/01/22 02:25 Temperature Temperature Source Pulse Rate 100 H Pulse Rate [Finger] Pulse Rate from SpO2 Sensor Pulse Rhythm Pulse Rhythm [Finger] Pulse Strength Pulse Strength [Finger] Respiratory Rate 30 H Respiratory Effort / Characteristics Non-Labored Spontaneous Non-Labored Spontaneous Respiratory Depth Normal Normal Respiratory Pattern Regular Regular Blood Pressure Blood Pressure [Left Arm] Blood Pressure Mean Blood Pressure Mean [Left Arm] Blood Pressure Position Pulse Oximetry 100 99 Oxygen Delivery Method Nasal Cannula Nasal Cannula Oxygen Flow Rate 12 Fraction of Inspired Oxygen 40 Sepsis Recent Fever Within 48 Hours Sepsis New/Unexplained Change in Mental Status Sepsis Action Taken by Nursing Oxygen Flow Rate - Titration 4 Pulse Oximetry Post Tiitration 98 07/01/22 03:09 07/01/22 05:30 07/01/22 01:07 Temperature Temperature Source Pulse Rate 63 Pulse Rate [Finger] 81 Pulse Rate from SpO2 Sensor 82 Pulse Rhythm Pulse Rhythm [Finger] Regular Pulse Strength Pulse Strength [Finger] Normal Respiratory Rate 18 Respiratory Effort / Characteristics Respiratory Depth Normal Respiratory Pattern Blood Pressure Blood Pressure [Left Arm] 121/84 Blood Pressure Mean Blood Pressure Mean [Left Arm] 96 Blood Pressure Position Pulse Oximetry 98 98 Oxygen Delivery Method BiPAP Oxygen Flow Rate Fraction of Inspired Oxygen Sepsis Recent Fever Within 48 Hours Sepsis New/Unexplained Change in Mental Status Sepsis Action Taken by Nursing Oxygen Flow Rate - Titration Pulse Oximetry Post Tiitration 07/01/22 01:08 07/01/22 01:08 07/01/22 01:11 Temperature Temperature Source Pulse Rate Pulse Rate [Finger] Pulse Rate from SpO2 Sensor 81 Pulse Rhythm Pulse Rhythm [Finger] Pulse Strength Pulse Strength [Finger] Respiratory Rate Respiratory Effort / Characteristics Respiratory Depth Respiratory Pattern Blood Pressure 94/56 L 106/71 Blood Pressure [Left Arm] Blood Pressure Mean 68 82 Blood Pressure Mean [Left Arm] Blood Pressure Position Pulse Oximetry 100 Oxygen Delivery Method Oxygen Flow Rate Fraction of Inspired Oxygen Sepsis Recent Fever Within 48 Hours Sepsis New/Unexplained Change in Mental Status Sepsis Action Taken by Nursing Oxygen Flow Rate - Titration Pulse Oximetry Post Tiitration 07/01/22 01:11 07/01/22 01:17 07/01/22 01:17 Temperature Temperature Source Pulse Rate 74 Pulse Rate [Finger] Pulse Rate from SpO2 Sensor 81 81 Pulse Rhythm Pulse Rhythm [Finger] Pulse Strength Pulse Strength [Finger] Respiratory Rate 24 Respiratory Effort / Characteristics Respiratory Depth Respiratory Pattern Blood Pressure 112/51 L Blood Pressure [Left Arm] Blood Pressure Mean 71 Blood Pressure Mean [Left Arm] Blood Pressure Position Pulse Oximetry 97 97 Oxygen Delivery Method Oxygen Flow Rate Fraction of Inspired Oxygen Sepsis Recent Fever Within 48 Hours Sepsis New/Unexplained Change in Mental Status Sepsis Action Taken by Nursing Oxygen Flow Rate - Titration Pulse Oximetry Post Tiitration 07/01/22 01:30 07/01/22 01:30 07/01/22 01:35 Temperature Temperature Source Pulse Rate 112 H Pulse Rate [Finger] Pulse Rate from SpO2 Sensor 80 Pulse Rhythm Pulse Rhythm [Finger] Pulse Strength Pulse Strength [Finger] Respiratory Rate 18 Respiratory Effort / Characteristics Respiratory Depth Respiratory Pattern Blood Pressure 133/52 L 113/77 Blood Pressure [Left Arm] Blood Pressure Mean 79 89 Blood Pressure Mean [Left Arm] Blood Pressure Position Pulse Oximetry 99 Oxygen Delivery Method Oxygen Flow Rate Fraction of Inspired Oxygen Sepsis Recent Fever Within 48 Hours Sepsis New/Unexplained Change in Mental Status Sepsis Action Taken by Nursing Oxygen Flow Rate - Titration Pulse Oximetry Post Tiitration 07/01/22 01:35 07/01/22 02:00 07/01/22 03:03 Temperature Temperature Source Pulse Rate 120 H 76 83 Pulse Rate [Finger] Pulse Rate from SpO2 Sensor 80 77 Pulse Rhythm Pulse Rhythm [Finger] Pulse Strength Pulse Strength [Finger] Respiratory Rate 27 H 32 H 26 H Respiratory Effort / Characteristics Respiratory Depth Respiratory Pattern Blood Pressure Blood Pressure [Left Arm] Blood Pressure Mean Blood Pressure Mean [Left Arm] Blood Pressure Position Pulse Oximetry 96 100 Oxygen Delivery Method Oxygen Flow Rate Fraction of Inspired Oxygen Sepsis Recent Fever Within 48 Hours Sepsis New/Unexplained Change in Mental Status Sepsis Action Taken by Nursing Oxygen Flow Rate - Titration Pulse Oximetry Post Tiitration 07/01/22 03:05 07/01/22 03:05 07/01/22 04:00 Temperature Temperature Source Pulse Rate 85 80 Pulse Rate [Finger] Pulse Rate from SpO2 Sensor 86 80 Pulse Rhythm Pulse Rhythm [Finger] Pulse Strength Pulse Strength [Finger] Respiratory Rate 20 23 Respiratory Effort / Characteristics Respiratory Depth Respiratory Pattern Blood Pressure 125/63 118/64 Blood Pressure [Left Arm] Blood Pressure Mean 83 82 Blood Pressure Mean [Left Arm] Blood Pressure Position Pulse Oximetry 92 95 Oxygen Delivery Method Oxygen Flow Rate Fraction of Inspired Oxygen Sepsis Recent Fever Within 48 Hours Sepsis New/Unexplained Change in Mental Status Sepsis Action Taken by Nursing Oxygen Flow Rate - Titration Pulse Oximetry Post Tiitration 07/01/22 05:00 07/01/22 06:00 07/01/22 06:15 Temperature Temperature Source Pulse Rate 85 72 85 Pulse Rate [Finger] Pulse Rate from SpO2 Sensor 85 82 85 Pulse Rhythm Pulse Rhythm [Finger] Pulse Strength Pulse Strength [Finger] Respiratory Rate 18 35 H 25 H Respiratory Effort / Characteristics Respiratory Depth Respiratory Pattern Blood Pressure 136/82 Blood Pressure [Left Arm] Blood Pressure Mean 100 Blood Pressure Mean [Left Arm] Blood Pressure Position Pulse Oximetry 94 95 87 L Oxygen Delivery Method Oxygen Flow Rate Fraction of Inspired Oxygen Sepsis Recent Fever Within 48 Hours Sepsis New/Unexplained Change in Mental Status Sepsis Action Taken by Nursing Oxygen Flow Rate - Titration Pulse Oximetry Post Tiitration 07/01/22 06:15 Temperature Temperature Source Pulse Rate Pulse Rate [Finger] Pulse Rate from SpO2 Sensor Pulse Rhythm Pulse Rhythm [Finger] Pulse Strength Pulse Strength [Finger] Respiratory Rate Respiratory Effort / Characteristics Respiratory Depth Respiratory Pattern Blood Pressure 140/63 Blood Pressure [Left Arm] Blood Pressure Mean 88 Blood Pressure Mean [Left Arm] Blood Pressure Position Pulse Oximetry Oxygen Delivery Method Oxygen Flow Rate Fraction of Inspired Oxygen Sepsis Recent Fever Within 48 Hours Sepsis New/Unexplained Change in Mental Status Sepsis Action Taken by Nursing Oxygen Flow Rate - Titration Pulse Oximetry Post Tiitration Laboratory Data 07/01/22 01:20 07/01/22 01:20 Lab Results 07/01/22 07/01/22 07/01/22 Range/Units 01:20 01:20 01:20 WBC 17.66 H (4.8-10.8) K/ul RBC 3.15 L (4.20-5.40) M/uL Hgb 10.0 L (12.0-16.0) g/dl POC Hgb (12.0-16.0) g/dl Hct 32.0 L (37.0-47.0) % POC Hct (37-47) % MCV 101.6 H (80.0-100.0) fL MCH 31.7 (25.0-34.0) pg MCHC 31.3 L (32.0-36.0) g/dL RDW Std Deviation 49.3 H (36.4-46.3) fL RDW Coeff of Isael 13.1 (11.5-14.5) % Plt Count 148 (130-400) K/uL MPV 10.2 (9.4-12.4) fL Immature Gran % (Auto) 0.6 % Neut % (Auto) 81.0 % Lymph % (Auto) 8.3 % Wirt % (Auto) 9.2 % Eos % (Auto) 0.7 % Baso % (Auto) 0.2 % Neut # (Auto) 14.30 H (1.40-6.50) K/uL Lymph # (Auto) 1.46 (1.2-3.4) K/uL Wirt # (Auto) 1.63 H (0.11-0.59) K/uL Eos # (Auto) 0.12 (0-0.50) K/uL Baso # (Auto) 0.04 (0-0.2) K/uL Immature Gran # (Auto) 0.11 (0.01-0.20) K/uL PT 11.3 (9.0-12.0) Seconds INR 1.1 (0.9-1.1) POC pH (7.35-7.45) POC pCO2 (35-46) mmHg POC pO2 (80-95) mmHg POC HCO3 (19-24) honey/L POC Total CO2 (24-31) mmol/L POC Base Excess (-9-1.8) honey/L POC ABG O2 Sat (90-95) % POC Sodium (135-144) mmol/L Sodium 134 L (136-145) mmol/L POC Potassium (3.3-5.0) mmol/L Potassium 4.3 (3.5-5.1) mmol/L Chloride 93 L (98-107) mmol/L Carbon Dioxide 39 H (21-32) mmol/L Anion Gap 2 L (3-11) BUN 20 (6-23) mg/dl Creatinine 1.96 H (0.6-1.2) mg/dl Est Cr Clr Drug Dosing 29.4 ml/min Est GFR ( Amer) 27.9 ml/min Est GFR (Non-Af Amer) 24.1 ml/min BUN/Creatinine Ratio 10.2 (10-20) Glucose 100 H (70-99(Fasting)) mg/dl Lactate (0.4-2.0) mmol/L Calcium 10.1 (8.5-10.1) mg/dl Magnesium 1.8 (1.7-2.4) mg/dl Total Bilirubin 0.4 (0.2-1.0) mg/dl Direct Bilirubin 0.0 (0-0.2) mg/dl AST 15 (13-39) U/L ALT 6 L (7-52) U/L Alkaline Phosphatase 207 H (34-104) U/L Troponin I High Sens 8.3 (0-14) pg/ml Total Protein 6.7 (6.0-8.3) gm/dl Albumin 3.4 (3.4-5.0) gm/dl Procalcitonin (0-0.5) ng/ml TSH (0.300-4.500) uIu/ml SARS-CoV-2 (PCR) (Negative) Influenza Type A (PCR) (Neg) Influenza Type B (PCR) (Neg) RSV (RT-PCR) (Neg) 07/01/22 07/01/22 07/01/22 Range/Units 01:41 02:15 02:15 WBC (4.8-10.8) K/ul RBC (4.20-5.40) M/uL Hgb (12.0-16.0) g/dl POC Hgb (12.0-16.0) g/dl Hct (37.0-47.0) % POC Hct (37-47) % MCV (80.0-100.0) fL MCH (25.0-34.0) pg MCHC (32.0-36.0) g/dL RDW Std Deviation (36.4-46.3) fL RDW Coeff of Isael (11.5-14.5) % Plt Count (130-400) K/uL MPV (9.4-12.4) fL Immature Gran % (Auto) % Neut % (Auto) % Lymph % (Auto) % Wirt % (Auto) % Eos % (Auto) % Baso % (Auto) % Neut # (Auto) (1.40-6.50) K/uL Lymph # (Auto) (1.2-3.4) K/uL Wirt # (Auto) (0.11-0.59) K/uL Eos # (Auto) (0-0.50) K/uL Baso # (Auto) (0-0.2) K/uL Immature Gran # (Auto) (0.01-0.20) K/uL PT (9.0-12.0) Seconds INR (0.9-1.1) POC pH 7.32 L (7.35-7.45) POC pCO2 81 H (35-46) mmHg POC pO2 93 (80-95) mmHg POC HCO3 42 H (19-24) honey/L POC Total CO2 > 40 H* (24-31) mmol/L POC Base Excess 16.0 H (-9-1.8) honey/L POC ABG O2 Sat 96.0 H (90-95) % POC Sodium (135-144) mmol/L Sodium (136-145) mmol/L POC Potassium (3.3-5.0) mmol/L Potassium (3.5-5.1) mmol/L Chloride (98-107) mmol/L Carbon Dioxide (21-32) mmol/L Anion Gap (3-11) BUN (6-23) mg/dl Creatinine (0.6-1.2) mg/dl Est Cr Clr Drug Dosing ml/min Est GFR ( Amer) ml/min Est GFR (Non-Af Amer) ml/min BUN/Creatinine Ratio (10-20) Glucose (70-99(Fasting)) mg/dl Lactate 1.7 (0.4-2.0) mmol/L Calcium (8.5-10.1) mg/dl Magnesium (1.7-2.4) mg/dl Total Bilirubin (0.2-1.0) mg/dl Direct Bilirubin (0-0.2) mg/dl AST (13-39) U/L ALT (7-52) U/L Alkaline Phosphatase (34-104) U/L Troponin I High Sens (0-14) pg/ml Total Protein (6.0-8.3) gm/dl Albumin (3.4-5.0) gm/dl Procalcitonin 0.36 (0-0.5) ng/ml TSH (0.300-4.500) uIu/ml SARS-CoV-2 (PCR) (Negative) Influenza Type A (PCR) (Neg) Influenza Type B (PCR) (Neg) RSV (RT-PCR) (Neg) 07/01/22 07/01/22 07/01/22 Range/Units 02:15 04:18 04:30 WBC (4.8-10.8) K/ul RBC (4.20-5.40) M/uL Hgb (12.0-16.0) g/dl POC Hgb 8.5 L (12.0-16.0) g/dl Hct (37.0-47.0) % POC Hct 25 L (37-47) % MCV (80.0-100.0) fL MCH (25.0-34.0) pg MCHC (32.0-36.0) g/dL RDW Std Deviation (36.4-46.3) fL RDW Coeff of Isael (11.5-14.5) % Plt Count (130-400) K/uL MPV (9.4-12.4) fL Immature Gran % (Auto) % Neut % (Auto) % Lymph % (Auto) % Wirt % (Auto) % Eos % (Auto) % Baso % (Auto) % Neut # (Auto) (1.40-6.50) K/uL Lymph # (Auto) (1.2-3.4) K/uL Wirt # (Auto) (0.11-0.59) K/uL Eos # (Auto) (0-0.50) K/uL Baso # (Auto) (0-0.2) K/uL Immature Gran # (Auto) (0.01-0.20) K/uL PT (9.0-12.0) Seconds INR (0.9-1.1) POC pH 7.52 H* (7.35-7.45) POC pCO2 44 (35-46) mmHg POC pO2 153 H (80-95) mmHg POC HCO3 35 H (19-24) honey/L POC Total CO2 37 H (24-31) mmol/L POC Base Excess 12.0 H (-9-1.8) honey/L POC ABG O2 Sat 100.0 H (90-95) % POC Sodium 128 L (135-144) mmol/L Sodium (136-145) mmol/L POC Potassium 3.6 (3.3-5.0) mmol/L Potassium (3.5-5.1) mmol/L Chloride (98-107) mmol/L Carbon Dioxide (21-32) mmol/L Anion Gap (3-11) BUN (6-23) mg/dl Creatinine (0.6-1.2) mg/dl Est Cr Clr Drug Dosing ml/min Est GFR ( Amer) ml/min Est GFR (Non-Af Amer) ml/min BUN/Creatinine Ratio (10-20) Glucose (70-99(Fasting)) mg/dl Lactate (0.4-2.0) mmol/L Calcium (8.5-10.1) mg/dl Magnesium (1.7-2.4) mg/dl Total Bilirubin (0.2-1.0) mg/dl Direct Bilirubin (0-0.2) mg/dl AST (13-39) U/L ALT (7-52) U/L Alkaline Phosphatase (34-104) U/L Troponin I High Sens (0-14) pg/ml Total Protein (6.0-8.3) gm/dl Albumin (3.4-5.0) gm/dl Procalcitonin (0-0.5) ng/ml TSH 2.124 (0.300-4.500) uIu/ml SARS-CoV-2 (PCR) NEGATIVE (Negative) Influenza Type A (PCR) Negative (Neg) Influenza Type B (PCR) Negative (Neg) RSV (RT-PCR) Negative (Neg) Administered Medications Aspirin (Aspirin 81 Mg Ectab) 81 mg PO DAILY [facility] Stop: 07/31/22 08:59 Last Admin: 07/01/22 10:21 Dose: Not Given Documented By: JULY Calcitriol (Calcitriol 0.25 Mcg Capsule) 0.5 mcg PO QA [facility] Stop: 07/31/22 08:59 Last Admin: 07/01/22 10:21 Dose: Not Given Documented By: JULY Carvedilol (Carvedilol 12.5 Mg Tab) 12.5 mg PO BID [facility]INA Stop: 07/31/22 08:59 Last Admin: 07/01/22 21:11 Dose: Not Given Documented By: Admin: 07/01/22 10:21 Dose: Not Given Documented By: JULY Duloxetine HCl (Duloxetine Hcl 60 Mg Cap) 60 mg PO DAILY ADINA Stop: 07/31/22 08:59 Last Admin: 07/01/22 10:21 Dose: Not Given Documented By: JULY Ferrous Sulfate (Ferrous Sulfate 325 Mg Tab) 325 mg PO TIDM ADINA Stop: 07/31/22 11:59 Last Admin: 07/01/22 13:08 Dose: Not Given Documented By: Admin: 07/01/22 10:22 Dose: Not Given Documented By: JULY Folic Acid (Folic Acid 1 Mg Tab) 1 mg PO QAM ADINA Stop: 07/31/22 08:59 Last Admin: 07/01/22 10:21 Dose: Not Given Documented By: JULY Gabapentin (Gabapentin 300 Mg Cap) 300 mg PO HS ADINA Stop: 07/31/22 20:59 Last Admin: 07/01/22 21:11 Dose: Not Given Documented By: CARLOS Heparin Sodium (Porcine) (Heparin Sod 5,000 Unit/0.5 Ml Vial) 5,000 units SQ Q8 [facility] Stop: 07/31/22 13:59 Last Admin: 07/01/22 21:54 Dose: 5,000 units Documented By: Admin: 07/01/22 13:51 Dose: 5,000 units Documented By: JULY Isosorbide Mononitrate (Isosorbide Wirt Extended Rel 30 Mg Tabcr) 30 mg PO QAM ADINA Stop: 07/31/22 08:59 Last Admin: 07/01/22 10:21 Dose: Not Given Documented By: JULY Levothyroxine Sodium (Levothyroxine Sodium 125 Mcg Tablet) 125 mcg PO DAILYBB [facility] Stop: 07/31/22 09:14 Last Admin: 07/01/22 10:21 Dose: Not Given Documented By: JULY Pantoprazole Sodium (Pantoprazole 40 Mg Tab) 40 mg PO QAM ADINA Stop: 07/31/22 08:59 Last Admin: 07/01/22 10:21 Dose: Not Given Documented By: JLA Discontinued Medications Albuterol (Albut/Ipratrop 3mg/0.5mg Neb 3 Ml Vial) 3 ml NEB NOW STA; Protocol Stop: 07/01/22 04:48 Last Admin: 07/01/22 06:04 Dose: 3 ml Documented By: Furosemide (Furosemide 40 Mg/4 Ml Vial) 60 mg IV NOW STA Stop: 07/01/22 05:16 Last Admin: 07/01/22 05:32 Dose: 60 mg Documented By: TIM Sodium Chloride (Nss 1000ml) 500 mls @ 999 mls/hr IV .Q31M ONE Stop: 07/01/22 01:39 Last Infusion: 07/01/22 04:30 Dose: 0 mls/hr Documented By: Admin: 07/01/22 01:28 Dose: 999 mls/hr Documented By: TIM Cefepime HCl (Maxipime) 2,000 mg in 20 mls @ 5 mls/min IV NOW STA; Protocol Stop: 07/01/22 01:46 Last Admin: 07/01/22 02:04 Dose: 5 mls/min Documented By: TIM Magnesium Sulfate/Dextrose (Magnesium Sulfate / D5w) 1 gm in 100 mls @ 50 mls/hr IV NOW STA Stop: 07/01/22 07:10 Last Infusion: 07/01/22 07:58 Dose: 0 mls/hr Documented By: Admin: 07/01/22 05:39 Dose: 50 mls/hr Documented By: TIM Albumin Human (Albumin 25% 100 Ml) 25 gm in 100 mls @ 50 mls/hr IV NOW STA Stop: 07/01/22 07:14 Last Infusion: 07/01/22 07:58 Dose: 0 mls/hr Documented By: Admin: 07/01/22 05:33 Dose: 50 mls/hr Documented By: TIM Acetaminophen (Ofirmev) 1,000 mg in 100 mls @ 400 mls/hr IV NOW STA Stop: 07/01/22 06:00 Last Infusion: 07/01/22 08:00 Dose: 0 mls/hr Documented By: Admin: 07/01/22 07:45 Dose: 400 mls/hr Documented By: ROSA Sodium Chloride (Nss 1000ml) 500 mls @ 999 mls/hr IV .Q31M ONE Stop: 07/01/22 12:13 Last Infusion: 07/01/22 12:29 Dose: 0 mls/hr Documented By: Admin: 07/01/22 11:58 Dose: 999 mls/hr Documented By: JULY Vancomycin HCl 2,000 mg/ (Sodium Chloride) 540 mls @ 200 mls/hr IV NOW STA; Protocol Stop: 07/01/22 17:00 Last Infusion: 07/01/22 17:28 Dose: 0 mls/hr Documented By: Admin: 07/01/22 14:46 Dose: 200 mls/hr Documented By: JULY Ioversol (Optiray 320 500ml) 125 ml IV ONCE ONE Stop: 07/01/22 03:32 Last Admin: 07/01/22 03:32 Dose: 104 ml Documented By: LAINEY Naloxone HCl (Naloxone Hcl 0.4 Mg/1 Ml Vial/Carp) 0.4 mg IV NOW STA Stop: 07/01/22 11:44 Last Admin: 07/01/22 11:55 Dose: 0.4 mg Documented By: JULY Imaging Data Radiologist's Impression: Chest X-Ray 07/01/22 01:09 XR chest 1V portable CLINICAL HISTORY: Sepsis TECHNIQUE: Single frontal radiograph of the chest was obtained. Comparison: Comparison is made to chest radiograph of 10/21/2019 FINDINGS: Pacemaker defibrillator is seen. Calcified aortic knob is seen. Lungs are underinflated but clear the peripheral bibasilar atelectasis. Cannot exclude tiny bilateral pleural effusions. IMPRESSION: No definite evidence of pneumonia. Lungs are underinflated. ACT 112: Negative or not required by law. Electronically signed by: Emiliano Tenorio M.D. 07/01/2022 7:13 AM Chest CTA 07/01/22 01:43 CT angio chest PE protocol CLINICAL HISTORY: PE TECHNIQUE: Multidetector row helical CT of the chest was performed with angiographic protocol. Coronal and sagittal reformations were obtained. Coronal and sagittal MIPS were obtained from the axial data set and were submitted for review. Automated dose lowering techniques and/or adjustment according to patient size were utilized for this exam. Comparison: Comparison is made to CT chest 09/21/2010 FINDINGS: Lungs and pleura: Atelectasis versus scarring is seen in the dependent portions of the lungs. Trace bilateral pleural effusions are seen. Heart and pericardium: There is cardiomegaly without evidence of pericardial effusion. Vessels: No evidence of pulmonary embolism. Pulmonary trunk measures 34 mm in diameter. Mediastinum and jovan: Unremarkable. Chest wall and lower neck: Unremarkable. Abdomen: Patient is status post cholecystectomy. Enlargement of the common bile duct is seen, unchanged. Bones: Degenerative changes in the thoracic spine. IMPRESSION: 1. No pulmonary embolus is seen. 2. Trace bilateral pleural effusions with associated atelectasis. 3. Marked cardiomegaly. Pulmonary hypertension is seen. 4. Additional findings as above. ACT 112: Negative or not required by law. Electronically signed by: Emiliano Tenoroi M.D. 07/01/2022 8:[address] 07/01/22 01:43 CT head/brain wo con CLINICAL HISTORY: confusion Technique: Contiguous axial CT images of the head were acquired from the base of the skull to the vertex without intravenous contrast administration. Images were viewed in brain, subdural and bone windows. Automated dose lowering techniques and/or adjustment according to patient size were utilized for this exam. Comparison: Comparison is made to CT head 05/10/2022 Findings: The ventricles, basal cisterns, and cerebral sulci are normal. There is no acute intracranial hemorrhage or evidence of acute territorial infarction. Neither mass effect, shift of the midline structures, nor abnormal extra-axial fluid collections are shown. Imaged portions of the paranasal sinuses and mastoid air cells are clear. The orbits appear normal. There are no acute fractures of the calvaria or scalp swelling. Old bony defect in the right occipital bone is unchanged. Impression: No acute intracranial hemorrhage, no evidence of acute territorial infarction or other acute intracranial disease process. ACT 112: Negative or not required by law. Electronically signed by: Emiliano Tenorio M.D. 07/01/2022 7:[address] head: No acute intracranial hemorrhage or mass. No acute intracranial findings. Mild cerebral atrophy and chronic small vessel ischemic changes. Radiologist: Thompson Campbell MD CTA chest: No CT evidence for acute pulmonary embolus within the main, lobar or segmental pulmonary arteries. Enlarged heart with possible mild pulmonary vascular congestion. Trace pleural effusions with basilar atelectasis. Radiologist: Thompson Campbell MD Discharge Plan Visit Data Chief Complaint: Shortness of Breath/Dyspnea Stated Complaint: LETHARGIC/CYANOTIC ED Provider: Frances Castle Discharge Problem: Hypoxia, Hypotension, Weakness, Confusion, Hypercapnia Patient Disposition: Admitted As Inpatient Discharge Instructions Interventions: ED Discharge Assessment Last Done: 07/01/22 08:57
[2022-07-01 04:44] LABS: iSTAT Arterial Blood Gas HCO3 35 meg/L (19-24); iSTAT Arterial Blood Gas pCO2 44 mmHg (35-46); iSTAT Arterial Blood Gas pH 7.52 (7.35-7.45); iSTAT Arterial Blood Gas pO2 153 mmHg (80-95); iSTAT Carbon Dioxide 37 mmol/L (24-31); iSTAT Hematocrit 25 % (37-47); iSTAT Hemoglobin 8.5 g/dl (12.0-16.0); iSTAT Potassium 3.6 mmol/L (3.3-5.0); iSTAT Sodium 128 mmol/L (135-144)
[2022-07-01] MEDS ORDERED: ALBUT/IPRATROP 3MG/0.5MG NEB 3 ML VIAL NEB STA (04:47)
--- NOTE | 2022-07-01 04:47 | History & Physical Report ---
Date of Service July 01, 2022 Assessment & Plan (1) Encephalopathy: Plan: Multifactorial: Severe sepsis secondary to complicated UTI, hx recurrent infections, chronic indwelling catheter Hypercapnic respiratory failure, likely OHS, history MONIQUE on CPAP, CPAP machine noted to have some problems as per patient/family account, improved ABGs following BiPAP at the ER chronic diastolic heart failure secondary to nonischemic cardiomyopathy status post ICD (EF 55 to 59%, TTE 2019), some congestion on imaging chronic LBBB hx PVD hypertension, BP on the lower side hyperlipidemia on statin Rx CRI, creatinine close to baseline chronic anemia, at baseline bladder cancer as per records vulvar cancer status post radiation hypothyroidism, last month's outpatient TSH noted to be low at 0.423 prediabetes, hemoglobin A1c of 5.2 from 2019 Recent right ankle fracture surgery past tobacco abuse Medical telemetry CS, Cefepime BiPAP at night Pulmonary consult Re: Respiratory failure, MONIQUE with CPAP machine issues Lasix albumin 1 dose for congestion on x-ray causing hypoxemia Update TSH PT OT eval DVT prophylaxis. Heparin subcu Full code Patient family requesting updates from providers. Ms. Risa Bradshaw (daughter), contact #[phone]. Ms. Maya Hollingsworth (sister), contact #[phone]. Text document was generated using [employer] voice recognition software. It may contain grammatical or spelling errors. Kindly contact undersigned for clarification of any documentation item in question. History of Present Illness Chief Complaint: Weakness as per patient Confused and hypoxemic as per records Primary Care Provider: Rashid Wiggins History obtained from patient, family, and records. Medical history significant for chronic diastolic heart failure secondary to nonischemic cardiomyopathy status post ICD (EF 55 to 59%, TTE 2019 ), chronic LBBB, PVD, hypertension, hyperlipidemia obstructive sleep apnea on CPAP, CRI (baseline creatinine 2), chronic anemia (baseline hemoglobin 9-10 ), bladder cancer as per records, vulvar cancer status post radiation, hypothyroidism, prediabetes, recurrent UTIs, chronic indwelling [place] catheter, recent right ankle fracture surgery (05/2022), past tobacco abuse Last [facility] confinement March 2020 for multifactorial metabolic encephalopathy, respiratory acidosis, UTI. Patient admitted at [facility] last May 2022 for a traumatic open right distal tibia/fibular fracture status post surgery. Patient subsequently discharged to [facility] facility where she stayed from May 27 to June 10, 2022 before going home. Right ankle healing well as per outpatient [facility] note last month. Patient felt weak yesterday similar to symptoms of UTI. Denies abdominal pain. Patient later noted to be confused by family. O2 sats noted to be 80s upon EMS arrival. Patient denies chest pain, SOB, unusual cough symptoms. Compliant with CPAP although machine noted to have some problems the last 2 weeks. BiPAP initiated at the ER. Patient currently more awake. Cefepime administered at the ER. Medical History as above Last [facility] sleep medicine follow-up 2019. Recommended settings AutoPap 5-15 cmH2O as per note. Surgical History : , cholecystectomy, renal angioplasty, sinus surgery, ICD, ankle surgery, knee surgery Family History : Gallbladder cancer, heart disease Personal/Social history : Past tobacco abuse. No chronic intake of alcoholic beverages. 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 Lives with sister. Allergies Allergy/AdvReac Type Severity Reaction Status Date / Time daptomycin Allergy Intermediate RASH Verified 07/01/22 01:53 house dust Allergy Mild NASAL Verified 07/01/22 01:53 CONGESTION mold Allergy Mild NASAL Verified 07/01/22 01:53 CONGESTION Home Medications Medication Instructions Recorded Confirmed Type calcitriol 0.5 mcg capsule 0.5 mcg PO QAM 03/03/18 07/01/22 History carvedilol 12.5 mg tablet 12.5 mg PO BID 03/03/18 07/01/22 History folic acid 1 mg tablet 1 mg PO QAM 03/03/18 07/01/22 History isosorbide mononitrate 30 mg 30 mg PO QAM 03/03/18 07/01/22 History tablet,extended release 24 hr nitroglycerin 0.4 mg sublingual 0.4 mg sublingual DIRECTED PRN 03/03/18 07/01/22 History tablet (Nitrostat) Chest Pain rosuvastatin 20 mg tablet (Crestor) 20 mg PO QAM 03/03/18 07/01/22 History duloxetine 60 mg capsule,delayed 60 mg PO DAILY 01/31/19 07/01/22 History release acetaminophen 325 mg tablet (Mapap 650 mg PO Q4H PRN pain (scale 06/20/19 07/01/22 Rx (acetaminophen)) score 4-6) #60 tabs ferrous sulfate 325 mg (65 mg 325 mg PO TID 08/08/20 07/01/22 History iron) tablet gabapentin 300 mg capsule 300 mg PO HS 10/15/20 07/01/22 History hydrocodone 5 mg-acetaminophen 325 1 tab PO Q4H PRN Pain 11/19/20 07/01/22 History mg tablet levothyroxine 125 mcg tablet 125 mcg PO DAILYBB 11/19/20 07/01/22 History aspirin 81 mg tablet,delayed 81 mg PO DAILY 07/01/22 07/01/22 History release furosemide 20 mg tablet 20 mg PO QAM 07/01/22 07/01/22 History pantoprazole 40 mg tablet,delayed 40 mg PO QAM 07/01/22 07/01/22 History release Past Med/Surg History Medical History Biventricular ICD (implantable cardioverter-defibrillator) in place CHF (congestive heart failure) Echo in past with LVEF as low as 20-25% Echo 12/27/18 LVEF 55-59%, grade I diastolic dysfunction Chronic pain Chronic respiratory failure with hypoxia, on home O2 therapy CKD (chronic kidney disease), stage IV Cystitis CHRONIC AND TAKES OXYBUTININ Depression Dyslipidemia Frequent UTI GERD (gastroesophageal reflux disease) GERD (gastroesophageal reflux disease) Gout Hyperlipidemia Hypertension Hypertension Hypothyroidism Hypothyroidism Left bundle branch block Migraine Neuropathy Bilat Feet NICM (nonischemic cardiomyopathy) 2004 Osteoarthritis Peptic ulcer disease HX OF BLEEDING ABOUT 2002 Respiratory acidosis Respiratory failure with hypoxia (10/05/13) Sleep apnea CPAP AND USES OXYGEN 3L ALL THE TIME Squamous cell carcinoma of vulva Vitamin D deficiency Surgical History H/O cardiac catheterization No stents placed (~10 years ago) H/O sinus surgery History of bilateral tubal ligation 1975 History of brain tumor 1961 - TEENAGER AND WAS REMOVED History of section X 2, 1970 & 1975 History of cholecystectomy 1995 - LAP History of cholecystectomy Hx of endoscopic sinus surgery 2007 ICD (implantable cardioverter-defibrillator) in place ICD/PACER [employer] 08/[address] RUIZ ([facility]) Family History Mother , Passed in 40-50's of metastatic gallbladder CA No problems noted. Father , Passed in 60's of "hardening of arteries" No problems noted. Sister Bladder cancer Brother Bladder cancer Sister Colon cancer Daughter No problems noted. Daughter No problems noted. Son No problems noted. 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 Feels Safe at Home: Yes caffeine: Yes (2 cups of tea/day, 3 sodas per day ) during the past year weight has: decreased > 10 lbs Assistive Devices: Walker Review of Systems Review of Systems: As per HPI, all other systems reviewed and negative Physical Exam Physical Exam: GENERAL: Slightly uncomfortable, morbidly obese, no respiratory distress SKIN: Pallor, warm HEENT: Pale palpebral conjunctivae, no ptosis, dry buccal mucosa NECK : Supple, short neck, no tenderness CHEST : Decreased breath sounds, no tenderness HEART : RRR, no obvious murmurs ABDOMEN: Some distention, nontender EXTREMITIES : Minimal LE swelling, RLE hyperesthesia (chronic from neuropathy as per patient), no other conspicuous deformities noted NEUROLOGIC : Coherent, no facial asymmetry, gait and stance not assessed Results & Data Results & Data ([facility]) Vital Signs (Past 12 Hours) Vital Signs Temp Pulse Pulse Resp BP BP Pulse Ox 07/01/22 03:09 81 18 121/84 98 07/01/22 02:25 100 H 30 H 99 07/01/22 01:34 07/01/22 01:31 100 07/01/22 01:31 36.6 C 20 98 07/01/22 01:30 81 20 98 07/01/22 01:07 36.6 C 80 18 94/56 L 100 O2 Del Method O2 Flow Rate FiO2 07/01/22 03:09 BiPAP 07/01/22 02:25 40 07/01/22 01:34 Nasal Cannula 07/01/22 01:31 Nasal Cannula 12 07/01/22 01:31 Nasal Cannula 4 07/01/22 01:30 Nasal Cannula 4 07/01/22 01:07 Non-rebreather 12 Laboratory Results Laboratory Results WBC 17.66 K/ul (4.8-10.8) H 07/01/22 01:20 RBC 3.15 M/uL (4.20-5.40) L 07/01/22 01:20 Hgb 10.0 g/dl (12.0-16.0) L 07/01/22 01:20 POC Hgb 8.5 g/dl (12.0-16.0) L 07/01/22 04:30 Hct 32.0 % (37.0-47.0) L 07/01/22 01:20 POC Hct 25 % (37-47) L 07/01/22 04:30 MCV 101.6 fL (80.0-100.0) H 07/01/22 01:20 MCH 31.7 pg (25.0-34.0) 07/01/22 01:20 MCHC 31.3 g/dL (32.0-36.0) L 07/01/22 01:20 RDW Std Deviation 49.3 fL (36.4-46.3) H 07/01/22 01:20 RDW Coeff of Isael 13.1 % (11.5-14.5) 07/01/22 01:20 Plt Count 148 K/uL (130-400) 07/01/22 01:20 MPV 10.2 fL (9.4-12.4) 07/01/22 01:20 Immature Gran % (Auto) 0.6 % 07/01/22 01:20 Neut % (Auto) 81.0 % 07/01/22 01:20 Lymph % (Auto) 8.3 % 07/01/22 01:20 [place] % (Auto) 9.2 % 07/01/22 01:20 Eos % (Auto) 0.7 % 07/01/22 01:20 Baso % (Auto) 0.2 % 07/01/22 01:20 Neut # (Auto) 14.30 K/uL (1.40-6.50) H 07/01/22 01:20 Lymph # (Auto) 1.46 K/uL (1.2-3.4) 07/01/22 01:20 [place] # (Auto) 1.63 K/uL (0.11-0.59) H 07/01/22 01:20 Eos # (Auto) 0.12 K/uL (0-0.50) 07/01/22 01:20 Baso # (Auto) 0.04 K/uL (0-0.2) 07/01/22 01:20 Immature Gran # (Auto) 0.11 K/uL (0.01-0.20) 07/01/22 01:20 PT 11.3 Seconds (9.0-12.0) 07/01/22 01:20 INR 1.1 (0.9-1.1) 07/01/22 01:20 POC pH 7.52 (7.35-7.45) H* 07/01/22 04:30 POC pCO2 44 mmHg (35-46) 07/01/22 04:30 POC pO2 153 mmHg (80-95) H 07/01/22 04:30 POC HCO3 35 honey/L (19-24) H 07/01/22 04:30 POC Total CO2 37 mmol/L (24-31) H 07/01/22 04:30 POC Base Excess 12.0 honey/L (-9-1.8) H 07/01/22 04:30 POC ABG O2 Sat 100.0 % (90-95) H 07/01/22 04:30 POC Sodium 128 mmol/L (135-144) L 07/01/22 04:30 Sodium 134 mmol/L (136-145) L 07/01/22 01:20 POC Potassium 3.6 mmol/L (3.3-5.0) 07/01/22 04:30 Potassium 4.3 mmol/L (3.5-5.1) 07/01/22 01:20 Chloride 93 mmol/L (98-107) L 07/01/22 01:20 Carbon Dioxide 39 mmol/L (21-32) H 07/01/22 01:20 Anion Gap 2 (3-11) L 07/01/22 01:20 BUN 20 mg/dl (6-23) 07/01/22 01:20 Creatinine 1.96 mg/dl (0.6-1.2) H 07/01/22 01:20 Est Cr Clr Drug Dosing 29.4 ml/min 07/01/22 01:20 Est GFR ( Amer) 27.9 ml/min 07/01/22 01:20 Est GFR (Non-Af Amer) 24.1 ml/min 07/01/22 01:20 BUN/Creatinine Ratio 10.2 (10-20) 07/01/22 01:20 Glucose 100 mg/dl (70-99(Fasting)) H 07/01/22 01:20 Lactate 1.7 mmol/L (0.4-2.0) 07/01/22 02:15 Calcium 10.1 mg/dl (8.5-10.1) 07/01/22 01:20 Magnesium 1.8 mg/dl (1.7-2.4) 07/01/22 01:20 Total Bilirubin 0.4 mg/dl (0.2-1.0) 07/01/22 01:20 Direct Bilirubin 0.0 mg/dl (0-0.2) 07/01/22 01:20 AST 15 U/L (13-39) 07/01/22 01:20 ALT 6 U/L (7-52) L 07/01/22 01:20 Alkaline Phosphatase 207 U/L (34-104) H 07/01/22 01:20 Troponin I High Sens 8.3 pg/ml (0-14) 07/01/22 01:20 Total Protein 6.7 gm/dl (6.0-8.3) 07/01/22 01:20 Albumin 3.4 gm/dl (3.4-5.0) 07/01/22 01:20 Procalcitonin 0.36 ng/ml (0-0.5) 07/01/22 02:[address] head initial read: No acute intracranial hemorrhage or mass. No acute intracranial findings. Mild cerebral atrophy and chronic small vessel ischemic changes. CT chest initial read: No CT evidence for acute pulmonary embolus within the main, lobar or segmental pulmonary arteries. Enlarged heart with possible mild pulmonary vascular congestion. Trace pleural effusions with basilar atelectasis. EKG as per my interpretation : Rate 105, paced rhythm
[2022-07-01] MEDS ORDERED: MAGNESIUM SULFATE / D5W 1 GM/100 ML BAG IV STA (05:11)
[2022-07-01] MEDS ORDERED: FUROSEMIDE 40 MG/4 ML VIAL IV STA (05:15)
[2022-07-01] MEDS ORDERED: ALBUMIN 25% 100 mL 25 GM/100 ML VIAL IV STA (05:15)
[2022-07-01 05:18] LABS: Influenza A virus by PCR Negative (Neg); Influenza B virus by PCR Negative (Neg); RSV by PCR Negative (Neg); SARS CoV2 RNA(COVID-19) Ceph NEGATIVE (Negative)
[2022-07-01] MEDS ORDERED: ACETAMINOPHEN 1,000 MG/100 ML VIAL IV STA (05:46)
[2022-07-01] MEDS ORDERED: PROMETHAZINE HCL 12.5 MG in SODIUM CHLORIDE 0.9% 50 ML IV PRN ×2 (06:11→08:47)
[2022-07-01] MEDS ORDERED: oxyCODONE HCL IR 5 MG TAB (IMMEDIATE RELEASE) PO PRN (06:11)
--- NOTE | 2022-07-01 07:15 | XRay Report ---
XR chest 1V portable CLINICAL HISTORY: Sepsis TECHNIQUE: Single frontal radiograph of the chest was obtained. Comparison: Comparison is made to chest radiograph of 10/21/2019 FINDINGS: Pacemaker defibrillator is seen. Calcified aortic knob is seen. Lungs are underinflated but clear the peripheral bibasilar atelectasis. Cannot exclude tiny bilateral pleural effusions. IMPRESSION: No definite evidence of pneumonia. Lungs are underinflated. ACT 112: Negative or not required by law. Electronically signed by: Emiliano Tenorio M.D. 07/01/2022 7:13 AM
--- NOTE | 2022-07-01 07:48 | CT Scan Report ---
CT head/brain wo con CLINICAL HISTORY: confusion Technique: Contiguous axial CT images of the head were acquired from the base of the skull to the alvaro esteban without intravenous contrast administration. Images were viewed in brain, subdural and bone [facility]. Automated dose lowering techniques and/or adjustment according to patient size were utilized for this exam. Comparison: Comparison is made to CT head 05/10/2022 Findings: The ventricles, basal cisterns, and cerebral sulci are normal. There is no acute intracranial hemorrh age or evidence of acute territorial infarction. Neither mass effect, shift of the midline structures , nor abnormal extra-axial fluid collections are shown. Imaged portions of the paranasal sinuses and mastoid air cells are clear. The orbits appear normal. There are no acute fractures of the calvaria or scalp swelling. Old bony defect in the right occipit al bone is unchanged. Impression: No acute intracranial hemorrhage, no evidence of acute territorial infarction or other acute intracra nial disease process. ACT 112: Negative or not required by law. Electronically signed by: Emiliano Tenorio M.D. 07/01/2022 7:47 AM
--- NOTE | 2022-07-01 08:14 | CT Scan Report ---
CT angio chest PE protocol CLINICAL HISTORY: PE TECHNIQUE: Multidetector row helical CT of the chest was performed with angiographic protocol. Stock l and sagittal reformations were obtained. Coronal and sagittal MIPS were obtained from the axial benson a set and were submitted for review. Automated dose lowering techniques and/or adjustment according to patient size were utilized for this exam. Comparison: Comparison is made to CT chest 09/21/2010 FINDINGS: Lungs and pleura: Atelectasis versus scarring is seen in the dependent portions of the lungs. Trace b ilateral pleural effusions are seen. Heart and pericardium: There is cardiomegaly without evidence of pericardial effusion. Vessels: No evidence of pulmonary embolism. Pulmonary trunk measures 34 mm in diameter. Mediastinum and jovan: Unremarkable. Chest wall and lower neck: Unremarkable. Abdomen: Patient is status post cholecystectomy. Enlargement of the common bile duct is seen, unchang ed. Bones: Degenerative changes in the thoracic spine. IMPRESSION: 1. No pulmonary embolus is seen. 2. Trace bilateral pleural effusions with associated atelectasis. 3. Marked cardiomegaly. Pulmonary hypertension is seen. 4. Additional findings as above. ACT 112: Negative or not required by law. Electronically signed by: Emiliano Tenorio M.D. 07/01/2022 8:13 AM
[2022-07-01] MEDS ORDERED: ACETAMINOPHEN 325 MG TAB PO PRN (08:47)
[2022-07-01] MEDS ORDERED: ROSUVASTATIN CALCIUM 20 MG TAB PO SCH (09:00)
[2022-07-01 09:16] LABS: Bilirubin Urine Negative (Negative); Blood Urine 2+ (Negative); Color Urine Yellow; Glucose Urine UA Negative (Negative); Ketones Urine Negative (Negative); Leukocyte Esterase Urine 1+ (Negative); Nitrite Urine Negative (Negative); Protein Urine 1+ (Negative); Urobilinogen Urine Negative (Negative)
[2022-07-01 09:17] LABS: Appearance Urine Slightly Cloudy (Clear)
[2022-07-01 09:32] LABS: Epithelial Cell Urine 0-5 /lpf (0-5); RBC Urine 0-4 /hpf (0-4)
[2022-07-01 09:33] LABS: Bacteria Urine 1+ (Negative)
--- NOTE | 2022-07-01 09:43 | Hospitalist Progress Note ---
Date of Service July 01, 2022 Assessment & Plan (1) Sepsis: Plan: Sepsis 2/2 UTI vs post op bone infection vs other. Tachycardic with a leukocytosis with left shift supports infection. She has a possible UTI and was placed on renally dosed cefepime. Additionally, RLE xray is suspicious for osteomyelitis and this area is tender and appears poorly cared for. Will add vancomycin for empiric coverage given recent surgery and retained orthopedic hardware. Consult ortho for guidance. (2) Acute metabolic encephalopathy: Plan: Thought secondary to sepsis. UDS returned for opiates which she was only supposed to be on post-op, per PDMP review was last dispensed a few in early Jun. Narcan dose x 1 given with no change in status. Suspect she is obtunded from an underlying metabolic cause such as infection, instead. (3) Catheter-associated urinary tract infection: Plan: Unclear why she has an indwelling jolley in place. Will perform TOV once she is more awake. Jolley exchanged today. (4) Osteomyelitis of right leg: Plan: possible osteo of RLE, ortho hardware in place , post op since 05/10/22. Adding vanc to renally dosed cefepime. Appreciate ortho evaluation. (5) Hypothyroidism: Plan: chronic, stable. Cont current replacment therapy. (6) Depression: Plan: chronic, obtunded and cannot get a sense of her mental status. Cont duloxetine per home regimen. (7) Chronic anemia: Plan: chronic with a decrease from 10 to 8.7. No active bleeding is present. There is also a new macrocytosis. Will screen B12/folate and add iron studies in am. Trend CBC. (8) Hypertension: Plan: Hypotensive. On carvedilol with hold parameters. Small 500cc bolus was given this am with good response. (9) CKD (chronic kidney disease), stage IV: Plan: chronic with creatinine around her baseline of 1.6-1.8 continue to avoid nephrotoxic substances such as NSAIDs and contrast and renally dose medicines as needed. (10) Fibromuscular dysplasia: Plan: She has a history of right renal artery angioplasty for 90% stenosis due to fibromuscular dysplasia. Stage IV CKD followed by Dr. Malik. Secondary hyperparathyroidism on calcitriol. (11) NICM (nonischemic cardiomyopathy): Plan: History of nonischemic cardiomyopathy with a remote cardiac catheterization in 1996 revealing normal coronary anatomy with severe left ventricular dysfunction. EF was previously 20 to 25% which has resolved. She has NYHA class III chronic persistent dyspnea and a chronic left bundle branch block. She is status post BiV ICD implantation in August 2014. She has some trace bilateral pleural effusi ons with associated atelectasis and evidence of pulmonary hypertension on CT today. Appears compensated. (12) Biventricular ICD (implantable cardioverter-defibrillator) in place: Plan: V-paced rhythm on EKG, (13) Sleep apnea: Plan: Will plan for CPAP qHS and while sleeping. Currently in place. (14) Post-operative state: Plan: Upon review of the outpatient record, she is status post right distal tibia fracture TTC nail fixation at [facility] in May 2022. 2 weeks ago she was seen by orthopedics and sutures were removed on 06/09/2022 with Steri-Strips applied. Instructions included that she may shower, should not soak the incision and was to remain nonweightbearing she was plan to follow back up in 4 weeks with ankle x-rays at the next visit. She was admitted to [facility] from [facility] for PT and OT on 05/27/2022 and was discharged to home with home health for PT and OT using [facility] nursing on 06/10/2022. (15) Morbid obesity: Plan: DVT proph: heparin Full Code Dispo-cont telemetry monitoring/hemodynamic monitoring and wait for her to awaken on current therapy. OK to advance diet as tolerated once she is awake and alert. RN tried to reach out to daughter but has not been able to connect with her yet. Jacque Whiting DO [facility] Hospitalist Admission and Anticipated Discharge Date Admission Date: July 01, 2022 Subjective 77 yo F presented with sepsis 2/2 UTI She is very somnolent this am after receiving Tylenol IV in the ER She is able to awaken to aggressive physical and verbal stimulus and answer person and place but falls back asleep quickly ROS not able to be obtained Discussed with RN to perform jolley catheter exchange -UA from initial jolley Strict NPO until more awake Review of Systems Review of Systems: unable to be obtained 2/2 obtunded state Physical Exam Physical Exam: CONSTITUTIONAL: obese, vitals as above, obtunded EYES: PERRL, normal conjunctivae, no scleral icterus, ENT: external ear and nose normal, NECK: trachea midline RESPIRATORY: clear to auscultation bilaterally, no crackles, rales or wheezes, normal respiratory effort CARDIOVASCULAR: regular rate and rhythm, S1 and 2 heard without murmurs, gallops or rubs, no JVD, no peripheral edema CHEST: inspection of chest was normal GASTROINTESTINAL: soft, nontender,protuberant/obese, multiple areas of ecchymosis (injection sites?), no guarding MUSCULOSKELETAL: obtunded, cannot assess : jolley catheter in place. SKIN: warm and dry, there is a well healed scabbed over incision site on her RLE with steristrips that are still in place and what appears to be surgical prep stains. Nails and skin poorly cared for. NEUROLOGIC: obtunded, can awaken and say her name and hospital but falls asleep quickly PSYCHIATRIC: as above. Results & Data Results & Data ([facility]) Vital Signs (Past 12 Hours) Vital Signs Temp Pulse Pulse Resp BP BP Pulse Ox 07/01/22 08:28 93 H 07/01/22 08:57 93 H 07/01/22 08:19 07/01/22 08:19 37 C 91 H 20 122/72 92 07/01/22 08:19 07/01/22 07:31 91 H 24 112/45 L 98 07/01/22 06:30 27 H 94 07/01/22 06:15 140/63 07/01/22 06:15 85 25 H 87 L 07/01/22 06:00 72 35 H 95 07/01/22 05:00 85 18 136/82 94 07/01/22 04:00 80 23 118/64 95 07/01/22 03:05 125/63 07/01/22 03:05 85 20 92 07/01/22 03:03 83 26 H 07/01/22 02:00 76 32 H 100 07/01/22 01:35 120 H 27 H 96 07/01/22 01:35 113/77 07/01/22 01:30 112 H 18 99 07/01/22 01:30 133/52 L 07/01/22 01:17 74 24 97 07/01/22 01:17 112/51 L 07/01/22 01:11 97 07/01/22 01:11 106/71 07/01/22 01:08 94/56 L 07/01/22 01:08 100 07/01/22 01:07 98 07/01/22 05:30 63 07/01/22 03:09 81 18 121/84 98 07/01/22 02:25 100 H 30 H 99 07/01/22 01:34 07/01/22 01:31 100 07/01/22 01:31 36.6 C 20 98 07/01/22 01:30 81 20 98 07/01/22 01:07 36.6 C 80 18 94/56 L 100 Pulse Ox O2 Del Method O2 Del Method O2 Flow Rate O2 Flow Rate FiO2 07/01/22 08:28 07/01/22 08:57 07/01/22 08:19 Nasal Cannula 2 07/01/22 08:19 Nasal Cannula 2 07/01/22 08:19 92 Nasal Cannula 2 07/01/22 07:31 07/01/22 06:30 07/01/22 06:15 07/01/22 06:15 07/01/22 06:00 07/01/22 05:00 07/01/22 04:00 07/01/22 03:05 07/01/22 03:05 07/01/22 03:03 07/01/22 02:00 07/01/22 01:35 07/01/22 01:35 07/01/22 01:30 07/01/22 01:30 07/01/22 01:17 07/01/22 01:17 07/01/22 01:11 07/01/22 01:11 07/01/22 01:08 07/01/22 01:08 07/01/22 01:07 07/01/22 05:30 07/01/22 03:09 BiPAP 07/01/22 02:25 40 07/01/22 01:34 Nasal Cannula 07/01/22 01:31 Nasal Cannula 12 07/01/22 01:31 Nasal Cannula 4 07/01/22 01:30 Nasal Cannula 4 07/01/22 01:07 Non-rebreather 12 Laboratory Results Short CBC 07/01/22 Range/Units 01:20 WBC 17.66 H (4.8-10.8) K/ul Hgb 10.0 L (12.0-16.0) g/dl Hct 32.0 L (37.0-47.0) % Plt Count 148 (130-400) K/uL BMP 07/01/22 01:20 Sodium 134 L Potassium 4.3 Chloride 93 L Carbon Dioxide 39 H BUN 20 Creatinine 1.96 H Glucose 100 H Calcium 10.1 Liver Function 07/01/22 Range/Units 01:20 Total Bilirubin 0.4 (0.2-1.0) mg/dl Direct Bilirubin 0.0 (0-0.2) mg/dl AST 15 (13-39) U/L ALT 6 L (7-52) U/L Alkaline Phosphatase 207 H (34-104) U/L Albumin 3.4 (3.4-5.0) gm/dl Urine 07/01/22 Range/Units 08:35 Urine Color Yellow Urine Appearance Slightly Cloudy (Clear) Urine pH 6.0 (4.5-7.5) Ur Specific [place] 1.010 (1.000-1.030) Urine Protein 1+ H (Negative) Urine Glucose (UA) Negative (Negative) Diagnostic Findings Chest X-Ray 07/01/22 01:09 XR chest 1V portable CLINICAL HISTORY: Sepsis TECHNIQUE: Single frontal radiograph of the chest was obtained. Comparison: Comparison is made to chest radiograph of 10/21/2019 FINDINGS: Pacemaker defibrillator is seen. Calcified aortic knob is seen. Lungs are underinflated but clear the peripheral bibasilar atelectasis. Cannot exclude tiny bilateral pleural effusions. IMPRESSION: No definite evidence of pneumonia. Lungs are underinflated. ACT 112: Negative or not required by law. Electronically signed by: Emiliano Tenorio M.D. 07/01/2022 7:13 AM Chest CTA 07/01/22 01:43 CT angio chest PE protocol CLINICAL HISTORY: PE TECHNIQUE: Multidetector row helical CT of the chest was performed with angiogra [facility] protocol. Coronal and sagittal reformations were obtained. Coronal and sagittal MIPS were obtained from the axial data set and were submitted for review. Automated dose lowering techniques and/or adjustment according to patient size were utilized for this exam. Comparison: Comparison is made to CT chest 09/21/2010 FINDINGS: Lungs and pleura: Atelectasis versus scarring is seen in the dependent portions of the lungs. Trace bilateral pleural effusions are seen. Heart and pericardium: There is cardiomegaly without evidence of pericardial effusion. Vessels: No evidence of pulmonary embolism. Pulmonary trunk measures 34 mm in diameter. Mediastinum and jovan: Unremarkable. Chest wall and lower neck: Unremarkable. Abdomen: Patient is status post cholecystectomy. Enlargement of the common bile duct is seen, unchanged. Bones: Degenerative changes in the thoracic spine. IMPRESSION: 1. No pulmonary embolus is seen. 2. Trace bilateral pleural effusions with associated atelectasis. 3. Marked cardiomegaly. Pulmonary hypertension is seen. 4. Additional findings as above. ACT 112: Negative or not required by law. Electronically signed by: Emiliano Tenorio M.D. 07/01/2022 8:[address] 07/01/22 01:43 CT head/brain wo con CLINICAL HISTORY: confusion Technique: Contiguous axial CT images of the head were acquired from the base of the skull to the vertex without intravenous contrast administration. Images were viewed in brain, subdural and bone windows. Automated dose lowering techniques and/or adjustment according to patient size were utilized for this exam. Comparison: Comparison is made to CT head 05/10/2022 Findings: The ventricles, basal cisterns, and cerebral sulci are normal. There is no acute intracranial hemorrhage or evidence of acute territorial infarction. Neither mass effect, shift of the midline structures, nor abnormal extra-axial fluid collections are shown. Imaged portions of the paranasal sinuses and mastoid air cells are clear. The orbits appear normal. There are no acute fractures of the calvaria or scalp swelling. Old bony defect in the right occipital bone is unchanged. Impression: No acute intracranial hemorrhage, no evidence of acute territorial infarction or other acute intracranial disease process. ACT 112: Negative or not required by law. Electronically signed by: Emiliano Tenorio M.D. 07/01/2022 7:47 AM Medications Administered Current Inpatient Medications Acetaminophen (Acetaminophen 325 Mg Tab) 650 mg PO Q4H PRN PRN Reason: Pain or Fever Stop: 07/31/22 08:46 Aspirin (Aspirin 81 Mg Ectab) 81 mg PO DAILY ADINA Stop: 07/31/22 08:59 Calcitriol (Calcitriol 0.25 Mcg Capsule) 0.5 mcg PO QAM ADINA Stop: 07/31/22 08:59 Carvedilol (Carvedilol 12.5 Mg Tab) 12.5 mg PO BID ADINA Stop: 07/31/22 08:59 Duloxetine HCl (Duloxetine Hcl 60 Mg Cap) 60 mg PO DAILY ADINA Stop: 07/31/22 08:59 Ferrous Sulfate (Ferrous Sulfate 325 Mg Tab) 325 mg PO TIDM ADINA Stop: 07/31/22 11:59 Folic Acid (Folic Acid 1 Mg Tab) 1 mg PO QAM ADINA Stop: 07/31/22 08:59 Gabapentin (Gabapentin 300 Mg Cap) 300 mg PO HS ADINA Stop: 07/31/22 20:59 Heparin Sodium (Porcine) (Heparin Sod 5,000 Unit/0.5 Ml Vial) 5,000 units SQ Q8 ADINA Stop: 07/31/22 13:59 Cefepime HCl 1,000 mg/ Syringe 10 mls @ 5 mls/min IV Q24H [facility]; Protocol Stop: 07/12/22 04:59 Isosorbide Mononitrate (Isosorbide [place] Extended Rel 30 Mg Tabcr) 30 mg PO QAM ADINA Stop: 07/31/22 08:59 Levothyroxine Sodium (Levothyroxine Sodium 125 Mcg Tablet) 125 mcg PO DAILYBB ADINA Stop: 07/31/22 09:14 Pantoprazole Sodium (Pantoprazole 40 Mg Tab) 40 mg PO QAM ADINA Stop: 07/31/22 08:59 Rosuvastatin Calcium (Rosuvastatin Calcium 20 Mg Tab) 20 mg PO QAM ADINA Stop: 07/31/22 08:59
[2022-07-01] MEDS: carvediloL 12.5 MG TAB PO SCH ×2 (10:21→21:11)
[2022-07-01] MEDS: PANTOprazole 40 MG TAB PO SCH (10:21)
[2022-07-01] MEDS: FOLIC ACID 1 MG TAB PO SCH (10:21)
[2022-07-01] MEDS: ASPIRIN 81 MG ECTAB PO SCH (10:21)
[2022-07-01] MEDS: LEVOTHYROXINE SODIUM 125 MCG TABLET PO SCH (10:21)
[2022-07-01] MEDS: ISOSORBIDE MONO EXTENDED REL 30 MG TABCR PO SCH (10:21)
[2022-07-01] MEDS: CALCITRIOL 0.25 MCG CAPSULE PO SCH (10:21)
[2022-07-01] MEDS: DULoxetine HCL 60 MG CAP PO SCH (10:21)
[2022-07-01] MEDS: FERROUS SULFATE 325 MG TAB PO SCH ×2 (10:22→13:08)
[2022-07-01 10:31] LABS: Hematocrit (blood only) 27.7 % (37.0-47.0); Hemoglobin 8.7 g/dl (12.0-16.0); Mean Corpuscular Hemoglobin 31.5 pg (25.0-34.0); Mean Corpuscular Hgb Conc 31.4 g/dL (32.0-36.0); Mean Corpuscular Volume 100.4 fL (80.0-100.0); Mean Platelet Volume 9.9 fL (9.4-12.4); Platelet Count 138 K/uL (130-400); RDW Coefficient of Variation 13.2 % (11.5-14.5); RDW Standard Deviation 48.2 fL (36.4-46.3); Red Blood Count 2.76 M/uL (4.20-5.40); White Blood Count 21.49 K/ul (4.8-10.8)
[2022-07-01 10:36] LABS: Base Excess ABG 10.5 mEq/L (-9-1.8); HCO3 ABG 39 mmol/L (19-24); Oxygen Saturation ABG 98.8 % (90-95); PCO2 ABG 73 mmHg (35-46); PO2 ABG 83 mmHg (80-95); pH ABG 7.34 (7.35-7.45)
[2022-07-01 10:46] LABS: Allen Test Pos (Pos)
[2022-07-01 10:48] LABS: BUN Creatinine Ratio 11.2 (10-20); Calcium 9.9 mg/dl (8.5-10.1); Creatinine Clr Calc Pharmacy 27.2 ml/min; Est GFR (African American) 26.3 ml/min; Est GFR (Non-African American) 22.7 ml/min; Potassium 3.6 mmol/L (3.5-5.1)
[2022-07-01 11:03] LABS: Amphetamines+Metham, Urine Neg (Neg); Barbiturates, Urine Neg (Neg); Benzodiazepine, Urine Neg (Neg); Cocaine, Urine Neg (Neg); MDMA (Ecstacy), Urine Neg (Neg); Methadone, Urine Neg (Neg); Opiate, Urine Pos (Neg); Phencyclidine, Urine Neg (Neg)
[2022-07-01] MEDS ORDERED: NALOXONE HCL 0.4 MG/1 ML VIAL/CARP IV STA (11:43)
--- NOTE | 2022-07-01 11:47 | Pulmonary Consultation ---
Date of Consultation July 01, 2022 Assessment & Plan (1) Acute on chronic respiratory failure with hypoxia and hypercapnia: (2) Acute metabolic encephalopathy: (3) Sleep apnea: (4) Morbid obesity: (5) Sepsis: Plan IMPRESSION: 77-year-old female with significant history of MONIQUE, OHS, chronic hypoxic respiratory failure on 2 L nasal cannula, chronic diastolic heart failure, morbid obesity, and chronic indwelling Barbosa catheter who presents with metabolic encephalopathy and concerns for sepsis syndrome. RECOMMENDATIONS: 1. Acute on Chronic Hypoxic Respiratory Failure with Hypercapnia - * Multifactorial in the patient with longstanding history of chronic hypoxic respiratory failure, obstructive sleep apnea, obesity hypoventilation syndrome, and diastolic heart failure. * It is difficult to ascertain if her metabolic encephalopathy is driven by her CO2 narcosis or if the CO2 narcosis is secondary to metabolic encephalopathy in the setting of sepsis with altered mental status and decreased ventilatory function. Regardless, would recommend BiPAP for now. Communicated with respiratory therapy and we will use a Drager machine so we can evaluate and control her breathing better. * Will repeat ABG to assess for improvement. If we notice improvement of the patient's CO2 and lagging change in mental status, this certainly may be more attributed to encephalopathy in the setting of sepsis syndrome. Thankfully, CT head/brain without acute findings. Would continue with aggressive antibiotic management as you are. * Aim for SaO2 89-92%. Her serum CO2 has been creeping up over the last few visits, so we can assume that she has been retaining for some time now. 2. Metabolic Encephalopathy - * Continue to treating ??sepsis as you are. * Avoid sedating agents. * Monitor for improvement with treatment of underlying causes. * CT w/o acute findings. * No focal neurological deficits on exam. 3. MONIQUE - * Continue aggressive BiPAP for now. * Would recommend she wears this at night as well as with any naps. * Her home machine can be interrogated by her [employer] company to maintain that it is working properly. Would continue to use Drager machine for now. 4. Sepsis - * As above. * RLE w/ recent surgical intervention with sutures still in place. * Tib/Fib X ray ordered to evaluate for underlying infection/osteo. Thank you for allowing us to participate in the care of this patient. We will continue to follow along in the care of this complex patient. Supervising Physician Co-Signing Physician Notes Patient seen and examined. EMR reviewed. Images independently reviewed. Discussed with CHANDLER and agree with assessment plan as noted. 77-year-old female with hypoxemic hypercarbic respiratory failure likely due to obesity hypoventilation syndrome. Unfortunately her database is incomplete as w e do not have her sleep studies, PFTs or any outpatient clinical notes from her. I assume this is being managed through the [facility] system. She is better with application of noninvasive positive pressure ventilation. Is unclear whether she has been compliant with this or not. At this point in time would recommend continuing BiPAP at 16/8 cmH2O. Would target oxygen saturations 85 to 90% and not any higher given her hypercarbia. Weight loss is paramount. Avoid respiratory suppressant medications. Management of the patient's other medical issues is deferred to the patient's primary admitting service. We will follow-up in the morning to see how she is doing. Thanks for the opportunity of caring for this patient. Feel free to contact us with questions History of Present Illness Reason for Consultation: CPAP issues, MONIQUE, OHS Requesting Physician: Dr. Fagan Attending Physician: Jacque Whiting, History of Present Illness Patient is a 77-year-old female with a significant past medical history of MONIQUE, chronic respiratory failure with utilization of 2 L nasal cannula at home, chronic diastolic heart failure, nonischemic cardiomyopathy, peripheral vascular disease, hypertension, hyperlipidemia, CKD 4 chronic indwelling Barbosa catheter use, and prior history of tobacco abuse. Patient presented to the emergency department with altered mental status and hypoxia. [facility] sustaining a fracture to her tib-fib last month. She has undergone reconstructive surgery which she continues to heal f rom. Patient was found to be hypoxic today at the institution and was brought by EMS to the emergency department. She was found to be in respiratory acidosis. BiPAP was placed which she had showed improvement on her labs initially. CT the head was unremarkable. CTA demonstrates no pulmonary emboli, however with trace bilateral pleural effusions and some associated atelectasis. She was noted to have a leukocytosis in excess of 17,000. HERMILO on CKD 4. Procalcitonin not elevated. Lactic acidosis 1.7. Patient without fevers. Pulmonary medicine consulted in the setting of acute on chronic hypoxic respiratory failure with hypercapnia. Patient initially showed improvement on BiPAP settings. There is concern that her home BiPAP is not functioning appropriately. Upon discussion with the patient at bedside in room 2871, the patient is somnolent. She awakens with verbal and tactile stimuli. She knows location, year, month, self, and date of . Otherwise, she goes back to sleep quickly and does not contribute significantly to HPI. Allergies Allergy/AdvReac Type Severity Reaction Status Date / Time daptomycin Allergy Intermediate RASH Verified 07/01/22 01:53 house dust Allergy Mild NASAL Verified 07/01/22 01:53 CONGESTION mold Allergy Mild NASAL Verified 07/01/22 01:53 CONGESTION lisinopril AdvReac Unknown Uncoded 07/01/22 13:54 Home Medications Medication Instructions Recorded Confirmed Type calcitriol 0.5 mcg capsule 0.5 mcg PO QAM 03/03/18 07/01/22 History carvedilol 12.5 mg tablet 12.5 mg PO BID 03/03/18 07/01/22 History folic acid 1 mg tablet 1 mg PO QAM 03/03/18 07/01/22 History isosorbide mononitrate 30 mg 30 mg PO QAM 03/03/18 07/01/22 History tablet,extended release 24 hr nitroglycerin 0.4 mg sublingual 0.4 mg sublingual DIRECTED PRN 03/03/18 07/01/22 History tablet (Nitrostat) Chest Pain rosuvastatin 20 mg tablet (Crestor) 20 mg PO QAM 03/03/18 07/01/22 History duloxetine 60 mg capsule,delayed 60 mg PO DAILY 01/31/19 07/01/22 History release acetaminophen 325 mg tablet (Mapap 650 mg PO Q4H PRN pain (scale 06/20/19 07/01/22 Rx (acetaminophen)) score 4-6) #60 tabs ferrous sulfate 325 mg (65 mg 325 mg PO TID 08/08/20 07/01/22 History iron) tablet gabapentin 300 mg capsule 300 mg PO HS 10/15/20 07/01/22 History hydrocodone 5 mg-acetaminophen 325 1 tab PO Q4H PRN Pain 11/19/20 07/01/22 History mg tablet levothyroxine 125 mcg tablet 125 mcg PO DAILYBB 11/19/20 07/01/22 History aspirin 81 mg tablet,delayed 81 mg PO DAILY 07/01/22 07/01/22 History release furosemide 20 mg tablet 20 mg PO QAM 07/01/22 07/01/22 History pantoprazole 40 mg tablet,delayed 40 mg PO QAM 07/01/22 07/01/22 History release Patient History Medical History Biventricular ICD (implantable cardioverter-defibrillator) in place CHF (congestive heart failure) Echo in past with LVEF as low as 20-25% Echo 12/27/18 LVEF 55-59%, grade I diastolic dysfunction Chronic pain Chronic respiratory failure with hypoxia, on home O2 therapy CKD (chronic kidney disease), stage IV Cystitis CHRONIC AND TAKES OXYBUTININ Depression Dyslipidemia Frequent UTI GERD (gastroesophageal reflux disease) GERD (gastroesophageal reflux disease) Gout Hyperlipidemia Hypertension Hypertension Hypothyroidism Hypothyroidism Left bundle branch block Migraine Neuropathy Bilat Feet NICM (nonischemic cardiomyopathy) 2004 Osteoarthritis Peptic ulcer disease HX OF BLEEDING ABOUT 2002 Respiratory acidosis Respiratory failure with hypoxia (10/05/13) Sleep apnea CPAP AND USES OXYGEN 3L ALL THE TIME Squamous cell carcinoma of vulva Vitamin D deficiency Surgical History H/O cardiac catheterization No stents placed (~10 years ago) H/O sinus surgery History of bilateral tubal ligation 1975 History of brain tumor 1961 - TEENAGER AND WAS REMOVED History of section X 2, 1970 & 1975 History of cholecystectomy 1995 - LAP History of cholecystectomy Hx of endoscopic sinus surgery 2007 ICD (implantable cardioverter-defibrillator) in place ICD/PACER [employer] 08/[address] RUIZ ([facility]) Family History Mother , Passed in 40-50's of metastatic gallbladder CA No problems noted. Father , Passed in 60's of "hardening of arteries" No problems noted. Sister Bladder cancer Brother Bladder cancer Sister Colon cancer Daughter No problems noted. Daughter No problems noted. Son No problems noted. 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 GENERAL - 77-year-old female appearing her stated age who is somnolent. Responds to verbal/tactile stimuli. HEAD - NC/AT. EYES - PERRL with EOMI bilaterally. Sclera anicteric. NECK - Neck with FROM. LUNGS - Chest wall symmetric without accessory muscle use, intercostals retractions, or central cyanosis. Normal vesicular breath sounds CTA but diminished at the lung bases. CARDIAC - RRR with S1/S2. No murmur, rubs, or gallops appreciated. ABDOMEN - Abdominal contour obese without pulsations or visible masses. BS normoactive all four quadrants. No tenderness to palpation. EXTREMITIES -multiple sutures and Steri-Strips in place to the RIGHT lower extremity. Without significant edema or erythema, however the extremity is tender to palpation and warm to touch compared to the LEFT. Equal distal pulses palpated bilaterally. NEUROLOGIC - No focal neurological deficits. Patient is somnolent. She awakens and is able to provide year, month, location, and date of . She goes back to sleep quickly. Results & Data Results & Data ([facility]) Vital Signs (Past 12 Hours) Vital Signs Temp Pulse Pulse Resp BP BP BP 07/01/22 11:21 37.3 C 94 H 16 82/53 L 86/52 L 07/01/22 08:28 93 H 07/01/22 08:57 93 H 07/01/22 08:19 07/01/22 08:19 37 C 91 H 20 122/72 07/01/22 08:19 07/01/22 07:31 91 H 24 112/45 L 07/01/22 06:30 27 H 07/01/22 06:15 140/63 07/01/22 06:15 85 25 H 07/01/22 06:00 72 35 H 07/01/22 05:00 85 18 136/82 07/01/22 04:00 80 23 118/64 07/01/22 03:05 125/63 07/01/22 03:05 85 20 07/01/22 03:03 83 26 H 07/01/22 02:00 76 32 H 07/01/22 01:35 120 H 27 H 07/01/22 01:35 113/77 07/01/22 01:30 112 H 18 07/01/22 01:30 133/52 L 07/01/22 01:17 74 24 07/01/22 01:17 112/51 L 07/01/22 01:11 07/01/22 01:11 106/71 07/01/22 01:08 94/56 L 07/01/22 01:08 07/01/22 01:07 07/01/22 05:30 63 07/01/22 03:09 81 18 121/84 07/01/22 02:25 100 H 30 H 07/01/22 01:34 07/01/22 01:31 07/01/22 01:31 36.6 C 20 07/01/22 01:30 81 20 07/01/22 01:07 36.6 C 80 18 94/56 L Pulse Ox Pulse Ox O2 Del Method O2 Del Method O2 Flow Rate O2 Flow Rate FiO2 07/01/22 11:21 92 Nasal Cannula 2 07/01/22 08:28 07/01/22 08:57 07/01/22 08:19 Nasal Cannula 2 07/01/22 08:19 92 Nasal Cannula 2 07/01/22 08:19 92 Nasal Cannula 2 07/01/22 07:31 98 07/01/22 06:30 94 07/01/22 06:15 07/01/22 06:15 87 L 07/01/22 06:00 95 07/01/22 05:00 94 07/01/22 04:00 95 07/01/22 03:05 07/01/22 03:05 92 07/01/22 03:03 07/01/22 02:00 100 07/01/22 01:35 96 07/01/22 01:35 07/01/22 01:30 99 07/01/22 01:30 07/01/22 01:17 97 03/01/23 01:17 07/01/22 01:11 97 07/01/22 01:11 07/01/22 01:08 07/01/22 01:08 100 07/01/22 01:07 98 07/01/22 05:30 07/01/22 03:09 98 BiPAP 07/01/22 02:25 99 40 07/01/22 01:34 Nasal Cannula 07/01/22 01:31 100 Nasal Cannula 12 07/01/22 01:31 98 Nasal Cannula 4 07/01/22 01:30 98 Nasal Cannula 4 07/01/22 01:07 100 Non-rebreather 12 PG Care Time/CCT Total # of Minutes Spent Total Time Spent with Patient: Total time spent is greater than 50% in coordination of care (as documented) at patient's floor/unit and/or counseling patient: Coding Level of Care Code 98542 INT INP/OBS CARE 3/75MIN Diagnoses Acute on chronic respiratory failure with hypoxia and hypercapnia J96.21; J96.22 Acute metabolic encephalopathy G93.41 Sleep apnea G47.30 Morbid obesity E66.01 Sepsis A41.9
--- NOTE | 2022-07-01 12:58 | XRay Report ---
XR tibia fibula RT 2V CLINICAL HISTORY: recent repair. ? Infection TECHNIQUE: 2 radiographic views of the right leg were obtained. Comparison: Comparison is made to left tibia and fibula radiograph 05/10/2022 FINDINGS: There is irregularity of the previously noted tibial and fibular fractures. Orthopedic hardware spans the tibia and hindfoot. Soft tissue swelling is seen. IMPRESSION: Prominent soft tissue swelling, clinical correlation for cellulitis is recommended. The fracture frag ments are in near-anatomic alignment and no mustapha erosions are seen, however osteomyelitis cannot be entirely excluded. ACT 112: Negative or not required by law. Electronically signed by: Emiliano Tenorio M.D. 07/01/2022 12:56 PM
[2022-07-01 13:20] LABS: Base Excess ABG 7.3 mEq/L (-9-1.8); HCO3 ABG 37 mmol/L (19-24); Oxygen Saturation ABG 86.3 % (90-95); PCO2 ABG 79 mmHg (35-46); PO2 ABG 54 mmHg (80-95); pH ABG 7.28 (7.35-7.45)
[2022-07-01 13:22] LABS: Allen Test Pos (Pos)
[2022-07-01] MEDS ORDERED: VANCOMYCIN CONSULT ACTIVE PRN (13:38)
[2022-07-01] MEDS: HEPARIN SOD 5,000 UNIT/0.5 ML VIAL SQ SCH ×2 (13:51→21:54)
[2022-07-01 14:11] LABS: iSTAT Allen Test Pass; iSTAT Art Bld Gas pCO2 Correct 65 mmHg (35-46); iSTAT Art Bld Gas pH Corrected 7.352 (7.35-7.45); iSTAT Arterial Blood Gas HCO3 36 meg/L (19-24); iSTAT Arterial Blood Gas pCO2 65 mmHg (35-46); iSTAT Arterial Blood Gas pH 7.35 (7.35-7.45); iSTAT Arterial Blood Gas pO2 82 mmHg (80-95); iSTAT Arterial Blood Gas pO2 C 82; iSTAT Carbon Dioxide 38 mmol/L (24-31); iSTAT FiO2 40 %; iSTAT Hematocrit 30 % (37-47); iSTAT Hemoglobin 10.2 g/dl (12.0-16.0); iSTAT Potassium 3.5 mmol/L (3.3-5.0); iSTAT Site R Radial; iSTAT Sodium 134 mmol/L (135-144)
[2022-07-01] MEDS: VANCOMYCIN HCL 2,000 MG in SODIUM CHLORIDE 0.9% 500 ML IV STA ×2 (14:44→14:46)
--- NOTE | 2022-07-01 15:10 | Pharmacy Report ---
Pharmacy PK ABX Note - Date of Service July 01, 2022 - Assessment and Plan Assessment * Ms Iglesias is a 77 year old F receiving vancomycin/cefepime for treatment of sepsis/?UTI/?osteo. * Pertinent microbiologic data includes: blood cx pending, urine cx pending * Significant PMH includes: chronic resp fx w/ home O2, CKD IV, HF, chronic indwelling jolley catheter, tib/fib fx s/p surgery last month, pt has been at a rehab facility post-procedure Plan Vancomycin * Loading dose: 2000 mg IV x 1 * Further dosing will be guided by levels d/t poor renal function and obesity (BMI 40.3) * Target AUC/LUCRETIA: 400-600 mg/L.hr * Random level ordered for: tomorrow with AM labs Pharmacy will continue to follow and will adjust dose/frequency as necessary. Thank you. Pharmacy has transitioned to AUC monitoring for vancomycin. AUC/LUCRETIA is the preferred PK/PD target and is associated with decreased risk of nephrotoxicity compared to traditional trough targets.
--- NOTE | 2022-07-01 15:45 | Electrocardiogram Report ---
Test Reason : Blood Pressure : / mmHG Vent. Rate : 106 BPM Atrial Rate : 258 BPM P-R Int : 000 ms QRS Dur : 128 ms QT Int : 400 ms P-R-T Axes : 000 184 -09 degrees QTc Int : 531 ms Poor data quality, interpretation may be adversely affected Ventricular-paced rhythm Abnormal ECG When compared with ECG of 10-MAY-2022 00:04, Vent. rate has increased BY 20 BPM Confirmed by Vitor Barfield ([id number]) on 07/01/2022 3:44:58 PM Referred By: REFERRED SELF Confirmed By:Vitor Barfield
[2022-07-01] MEDS: GABAPENTIN 300 MG CAP PO SCH (21:11)
[2022-07-02] MEDS ORDERED: ACETAMINOPHEN 1,000 MG/100 ML VIAL IV STA (01:48)
[2022-07-02] MEDS: LEVOTHYROXINE SODIUM 125 MCG TABLET PO SCH (06:03)
[2022-07-02] MEDS: CEFEPIME 1,000 MG in SYRINGE 0 ML IV SCH (06:03)
[2022-07-02] MEDS: HEPARIN SOD 5,000 UNIT/0.5 ML VIAL SQ SCH ×3 (06:04→21:35)
[2022-07-02 06:25] LABS: Basophils # (auto) 0.05 K/uL (0-0.2); Basophils % (auto) 0.2 %; Eosinophils # (auto) 0.14 K/uL (0-0.50); Eosinophils % (auto) 0.6 %; Immature Granulocytes # (auto) 0.16 K/uL (0.01-0.20); Immature Granulocytes % (auto) 0.7 %; Lymphocytes # (auto) 0.99 K/uL (1.2-3.4); Lymphocytes % (auto) 4.6 %; Mean Corpuscular Hemoglobin 31.3 pg (25.0-34.0); Mean Corpuscular Volume 100.7 fL (80.0-100.0); Mean Platelet Volume 10.4 fL (9.4-12.4); Monocytes # (auto) 1.21 K/uL (0.11-0.59); Monocytes % (auto) 5.6 %; Neutrophils # (auto) 19.02 K/uL (1.40-6.50); Neutrophils % (auto) 88.3 %; Platelet Count 130 K/uL (130-400); RDW Coefficient of Variation 13.2 % (11.5-14.5); RDW Standard Deviation 49.1 fL (36.4-46.3); Red Blood Count 2.88 M/uL (4.20-5.40); White Blood Count 21.57 K/ul (4.8-10.8)
[2022-07-02 06:42] LABS: BUN Creatinine Ratio 11.1 (10-20); Calcium 9.8 mg/dl (8.5-10.1); Creatinine Clr Calc Pharmacy 24.2 ml/min; Est GFR (African American) 22.4 ml/min; Est GFR (Non-African American) 19.3 ml/min; Potassium 3.3 mmol/L (3.5-5.1)
[2022-07-02 07:02] LABS: Ferritin 339.8 ng/ml (8-388)
[2022-07-02 07:13] LABS: Vitamin B12 286 pg/ml (180-914)
[2022-07-02] MEDS: FERROUS SULFATE 325 MG TAB PO SCH ×2 (08:28→11:33)
[2022-07-02] MEDS: FOLIC ACID 1 MG TAB PO SCH (08:28)
[2022-07-02] MEDS: carvediloL 12.5 MG TAB PO SCH ×2 (08:28→21:34)
[2022-07-02] MEDS: CALCITRIOL 0.25 MCG CAPSULE PO SCH (08:28)
[2022-07-02] MEDS: DULoxetine HCL 60 MG CAP PO SCH (08:28)
[2022-07-02] MEDS: ISOSORBIDE MONO EXTENDED REL 30 MG TABCR PO SCH (08:28)
[2022-07-02] MEDS: PANTOprazole 40 MG TAB PO SCH (08:28)
[2022-07-02] MEDS: ASPIRIN 81 MG ECTAB PO SCH (08:28)
--- NOTE | 2022-07-02 08:59 | Pulmonology Progress Note ---
Date of Service July 02, 2022 Assessment & Plan (1) Acute on chronic respiratory failure with hypoxia and hypercapnia: (2) Acute metabolic encephalopathy: (3) Sleep apnea: (4) Morbid obesity: (5) Sepsis: Plan IMPRESSION: 77-year-old female with significant history of MONIQUE, OHS, chronic hypoxic and hypercarbic respiratory failure on 2 L nasal cannula, chronic diastolic heart failure, morbid obesity, and chronic indwelling Barbosa catheter who presents with metabolic encephalopathy and acute on chronic hypoxemic and hypercarbic respiratory failure. RECOMMENDATIONS: 1. Acute on Chronic Hypoxic Respiratory Failure with Hypercapnia -patient appears to be improving on BiPAP. Discussed with patient and nursing that her oxygen levels are not to be used to determine need for BiPAP at night. She is on it to control her CO2 levels and needs to use it nightly when she is sleep ing. She and the nurse expressed understanding. This will be communicated to respiratory therapy as well. Long-term outpatient follow-up with her primary team at [facility]. Would not try and target oxygen saturations above 88 to 90% given her concomitant hypercarbia. Would not try and normalize her CO2, rather target level around 60 2. Metabolic Encephalopathy -improved this a.m. 3. MONIQUE -see above. Need to ensure she has appropriate supplies prior to being dismissed from the hospital. 4. Management of the patient's other medical issues per primary admitting service. Admission and Anticipated Discharge Date Admission Date: July 01, 2022 Subjective Patient seen and examined. EMR reviewed. Patient is awake alert sitting up eating breakfast. She states her breathing is okay. She used CPAP for a period of time last night but then discontinued it apparently because she had a headache and took some Tylenol and advised her that her oxygen level was adequate and she could remain off of it. She is not coughing and expectorating phlegm or wheezing. Review of Systems Review of Systems: All systems reviewed & are unremarkable except as noted in Subjective Physical Exam Constitutional: WD/WN, vitals as above + morbidly obese Morbid obesity limits sensitivity of exam. Neck: trachea midline, no thyromegaly Respiratory: no respiratory distress, no labored breathing, no cough and not tachypneic Auscultation: + diminished lung sounds; no crackles and no wheezes Cardiovascular: RRR, no murmur, no edema Gastrointestinal (Abdomen): normal bowel sounds, soft, nontender, no hepatosplenomegaly Musculoskeletal: Extremities: extremities normal to inspection Skin: no rashes, warm and dry Neurologic: Nonfocal exam Lymphatic: no cervical lymphadenopathy Results & Data Results & Data ([facility]) Vital Signs (Past 12 Hours) Vital Signs Temp Pulse Pulse Resp BP BP Pulse Ox 07/02/22 08:35 96 07/02/22 07:45 99 07/02/22 07:35 07/02/22 07:31 36.9 C 85 18 120/64 99 07/02/22 06:00 77 07/02/22 02:45 37 C 90 18 121/69 99 07/02/22 01:49 37.1 C 93 H 20 147/69 H 94 07/01/22 22:43 37.5 C 86 20 123/72 95 07/01/22 22:37 85 23 92 O2 Del Method O2 Flow Rate FiO2 07/02/22 08:35 Room Air, Nasal Cannula 1 07/02/22 07:45 Nasal Cannula 2 07/02/22 07:35 Nasal Cannula 2 07/02/22 07:31 Nasal Cannula 2 07/02/22 06:00 07/02/22 02:45 Nasal Cannula 1.5 07/02/22 01:49 Nasal Cannula 2 07/01/22 22:43 BiPAP 07/01/22 22:37 30 Laboratory Results 07/02/22 05:31 07/02/22 05:31 Diagnostic Findings No new imaging PG Care Time/CCT Total # of Minutes Spent Total Time Spent with Patient: Total time spent is greater than 50% in coordination of care (as documented) at patient's floor/unit and/or counseling patient: Coding Level of Care Code 92691 SUB INP/OBS CARE 2/35MIN Diagnoses Acute on chronic respiratory failure with hypoxia and hypercapnia J96.21; J96.22 Acute metabolic encephalopathy G93.41 Sleep apnea G47.30 Morbid obesity E66.01 Sepsis A41.9
--- NOTE | 2022-07-02 10:45 | Orthopedic Consultation ---
Date of Consultation July 02, 2022 Assessment & Plan (1) Open fracture of right distal tibia: She had a right distal tibial nail for an open distal tib-fib fracture done about a month ago at [facility] in [place]. I see no concern for any infection or osteomyelitis by clinical exam or imaging. No acute orthopedic intervention is required. She should remain nonweightbearing on that right lower extremity as instructed by her [facility] surgeons. She should follow-up with them as scheduled. Orthopedics will sign off. History of Present Illness Reason for Consultation: Radiology cannot rule out osteomyelitis Attending Physician: Jacque Whiting, History of Present Illness Ms. Iglesias is a 77-year-old female with numerous severe medical problems who was admitted for sepsis, complicated UTI, chronic indwelling catheter. She recently underwent right ankle surgery at [facility] in [place] for an open distal tibia fracture at the end of May 2022. She is still recovering from that surgery. She reports progressive improvement in her right lower leg since surgery. She denies any wound problems or drainage. She reports that the pain is getting better. She has been instructed to remain nonweightbearing on that right leg while it is healing. She reports that she has a follow-up appointment with her surgeons at [facility] in less than 2 weeks. She had x-rays done of this right lower leg upon admission to the hospital. Radiology report states " osteomyelitis cannot be entirely excluded" and therefore orthopedics was consulted. No other obvious reason for concern for osteomyelitis. Allergies Allergy/AdvReac Type Severity Reaction Status Date / Time daptomycin Allergy Intermediate RASH Verified 07/01/22 01:53 house dust Allergy Mild NASAL Verified 07/01/22 01:53 CONGESTION mold Allergy Mild NASAL Verified 07/01/22 01:53 CONGESTION lisinopril AdvReac Unknown Uncoded 07/01/22 13:54 Home Medications Medication Instructions Recorded Confirmed Type calcitriol 0.5 mcg capsule 0.5 mcg PO QAM 03/03/18 07/01/22 History carvedilol 12.5 mg tablet 12.5 mg PO BID 03/03/18 07/01/22 History folic acid 1 mg tablet 1 mg PO QAM 03/03/18 07/01/22 History isosorbide mononitrate 30 mg 30 mg PO QAM 03/03/18 07/01/22 History tablet,extended release 24 hr nitroglycerin 0.4 mg sublingual 0.4 mg sublingual DIRECTED PRN 03/03/18 07/01/22 History tablet (Nitrostat) Chest Pain rosuvastatin 20 mg tablet (Crestor) 20 mg PO QAM 03/03/18 07/01/22 History duloxetine 60 mg capsule,delayed 60 mg PO DAILY 01/31/19 07/01/22 History release acetaminophen 325 mg tablet (Mapap 650 mg PO Q4H PRN pain (scale 06/20/19 07/01/22 Rx (acetaminophen)) score 4-6) #60 tabs ferrous sulfate 325 mg (65 mg 325 mg PO TID 08/08/20 07/01/22 History iron) tablet gabapentin 300 mg capsule 300 mg PO HS 10/15/20 07/01/22 History hydrocodone 5 mg-acetaminophen 325 1 tab PO Q4H PRN Pain 11/19/20 07/01/22 History mg tablet levothyroxine 125 mcg tablet 125 mcg PO DAILYBB 11/19/20 07/01/22 History aspirin 81 mg tablet,delayed 81 mg PO DAILY 07/01/22 07/01/22 History release furosemide 20 mg tablet 20 mg PO QAM 07/01/22 07/01/22 History pantoprazole 40 mg tablet,delayed 40 mg PO QAM 07/01/22 07/01/22 History release Patient History Medical History Biventricular ICD (implantable cardioverter-defibrillator) in place CHF (congestive heart failure) Echo in past with LVEF as low as 20-25% Echo 12/27/18 LVEF 55-59%, grade I diastolic dysfunction Chronic pain Chronic respiratory failure with hypoxia, on home O2 therapy CKD (chronic kidney disease), stage IV Cystitis CHRONIC AND TAKES OXYBUTININ Depression Dyslipidemia Frequent UTI GERD (gastroesophageal reflux disease) GERD (gastroesophageal reflux disease) Gout Hyperlipidemia Hypertension Hypertension Hypothyroidism Hypothyroidism Left bundle branch block Migraine Neuropathy Bilat Feet NICM (nonischemic cardiomyopathy) 2004 Osteoarthritis Peptic ulcer disease HX OF BLEEDING ABOUT 2002 Respiratory acidosis Respiratory failure with hypoxia (10/05/13) Sleep apnea CPAP AND USES OXYGEN 3L ALL THE TIME Squamous cell carcinoma of vulva Vitamin D deficiency Surgical History H/O cardiac catheterization No stents placed (~10 years ago) H/O sinus surgery History of bilateral tubal ligation 1975 History of brain tumor 1961 - TEENAGER AND WAS REMOVED History of section X 2, 1970 & 1975 History of cholecystectomy 1995 - LAP History of cholecystectomy Hx of endoscopic sinus surgery 2007 ICD (implantable cardioverter-defibrillator) in place ICD/PACER [employer] 08/[address] RUIZ ([facility]) Family History Mother , Passed in 40-50's of metastatic gallbladder CA No problems noted. Father , Passed in 60's of "hardening of arteries" No problems noted. Sister Bladder cancer Brother Bladder cancer Sister Colon cancer Daughter No problems noted. Daughter No problems noted. Son No problems noted. 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 She is morbidly obese. She has mild diffuse right lower leg swelling compared to the opposite left leg, as would be expected 1 month out from lower extremity trauma and surgery. There is a very large oblique traumatic laceration over the anterior aspect of the lower leg. It appears to be healing as well. All shandra gical incisions are well. No erythema, warmth, fluctuance, or active or expressible drainage. Motor and sensory function is intact distally with intact toe dorsiflexion plantarflexion. Sensations intact in the superficial peroneal, deep peroneal, and tibial nerve distributions. Foot is warm and well-perfused. Results & Data ([facility]) Vital Signs (Past 12 Hours) Vital Signs Temp Pulse Pulse Resp BP BP Pulse Ox 07/02/22 08:47 07/02/22 08:35 96 07/02/22 07:45 99 07/02/22 07:35 07/02/22 07:31 36.9 C 85 18 120/64 99 07/02/22 06:00 77 07/02/22 02:45 37 C 90 18 121/69 99 07/02/22 01:49 37.1 C 93 H 20 147/69 H 94 Pulse Ox O2 Del Method O2 Del Method O2 Flow Rate O2 Flow Rate 07/02/22 08:47 95 Room Air 0 07/02/22 08:35 Room Air, Nasal Cannula 1 07/02/22 07:45 Nasal Cannula 2 07/02/22 07:35 Nasal Cannula 2 07/02/22 07:31 Nasal Cannula 2 07/02/22 06:00 07/02/22 02:45 Nasal Cannula 1.5 07/02/22 01:49 Nasal Cannula 2 Diagnostic Findings Right ankle/tib-fib films were independently interpreted by me. They show a retrocalcaneal ankle fusion distal tibial nail in place with good alignment of the distal tibia fracture fragments. No evidence of lucency, hardware failure, or loosening. I see no reason for concern for osteomyelitis. (1) Open fracture of right distal tibia Encounter type: sequela
[2022-07-02] MEDS ORDERED: VANCOMYCIN HCL 750 MG in SODIUM CHLORIDE 0.9% 250 ML IV ONE (12:00)
[2022-07-02] MEDS ORDERED: POTASSIUM CHLORIDE CRTAB 20 MEQ TABCR PO STA (12:56)
--- NOTE | 2022-07-02 13:00 | Hospitalist Progress Note ---
Date of Service July 02, 2022 Assessment & Plan (1) Sepsis: Plan: Sepsis 2/2 UTI vs post op bone infection vs other. She is resuscitated and at this point Ortho does not believe there is bone infection present. Sepsis was likely secondary to CAUTI. Notably she has had issues with urination and has had an indwelling Jolley for about a year now. She sees urology, Dr. Anand . She is doing well on cefepime. We will stop vancomycin at this point to avoid additional toxicity on her kidneys. Urine culture is growing probable Enterococcus with sensitivities pending and blood cultures are negative at this time. Continue IV antibiotics and follow clinically. NSS x 2 bags given ongoing hypotension and tachycardia (2) Acute metabolic encephalopathy: Plan: Thought secondary to sepsis. UDS returned for opiates which she was only supposed to be on post-op, per PDMP review was last dispensed a few in early Jun. Narcan dose x 1 given with no change in status. This is resolved today and was likely secondary to underlying metabolic cause from infection. (3) Catheter-associated urinary tract infection: Plan: Continue plan as above. (4) Osteomyelitis of right leg: Plan: This is considered less likely. Discontinuing vancomycin at this time. (5) Hypothyroidism: Plan: chronic, stable. Cont current replacment therapy. (6) Depression: Plan: chronic, stable. Cont duloxetine per home regimen. (7) Chronic anemia: Plan: chronic with a decrease from 10 to 8.7. stable, No active bleeding is present. There is also a new macrocytosis. She appears to have iron deficiency wtih an Fe sat of 12%. Will hold iron supplementation until discharge as this makes people very constipated. She has a low normal [id number] start water soluble supplementation at this time. Anemia is likely multifactorial including chronic inflammation, phlebotomy, recent surgery and iron deficiency. (8) Acute kidney injury superimposed on chronic kidney disease: Plan: acute on chronic worsening with creatinine baseline of 1.6-1.8, today is 2.4, continue to avoid nephrotoxic substances such as NSAIDs and contrast and renally dose medicines as needed. Follows with nephrology ([facility]) Consider consulting them if this worsens. (9) Hypertension: Plan: Hypotensive. On carvedilol with hold parameters. (10) CKD (chronic kidney disease), stage IV: (11) Fibromuscular dysplasia: Plan: She has a history of right renal artery angioplasty for 90% stenosis due to f ibromuscular dysplasia. Stage IV CKD followed by Dr. Malik. Secondary hyperparathyroidism on calcitriol. (12) NICM (nonischemic cardiomyopathy): Plan: History of nonischemic cardiomyopathy with a remote cardiac catheterization in 1996 revealing normal coronary anatomy with severe left ventricular dysfunction. EF was previously 20 to 25% which has resolved. She has NYHA class III chronic persistent dyspnea and a chronic left bundle branch block. She is status post BiV ICD implantation in August 2014. She has some trace bilateral pleural effusions with associated atelectasis and evidence of pulmonary hypertension on CT. Appears compensated. (13) Biventricular ICD (implantable cardioverter-defibrillator) in place: Plan: V-paced rhythm on EKG, (14) Sleep apnea: Plan: Will plan for CPAP qHS and while sleeping. Currently in place. (15) Post-operative state: Plan: Upon review of the outpatient record, she is status post right distal tibia fracture TTC nail fixation at [facility] in May 2022. 2 weeks ago she was seen by orthopedics and sutures were removed on 06/09/2022 with Steri-Strips applied. Instructions included that she may shower, should not soak the incision and was to remain nonweightbearing she was plan to follow back up in 4 weeks with ankle x-rays at the next visit. She was admitted to [facility] from [facility] for PT and OT on 05/27/2022 and was discharged to home with home health for PT and OT using [facility] nursing on 06/10/2022. (16) Morbid obesity: Plan: DVT proph: heparin Full Code Dispo-cont current therapy and awaiting PT/OT recommendations and CM weigh in on her home support situation. It is concerning that she is not able to ambulate or transfer at all on her left leg. Jacque Whiting DO [facility] Hospitalist Admission and Anticipated Discharge Date Admission Date: July 01, 2022 Subjective 77-year-old female presented with sepsis Today she is doing much better. She is at her baseline mental status and oxygenating well on room air. She denies any respiratory symptoms. Ortho has seen her and denies any signs of infection on clinical exam or any imaging. Patient does report that her right lower extremity has been hurting more than normal but denies any fever or other infectious symptoms. It is unclear if she had any urinary issues prior to this. She does not remember becoming confused. She continues to remain nonweightbearing and reports that she does not move around in her house. She uses a bedpan to go to the bathroom and her sister is with her 100% of the time. She is to remain nonweightbearing for the next couple of weeks. She reports having neuropathy on her left leg is at baseline. Review of Systems Review of Systems: As per HPI, all other systems reviewed and negative Physical Exam Physical Exam: CONSTITUTIONAL: obese, vitals as above, NAD EYES: normal conjunctivae, no scleral icterus, ENT: external ear and nose normal, NECK: trachea midline RESPIRATORY: clear to auscultation bilaterally, no crackles, rales or wheezes, normal respiratory effort CARDIOVASCULAR: regular rate and rhythm, S1 and 2 heard without murmurs, gallops or rubs, no JVD, no peripheral edema CHEST: inspection of chest was normal GASTROINTESTINAL: soft, nontender,protuberant/obese, multiple areas of ecchymosis (injection sites?), no guarding MUSCULOSKELETAL: Strength is intact and no gross focal deficits. : jolley catheter in place. SKIN: warm and dry, there is a well healed scabbed over incision site on her RLE with steristrips that are still in place and what appears to be surgical prep stains-no changes in wounds overnight. There is no erythema or drainage to suggest acute infection. Nails and skin poorly cared for. NEUROLOGIC: CN II through XII grossly intact. No gross focal deficits. PSYCHIATRIC: A&O x3. Results & Data Results & Data ([facility]) Vital Signs (Past 12 Hours) Vital Signs Temp Pulse Pulse Resp BP BP Pulse Ox 07/02/22 11:53 37.3 C 82 18 94/60 L 97 07/02/22 08:47 07/02/22 08:35 96 07/02/22 07:45 99 07/02/22 07:35 07/02/22 07:31 36.9 C 85 18 120/64 99 07/02/22 06:00 77 07/02/22 02:45 37 C 90 18 121/69 99 07/02/22 01:49 37.1 C 93 H 20 147/69 H 94 Pulse Ox O2 Del Method O2 Del Method O2 Flow Rate O2 Flow Rate 07/02/22 11:53 Room Air 07/02/22 08:47 95 Room Air 0 07/02/22 08:35 Room Air, Nasal Cannula 1 07/02/22 07:45 Nasal Cannula 2 07/02/22 07:35 Nasal Cannula 2 07/02/22 07:31 Nasal Cannula 2 07/02/22 06:00 07/02/22 02:45 Nasal Cannula 1.5 07/02/22 01:49 Nasal Cannula 2 Laboratory Results Short CBC 07/02/22 Range/Units 05:31 WBC 21.57 H (4.8-10.8) K/ul Hgb 9.0 L (12.0-16.0) g/dl Hct 29.0 L (37.0-47.0) % Plt Count 130 (130-400) K/uL BMP 07/02/22 05:31 Sodium 136 Potassium 3.3 L Chloride 96 L Carbon Dioxide 35 H BUN 26 H Creatinine 2.35 H Glucose 94 Calcium 9.8 Medications Administered Current Inpatient Medications Acetaminophen (Acetaminophen 325 Mg Tab) 650 mg PO Q4H PRN PRN Reason: Pain or Fever Stop: 07/31/22 08:46 Aspirin (Aspirin 81 Mg Ectab) 81 mg PO DAILY ADINA Stop: 07/31/22 08:59 Last Admin: 07/02/22 08:28 Dose: 81 mg Calcitriol (Calcitriol 0.25 Mcg Capsule) 0.5 mcg PO QAM ADINA Stop: 07/31/22 08:59 Last Admin: 07/02/22 08:28 Dose: 0.5 mcg Carvedilol (Carvedilol 12.5 Mg Tab) 12.5 mg PO BID ADINA Stop: 07/31/22 08:59 Last Admin: 07/02/22 08:28 Dose: 12.5 mg Duloxetine HCl (Duloxetine Hcl 60 Mg Cap) 60 mg PO DAILY ADINA Stop: 07/31/22 08:59 Last Admin: 07/02/22 08:28 Dose: 60 mg Ferrous Sulfate (Ferrous Sulfate 325 Mg Tab) 325 mg PO TIDM ADINA Stop: 07/31/22 11:59 Last Admin: 07/02/22 11:33 Dose: 325 mg Folic Acid (Folic Acid 1 Mg Tab) 1 mg PO QAM [facility] Stop: 07/31/22 08:59 Last Admin: 07/02/22 08:28 Dose: 1 mg Gabapentin (Gabapentin 300 Mg Cap) 300 mg PO HS [facility] Stop: 07/31/22 20:59 Last Admin: 07/01/22 21:11 Dose: Not Given Heparin Sodium (Porcine) (Heparin Sod 5,000 Unit/0.5 Ml Vial) 5,000 units SQ Q8 [facility] Stop: 07/31/22 13:59 Last Admin: 07/02/22 06:04 Dose: 5,000 units Cefepime HCl 1,000 mg/ Syringe 10 mls @ 5 mls/min IV Q24H [facility]; Protocol Stop: 07/12/22 04:59 Last Admin: 07/02/22 06:03 Dose: 5 mls/min Vancomycin HCl 750 mg/ Sodium (Chloride) 265 mls @ 200 mls/hr IV TODAY@1200 ONE; Protocol Stop: 07/02/22 13:19 Last Admin: 07/02/22 11:33 Dose: 200 mls/hr Isosorbide Mononitrate (Isosorbide Rogers Extended Rel 30 Mg Tabcr) [facility] Stop: 07/31/22 08:59 Last Admin: 07/02/22 08:28 Dose: 30 mg Levothyroxine Sodium (Levothyroxine Sodium 125 Mcg Tablet) 125 mcg PO DAILYBB [facility] Stop: 07/31/22 09:14 Last Admin: 07/02/22 06:03 Dose: 125 mcg Miscellaneous Information (Vancomycin Consult Active) 1 each N/A UD PRN PRN Reason: Consult Stop: 07/31/22 13:37 Pantoprazole Sodium (Pantoprazole 40 Mg Tab) [facility] Stop: 07/31/22 08:59 Last Admin: 07/02/22 08:28 Dose: 40 mg Rosuvastatin Calcium (Rosuvastatin Calcium 20 Mg Tab) 20 mg PO QAM [facility] Stop: 07/31/22 08:59
[2022-07-02] MEDS: SODIUM CHLORIDE 0.9% 1000ML 1,000 ML IV SCH (14:00)
[2022-07-02] MEDS: guaiFENesin 600 MG TABCR PO SCH ×2 (14:28→21:35)
[2022-07-02] MEDS: CYANOCOBALAMIN (B-12) 500 MCG TABLET PO SCH (14:28)
[2022-07-02 20:37] LABS: Codeine Urine NEGATIVE ng/mL (<50); Hydrocodone Urine 106 ng/mL (<50); Hydromor Urine NEGATIVE ng/mL (<50); Morphine Urine NEGATIVE ng/mL (<50); Norhydrocodone Conf Ur 87 ng/mL (<50); Noroxycodone Urine NEGATIVE ng/mL (<50); Oxycodone Urine NEGATIVE ng/mL (<50); Oxymorph Urine NEGATIVE ng/mL (<50)
[2022-07-02] MEDS: GABAPENTIN 300 MG CAP PO SCH (21:34)
[2022-07-03] MEDS: SODIUM CHLORIDE 0.9% 1000ML 1,000 ML IV SCH (03:02)
[2022-07-03] MEDS: LEVOTHYROXINE SODIUM 125 MCG TABLET PO SCH (05:31)
[2022-07-03] MEDS: CEFEPIME 1,000 MG in SYRINGE 0 ML IV SCH (05:31)
[2022-07-03] MEDS: HEPARIN SOD 5,000 UNIT/0.5 ML VIAL SQ SCH ×3 (05:31→21:42)
[2022-07-03 06:44] LABS: Hematocrit (blood only) 28.7 % (37.0-47.0); Hemoglobin 8.9 g/dl (12.0-16.0); Mean Corpuscular Hemoglobin 31.3 pg (25.0-34.0); Mean Corpuscular Volume 101.1 fL (80.0-100.0); Mean Platelet Volume 10.6 fL (9.4-12.4); Platelet Count 128 K/uL (130-400); RDW Coefficient of Variation 13.2 % (11.5-14.5); Red Blood Count 2.84 M/uL (4.20-5.40); White Blood Count 12.18 K/ul (4.8-10.8)
[2022-07-03 07:25] LABS: BUN Creatinine Ratio 12.7 (10-20); Calcium 10.1 mg/dl (8.5-10.1); Creatinine Clr Calc Pharmacy 23.2 ml/min; Est GFR (African American) 21.3 ml/min; Est GFR (Non-African American) 18.4 ml/min; Potassium 3.6 mmol/L (3.5-5.1)
[2022-07-03] MEDS: ASPIRIN 81 MG ECTAB PO SCH (08:47)
[2022-07-03] MEDS: FOLIC ACID 1 MG TAB PO SCH (08:47)
[2022-07-03] MEDS: carvediloL 12.5 MG TAB PO SCH ×2 (08:47→22:52)
[2022-07-03] MEDS: PANTOprazole 40 MG TAB PO SCH (08:47)
[2022-07-03] MEDS: CALCITRIOL 0.25 MCG CAPSULE PO SCH (08:47)
[2022-07-03] MEDS: DULoxetine HCL 60 MG CAP PO SCH (08:47)
[2022-07-03] MEDS: guaiFENesin 600 MG TABCR PO SCH ×2 (08:47→22:52)
[2022-07-03] MEDS: ISOSORBIDE MONO EXTENDED REL 30 MG TABCR PO SCH (08:47)
[2022-07-03] MEDS: CYANOCOBALAMIN (B-12) 500 MCG TABLET PO SCH (08:48)
--- NOTE | 2022-07-03 09:13 | Pulmonology Progress Note ---
Date of Service July 03, 2022 Assessment & Plan (1) Acute on chronic respiratory failure with hypoxia and hypercapnia: (2) Acute metabolic encephalopathy: (3) Sleep apnea: (4) Morbid obesity: (5) Sepsis: Plan IMPRESSION: 77-year-old female with significant history of MONIQUE, OHS, chronic hypoxic and hypercarbic respiratory failure on 2 L nasal cannula, chronic diastolic heart failure, morbid obesity, and chronic indwelling Barbosa catheter who presents with metabolic encephalopathy and acute on chronic hypoxemic and hypercarbic respiratory failure. She is now doing well with reestablishment of nightly BiPAP. RECOMMENDATIONS: 1. Acute on Chronic Hypoxic Respiratory Failure with Hypercapnia -patient appears to be improving on BiPAP. Continue nightly BiPAP as well as as needed during the day for altered mental status or when sleeping. Long-term outpatient follow-up with her primary team at [facility]. Would not try and target oxygen saturations above 88 to 90% given her concomitant hypercarbia. Would not try and normalize her CO2, rather target level around 60 2. Metabolic Encephalopathy -resolved 3. MONIQUE -see above. Need to ensure she has appropriate supplies prior to being dismissed from the hospital. 4. Recommend getting the patient out of bed if this is feasible. 5. Management of the patient's other medical issues per primary admitting service. Patient appears to be back to her pulmonary baseline. Pulmonary will sign off at this point time. Feel free to contact us with additional questions or concerns. Admission and Anticipated Discharge Date Admission Date: July 01, 2022 Subjective Patient seen and examined. EMR reviewed. The patient appears much better today. She is awake alert and conversant. She does not appear in any respiratory distress. She is able to use BiPAP all night last night. She is comfortable with the device. She has not been out of bed. She apparently requires a Jose lift at home to get out of bed if she continues to be nonweightbearing. She denies fevers chills or night sweats. She is eating well. Review of Systems Review of Systems: All systems reviewed & are unremarkable except as noted in Subjective Physical Exam Constitutional: WD/WN, vitals as above + morbidly obese Neck: trachea midline, no thyromegaly Respiratory: no respiratory distress, no labored breathing, no cough and not tachypneic Auscultation: + diminished lung sounds; no crackles and no wheezes Cardiovascular: RRR, no murmur, no edema Gastrointestinal (Abdomen): normal bowel sounds, soft, nontender, no hepatosplenomegaly Musculoskeletal: Extremities: extremities normal to inspection Skin: no rashes, warm and dry Lymphatic: no cervical lymphadenopathy Results & Data Results & Data ([facility]) Vital Signs (Past 12 Hours) Vital Signs Temp Pulse Pulse Resp BP BP Pulse Ox 07/03/22 08:27 36.7 C 87 20 169/74 H 94 07/03/22 02:46 37.0 C 76 22 100/57 L 95 07/02/22 23:41 36.5 C 82 16 133/60 97 07/02/22 21:59 85 O2 Del Method O2 Flow Rate 07/03/22 08:27 Nasal Cannula 2 07/03/22 02:46 BiPAP 07/02/22 23:41 BiPAP 2 07/02/22 21:59 Laboratory Results 07/03/22 05:53 07/03/22 05:53 Diagnostic Findings No new imaging PG Care Time/CCT Total # of Minutes Spent Total Time Spent with Patient: Total time spent is greater than 50% in coordination of care (as documented) at patient's floor/unit and/or counseling patient: Coding Level of Care Code 33831 SUB INP/OBS CARE 2/35MIN Diagnoses Acute on chronic respiratory failure with hypoxia and hypercapnia J96.21; J96.22 Acute metabolic encephalopathy G93.41 Sleep apnea G47.30 Morbid obesity E66.01 Sepsis A41.9
[2022-07-03] MEDS: AMPICILLIN 2,000 MG in 0.9 % SODIUM CHLORIDE 100 ML IV SCH ×2 (10:26→21:39)
--- NOTE | 2022-07-03 15:34 | Hospitalist Progress Note ---
Date of Service July 03, 2022 Assessment & Plan (1) Sepsis: Plan: Present on admission with leukocytosis and tachycardia Treated and resolved (2) Acute metabolic encephalopathy: Plan: Likely multifactorial--sepsis and CO2 retention Resolved (3) Catheter-associated urinary tract infection: Plan: Has chronic indwelling jolley catheter which was changed here Urine culture is +enterocococcus Was previously on vancomycin and cefepime now discontinued. Continue ampicillin (4) Osteomyelitis of right leg: Plan: Initially there was concern of this based on X ray Patient was evaluated by orthopedic surgery and wound does not appear infected She should remain NWB of that leg until her follow up appointment with her outside orthopedic surgeon (5) Hypothyroidism: Plan: chronic, stable. Cont current replacment therapy. (6) Depression: Plan: chronic, stable. Cont duloxetine per home regimen. (7) Chronic anemia: Plan: chronic with a decrease from 10 to 8.7. stable, No active bleeding is present. There is also a new macrocytosis. She appears to have iron deficiency wtih an Fe sat of 12%. Will hold iron supplementation until discharge as this makes people very constipated. She has a low normal [id number] start water soluble supplementation at this time. Anemia is likely multifactorial including chronic inflammation, phlebotomy, recent surgery and iron deficiency. (8) Acute kidney injury superimposed on chronic kidney disease: Plan: acute on chronic worsening with creatinine baseline of 1.6-1.8 Cr remains elevated Will check renal/bladder ultrasound Noted to have episodes of hypotension on admission which can certainly precipitate HERMILO (9) Hypertension: Plan: Hypotensive on admission which has resolved Coreg and imdur continued with hold parameters Lasix held--continue to hold with HERMILO currently (10) CKD (chronic kidney disease), stage IV: (11) Fibromuscular dysplasia: Plan: She has a history of right renal artery angioplasty for 90% stenosis due to fibromuscular dysplasia. Stage IV CKD followed by Dr. Malik. Secondary hyperparathyroidism on calcitriol. (12) NICM (nonischemic cardiomyopathy): Plan: History of nonischemic cardiomyopathy with a remote cardiac catheterization in 1996 revealing normal coronary anatomy with severe left ventricular dysfunction. EF was previously 20 to 25% which has resolved. She has NYHA class III chronic persistent dyspnea and a chronic left bundle branch block. She is status post BiV ICD implantation in August 2014. She has some trace bilateral pleural effusions with associated atelectasis and evidence of pulmonary hypertension on CT. Appears compensated. (13) Biventricular ICD (implantable cardioverter-defibrillator) in place: Plan: V-paced rhythm on EKG, (14) Sleep apnea: Plan: Has home CPAP which is not functioning. Appreciate CM input--daughter to bring the machine to [employer] for repair (15) Post-operative state: Plan: OP follow up with her orthopedic surgeon, she has an existing appointment NWB of right leg until follow up (16) Morbid obesity: Plan: DVT proph: heparin Disposition-- Home with once CPAP machine has been repaired. Expected Wednesday Admission and Anticipated Discharge Date Admission Date: July 01, 2022 Subjective Feels well. No complaints currently. Patient was napping when I entered room and was not on BIPAP Physical Exam Physical Exam: Napping comfortably, easily arousable, pleasant and comfortable Respiratory: breathing comfortably, no wheezing/rhonchi/rales Cardiovascular: regular rate and rhythm, no murmurs/rubs/gallops Gastrointestinal (Abdomen): soft, non tender, non distended Musculoskeletal: no edema Skin: right ankle wound is well approximated and steri strips are in place, no surrounding erythema, no wound drainage Neurologic: sleeping but arousable, spontaneously moving extremities Results & Data Results & Data ([facility]) Vital Signs (Past 12 Hours) Vital Signs Temp Pulse Resp BP Pulse Ox O2 Del Method O2 Flow Rate 07/03/22 12:00 Nasal Cannula 2 07/03/22 11:31 36.8 C 69 18 111/64 98 Nasal Cannula 2 07/03/22 08:27 36.7 C 87 20 169/74 H 94 Nasal Cannula 2
--- NOTE | 2022-07-03 17:27 | Ultrasound Report ---
US renal/blad retro comp CLINICAL HISTORY: worsening renal failure TECHNIQUE: Multiple sonographic real-time images of the kidneys and bladder were obtained. COMPARISON: None available at the time of this dictation. FINDINGS: Exam is limited by patient body habitus and cooperation. The right kidney measures 11.4 cm in length, and the left kidney is not visualized. The right kidney is atrophic with a thinned cortex. A Barbosa catheter is seen in the collapsed bladder No large intraluminal mass is seen. IMPRESSION: Only the right kidney was visualized. This appears atrophic without evidence of hydronephrosis. Bladd er is under distended with a Barbosa catheter noted. ACT 112: Negative or not required by law. Electronically signed by: Emiliano Tenorio M.D. 07/03/2022 5:26 PM
[2022-07-03] MEDS: GABAPENTIN 300 MG CAP PO SCH (22:52)
[2022-07-04] MEDS: HEPARIN SOD 5,000 UNIT/0.5 ML VIAL SQ SCH ×3 (06:22→20:46)
[2022-07-04] MEDS: LEVOTHYROXINE SODIUM 125 MCG TABLET PO SCH (06:23)
[2022-07-04 07:04] LABS: Basophils # (auto) 0.02 K/uL (0-0.2); Basophils % (auto) 0.3 %; Eosinophils # (auto) 0.33 K/uL (0-0.50); Eosinophils % (auto) 4.5 %; Hematocrit (blood only) 27.1 % (37.0-47.0); Hemoglobin 8.3 g/dl (12.0-16.0); Immature Granulocytes % (auto) 1.4 %; Lymphocytes # (auto) 0.71 K/uL (1.2-3.4); Lymphocytes % (auto) 9.7 %; Mean Corpuscular Hemoglobin 31.3 pg (25.0-34.0); Mean Corpuscular Hgb Conc 30.6 g/dL (32.0-36.0); Mean Corpuscular Volume 102.3 fL (80.0-100.0); Mean Platelet Volume 10.4 fL (9.4-12.4); Monocytes # (auto) 0.58 K/uL (0.11-0.59); Monocytes % (auto) 7.9 %; Neutrophils # (auto) 5.59 K/uL (1.40-6.50); Neutrophils % (auto) 76.2 %; Platelet Count 128 K/uL (130-400); RDW Coefficient of Variation 13.3 % (11.5-14.5); RDW Standard Deviation 50.4 fL (36.4-46.3); Red Blood Count 2.65 M/uL (4.20-5.40); White Blood Count 7.33 K/ul (4.8-10.8)
[2022-07-04 08:21] LABS: Calcium 9.9 mg/dl (8.5-10.1); Potassium 3.5 mmol/L (3.5-5.1)
[2022-07-04 08:26] LABS: BUN Creatinine Ratio 12.2 (10-20); Est GFR (African American) 22.1 ml/min
[2022-07-04] MEDS: carvediloL 12.5 MG TAB PO SCH ×2 (08:55→20:46)
[2022-07-04] MEDS: AMPICILLIN 2,000 MG in 0.9 % SODIUM CHLORIDE 100 ML IV SCH ×2 (08:55→20:43)
[2022-07-04] MEDS: CALCITRIOL 0.25 MCG CAPSULE PO SCH (08:55)
[2022-07-04] MEDS: guaiFENesin 600 MG TABCR PO SCH ×2 (08:55→20:46)
[2022-07-04] MEDS: CYANOCOBALAMIN (B-12) 500 MCG TABLET PO SCH (09:48)
[2022-07-04] MEDS: FOLIC ACID 1 MG TAB PO SCH (09:49)
[2022-07-04] MEDS: DULoxetine HCL 60 MG CAP PO SCH (09:49)
[2022-07-04] MEDS: ASPIRIN 81 MG ECTAB PO SCH (09:49)
[2022-07-04] MEDS: ISOSORBIDE MONO EXTENDED REL 30 MG TABCR PO SCH (09:49)
[2022-07-04] MEDS: PANTOprazole 40 MG TAB PO SCH (09:49)
--- NOTE | 2022-07-04 15:29 | Hospitalist Progress Note ---
Date of Service July 04, 2022 Assessment & Plan (1) Sepsis: Plan: Present on admission with leukocytosis and tachycardia Treated and resolved (2) Acute metabolic encephalopathy: Plan: Likely multifactorial--sepsis and CO2 retention Resolved (3) Catheter-associated urinary tract infection: Plan: Has chronic indwelling jolley catheter which was changed here Urine culture is +enterocococcus Was previously on vancomycin and cefepime now discontinued. Continue ampicillin (4) Osteomyelitis of right leg: Plan: Initially there was concern of this based on X ray Patient was evaluated by orthopedic surgery and wound does not appear infected She should remain NWB of that leg until her follow up appointment with her outside orthopedic surgeon (5) Hypothyroidism: Plan: chronic, stable. Cont current replacment therapy. (6) Depression: Plan: chronic, stable. Cont duloxetine per home regimen. (7) Chronic anemia: Plan: chronic with a decrease from 10 to 8.7. stable, No active bleeding is present. There is also a new macrocytosis. She appears to have iron deficiency wtih an Fe sat of 12%. Will hold iron supplementation until discharge as this makes people very constipated. She has a low normal [id number] start water soluble supplementation at this time. Anemia is likely multifactorial including chronic inflammation, phlebotomy, recent surgery and iron deficiency. (8) Acute kidney injury superimposed on chronic kidney disease: Plan: Cr baseline appears to be 1.8-2. Cr currently stable at 2.3 Renal ultrasound --only right kidney was seen and was negative for hydronephrosis, kidney is atrophic (9) Hypertension: Plan: Hypotensive on admission which has resolved Coreg and imdur continued with hold parameters Lasix held--continue to hold with HERMILO currently (10) CKD (chronic kidney disease), stage IV: (11) Fibromuscular dysplasia: Plan: She has a history of right renal artery angioplasty for 90% stenosis due to fibromuscular dysplasia. Stage IV CKD followed by Dr. Malik. Secondary hyperparathyroidism on calcitriol. (12) NICM (nonischemic cardiomyopathy): Plan: History of nonischemic cardiomyopathy with a remote cardiac catheterization in 1996 revealing normal coronary anatomy with severe left ventricular dysfunction. EF was previously 20 to 25% which has resolved. She has NYHA class III chronic persistent dyspnea and a chronic left bundle branch block. She is status post BiV ICD implantation in August 2014. She has some trace bilateral pleural effusions with associated atelectasis and evidence of pulmonary hypertension on CT. Appears compensated. (13) Biventricular ICD (implantable cardioverter-defibrillator) in place: Plan: V-paced rhythm on EKG, (14) Sleep apnea: Plan: Has home CPAP which is not functioning. Appreciate CM input--daughter to bring the machine to [facility] for diagnosis on Wednesday. Daughter feels that the CPAP is functioning but that it is not adequate for her and wants BIPAP. Per [facility], patient needs a new sleep study. Daughter requesting discharge coordination with sleep lab so she can get a sleep study as soon as possible (15) Post-operative state: Plan: OP follow up with her orthopedic surgeon, she has an existing appointment NWB of right leg until follow up (16) Morbid obesity: Plan: DVT proph: heparin Disposition-- With her prolonged stay due to questionable non function CPAP, will ask for another PT evaluation prior to discharge to ensure she is at her baseline prior to release Admission and Anticipated Discharge Date Admission Date: July 01, 2022 Subjective Doing well. No new issues overnight. Daughter will bring CPAP machine to [facility] on Wednesday for them to check whether it is functioning Physical Exam Physical Exam: No acute distress, non toxic Respiratory: breathing comfortably on room air, no wheezing/rhonchi/rales Cardiovascular: regular rate and rhythm, no murmurs/rubs/gallops Gastrointestinal (Abdomen): soft, non tender, non distended Musculoskeletal: no edema, right leg with healing wound Skin: right leg wound with no surrounding erythema, skin on both legs are dry and peeling Neurologic: awake, alert, answering questions appropriately Results & Data Results & Data ([facility]) Vital Signs (Past 12 Hours) Vital Signs Temp Pulse Pulse Resp BP BP Pulse Ox 07/04/22 11:36 36.7 C 65 18 103/61 96 07/04/22 08:00 07/04/22 08:03 35.8 C L 65 18 123/62 97 07/04/22 07:46 65 07/04/22 03:59 36.3 C L 67 20 114/60 97 O2 Del Method O2 Flow Rate 07/04/22 11:36 Nasal Cannula 2 07/04/22 08:00 BiPAP 07/04/22 08:03 Room Air 07/04/22 07:46 07/04/22 03:59 BiPAP
[2022-07-04] MEDS: GABAPENTIN 300 MG CAP PO SCH (20:46)
[2022-07-05] MEDS: LEVOTHYROXINE SODIUM 125 MCG TABLET PO SCH (05:29)
[2022-07-05] MEDS: HEPARIN SOD 5,000 UNIT/0.5 ML VIAL SQ SCH ×3 (05:30→19:41)
[2022-07-05] MEDS: AMPICILLIN 2,000 MG in 0.9 % SODIUM CHLORIDE 100 ML IV SCH ×2 (09:20→19:41)
[2022-07-05] MEDS: DULoxetine HCL 60 MG CAP PO SCH (09:21)
[2022-07-05] MEDS: PANTOprazole 40 MG TAB PO SCH (09:21)
[2022-07-05] MEDS: CALCITRIOL 0.25 MCG CAPSULE PO SCH (09:21)
[2022-07-05] MEDS: guaiFENesin 600 MG TABCR PO SCH ×2 (09:21→19:41)
[2022-07-05] MEDS: ISOSORBIDE MONO EXTENDED REL 30 MG TABCR PO SCH (09:22)
[2022-07-05] MEDS: CYANOCOBALAMIN (B-12) 500 MCG TABLET PO SCH (09:22)
[2022-07-05] MEDS: FOLIC ACID 1 MG TAB PO SCH (09:22)
[2022-07-05] MEDS: ASPIRIN 81 MG ECTAB PO SCH (10:29)
[2022-07-05] MEDS: carvediloL 12.5 MG TAB PO SCH ×2 (10:29→19:41)
--- NOTE | 2022-07-05 14:42 | Hospitalist Progress Note ---
Date of Service July 05, 2022 Assessment & Plan (1) Sepsis: Plan: Present on admission with leukocytosis and tachycardia Treated and resolved (2) Acute metabolic encephalopathy: Plan: Likely multifactorial--sepsis and CO2 retention Resolved (3) Catheter-associated urinary tract infection: Plan: Has chronic indwelling jolley catheter which was changed here Urine culture is +enterocococcus Was previously on vancomycin and cefepime now discontinued now on ampicillin. Plan for 7-10 day course, can switch to oral (amoxicillin) at discharge. (4) Osteomyelitis of right leg: Plan: Initially there was concern of this based on X ray Patient was evaluated by orthopedic surgery and wound does not appear infected She should remain NWB of that leg until her follow up appointment with her outside orthopedic surgeon (5) Hypothyroidism: Plan: chronic, stable. Cont current replacment therapy. (6) Depression: Plan: chronic, stable. Cont duloxetine per home regimen. (7) Chronic anemia: Plan: chronic with a decrease from 10 to 8.7. stable, No active bleeding is present. There is also a new macrocytosis. She appears to have iron deficiency wtih an Fe sat of 12%. Will hold iron supplementation until discharge as this makes people very constipated. She has a low normal C23-[id number] start water soluble supplementation at this time. Anemia is likely multifactorial including chronic inflammation, phlebotomy, recent surgery and iron deficiency. (8) Acute kidney injury superimposed on chronic kidney disease: Plan: Cr baseline appears to be 1.8-2. Cr currently stable at 2.3 Renal ultrasound --only right kidney was seen and was negative for hydronephrosis, kidney is atrophic (9) Hypertension: Plan: Hypotensive on admission which has resolved Coreg and imdur continued with hold parameters Lasix held--continue to hold with HERMILO currently (10) CKD (chronic kidney disease), stage IV: (11) Fibromuscular dysplasia: Plan: She has a history of right renal artery angioplasty for 90% stenosis due to fibromuscular dysplasia. Stage IV CKD followed by Dr. Malik. Secondary hyperparathyroidism on calcitriol. (12) NICM (nonischemic cardiomyopathy): Plan: History of nonischemic cardiomyopathy with a remote cardiac catheterization in 1996 revealing normal coronary anatomy with severe left ventricular dysfunction. EF was previously 20 to 25% which has resolved. She has NYHA class III chronic persistent dyspnea and a chronic left bundle branch block. She is status post BiV ICD implantation in August 2014. She has some trace bilateral pleural effusions with associated atelectasis and evidence of pulmonary hypertension on CT. Appears compensated. (13) Biventricular ICD (implantable cardioverter-defibrillator) in place: Plan: V-paced rhythm on EKG, (14) Sleep apnea: Plan: Has home CPAP which is not functioning. Appreciate CM input--daughter to bring the machine to [facility] for diagnosis on Wednesday. Daughter feels that the CPAP is functioning but that it is not adequate for her and wants BIPAP. Per [facility], patient needs a new sleep study. Daughter requesting discharge coordination with sleep lab so she can get a sleep study as soon as possible (15) Post-operative state: Plan: OP follow up with her orthopedic surgeon, she has an existing appointment NWB of right leg until follow up (16) Morbid obesity: Plan: DVT proph: heparin Disposition-- With her prolonged stay due to questionable non function CPAP, will ask for another PT evaluation prior to discharge to ensure she is at her baseline prior to release. Need to ensure functioning CPAP prior to discharge Admission and Anticipated Discharge Date Admission Date: July 01, 2022 Subjective No acute events overnight. Patient with no new changes. Ate breakfast and was napping on BIPAP when she was seen this morning Physical Exam Physical Exam: Napping, easily arousable, no acute distress Respiratory: breathing comfortably, no wheezing/rhonchi/rales Cardiovascular: regular rate and rhythm, no murmurs/rubs Gastrointestinal (Abdomen): soft, non tender, non distended Musculoskeletal: no edema, right leg with wound, both lower extremities with dry, scaling skin Skin: bilateral legs with dry, scaly skin, right leg wound is well approximated Neurologic: awake, alert, sleeping but easily arousable Results & Data Results & Data ([facility]) Vital Signs (Past 12 Hours) Vital Signs Temp Pulse Pulse Resp BP BP Pulse Ox 07/05/22 11:52 07/05/22 11:16 72 22 96 07/05/22 11:16 36.9 C 67 20 112/60 100 07/05/22 07:32 36.4 C L 76 18 147/76 H 100 07/05/22 03:20 36.3 C L 63 20 141/86 H 97 07/05/22 02:58 47 L 18 97 O2 Del Method O2 Flow Rate FiO2 07/05/22 11:52 Nasal Cannula 2 07/05/22 11:16 30 07/05/22 11:16 Nasal Cannula 2 07/05/22 07:32 Nasal Cannula 2 07/05/22 03:20 BiPAP 07/05/22 02:58 30
[2022-07-05] MEDS: GABAPENTIN 300 MG CAP PO SCH (19:41)
[2022-07-06] MEDS: HEPARIN SOD 5,000 UNIT/0.5 ML VIAL SQ SCH ×3 (05:19→20:51)
[2022-07-06] MEDS: LEVOTHYROXINE SODIUM 125 MCG TABLET PO SCH (05:19)
[2022-07-06 07:25] LABS: Est GFR (African American) 26.6 ml/min; Est GFR (Non-African American) 22.9 ml/min
[2022-07-06] MEDS: AMPICILLIN 2,000 MG in 0.9 % SODIUM CHLORIDE 100 ML IV SCH ×2 (08:01→20:59)
[2022-07-06] MEDS: DULoxetine HCL 60 MG CAP PO SCH (08:04)
[2022-07-06] MEDS: CALCITRIOL 0.25 MCG CAPSULE PO SCH (08:04)
[2022-07-06] MEDS: ISOSORBIDE MONO EXTENDED REL 30 MG TABCR PO SCH (08:04)
[2022-07-06] MEDS: ASPIRIN 81 MG ECTAB PO SCH (08:04)
[2022-07-06] MEDS: guaiFENesin 600 MG TABCR PO SCH ×2 (08:04→20:51)
[2022-07-06] MEDS: CYANOCOBALAMIN (B-12) 500 MCG TABLET PO SCH (08:04)
[2022-07-06] MEDS: PANTOprazole 40 MG TAB PO SCH (08:04)
[2022-07-06] MEDS: FOLIC ACID 1 MG TAB PO SCH (08:04)
[2022-07-06] MEDS: carvediloL 12.5 MG TAB PO SCH ×2 (08:05→20:50)
[2022-07-06] MEDS: ACETAMINOPHEN 325 MG TAB PO PRN (09:00)
[2022-07-06] MEDS: DOCUSATE SODIUM/SENNA 50/8.6MG TAB PO SCH (11:54)
[2022-07-06] MEDS: POLYETHYLENE (MIRALAX) 17 GM PACK PO SCH (11:54)
--- NOTE | 2022-07-06 16:33 | Hospitalist Progress Note ---
Date of Service July 06, 2022 Assessment & Plan (1) Sepsis: Plan: Present on admission with leukocytosis and tachycardia Treated and resolved (2) Acute metabolic encephalopathy: Plan: Likely multifactorial--sepsis and CO2 retention Resolved (3) Catheter-associated urinary tract infection: Plan: Has chronic indwelling jolley catheter which was changed here Urine culture is +enterocococcus Was previously on vancomycin and cefepime now discontinued now on ampicillin. Plan for 7-10 day course, can switch to oral (amoxicillin) at discharge. (4) Osteomyelitis of right leg: Plan: Initially there was concern of this based on X ray Patient was evaluated by orthopedic surgery and wound does not appear infected She should remain NWB of that leg until her follow up appointment with her outside orthopedic surgeon (5) Hypothyroidism: Plan: chronic, stable. Cont current replacment therapy. (6) Depression: Plan: chronic, stable. Cont duloxetine per home regimen. (7) Chronic anemia: Plan: chronic with a decrease from 10 to 8.7. stable, No active bleeding is present. There is also a new macrocytosis. She appears to have iron deficiency wtih an Fe sat of 12%. Will hold iron supplementation until discharge as this makes people very constipated. She has a low normal [id number] start water soluble supplementation at this time. Anemia is likely multifactorial including chronic inflammation, phlebotomy, recent surgery and iron deficiency. (8) Acute kidney injury superimposed on chronic kidney disease: Plan: Cr baseline appears to be 1.8-2. Cr currently stable at 2.3 Renal ultrasound --only right kidney was seen and was negative for hydronephrosis, kidney is atrophic (9) Hypertension: Plan: Hypotensive on admission which has resolved Coreg and imdur continued with hold parameters Lasix held--continue to hold with HERMILO currently (10) CKD (chronic kidney disease), stage IV: (11) Fibromuscular dysplasia: Plan: She has a history of right renal artery angioplasty for 90% stenosis due to fibromuscular dysplasia. Stage IV CKD followed by Dr. Malik. Secondary hyperparathyroidism on calcitriol. (12) NICM (nonischemic cardiomyopathy): Plan: History of nonischemic cardiomyopathy with a remote cardiac catheterization in 1996 revealing normal coronary anatomy with severe left ventricular dysfunction. EF was previously 20 to 25% which has resolved. She has NYHA class III chronic persistent dyspnea and a chronic left bundle branch block. She is status post BiV ICD implantation in August 2014. She has some trace bilateral pleural effusions with associated atelectasis and evidence of pulmonary hypertension on CT. Appears compensated. (13) Biventricular ICD (implantable cardioverter-defibrillator) in place: Plan: V-paced rhythm on EKG, (14) Sleep apnea: Plan: Has home CPAP. There was concern that it may not be working properly. Daughter took it to [facility] and confirmed that it is functioning. For her to upgrade to a BIPAP, she needs a sleep study. Daughter will bring in CPAP machine tonight for patient to use (15) Post-operative state: Plan: OP follow up with her orthopedic surgeon, she has an existing appointment NWB of right leg until follow up (16) Morbid obesity: Plan: DVT proph: heparin Disposition-- Plan for HHPT at discharge. Admission and Anticipated Discharge Date Admission Date: July 01, 2022 Subjective No events overnight. Daughter had CPAP machine reviewed by [facility] and confirms that it is working. Will bring it in today for patient to use overnight. Physical Exam Physical Exam: No acute distress, non toxic, napping currently on BIPAP Respiratory: Breathing comfortably on room air, no wheezing/rhonchi Cardiovascular: Regular rate and rhythm, no murmurs/rubs Gastrointestinal (Abdomen): soft non tender Musculoskeletal: no edema Skin: skin is dry and scaly, right leg wound is approximated and with no drainage Neurologic: sleeping, easily arousable Results & Data Results & Data ([facility]) Vital Signs (Past 12 Hours) Vital Signs Temp Pulse Pulse Resp BP Pulse Ox O2 Del Method 07/06/22 16:26 69 07/06/22 15:45 36.2 C L 60 20 110/71 100 Nasal Cannula 07/06/22 11:20 37.0 C 66 18 129/63 99 Nasal Cannula 07/06/22 10:25 Nasal Cannula, BiPAP 07/06/22 09:41 66 07/06/22 07:38 36.2 C L 67 20 114/52 L 96 BiPAP O2 Flow Rate 07/06/22 16:26 07/06/22 15:45 2 07/06/22 11:20 2 07/06/22 10:25 2 07/06/22 09:41 07/06/22 07:38
[2022-07-06] MEDS: GABAPENTIN 300 MG CAP PO SCH (20:45)
[2022-07-07] MEDS: LEVOTHYROXINE SODIUM 125 MCG TABLET PO SCH (06:00)
[2022-07-07] MEDS: HEPARIN SOD 5,000 UNIT/0.5 ML VIAL SQ SCH ×3 (06:01→20:57)
[2022-07-07 06:47] LABS: Base Excess ABG 6.2 mEq/L (-9-1.8); HCO3 ABG 34 mmol/L (19-24); Oxygen Saturation ABG 99.5 % (90-95); PCO2 ABG 71 mmHg (35-46); PO2 ABG 84 mmHg (80-95); pH ABG 7.29 (7.35-7.45)
[2022-07-07 06:49] LABS: Allen Test Pos (Pos)
[2022-07-07] MEDS: carvediloL 12.5 MG TAB PO SCH ×2 (08:28→19:57)
[2022-07-07] MEDS: DOCUSATE SODIUM/SENNA 50/8.6MG TAB PO SCH (08:28)
[2022-07-07] MEDS: ISOSORBIDE MONO EXTENDED REL 30 MG TABCR PO SCH (08:28)
[2022-07-07] MEDS: guaiFENesin 600 MG TABCR PO SCH ×2 (08:28→20:56)
[2022-07-07] MEDS: CYANOCOBALAMIN (B-12) 500 MCG TABLET PO SCH (08:28)
[2022-07-07] MEDS: PANTOprazole 40 MG TAB PO SCH (08:29)
[2022-07-07] MEDS: ASPIRIN 81 MG ECTAB PO SCH (08:29)
[2022-07-07] MEDS: FOLIC ACID 1 MG TAB PO SCH (08:29)
[2022-07-07] MEDS: DULoxetine HCL 60 MG CAP PO SCH (08:29)
[2022-07-07] MEDS: CALCITRIOL 0.25 MCG CAPSULE PO SCH (08:29)
[2022-07-07] MEDS: ACETAMINOPHEN 325 MG TAB PO PRN (08:30)
[2022-07-07] MEDS: POLYETHYLENE (MIRALAX) 17 GM PACK PO SCH (08:32)
[2022-07-07] MEDS: AMPICILLIN 2,000 MG in 0.9 % SODIUM CHLORIDE 100 ML IV SCH ×2 (08:36→20:56)
--- NOTE | 2022-07-07 09:30 | Electrocardiogram Report ---
Test Reason : Blood Pressure : / mmHG Vent. Rate : 070 BPM Atrial Rate : 070 BPM P-R Int : 180 ms QRS Dur : 158 ms QT Int : 432 ms P-R-T Axes : 046 154 028 degrees QTc Int : 466 ms Atrial-sensed ventricular-paced rhythm Abnormal ECG When compared with ECG of 01-JUL-2022 01:14, Vent. rate has decreased BY 36 BPM Confirmed by Oh Dorman ([id number]) on 07/07/2022 9:30:01 AM Referred By: REFERRED SELF Confirmed By:Oh Dorman
[2022-07-07 13:37] LABS: BUN Creatinine Ratio 12.6 (10-20); Calcium 9.7 mg/dl (8.5-10.1); Creatinine Clr Calc Pharmacy 28.8 ml/min; Est GFR (African American) 27.4 ml/min; Est GFR (Non-African American) 23.6 ml/min; Magnesium 1.8 mg/dl (1.7-2.4)
--- NOTE | 2022-07-07 16:29 | Pulmonology Progress Note ---
Date of Service July 07, 2022 Assessment & Plan (1) Obesity hypoventilation syndrome: (2) Acute on chronic respiratory failure with hypoxia and hypercapnia: (3) Acute metabolic encephalopathy: (4) Sleep apnea: (5) Morbid obesity: Plan IMPRESSION: 77-year-old female with significant history of MONIQUE, OHS, chronic hypoxic and hypercarbic respiratory failure on 2 L nasal cannula, chronic diastolic heart failure, morbid obesity, and chronic indwelling Barbosa catheter who presents with metabolic encephalopathy and acute on chronic hypoxemic and hypercarbic respiratory failure. She is now doing well with reestablishment of nightly BiPAP. Hospitalist service asked me to reevaluate the patient given persistent hypercapnia. RECOMMENDATIONS: 1. Acute on Chronic Hypoxic Respiratory Failure with Hypercapnia -patient trialed on CPAP overnight and had evidence acute hypercapnic respiratory failure which remains persistent. Patient clearly has failed CPAP therapy and would benefit from noninvasive ventilation. Discussed with respiratory therapy he will try him on AVAPS tonight. We will obtain ABG tomorrow morning. Due to chronic hypercapnic respiratory failure consequent to obesity hypoventilation syndrome, the patient now requires a noninvasive home ventilator. Bilevel therapy with and without a rate would be ineffective as patient requires a volume targeted mode. Ventilation is required to decrease work of breathing and improve pulmonary status. Interruption of ventilator support would lead to decline of health status. NIMV settings should be AVAPS-AE; Breath rate: auto; Inspiratory time: auto; Sigh: off; Tidal Volume: [450], PS min: [4-10 PS max: 12-20]; EPAP min: [6-10]; EPAP max: [10-16]; AVAPS rate: [16 during sleep and as needed] 2. Metabolic Encephalopathy -resolved 3. MONIQUE/OHS-transition to NIV. ABG tomorrow a.m. 4. Recommend getting the patient out of bed if this is feasible. Patient appears to be back to her pulmonary baseline. Pulmonary will sign off at this point time. Feel free to contact us with additional questions or concerns. Admission and Anticipated Discharge Date Admission Date: July 01, 2022 Subjective History obtained from review of EMR, discussion with bedside nurse and discussion with patient. Patient alert and oriented and denies any complaints. She is very lethargic and falls asleep easily mid conversation. Nursing notes that this essentially is unchanged compared to yesterday. Review of Systems Review of Systems: All systems reviewed & are unremarkable except as noted in HPI & below Physical Exam Constitutional: WD/WN, vitals as above + morbidly obese Morbid obesity limits sensitivity of exam. Neck: trachea midline, no thyromegaly Respiratory: no respiratory distress, no labored breathing, no cough and not tachypneic Auscultation: + diminished lung sounds; no crackles and no wheezes Cardiovascular: RRR, no murmur, no edema Gastrointestinal (Abdomen): normal bowel sounds, soft, nontender, no hepatosplenomegaly Musculoskeletal: Extremities: extremities normal to inspection Skin: no rashes, warm and dry Neurologic: Nonfocal exam Psychiatric: Lethargic, but oriented x3. Lymphatic: no cervical lymphadenopathy Results & Data Results & Data ([facility]) Vital Signs (Past 12 Hours) Vital Signs Temp Pulse Pulse Resp BP Pulse Ox O2 Del Method 07/07/22 15:37 67 07/07/22 15:21 37.0 C 73 18 115/66 95 BiPAP 07/07/22 11:56 Nasal Cannula 07/07/22 11:10 36.5 C 90 18 114/66 92 Nasal Cannula 07/07/22 07:31 36.5 C 72 20 128/64 93 Nasal Cannula 07/07/22 07:28 69 O2 Flow Rate 07/07/22 15:37 07/07/22 15:21 07/07/22 11:56 2 07/07/22 11:10 2 07/07/22 07:31 2 07/07/22 07:28 PG Care Time/CCT Total # of Minutes Spent Total Time Spent with Patient: Total time spent is greater than 50% in coordination of care (as documented) at patient's floor/unit and/or counseling patient: Coding Level of Care Code 21861 SUB INP/OBS CARE 2/35MIN Diagnoses Obesity hypoventilation syndrome E66.2 Acute on chronic respiratory failure with hypoxia and hypercapnia J96.21; J96.22 Acute metabolic encephalopathy G93.41 Sleep apnea G47.30 Morbid obesity E66.01
--- NOTE | 2022-07-07 16:32 | Hospitalist Progress Note ---
Date of Service July 07, 2022 Assessment & Plan (1) Sepsis: Plan: Present on admission with leukocytosis and tachycardia Treated and resolved (2) Acute metabolic encephalopathy: Plan: Likely multifactorial--sepsis and CO2 retention Resolved (3) Catheter-associated urinary tract infection: Plan: Has chronic indwelling jolley catheter which was changed here Urine culture is +enterocococcus Was previously on vancomycin and cefepime now discontinued now on ampicillin. Plan for 7-10 day course, can switch to oral (amoxicillin) at discharge. (4) Osteomyelitis of right leg: Plan: Initially there was concern of this based on X ray Patient was evaluated by orthopedic surgery and wound does not appear infected She should remain NWB of that leg until her follow up appointment with her outside orthopedic surgeon (5) Hypothyroidism: Plan: chronic, stable. Cont current replacment therapy. (6) Depression: Plan: chronic, stable. Cont duloxetine per home regimen. (7) Chronic anemia: Plan: chronic with a decrease from 10 to 8.7. stable, No active bleeding is present. There is also a new macrocytosis. She appears to have iron deficiency wtih an Fe sat of 12%. Will hold iron supplementation until discharge as this makes people very constipated. She has a low normal [id number] start water soluble supplementation at this time. Anemia is likely multifactorial including chronic inflammation, phlebotomy, recent surgery and iron deficiency. (8) Acute kidney injury superimposed on chronic kidney disease: Plan: Cr baseline appears to be 1.8-2. Cr peaked to 2.5. Now back to baseline Renal ultrasound --only right kidney was seen and was negative for hydronephrosis, kidney is atrophic (9) Hypertension: Plan: Hypotensive on admission which has resolved Coreg and imdur continued with hold parameters Lasix held previously due to HERMILO. Will resume lasix 20mg daily tomorrow (10) CKD (chronic kidney disease), stage IV: (11) Fibromuscular dysplasia: Plan: She has a history of right renal artery angioplasty for 90% stenosis due to fibromuscular dysplasia. Stage IV CKD followed by Dr. Malik. Secondary hyperparathyroidism on calcitriol. (12) NICM (nonischemic cardiomyopathy): Plan: History of nonischemic cardiomyopathy with a remote cardiac catheterization in 1996 revealing normal coronary anatomy with severe left ventricular dysfunction. EF was previously 20 to 25% which has resolved. She has NYHA class III chronic persistent dyspnea and a chronic left bundle branch block. She is status post BiV ICD implantation in August 2014. She has some trace bilateral pleural effusions with associated atelectasis and evidence of pulmonary hypertension on CT. Appears compensated. (13) Biventricular ICD (implantable cardioverter-defibrillator) in place: Plan: V-paced rhythm on EKG, (14) Sleep apnea: Plan: Has home CPAP. There was concern that it may not be working properly. Daughter took it to [facility] [place] [facility] on Wednesday and confirmed that it is functioning. Patient used her CPAP here last night and ABG this morning again shows hypercapnea. Discussed with Pulmonology today and it appears she has failed CPAP and will need Trilogy. CM was notified and will help with arrangements. (15) Post-operative state: Plan: OP follow up with her orthopedic surgeon, she has an existing appointment NWB of right leg until follow up (16) Morbid obesity: Plan: DVT proph: heparin Disposition-- Plan for HHPT at discharge. Need Trilogy/AVAPS set up Admission and Anticipated Discharge Date Admission Date: July 01, 2022 Subjective Patient's home CPAP was checked by her [facility] [place] yesterday and found to be working Patient used her home CPAP last night. This morning's ABG was after a full night on CPAP. Discussed with Pulmonology today, it appears she has failed CPAP and would require Trilogy (this was communicated to CM) Patient feels well. No complaints currently Daughter with many concerns and questions about needs after discharge. Physical Exam Physical Exam: No acute distress, non toxic, awake Respiratory: Breathing comfortably on NC, no wheezing/rhonchi/rales Cardiovascular: regular rate and rhythm, no murmurs/rubs/gallops Gastrointestinal (Abdomen): soft, non tender, non distended Skin: dry, scaly skin, right leg wound is well approximated with no discharge Results & Data Results & Data ([facility]) Vital Signs (Past 12 Hours) Vital Signs Temp Pulse Pulse Resp BP Pulse Ox O2 Del Method 07/07/22 15:37 67 07/07/22 15:21 37.0 C 73 18 115/66 95 BiPAP 07/07/22 11:56 Nasal Cannula 07/07/22 11:10 36.5 C 90 18 114/66 92 Nasal Cannula 07/07/22 07:31 36.5 C 72 20 128/64 93 Nasal Cannula 07/07/22 07:28 69 O2 Flow Rate 07/07/22 15:37 07/07/22 15:21 07/07/22 11:56 2 07/07/22 11:10 2 07/07/22 07:31 2 07/07/22 07:28
[2022-07-07] MEDS ORDERED: MAGNESIUM SULFATE / D5W 1 GM/100 ML BAG IV ONE (16:45)
[2022-07-07] MEDS: GABAPENTIN 300 MG CAP PO SCH (20:56)
[2022-07-08] MEDS: ACETAMINOPHEN 325 MG TAB PO PRN ×2 (03:37→21:29)
[2022-07-08] MEDS: HEPARIN SOD 5,000 UNIT/0.5 ML VIAL SQ SCH ×3 (05:29→20:18)
[2022-07-08] MEDS: LEVOTHYROXINE SODIUM 125 MCG TABLET PO SCH (05:30)
[2022-07-08 06:18] LABS: Base Excess ABG 7.4 mEq/L (-9-1.8); HCO3 ABG 36 mmol/L (19-24); Oxygen Saturation ABG 99.6 % (90-95); PCO2 ABG 70 mmHg (35-46); PO2 ABG 102 mmHg (80-95); pH ABG 7.32 (7.35-7.45)
[2022-07-08 06:22] LABS: Allen Test Pos (Pos)
[2022-07-08 06:32] LABS: BUN Creatinine Ratio 13.5 (10-20); Calcium 10.1 mg/dl (8.5-10.1); Est GFR (African American) 29.9 ml/min; Est GFR (Non-African American) 25.8 ml/min; Potassium 4.5 mmol/L (3.5-5.1)
[2022-07-08] MEDS: ASPIRIN 81 MG ECTAB PO SCH (07:41)
[2022-07-08] MEDS: ISOSORBIDE MONO EXTENDED REL 30 MG TABCR PO SCH (07:42)
[2022-07-08] MEDS: FOLIC ACID 1 MG TAB PO SCH (07:42)
[2022-07-08] MEDS: carvediloL 12.5 MG TAB PO SCH ×2 (07:42→20:19)
[2022-07-08] MEDS: CYANOCOBALAMIN (B-12) 500 MCG TABLET PO SCH (07:42)
[2022-07-08] MEDS: DULoxetine HCL 60 MG CAP PO SCH (07:42)
[2022-07-08] MEDS: PANTOprazole 40 MG TAB PO SCH (07:43)
[2022-07-08] MEDS: CALCITRIOL 0.25 MCG CAPSULE PO SCH (07:44)
[2022-07-08] MEDS: POLYETHYLENE (MIRALAX) 17 GM PACK PO SCH (08:00)
[2022-07-08] MEDS: DOCUSATE SODIUM/SENNA 50/8.6MG TAB PO SCH (08:00)
[2022-07-08] MEDS: FUROSEMIDE 20 MG TAB PO SCH (08:45)
[2022-07-08] MEDS: guaiFENesin 600 MG TABCR PO SCH ×2 (08:45→20:19)
[2022-07-08] MEDS: AMPICILLIN 2,000 MG in 0.9 % SODIUM CHLORIDE 100 ML IV SCH (08:48)
--- NOTE | 2022-07-08 17:43 | Hospitalist Progress Note ---
Date of Service July 08, 2022 Assessment & Plan (1) Sepsis: Plan: Present on admission with leukocytosis and tachycardia Treated and resolved (2) Obesity hypoventilation syndrome: (3) Acute on chronic respiratory failure with hypoxia and hypercapnia: Plan: Due to chronic hypercapnic respiratory failure consequent to obesity hypoventilation syndrome, the patient now requires a noninvasive home ventilator ABG pH 7.32/pCO2 70/ pO2 102 Pulm on board - Ventilation is required to decrease work of breathing and improve pulmonary status. NIMV settings should be AVAPS-AE; Breath rate: auto; Inspiratory time: auto; Sigh: off; Tidal Volume: [450], PS min: [4-10 PS max: 12-20]; EPAP min: [6-10]; EPAP max: [10-16]; AVAPS rate: [16 during sleep and as needed] (4) Acute metabolic encephalopathy: Plan: Likely multifactorial--sepsis and CO2 retention CT head showed no acute intracranial abnormality clinically stable (5) Catheter-associated urinary tract infection: Plan: Has chronic indwelling jolley catheter which was changed here Urine culture is +enterocococcus Was previously on vancomycin and cefepime now discontinued now on ampicillin. Will transition to PO amoxicillin to complete a total 10 days course (6) Osteomyelitis of right leg: Plan: Initially there was concern of this based on X ray Patient was evaluated by orthopedic surgery and wound does not appear infected She should remain NWB of that leg until her follow up appointment with her outside orthopedic surgeon (7) Hypothyroidism: Plan: chronic, stable. Cont current replacment therapy. (8) Depression: Plan: chronic, stable. Cont duloxetine per home regimen. (9) Chronic anemia: Plan: chronic with a decrease from 10 to 8.7. stable, No active bleeding is present. There is also a new macrocytosis. She appears to have iron deficiency wtih an Fe sat of 12%. Will hold iron supplementation until discharge as this makes people very constipated. She has a low normal X84-qcnr start water soluble supplementation at this time. Anemia is likely multifactorial including chronic inflammation, phlebotomy, recent surgery and iron deficiency. (10) Acute kidney injury superimposed on chronic kidney disease: Plan: Cr baseline appears to be 1.8-2. Cr peaked to 2.5. Now back to baseline Renal ultrasound --only right kidney was seen and was negative for hydronephrosis, kidney is atrophic (11) Hypertension: Plan: Hypotensive on admission which has resolved Coreg and imdur continued with hold parameters Lasix held previously due to HERMILO. Will resume lasix 20mg daily tomorrow (12) CKD (chronic kidney disease), stage IV: (13) Fibromuscular dysplasia: Plan: She has a history of right renal artery angioplasty for 90% stenosis due to fibromuscular dysplasia. Stage IV CKD followed by Dr. Malik. Secondary hyperparathyroidism on calcitriol. (14) NICM (nonischemic cardiomyopathy): Plan: History of nonischemic cardiomyopathy with a remote cardiac catheterization in 1996 revealing normal coronary anatomy with severe left ventricular dysfunction. EF was previously 20 to 25% which has resolved. She has NYHA class III chronic persistent dyspnea and a chronic left bundle branch block. She is status post BiV ICD implantation in August 2014. She has some trace bilateral pleural effusions with associated atelectasis and evidence of pulmonary hypertension on CT. Appears compensated. (15) Biventricular ICD (implantable cardioverter-defibrillator) in place: Plan: V-paced rhythm on EKG, (16) Sleep apnea: Plan: Has home CPAP. There was concern that it may not be working properly. Daughter took it to [place] on Wednesday and confirmed that it is functioning. Patient used her CPAP here last night and ABG this morning again shows hypercapnea. Discussed with Pulmonology today and it appears she has failed CPAP and will need Trilogy. CM was notified and will help with arrangements. (17) Post-operative state: Plan: OP follow up with her orthopedic surgeon, she has an existing appointment NWB of right leg until follow up (18) Morbid obesity: Plan: DVT proph: heparin Disposition-- Plan for HHPT at discharge. Need Trilogy/AVAPS set up Admission and Anticipated Discharge Date Admission Date: July 01, 2022 Subjective Pt was seen and examined for follow Lying in bed with no acute distress her granddaughter at bedside and pt was feeding herself dinner Grand daughter said that she is looking alot better today I saw her early this morning, but she feels a lot better during dinner time case management is working to get her arrage for Bipap or trilogy It seems like she does not meet the criteria yet as per [employer] I discussed the case with Pulm Dr. Rick that stated patient meets the criteria for Bipap She denies any chest pain, palpitation dizziness and sob Review of Systems Review of Systems: All systems reviewed & are unremarkable except as noted in Subjective Physical Exam Physical Exam: General- No acute distress Head- atraumatic Eyes- PERRL, EOMI, ENT- oropharynx clear Neck- supple, no JVD Lungs- clear to auscultation Heart- regular rhythm; no murmur Abdomen- normal bowel sounds, soft, nontender Extremities- no calf tenderness, Right lower leg swelling with large laceration- no drainage Neuro- alert, awake PERRL, EOMI; no facial palsy; no dysarthria Skin- warm & dry Results & Data Results & Data ([facility]) Vital Signs (Past 12 Hours) Vital Signs Temp Pulse Pulse Resp BP BP Pulse Ox 07/08/22 06:12 63 07/08/22 14:35 63 07/08/22 15:09 36.5 C 64 18 129/53 L 100 07/08/22 12:35 60 18 97 07/08/22 12:44 07/08/22 11:01 36.7 C 62 18 91/50 L 100 07/08/22 07:27 37.1 C 67 18 125/62 98 O2 Del Method O2 Flow Rate 07/08/22 06:12 07/08/22 14:35 07/08/22 15:09 Room Air 07/08/22 12:35 07/08/22 12:44 Nasal Cannula 2 07/08/22 11:01 Nasal Cannula 2 07/08/22 07:27 BiPAP
[2022-07-08] MEDS: GABAPENTIN 300 MG CAP PO SCH (20:19)
[2022-07-08] MEDS: AMOXICILLIN 500 MG CAP PO SCH (20:20)
[2022-07-09] MEDS: LEVOTHYROXINE SODIUM 125 MCG TABLET PO SCH (05:45)
[2022-07-09] MEDS: HEPARIN SOD 5,000 UNIT/0.5 ML VIAL SQ SCH ×3 (05:45→21:07)
[2022-07-09] MEDS: ISOSORBIDE MONO EXTENDED REL 30 MG TABCR PO SCH (08:47)
[2022-07-09] MEDS: AMOXICILLIN 500 MG CAP PO SCH ×2 (08:47→21:07)
[2022-07-09] MEDS: DULoxetine HCL 60 MG CAP PO SCH (08:47)
[2022-07-09] MEDS: CYANOCOBALAMIN (B-12) 500 MCG TABLET PO SCH (08:47)
[2022-07-09] MEDS: carvediloL 12.5 MG TAB PO SCH ×2 (08:47→21:06)
[2022-07-09] MEDS: guaiFENesin 600 MG TABCR PO SCH ×2 (08:47→21:07)
[2022-07-09] MEDS: PANTOprazole 40 MG TAB PO SCH (08:47)
[2022-07-09] MEDS: FUROSEMIDE 20 MG TAB PO SCH (08:48)
[2022-07-09] MEDS: ASPIRIN 81 MG ECTAB PO SCH (08:48)
[2022-07-09] MEDS: CALCITRIOL 0.25 MCG CAPSULE PO SCH (08:48)
[2022-07-09] MEDS: DOCUSATE SODIUM/SENNA 50/8.6MG TAB PO SCH (08:54)
[2022-07-09] MEDS: POLYETHYLENE (MIRALAX) 17 GM PACK PO SCH (08:54)
[2022-07-09] MEDS: FOLIC ACID 1 MG TAB PO SCH (09:14)
[2022-07-09 11:35] LABS: Base Excess ABG 7.3 mEq/L (-9-1.8); HCO3 ABG 35 mmol/L (19-24); Oxygen Saturation ABG 97.4 % (90-95); PCO2 ABG 64 mmHg (35-46); PO2 ABG 85 mmHg (80-95); pH ABG 7.34 (7.35-7.45)
[2022-07-09 11:44] LABS: Allen Test Pos (Pos)
--- NOTE | 2022-07-09 16:24 | Hospitalist Progress Note ---
Date of Service July 09, 2022 Assessment & Plan (1) Sepsis: Plan: Present on admission with leukocytosis and tachycardia Treated and resolved (2) Obesity hypoventilation syndrome: (3) Acute on chronic respiratory failure with hypoxia and hypercapnia: Plan: Due to chronic hypercapnic respiratory failure consequent to obesity hypoventilation syndrome, the patient now requires a noninvasive home ventilator ABG pH 7.32/pCO2 70/ pO2 102 Pulm on board - Ventilation is required to decrease work of breathing and improve pulmonary status. NIMV settings should be AVAPS-AE; Breath rate: auto; Inspiratory time: auto; Sigh: off; Tidal Volume: [450], PS min: [4-10 PS max: 12-20]; EPAP min: [6-10]; EPAP max: [10-16]; AVAPS rate: [16 during sleep and as needed] Pt is requiring the AVAPS because of severe thoracic restriction due to morbid obesity case management is working on Trilogy/AVAPS set up (4) Acute metabolic encephalopathy: Plan: Likely multifactorial--sepsis and CO2 retention CT head showed no acute intracranial abnormality clinically stable (5) Catheter-associated urinary tract infection: Plan: Has chronic indwelling jolley catheter which was changed here Urine culture is +enterocococcus Was previously on vancomycin and cefepime now discontinued now on ampicillin. Continue PO amoxicillin to complete a total 10 days course (6) Osteomyelitis of right leg: Plan: Initially there was concern of this based on X ray Patient was evaluated by orthopedic surgery and wound does not appear infected She should remain NWB of that leg until her follow up appointment with her out side orthopedic surgeon (7) Hypothyroidism: Plan: chronic, stable. Cont current replacment therapy. (8) Depression: Plan: chronic, stable. Cont duloxetine per home regimen. (9) Chronic anemia: Plan: chronic with a decrease from 10 to 8.7. stable, No active bleeding is present. There is also a new macrocytosis. She appears to have iron deficiency wtih an Fe sat of 12%. Will hold iron supplementation until discharge as this makes people very constipated. She has a low normal A87-iddu start water soluble supplementation at this time. Anemia is likely multifactorial including chronic inflammation, phlebotomy, recent surgery and iron deficiency. (10) Acute kidney injury superimposed on chronic kidney disease: Plan: Cr baseline appears to be 1.8-2. Cr peaked to 2.5. Now back to baseline Renal ultrasound --only right kidney was seen and was negative for hydronephrosis, kidney is atrophic (11) Hypertension: Plan: Hypotensive on admission which has resolved Coreg and imdur continued with hold parameters Lasix held previously due to HERMILO. Will resume lasix 20mg daily tomorrow (12) CKD (chronic kidney disease), stage IV: (13) Fibromuscular dysplasia: Plan: She has a history of right renal artery angioplasty for 90% stenosis due to fibromuscular dysplasia. Stage IV CKD followed by Dr. Malik. Secondary hyperparathyroidism on calcitriol. (14) NICM (nonischemic cardiomyopathy): Plan: History of nonischemic cardiomyopathy with a remote cardiac catheterization in 1996 revealing normal coronary anatomy with severe left ventricular dysfunction. EF was previously 20 to 25% which has resolved. She has NYHA class III chronic persistent dyspnea and a chronic left bundle branch block. She is status post BiV ICD implantation in August 2014. She has some trace bilateral pleural effusions with associated atelectasis and evidence of pulmonary hypertension on CT. Appears compensated. (15) Biventricular ICD (implantable cardioverter-defibrillator) in place: Plan: V-paced rhythm on EKG, (16) Sleep apnea: Plan: Has home CPAP. There was concern that it may not be working properly. Daughter took it to [place] on Wednesday and confirmed that it is functioning. Patient used her CPAP here last night and ABG this morning again shows hypercapnea. Discussed with Pulmonology today and it appears she has failed CPAP and will need Trilogy. CM was notified and will help with arrangements. (17) Post-operative state: Plan: OP follow up with her orthopedic surgeon, she has an existing appointment NWB of right leg until follow up (18) Morbid obesity: Plan: DVT proph: heparin Disposition-- Plan for HHPT at discharge. Admission and Anticipated Discharge Date Admission Date: July 01, 2022 Subjective Pt was seen and examined for follow Lying in bed with no acute distress with Daughter at bedside Pt said that she feels much better She said that last night she used the Bipap She denies any chest pain, palpitation dizziness and sob Review of Systems Review of Systems: All systems reviewed & are unremarkable except as noted in Subjective Physical Exam Physical Exam: General- No acute distress Head- atraumatic Eyes- PERRL, EOMI, ENT- oropharynx clear Neck- supple, no JVD Lungs- clear to auscultation Heart- regular rhythm; no murmur Abdomen- normal bowel sounds, soft, nontender Extremities- no calf tenderness, Right lower leg swelling with large laceration- no drainage Neuro- alert, awake PERRL, EOMI; no facial palsy; no dysarthria Skin- warm & dry Results & Data Results & Data ([facility]) Vital Signs (Past 12 Hours) Vital Signs Temp Pulse Pulse Resp BP Pulse Ox O2 Del Method 07/09/22 15:50 36.8 C 62 20 119/57 L 99 Nasal Cannula 07/09/22 14:04 67 07/09/22 06:40 118 H 07/09/22 11:14 36.9 C 69 18 102/64 98 Nasal Cannula 07/09/22 08:00 Nasal Cannula 07/09/22 07:20 36.6 C 77 18 111/71 93 Nasal Cannula O2 Flow Rate 07/09/22 15:50 3 07/09/22 14:04 07/09/22 06:40 07/09/22 11:14 2 07/09/22 08:00 2 07/09/22 07:20 2
--- NOTE | 2022-07-09 16:24 | Pulmonology Progress Note ---
Date of Service July 09, 2022 Assessment & Plan (1) Obesity hypoventilation syndrome: (2) Hypercapnia: (3) Morbid obesity: (4) Hypoxia: (5) Respiratory failure with hypoxia: (6) Sleep apnea: Plan Attending: Dr. Rick Impression: 77-year-old female with chronic respiratory failure requiring supplemental oxygen due to hypoxia and hypercarbic respiratory failure. Patient has significant history of obstructive sleep apnea and obesity hypoventilation syndrome. BMI is 41.2 kg/m. Patient has clearly failed his CPAP therapy and has persistent hypoxia and hypercapnia. Due to the failure of conventional positive airway pressure therapy, patient would benefit from noninvasive ventilation. Repeat ABG showed improvement of not only her PCO2 but also of her arterial pH. Patient currently is stable and doing well and awaiting discharge once appropriate equipment can be obtained. Recommendations: 1. Acute on chronic hypoxic respiratory failure with hypercapnia: * Patient has severe restrictive thoracic disease consequent to morbid obesity. Patient has failed outpatient therapy with CPAP. She is now requiring noninvasive ventilation to target tidal volume with adjustable pressures with the hopes of reducing PCO2 levels and increased oxygenation. This is necessary to help improve overall respiratory status reducing the risk of readmission and patient harm. Patient will require a battery backup as interruption or power failure may cause serious respiratory medical consequences and/or may be life-threatening. * Patient has decreased oxygen nation during nocturnal study with 36 desaturation events. Patient's lowest SPO2 during the study was 46%. Aggregate time less than 88% was 1 hour 23 minutes and 36 seconds. Patient's longest continuous event was 5 minutes and 34 seconds. Patient should continue with supplemental oxygen 2 L/min by nasal cannula and bled into CPAP or AVAPS. * Bedside PFTs demonstrate severe restriction. Full PFTs should be performed as an outpatient when discharged * At this time, continue AVAPS at bedside as patient is tolerating the therapy and seems to be improving based on ABGs. 2. MONIQUE/OHS: * Due to chronic hypercapnic respiratory failure consequent to obesity hypoventilation system, patient now requires noninvasive home ventilator. Bilevel therapy with and without a rate was not effective for this patient as she failed therapy as she requires a volume targeted mode. Ventilation is required to decrease work of breathing and improve pulmonary status. Interruption of ventilator support would lead to decline of health status when including possibility of . * NIMV settings should be AVAPS-AE; Breath rate: auto; Inspiratory time: auto; Sigh: off; Tidal Volume: 450, PS min: 4-10 PS max: 12-20; EPAP min: 6-10; EPAP max: 10-16; AVAPS rate: 16 during sleep and as needed * Secondary to severe restrictive thoracic disease consequent to morbid obesity. 3. Metabolic encephalopathy: * Secondary to #1 and #2 above * Now resolved 4. Morbid obesity secondary to increased calories and decreased activity: * Patient should be out of bed except when sleeping * Encourage bedside chair * Encourage ambulation as tolerated * Increase activity as tolerated * Outpatient referral for weight management program would be appropriate Thank you for including us in the care of this patient. Please refer to Dr. Ping hughes's addendum for further recommendations and corrections. We will follow the patient peripherally to assist with obtaining noninvasive ventilator. Admission and Anticipated Discharge Date Admission Date: July 01, 2022 Subjective Attending: Dr. Rick Impression: This is a 77-year-old female that was admitted for shortness of breath and metabolic encephalopathy. She has a history of acute on chronic hypoxemic and hypercapnic respiratory failure. She has multiple hospitalizations and is currently doing well with reestablishment of nightly BiPAP therapy. Arterial blood gases have shown significant hypercapnia as well as hypoxia. She currently appears to be back to baseline. She is awake and oriented. Her daughter is sitting with her at bedside. At this time we are working on discharge home with pulmonary support with AVAPS therapy. Patient denies any fever, chills, sweats, rigors. No other acute complaints. Review of Systems Review of Systems: A total of 10 systems was reviewed and is negative other than as listed in the HPI Physical Exam Physical Exam: GENERAL : No acute distress EYES: No icterus, gaze conjugate NOSE: No evidence of epistaxis MOUTH: No lesions or candidiasis NECK: Supple LUNGS: Decreased breathing throughout. Patient has no appreciable bronchospasm, rales, rhonchi. She does take very shallow breaths and has difficulty with full expiration. HEART: Regular, rate controlled ABDOMEN: Soft, NT, ND, BS Present EXTREMITIES: No LE edema, pedal pulses intact NEURO: A&OX3 Results & Data Results & Data ([facility]) Vital Signs (Past 12 Hours) Vital Signs Temp Pulse Pulse Pulse Resp BP Pulse Ox 07/09/22 15:50 36.8 C 62 20 119/57 L 99 07/09/22 14:04 67 07/09/22 06:40 118 H 07/09/22 11:14 36.9 C 69 18 102/64 98 07/09/22 08:00 07/09/22 07:20 36.6 C 77 18 111/71 93 07/09/22 04:15 59 L 07/09/22 04:14 59 L 23 90 Pulse Ox O2 Del Method O2 Del Method O2 Flow Rate O2 Flow Rate 07/09/22 15:50 Nasal Cannula 3 07/09/22 14:04 07/09/22 06:40 07/09/22 11:14 Nasal Cannula 2 07/09/22 08:00 Nasal Cannula 2 07/09/22 07:20 Nasal Cannula 2 07/09/22 04:15 90 BiPAP 2 07/09/22 04:14 2 Critical Care Results & Data Vital Signs (Past 12 Hours) Vital Signs Temp Pulse Pulse Pulse Resp BP Pulse Ox 07/09/22 15:50 36.8 C 62 20 119/57 L 99 07/09/22 14:04 67 07/09/22 06:40 118 H 07/09/22 11:14 36.9 C 69 18 102/64 98 07/09/22 08:00 07/09/22 07:20 36.6 C 77 18 111/71 93 07/09/22 04:15 59 L 07/09/22 04:14 59 L 23 90 Pulse Ox O2 Del Method O2 Del Method O2 Flow Rate O2 Flow Rate 07/09/22 15:50 Nasal Cannula 3 07/09/22 14:04 07/09/22 06:40 07/09/22 11:14 Nasal Cannula 2 07/09/22 08:00 Nasal Cannula 2 07/09/22 07:20 Nasal Cannula 2 07/09/22 04:15 90 BiPAP 2 07/09/22 04:14 2 Lab & Micro Results (Past 24 Hours) No Data to Display Creatinine 1.57 mg/dl (0.6-1.2) H 07/10/22 Estimated GFR ( Amer) 36.5 ml/min 07/10/22 Estimated GFR (Non-Af Amer) 31.5 ml/min 07/10/22 No Data to Display I & O Totals 24 Hours 07/08/22 07/09/22 07/10/22 06:59 06:59 06:59 Intake Total 1086 / 1086 828 / 828 450 / 450 Output Total 2200 / 2200 3500 / 3500 1150 / 1150 Balance -1114 / -1114 -2672 / -2672 -700 / -700 Cumulative 07/01/22 00:57 thru 07/09/22 15:04 Intake Total 86732.333 Output Total 58708 Balance -3083.667 RT Ventilator Mngmt (Last Documented) Ventilator Ordered Settings Respiratory Rate 20 07/09/22 15:50 Fraction of Inspired Oxygen [ 21 07/08/22 22:20 Resting] Fraction of Inspired Oxygen 07/08/22 22:20 Ventilator - PT Measurements Respiratory Rate 20 PG Care Time/CCT Total # of Minutes Spent Total Time Spent with Patient: Total time spent is greater than 50% in coordination of care (as documented) at patient's floor/unit and/or counseling patient: Coding Level of Care Code 45273 SUB INP/OBS CARE 2/35MIN Diagnoses Obesity hypoventilation syndrome E66.2 Hypercapnia R06.89 Morbid obesity E66.01 Hypoxia R09.02 Respiratory failure with hypoxia J96.91 Sleep apnea G47.30
[2022-07-09] MEDS: ACETAMINOPHEN 325 MG TAB PO PRN (21:04)
[2022-07-09] MEDS: GABAPENTIN 300 MG CAP PO SCH (21:07)
[2022-07-09] MEDS ORDERED: HYDROCODONE/ACETAMOPHEN 5/325MG TAB PO PRN (23:44)
[2022-07-10] MEDS: HEPARIN SOD 5,000 UNIT/0.5 ML VIAL SQ SCH ×2 (06:14→14:50)
[2022-07-10] MEDS: LEVOTHYROXINE SODIUM 125 MCG TABLET PO SCH (06:15)
[2022-07-10 07:09] LABS: Creatinine Clr Calc Pharmacy 36.4 ml/min; Est GFR (African American) 36.5 ml/min; Est GFR (Non-African American) 31.5 ml/min
[2022-07-10] MEDS: guaiFENesin 600 MG TABCR PO SCH (08:27)
[2022-07-10] MEDS: FOLIC ACID 1 MG TAB PO SCH (08:28)
[2022-07-10] MEDS: carvediloL 12.5 MG TAB PO SCH (08:28)
[2022-07-10] MEDS: ASPIRIN 81 MG ECTAB PO SCH (08:28)
[2022-07-10] MEDS: CYANOCOBALAMIN (B-12) 500 MCG TABLET PO SCH (08:29)
[2022-07-10] MEDS: DULoxetine HCL 60 MG CAP PO SCH (08:29)
[2022-07-10] MEDS: FUROSEMIDE 20 MG TAB PO SCH (08:30)
[2022-07-10] MEDS: AMOXICILLIN 500 MG CAP PO SCH (08:30)
[2022-07-10] MEDS: CALCITRIOL 0.25 MCG CAPSULE PO SCH (08:30)
[2022-07-10] MEDS: ISOSORBIDE MONO EXTENDED REL 30 MG TABCR PO SCH (08:30)
[2022-07-10] MEDS: PANTOprazole 40 MG TAB PO SCH (08:30)
[2022-07-10] MEDS: POLYETHYLENE (MIRALAX) 17 GM PACK PO SCH (10:14)
[2022-07-10] MEDS: DOCUSATE SODIUM/SENNA 50/8.6MG TAB PO SCH (10:14)
--- NOTE | 2022-07-10 14:40 | Pulmonology Progress Note ---
Date of Service July 10, 2022 Assessment & Plan (1) Obesity hypoventilation syndrome: Plan: Patient's constellation of findings are consistent with OHS. She also has evidence of severe restrictive physiology based on her PFTs. 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 She has failed CPAP. She has done quite well with AVAPS while in the hospital and her hypercapnia is improving. She will require AVAPS as an outpatient to help prevent readmissions and recurrent exacerbations of hypoxemic and hypercapnic respiratory failure. No further recommendations at this time. Patient is stable for discharge. (2) Hypercapnia: (3) Morbid obesity: (4) Hypoxia: (5) Respiratory failure with hypoxia: (6) Sleep apnea: Admission and Anticipated Discharge Date Admission Date: July 01, 2022 Subjective Patient seen and examined. Eager to go home. Awake and alert. Denies any shortness of breath or chest pain. Essentially bedbound. Review of Systems Review of Systems: All systems reviewed & are unremarkable except as noted in HPI & below Physical Exam Constitutional: WD/WN, vitals as above + morbidly obese Morbid obesity limits sensitivity of exam. Neck: trachea midline, no thyromegaly Respiratory: no respiratory distress, no labored breathing, no cough and not tachypneic Auscultation: + diminished lung sounds; no crackles and no wheezes Cardiovascular: RRR, no murmur, no edema Gastrointestinal (Abdomen): normal bowel sounds, soft, nontender, no hepatosplenomegaly Musculoskeletal: Extremities: extremities normal to inspection Skin: no rashes, warm and dry Neurologic: Nonfocal exam Psychiatric: Lethargic, but oriented x3. Lymphatic: no cervical lymphadenopathy Results & Data Results & Data ([facility]) Vital Signs (Past 12 Hours) Vital Signs Temp Pulse Resp BP BP Pulse Ox O2 Del Method 07/10/22 11:54 36.6 C 65 16 127/63 97 Nasal Cannula 07/10/22 08:00 Nasal Cannula 07/10/22 07:19 36.5 C 75 16 149/74 H 94 CPAP 07/10/22 04:15 36.6 C 63 18 144/74 H 96 Room Air, CPAP O2 Flow Rate 07/10/22 11:54 2 07/10/22 08:00 2 07/10/22 07:19 07/10/22 04:15 PG Care Time/CCT Total # of Minutes Spent Total Time Spent with Patient: Total time spent is greater than 50% in coordination of care (as documented) at patient's floor/unit and/or counseling patient: Coding Level of Care Code 29990 SUB INP/OBS CARE 05/27MIN Diagnoses Obesity hypoventilation syndrome E66.2 Hypercapnia R06.89 Morbid obesity E66.01 Hypoxia R09.02 Respiratory failure with hypoxia J96.91 Sleep apnea G47.30
--- NOTE | 2022-07-10 14:50 | Discharge Summary ---
Date of Service July 10, 2022 Admission HPI Per Admitting Provider History obtained from patient, family, and records. Medical history significant for chronic diastolic heart failure secondary to nonischemic cardiomyopathy status post ICD (EF 55 to 59%, TTE 2018 ), chronic LBBB, PVD, hypertension, hyperlipidemia obstructive sleep apnea on CPAP, CRI (baseline creatinine 2), chronic anemia (baseline hemoglobin 9-10 ), bladder cancer as per records, vulvar cancer status post radiation, hypothyroidism, prediabetes, recurrent UTIs, chronic indwelling Jolley catheter, recent right ankle fracture surgery (05/2022), past tobacco abuse Last [facility] confinement March 2020 for multifactorial metabolic encephalopathy, respiratory acidosis, UTI. Patient admitted at [facility] last May 2022 for a traumatic open right distal tibia/fibular fracture status post surgery. Patient subsequently discharged to [facility] rehab facility where she stayed from May 27 to June 10, 2022 before going home. Right ankle healing well as per outpatient [facility] Orthopedics note last month. Patient felt weak yesterday similar to symptoms of UTI. Denies abdominal pain. Patient later noted to be confused by family. O2 sats noted to be 80s upon EMS arrival. Patient denies chest pain, SOB, unusual cough symptoms. Compliant with CPAP although machine noted to have some problems the last 2 weeks. BiPAP initiated at the ER. Patient currently more awake. Cefepime administered at the ER. Medical History as above [place] [facility] [place]. Recommended settings AutoPap 5-15 cmH2O as per note. Surgical History : , cholecystectomy, renal angioplasty, sinus surgery, ICD, ankle surgery, knee surgery Family History : Gallbladder cancer, heart disease Personal/Social history : Past tobacco abuse. No chronic intake of alcoholic beverages. 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 Lives with sister. Principal Diagnosis Obesity hypoventilation syndrome Morbid obesity Sleep apnea Acute on chronic respiratory failure with hypoxia and hypercapnia: Acute metabolic encephalopathy: Catheter-associated urinary tract infection: Osteomyelitis of right leg: Hypothyroidism: Acute kidney injury superimposed on chronic kidney disease: Hypertension: CKD (chronic kidney disease), stage IV: Discharge Exam General- No acute distress Head- atraumatic Eyes- PERRL, EOMI, ENT- oropharynx clear Neck- supple, no JVD Lungs- clear to auscultation Heart- regular rhythm; no murmur Abdomen- normal bowel sounds, soft, nontender Extremities- no calf tenderness, Right lower leg swelling with large laceration- no drainage Neuro- alert, awake PERRL, EOMI; no facial palsy; no dysarthria Skin- warm & dry Discharge Data Allergies Allergy/AdvReac Type Severity Reaction Status Date / Time daptomycin Allergy Intermediate RASH Verified 07/01/22 01:53 house dust Allergy Mild NASAL Verified 07/01/22 01:53 CONGESTION mold Allergy Mild NASAL Verified 07/01/22 01:53 CONGESTION lisinopril AdvReac Unknown Verified 07/07/22 07:44 Consultations 07/01/22 04:35 ED Decision to Admit Stat 07/01/22 08:47 Consult Pulmonology Routine 07/01/22 13:34 Consult Orthopedic Surgery Routine Ordered Studies 07/01/22 01:43 CT angio chest PE protocol Stat CT head/brain wo con Stat 07/03/22 16:19 US Renal Bladder [US renal/blad retro comp] Routine Laboratory Results WBC 7.33 K/ul (4.8-10.8) 07/04/22 06:21 RBC 2.65 M/uL (4.20-5.40) L 07/04/22 06:21 Hgb 8.3 g/dl (12.0-16.0) L 07/04/22 06:21 POC Hgb 10.2 g/dl (12.0-16.0) L 07/01/22 13:55 Hct 27.1 % (37.0-47.0) L 07/04/22 06:21 POC Hct 30 % (37-47) L 07/01/22 13:55 MCV 102.3 fL (80.0-100.0) H 07/04/22 06:21 MCH 31.3 pg (25.0-34.0) 07/04/22 06:21 MCHC 30.6 g/dL (32.0-36.0) L 07/04/22 06:21 RDW Std Deviation 50.4 fL (36.4-46.3) H 07/04/22 06:21 RDW Coeff of Isael 13.3 % (11.5-14.5) 07/04/22 06:21 Plt Count 128 K/uL (130-400) L 07/04/22 06:21 MPV 10.4 fL (9.4-12.4) 07/04/22 06:21 Immature Gran % (Auto) 1.4 % 07/04/22 06:21 Neut % (Auto) 76.2 % 07/04/22 06:21 Lymph % (Auto) 9.7 % 07/04/22 06:21 Morris % (Auto) 7.9 % 07/04/22 06:21 Eos % (Auto) 4.5 % 07/04/22 06:21 Baso % (Auto) 0.3 % 07/04/22 06:21 Neut # (Auto) 5.59 K/uL (1.40-6.50) 07/04/22 06:21 Lymph # (Auto) 0.71 K/uL (1.2-3.4) L 07/04/22 06:21 Morris # (Auto) 0.58 K/uL (0.11-0.59) 07/04/22 06:21 Eos # (Auto) 0.33 K/uL (0-0.50) 07/04/22 06:21 Baso # (Auto) 0.02 K/uL (0-0.2) 07/04/22 06:21 Immature Gran # (Auto) 0.10 K/uL (0.01-0.20) 07/04/22 06:21 ESR 43 mm/hr (0-30) H 07/01/22 10:15 PT 11.3 Seconds (9.0-12.0) 07/01/22 01:20 INR 1.1 (0.9-1.1) 07/01/22 01:20 Sample Site R Radial 07/01/22 13:55 POC pH 7.35 (7.35-7.45) 07/01/22 13:55 POC pCO2 65 mmHg (35-46) H 07/01/22 13:55 POC pO2 82 mmHg (80-95) 07/01/22 13:55 POC HCO3 36 honey/L (19-24) H 07/01/22 13:55 POC Total CO2 38 mmol/L (24-31) H 07/01/22 13:55 POC Base Excess 10.0 honey/L (-9-1.8) H 07/01/22 13:55 ABG pH 7.34 (7.35-7.45) L 07/09/22 11:19 ABG pH (Temp Correct) 7.352 (7.35-7.45) 07/01/22 13:55 ABG pCO2 64 mmHg (35-46) H 07/09/22 11:19 ABG pCO2 (Temp Corrct 65 mmHg (35-46) H 07/01/22 13:55 ABG pO2 85 mmHg (80-95) 07/09/22 11:19 POC ABG pO2 at Pt Temp 82 07/01/22 13:55 ABG HCO3 35 mmol/L (19-24) H 07/09/22 11:19 POC ABG O2 Sat 95.0 % (90-95) 07/01/22 13:55 ABG O2 Saturation 97.4 % (90-95) H 07/09/22 11:19 ABG Base Excess 7.3 mEq/L (-9-1.8) H 07/09/22 11:19 Fredo Test Pos (Pos) 07/09/22 11:19 Barometric Pressure Cancelled 07/09/22 10:28 Oxygen Given 2L 07/09/22 11:19 O2 Delivery Device BIPAP 07/01/22 13:55 POC O2 Rate 18 07/01/22 13:55 POC FiO2 40 % 07/01/22 13:55 IPAP 16 07/01/22 13:55 POC Sodium 134 mmol/L (135-144) L 07/01/22 13:55 Sodium 138 mmol/L (136-145) 07/08/22 05:36 POC Potassium 3.5 mmol/L (3.3-5.0) 07/01/22 13:55 Potassium 4.5 mmol/L (3.5-5.1) 07/08/22 05:36 Chloride 101 mmol/L (98-107) 07/08/22 05:36 Carbon Dioxide 34 mmol/L (21-32) H 07/08/22 05:36 Anion Gap 3 (3-11) 07/08/22 05:36 BUN 25 mg/dl (6-23) H 07/08/22 05:36 Creatinine 1.57 mg/dl (0.6-1.2) H 07/10/22 05:36 Est Cr Clr Drug Dosing 36.4 ml/min 07/10/22 05:36 Est GFR ( Amer) 36.5 ml/min 07/10/22 05:36 Est GFR (Non-Af Amer) 31.5 ml/min 07/10/22 05:36 BUN/Creatinine Ratio 13.5 (10-20) 07/08/22 05:36 Glucose 86 mg/dl (70-99(Fasting)) 07/08/22 05:36 POC Glucose 167 mg/dl (70-99) H 07/05/22 14:04 Lactate 1.7 mmol/L (0.4-2.0) 07/01/22 02:15 Calcium 10.1 mg/dl (8.5-10.1) 07/08/22 05:36 Magnesium 2.0 mg/dl (1.7-2.4) 07/08/22 05:36 Iron 15 mcg/dl (35-150) L 07/02/22 05:31 Unsaturated IBC 127 mcg/dl (155-355) L 07/02/22 05:31 Ferritin 339.8 ng/ml (8-388) 07/02/22 05:31 Total Bilirubin 0.4 mg/dl (0.2-1.0) 07/01/22 01:20 Direct Bilirubin 0.0 mg/dl (0-0.2) 07/01/22 01:20 AST 15 U/L (13-39) 07/01/22 01:20 ALT 6 U/L (7-52) L 07/01/22 01:20 Alkaline Phosphatase 207 U/L (34-104) H 07/01/22 01:20 Troponin I High Sens 8.3 pg/ml (0-14) 07/01/22 01:20 C-Reactive Protein 15.20 mg/dl (0-0.5) H 07/01/22 10:15 B-Natriuretic Peptide 129 pg/ml (0-100) H 07/01/22 15:16 Total Protein 6.7 gm/dl (6.0-8.3) 07/01/22 01:20 Albumin 3.4 gm/dl (3.4-5.0) 07/01/22 01:20 Vitamin B12 286 pg/ml (180-914) 07/02/22 05:31 Folate > 22.30 ng/ml (>5.38) 07/02/22 05:31 Procalcitonin 0.36 ng/ml (0-0.5) 07/01/22 02:15 TSH 2.124 uIu/ml (0.300-4.500) 07/01/22 02:15 Urine Color Yellow 07/01/22 08:35 Urine Appearance Slightly Cloudy (Clear) 07/01/22 08:35 Urine pH 6.0 (4.5-7.5) 07/01/22 08:35 Ur Specific Timblin 1.010 (1.000-1.030) 07/01/22 08:35 Urine Protein 1+ (Negative) H 07/01/22 08:35 Urine Glucose (UA) Negative (Negative) 07/01/22 08:35 Urine Ketones Negative (Negative) 07/01/22 08:35 Urine Blood 2+ (Negative) H 07/01/22 08:35 Urine Nitrite Negative (Negative) 07/01/22 08:35 Urine Bilirubin Negative (Negative) 07/01/22 08:35 Urine Urobilinogen Negative (Negative) 07/01/22 08:35 Ur Leukocyte Esterase 1+ (Negative) H 07/01/22 08:35 Urine RBC 0-4 /hpf (0-4) 07/01/22 08:35 Urine WBC 10-30 /hpf (0-5) H 07/01/22 08:35 Ur Epithelial Cells 0-5 /lpf (0-5) 07/01/22 08:35 Urine Bacteria 1+ (Negative) H 07/01/22 08:35 Random Vancomycin 19.7 mcg/ml (10-20) 07/02/22 05:31 Urine Opiates Screen Pos (Neg) H 07/01/22 10:15 U Codeine Confrm GC/MS NEGATIVE ng/mL (<50) 07/01/22 10:15 Ur Morphine (GC/MS) NEGATIVE ng/mL (<50) 07/01/22 10:15 Ur Hydrocodone (GC/MS) 106 ng/mL (<50) H 07/01/22 10:15 Ur Norhydrocodone 87 ng/mL (<50) H 07/01/22 10:15 Ur Noroxycodone NEGATIVE ng/mL (<50) 07/01/22 10:15 Urine Oxycodone (GC/MS) NEGATIVE ng/mL (<50) 07/01/22 10:15 U Oxymorphone GC/MS NEGATIVE ng/mL (<50) 07/01/22 10:15 Ur Methadone, Qual Neg (Neg) 07/01/22 10:15 Ur Hydromorphone (GC/MS) NEGATIVE ng/mL (<50) 07/01/22 10:15 Urine Barbiturates Neg (Neg) 07/01/22 10:15 Ur Phencyclidine (PCP) Neg (Neg) 07/01/22 10:15 U Amphetamin/Meth Scrn Neg (Neg) 07/01/22 10:15 MDMA (Ecstasy) Screen Neg (Neg) 07/01/22 10:15 U Benzodiazepines Scrn Neg (Neg) 07/01/22 10:15 Ur Cocaine Metabolite Neg (Neg) 07/01/22 10:15 U Marijuana (THC) Screen Neg (Neg) 07/01/22 10:15 Drug Screen Comment SEE NOTE 07/01/22 10:15 SARS-CoV-2 (PCR) NEGATIVE (Negative) 07/01/22 04:18 Influenza Type A (PCR) Negative (Neg) 07/01/22 04:18 Influenza Type B (PCR) Negative (Neg) 07/01/22 04:18 RSV (RT-PCR) Negative (Neg) 07/01/22 04:18 Impressions Chest X-Ray 07/01/22 01:09 XR chest 1V portable CLINICAL HISTORY: Sepsis TECHNIQUE: Single frontal radiograph of the chest was obtained. Comparison: Comparison is made to chest radiograph of 10/21/2019 FINDINGS: Pacemaker defibrillator is seen. Calcified aortic knob is seen. Lungs are underinflated but clear the peripheral bibasilar atelectasis. Cannot exclude tiny bilateral pleural effusions. IMPRESSION: No definite evidence of pneumonia. Lungs are underinflated. ACT 112: Negative or not required by law. Electronically signed by: Emiliano Tenorio M.D. 07/01/2022 7:13 AM Chest CTA 07/01/22 01:43 CT angio chest PE protocol CLINICAL HISTORY: PE TECHNIQUE: Multidetector row helical CT of the chest was performed with angiographic protocol. Coronal and sagittal reformations were obtained. Coronal and sagittal MIPS were obtained from the axial data set and were submitted for review. Automated dose lowering techniques and/or adjustment according to patient size were utilized for this exam. Comparison: Comparison is made to CT chest 09/21/2010 FINDINGS: Lungs and pleura: Atelectasis versus scarring is seen in the dependent portions of the lungs. Trace bilateral pleural effusions are seen. Heart and pericardium: There is cardiomegaly without evidence of pericardial effusion. Vessels: No evidence of pulmonary embolism. Pulmonary trunk measures 34 mm in diameter. Mediastinum and jovan: Unremarkable. Chest wall and lower neck: Unremarkable. Abdomen: Patient is status post cholecystectomy. Enlargement of the common bile duct is seen, unchanged. Bones: Degenerative changes in the thoracic spine. IMPRESSION: 1. No pulmonary embolus is seen. 2. Trace bilateral pleural effusions with associated atelectasis. 3. Marked cardiomegaly. Pulmonary hypertension is seen. 4. Additional findings as above. ACT 112: Negative or not required by law. Electronically signed by: Emiliano Tenorio M.D. 07/01/2022 8:[address] 07/01/22 01:43 CT head/brain wo con CLINICAL HISTORY: confusion Technique: Contiguous axial CT images of the head were acquired from the base of the skull to the vertex without intravenous contrast administration. Images were viewed in brain, subdural and bone windows. Automated dose lowering techniques and/or adjustment according to patient size were utilized for this exam. Comparison: Comparison is made to CT head 05/10/2022 Findings: The ventricles, basal cisterns, and cerebral sulci are normal. There is no acute intracranial hemorrhage or evidence of acute territorial infarction. Neither mass effect, shift of the midline structures, nor abnormal extra-axial fluid collections are shown. Imaged portions of the paranasal sinuses and mastoid air cells are clear. The orbits appear normal. There are no acute fractures of the calvaria or scalp swelling. Old bony defect in the right occipital bone is unchanged. Impression: No acute intracranial hemorrhage, no evidence of acute territorial infarction or other acute intracranial disease process. ACT 112: Negative or not required by law. Electronically signed by: Emiliano Tenorio M.D. 07/01/2022 7:47 AM Tibia/Fibula X-Ray 07/01/22 11:42 XR tibia fibula RT 2V CLINICAL HISTORY: recent repair. ? Infection TECHNIQUE: 2 radiographic views of the right leg were obtained. Comparison: Comparison is made to left tibia and fibula radiograph 05/10/2022 FINDINGS: There is irregularity of the previously noted tibial and fibular fractures. Orthopedic hardware spans the tibia and hindfoot. Soft tissue swelling is seen. IMPRESSION: Prominent soft tissue swelling, clinical correlation for cellulitis is recommended. The fracture fragments are in near-anatomic alignment and no mustapha erosions are seen, however osteomyelitis cannot be entirely excluded. ACT 112: Negative or not required by law. Electronically signed by: Emiliano Tenorio M.D. 07/01/2022 12:56 PM Renal Ultrasound 07/03/22 16:19 US renal/blad retro comp CLINICAL HISTORY: worsening renal failure TECHNIQUE: Multiple sonographic real-time images of the kidneys and bladder were obtained. COMPARISON: None available at the time of this dictation. FINDINGS: Exam is limited by patient body habitus and cooperation. The right kidney measures 11.4 cm in length, and the left kidney is not visualized. The right kidney is atrophic with a thinned cortex. A Jolley catheter is seen in the collapsed bladder No large intraluminal mass is seen. IMPRESSION: Only the right kidney was visualized. This appears atrophic without evidence of hydronephrosis. Bladder is under distended with a Jolley catheter noted. ACT 112: Negative or not required by law. Electronically signed by: Emiliano Tenorio M.D. 07/03/2022 5:26 PM Hospital Course (1) Sepsis: Present on admission with leukocytosis and tachycardia Treated and resolved (2) Obesity hypoventilation syndrome: (3) Acute on chronic respiratory failure with hypoxia and hypercapnia: Due to chronic hypercapnic respiratory failure consequent to obesity hypoventilation syndrome, the patient now requires a noninvasive home ventilator ABG pH 7.32/pCO2 70/ pO2 102 Pulm on board - Ventilation is required to decrease work of breathing and improve pulmonary status. NIMV settings should be AVAPS-AE; Breath rate: auto; Inspiratory time: auto; Sigh: off; Tidal Volume: [450], PS min: [4-10 PS max: 12-20]; EPAP min: [6-10]; EPAP max: [10-16]; AVAPS rate: [16 during sleep and as needed] Pt is requiring the AVAPS because of severe thoracic restriction due to morbid obesity case management is working on Trilogy/AVAPS set up (4) Acute metabolic encephalopathy: Likely multifactorial--sepsis and CO2 retention CT head showed no acute intracranial abnormality clinically stable (5) Catheter-associated urinary tract infection: Has chronic indwelling jolley catheter which was changed here Urine culture is +enterocococcus Was previously on vancomycin and cefepime now discontinued now on ampicillin. Continue PO amoxicillin to complete a total 10 days course (6) Osteomyelitis of right leg: Initially there was concern of this based on X ray Patient was evaluated by orthopedic surgery and wound does not appear infected She should remain NWB of that leg until her follow up appointment with her outside orthopedic surgeon (7) Hypothyroidism: chronic, stable. Cont current replacment therapy. (8) Depression: chronic, stable. Cont duloxetine per home regimen. (9) Chronic anemia: chronic with a decrease from 10 to 8.7. stable, No active bleeding is present. There is also a new macrocytosis. She appears to have iron deficiency wtih an Fe sat of 12%. Will hold iron supplementation until discharge as this makes people very constipated. She has a low normal [id number] start water soluble supplementation at this time. Anemia is likely multifactorial including chronic inflammation, phlebotomy, recent surgery and iron deficiency. (10) Acute kidney injury superimposed on chronic kidney disease: Cr baseline appears to be 1.8-2. Cr peaked to 2.5. Now back to baseline Renal ultrasound --only right kidney was seen and was negative for hydronephrosis, kidney is atrophic (11) Hypertension: Hypotensive on admission which has resolved Coreg and imdur continued with hold parameters Lasix held previously due to HERMILO. Will resume lasix 20mg daily tomorrow (12) CKD (chronic kidney disease), stage IV: (13) Fibromuscular dysplasia: She has a history of right renal artery angioplasty for 90% stenosis due to fibromuscular dysplasia. Stage IV CKD followed by Dr. Malik. Secondary hyperparathyroidism on calcitriol. (14) NICM (nonischemic cardiomyopathy): History of nonischemic cardiomyopathy with a remote cardiac catheterization in 1996 revealing normal coronary anatomy with severe left ventricular dysfunction. EF was previously 20 to 25% which has resolved. She has NYHA class III chronic persistent dyspnea and a chronic left bundle branch block. She is status post BiV ICD implantation in August 2014. She has some trace bilateral pleural effusions with associated atelectasis and evidence of pulmonary hypertension on CT. Appears compensated. (15) Biventricular ICD (implantable cardioverter-defibrillator) in place: V-paced rhythm on EKG, (16) Sleep apnea: Has home CPAP. There was concern that it may not be working properly. Daughter took it to [facility] on Wednesday and confirmed that it is functioning. Patient used her CPAP here last night and ABG this morning again shows hypercapnea. Di scussed with Pulmonology today and it appears she has failed CPAP and will need Trilogy. CM was notified and will help with arrangements. (17) Post-operative state: OP follow up with her orthopedic surgeon, she has an existing appointment NWB of right leg until follow up (18) Morbid obesity: DVT proph: heparin Disposition-- Plan for HHPT at discharge. Total Time Total Time Spent Total Time Spent (In Minutes): 35 minutes Discharge Plan Discharge Items Patient Disposition: Home - Home Health Services Reason For Visit: ENCEPHALOPATHY Discharge Diagnosis: Obesity hypoventilation syndrome Morbid obesity Sleep apnea Acute on chronic respiratory failure with hypoxia and hypercapnia: Acute metabolic encephalopathy: Catheter-associated urinary tract infection: Osteomyelitis of right leg: Hypothyroidism: Acute kidney injury superimposed on chronic kidney disease: Hypertension: CKD (chronic kidney disease), stage IV: Activity: Resume your previous activity Non-emergency contact: Primary Care Provider, Surgeon and Plumbing Warehouse Helper Call non-emergency contact if: you have any medication questions and your temperature is above 101 Follow-up/Referrals: Rashid Wiggins [Primary Care Provider] - (The [facility] is aware of your discharge and will make arrangements for a home visit. ) Diet: Heart Healthy Addtl Attending Provider Instructions: Follow up with your [facility] care provider ( Please call to schedule for the follow up appointment) Follow up with pulmonology outpatient You will need to get arranged for outpatient pulmonary function test (your provider or pulmonology will place the referral) Follow up with your orthopedic Continue non weight bearing of the right lower extremity until your follow up appointment with outside orthopedic surgeon Check BMP in 1 week to continue monitor your renal function and electrolytes Continue oxygen supplement Continue physical and occupational therapy Fall precaution Counseling on weight loss Discharge home with jolley cath Pending Studies at Discharge: No Stand-Alone Forms: My tenfarms, Smoking Cessation Medications and DC Order Prescriptions: New polyethylene glycol 3350 [Miralax] 17 gram Powder In Packet 17 g PO DAILY PRN (Reason: constipation) Qty: 30 0RF sennosides-docusate sodium [Senokot-S] 8.6-50 mg Tablet 1 tab PO QAM Qty: 30 0RF guaifenesin [Mucinex] 600 mg Tablet Extended Release 12hr 600 mg PO Q12 PRN (Reason: cough) Qty: 14 0RF Continued ferrous sulfate 325 mg (65 mg iron) tablet 325 mg PO TID acetaminophen [Mapap (acetaminophen)] 325 mg Tablet 650 mg PO Q4H PRN (Reason: pain (scale score 4-6)) Qty: 60 0RF carvedilol 12.5 mg Tablet 12.5 mg PO BID isosorbide mononitrate 30 mg Tablet Extended Release 24 Hr 30 mg PO QAM calcitriol 0.5 mcg Capsule 0.5 mcg PO QAM nitroglycerin [Nitrostat] 0.4 mg Tablet, Sublingual 0.4 mg Sublingual DIRECTED PRN (Reason: Chest Pain) Rx Instructions: PLACE ONE TABLET UNDER THE TONGUE EVERY 5 MINUTES FOR UP TO 3 DOSES OVER 15 MINUTES IF NEEDED FOR CHEST PAIN folic acid 1 mg Tablet 1 mg PO QAM rosuvastatin [Crestor] 20 mg Tablet 20 mg PO QAM duloxetine 60 mg capsule,delayed release(DR/EC) 60 mg PO DAILY gabapentin 300 mg capsule 300 mg PO HS hydrocodone-acetaminophen 5-325 mg tablet 1 tab PO Q4H PRN (Reason: Pain) Rx Instructions: PER PT'S MED LIST "TAKE AT HS EVERY NIGHT". Take every 4-6 hours as needed for pain levothyroxine 125 mcg tablet 125 mcg PO DAILYBB aspirin 81 mg Tablet,Delayed Release (Dr/Ec) 81 mg PO DAILY pantoprazole 40 mg tablet,delayed release (DR/EC) 40 mg PO QAM furosemide 20 mg tablet 20 mg PO QAM Discharge Orders: Discharge Order (Routine); Ordered 07/10/22 Ordered By: Leonie Mejia Admission Data Admit Date/Time: 07/01/22 06:17 Attending Provider: Leonie Mejia Admit Provider: Juanpablo Kim Primary Care Provider: Rashid Wiggins Other Providers: Juanpablo Kim ; Riccardo Molina ; Gus Liang ; Rehan Rick ; Walter Whatley ; Landry Chris ; Maureen Laboy ; Grabiel Matamoros Jacque Whiting ; Lamine Gamble-Thi
[2022-07-10 15:46] VITALS: PULSE 63; TEMP 98.1; O2SAT 100
[2022-07-10 16:52] VITALS: BP 144/74
== END 2022-07-10 19:46 | disposition home health service (06) | DRG 871 ==
LOC: ED 01:01 → SUATTDRO 06:17 → 2N 06:17